=== PATIENT | female | born 1955 | race Caucasian/White ===

== ENCOUNTER 2016-09-15 12:32 | Observation (INO) ==
[2016-09-15 12:59] LABS: Basophils # 0.1 K/mcL (0.0-0.2); Basophils % 0.9 %; Eosinophils # 0.1 K/mcL (0.0-0.6); Eosinophils % 0.9 %; Hemoglobin 10.7 g/dL (11.5-15.4); Immature Granulocytes % 0.4 % (0-4); Lymphocytes # 1.4 K/mcL (0.6-4.6); Lymphocytes % 24.5 %; Mean Corpuscular HGB Conc 34.5 g/dL (31.6-35.5); Mean Corpuscular Hemoglobin 32.9 pg (28.0-33.3); Mean Corpuscular Volume 95.4 fL (83.0-100.0); Mean Platelet Volume 10.5 fL (9.4-12.4); Monocytes # 0.3 K/mcL (0.0-1.3); Monocytes % 5.4 %; Neutrophils # 3.8 K/mcL (1.6-8.9); Platelet Count 206 K/mcL (140-400); Red Blood Count 3.25 M/mcL (3.82-4.97); Red Cell Distribution Width 12.1 % (11.5-14.5); Segmented Neutrophils % 67.9 %
--- NOTE | 2016-09-15 13:02 | Emergency Department Note ---
Disposition Clinical Impression: RENE (acute kidney injury), Dehydration, UTI (urinary tract infection) Disposition: Admitted As Inpatient Condition: Good Abdominal Pain HPI - General Chief Complaint: ED Abdominal Pain Stated Complaint: Abd pain Time Seen by Provider: 09/15/16 12:34 Source: patient, EMS Nursing Notes Reviewed: Yes Vital Signs Reviewed: Yes - History of Present Illness Pain Scale: 10 - Related Data Home Medications Medication Instructions Recorded Confirmed Cholecalciferol (D-3) [Vitamin D] 5,000 unit PO DAILY 09/15/16 09/15/16 Ferrous Sulfate [Iron] 325 mg PO DAILY 09/15/16 09/15/16 Insulin Glargine,Hum.rec.anlog 10 unit SQ HS 09/15/16 09/15/16 [Lantus Solostar] Metoprolol XL (24 HR) Succ [Toprol 50 mg PO DAILY 09/15/16 09/15/16 XL] Sodium Bicarbonate 650 mg PO TID 09/15/16 09/15/16 Allergies Allergy/AdvReac Type Severity Reaction Status Date / Time No Known Allergies Allergy Verified 01/12/15 17:50 Abdominal Pain PMH - Past Medical History Medical history: Reports: CHF, COPD, CVA, diabetes, hyperlipidemia, hypertension , myocardial infarction Female Surgical History: Reports: cholecystectomy [employer] history: Reports: non-contributory Psychiatric history: Reports: no psych history - Social History Smoking status: Current every day smoker Alcohol use: Reports: none Drug use: Reports: none Physical Exam - General Limitations: no limitations General appearance: alert, in no apparent distress Course Vital Signs Temperature 97.7 F 09/15/16 12:34 Pulse Rate 68 09/15/16 12:34 Respiratory Rate 16 09/15/16 12:34 Blood Pressure 178/91 09/15/16 12:34 O2 Sat by Pulse Oximetry 100 09/15/16 12:34 Temperature 97.4 F L 09/15/16 15:51 Pulse Rate 64 09/15/16 15:51 Respiratory Rate 16 09/15/16 15:51 Blood Pressure 167/77 09/15/16 15:51 O2 Sat by Pulse Oximetry 98 09/15/16 15:51 Oxygen Delivery Oxygen Delivery Room Air Abdominal Pain - MDM Narrative Medical decision making narrative: I examined this patient and my medical decision-making was reviewed with the ACCOUNTS RECEIVABLE SPECIALIST/PA/Advanced Practice Nurse/Resident Physician. I agree with the documented findings, disposition and treatment plan as described except to the extent set forth below. Patient seen and evaluated by Dr. Kim and myself, I agree with his evaluation and management plan, I supervised the care of the patient throughout her stay. She presents with epigastric and right upper quadrant abdominal pain. She says she no longer has her gallbladder feels like goes into her back. No chest pain now but she said she did have a little pressure in her chest earlier. Nauseous but no vomiting no diarrhea no lower abdominal pain. Specifically to make her comfortable check an EKG lab work and reassess. She is in agreement with this plan. Chest X-Ray 09/15/16 12:38 IMPRESSION: No acute process. D/ / Moody Thomas MD / Moody Thomas MD Interpreting Provider: Moody Thomas MD 1400 hrs.: Patient's urinalysis is back shows large amount of white cells but no bacteria, also has elevation in creatinine from baseline of 2-1/2. This may be due to renal insufficiency answers no signs of bacteria this point. Waiting on CAT scan. Chest X-Ray 09/15/16 12:38 IMPRESSION: No acute process. D/ / Moody Thomas MD / Moody Thomas MD Interpreting Provider: Moody Thomas MD Abdomen/Pelvis CT 09/15/16 12:59 IMPRESSION: 1. No acute intra-abdominal or intrapelvic process. 2. Normal appendix. 3. No urinary stones or hydronephrosis. 4. Chronic right renal cortical scarring. 5. Patient status post cholecystectomy. D/ / Karthikeyan Mclain MD / Karthikeyan Mclain MD Interpreting Provider: Karthikeyan Mclain MD 1420 hrs.: Patient has elevation in her creatinine probably from dehydration. Her urinalysis looks like infection. CAT scan is negative. We will discuss with her regarding admission. She does see nephrology here Dr. Paz. - Lab Data Result diagrams: 09/15/16 12:46 09/15/16 12:46 Lab Results 09/15/16 09/15/16 09/15/16 Range/Units 12:46 12:46 12:46 WBC 5.6 (4.3-11.1) K/mcL RBC 3.25 L (3.82-4.97) M/mcL Hgb 10.7 L (11.5-15.4) g/dL Hct 31.0 L (35.3-44.9) % MCV 95.4 (83.0-100.0) fL MCH 32.9 (28.0-33.3) pg MCHC 34.5 (31.6-35.5) g/dL RDW 12.1 (11.5-14.5) % Plt Count 206 (140-400) K/mcL MPV 10.5 (9.4-12.4) fL Immature Gran % 0.4 (0-4) % Seg Neutrophils % 67.9 % Lymphocytes % 24.5 % Monocytes % 5.4 % Eosinophils % 0.9 % Basophils % 0.9 % Neutrophils # 3.8 (1.6-8.9) K/mcL Lymphocytes # 1.4 (0.6-4.6) K/mcL Monocytes # 0.3 (0.0-1.3) K/mcL Eosinophils # 0.1 (0.0-0.6) K/mcL Basophils # 0.1 (0.0-0.2) K/mcL Sodium 138 (136-145) mEq/L Potassium 4.0 (3.5-4.5) mEq/L Chloride 108 (98-109) mEq/L Carbon Dioxide 18 L (19-29) mEq/L BUN 32 H (7-20) mg/dL Creatinine 3.16 H (0.57-1.11) mg/dL Est GFR ( Amer) 18 L (> 60) Est GFR (Non-Af Amer) 15 L (> 60) BUN/Creatinine Ratio 10 (6-26) Glucose 314 H (70-99) mg/dL Calculated Osmolality 305 H (280-300) Calcium 9.0 (8.6-10.8) mg/dL Total Bilirubin 0.4 (0.2-1.2) mg/dL AST 11 (5-34) Units/L ALT 7 (0-55) Units/L Alkaline Phosphatase 207 H (38-126) Units/L Troponin I 0.01 (0-0.03) ng/mL Serum Total Protein 7.5 (6.0-8.3) g/dL Albumin 3.6 (3.5-5.0) g/dL Globulin 3.9 H (2.4-3.5) g/dL Albumin/Globulin Ratio 0.9 L (1.1-2.2) Lipase 36 (8-78) Units/L Urine Color (Yellow) Urine Clarity (Clear) Urine pH (5.0-8.0) pH Units Ur Specific [place] (1.010-1.025) Urine Protein (Neg-Trace) mg/dL Urine Glucose (UA) (Normal) mg/dL Urine Ketones (Negative) mg/dL Urine Blood (Negative) Urine Nitrite (Negative) Urine Bilirubin (Negative) Urine Urobilinogen (Normal) mg/dL Ur Leukocyte Esterase (Negative) Urine Microscopic RBC (0-3) per hpf Urine Microscopic WBC (0-3) per hpf Ur Squamous Epith Cells (None-Few) per lpf Urine Bacteria (None-Few) per hpf Hyaline Casts (None-Few) per lpf Ur Culture Indicated? (NO) 09/15/16 Range/Units 13:00 WBC (4.3-11.1) K/mcL RBC (3.82-4.97) M/mcL Hgb (11.5-15.4) g/dL Hct (35.3-44.9) % MCV (83.0-100.0) fL MCH (28.0-33.3) pg MCHC (31.6-35.5) g/dL RDW (11.5-14.5) % Plt Count (140-400) K/mcL MPV (9.4-12.4) fL Immature Gran % (0-4) % Seg Neutrophils % % Lymphocytes % % Monocytes % % Eosinophils % % Basophils % % Neutrophils # (1.6-8.9) K/mcL Lymphocytes # (0.6-4.6) K/mcL Monocytes # (0.0-1.3) K/mcL Eosinophils # (0.0-0.6) K/mcL Basophils # (0.0-0.2) K/mcL Sodium (136-145) mEq/L Potassium (3.5-4.5) mEq/L Chloride (98-109) mEq/L Carbon Dioxide (19-29) mEq/L BUN (7-20) mg/dL Creatinine (0.57-1.11) mg/dL Est GFR ( Amer) (> 60) Est GFR (Non-Af Amer) (> 60) BUN/Creatinine Ratio (6-26) Glucose (70-99) mg/dL Calculated Osmolality (280-300) Calcium (8.6-10.8) mg/dL Total Bilirubin (0.2-1.2) mg/dL AST (5-34) Units/L ALT (0-55) Units/L Alkaline Phosphatase (38-126) Units/L Troponin I (0-0.03) ng/mL Serum Total Protein (6.0-8.3) g/dL Albumin (3.5-5.0) g/dL Globulin (2.4-3.5) g/dL Albumin/Globulin Ratio (1.1-2.2) Lipase (8-78) Units/L Urine Color Yellow (Yellow) Urine Clarity Cloudy A (Clear) Urine pH 6.0 (5.0-8.0) pH Units Ur Specific [place] 1.015 (1.010-1.025) Urine Protein 30 H (Neg-Trace) mg/dL Urine Glucose (UA) >=1000 H (Normal) mg/dL Urine Ketones Negative (Negative) mg/dL Urine Blood Trace H (Negative) Urine Nitrite Positive A (Negative) Urine Bilirubin Negative (Negative) Urine Urobilinogen Normal (Normal) mg/dL Ur Leukocyte Esterase Large H (Negative) Urine Microscopic RBC 5-15 H (0-3) per hpf Urine Microscopic WBC 50-100 H (0-3) per hpf Ur Squamous Epith Cells Many H (None-Few) per lpf Urine Bacteria Many H (None-Few) per hpf Hyaline Casts None Seen (None-Few) per lpf Ur Culture Indicated? YES A (NO)
[2016-09-15 13:19] LABS: Albumin 3.6 g/dL (3.5-5.0); Albumin/Globulin Ratio 0.9 (1.1-2.2); Bilirubin,Total 0.4 mg/dL (0.2-1.2); Globulin 3.9 g/dL (2.4-3.5); Total Protein 7.5 g/dL (6.0-8.3)
[2016-09-15] MEDS ORDERED: *HR* FentaNYL (PF) 100 MCG/2 ML VIAL IVP ONE (13:22)
[2016-09-15 13:26] LABS: Bilirubin,Urine Negative (Negative); Blood,Urine Trace (Negative); Clarity,Urine Cloudy (Clear); Color,Urine Yellow (Yellow); Glucose,Urine (UA) >=1000 mg/dL (Normal); Ketones,Urine Negative (Negative); Leukocyte Esterase,Urine Large (Negative); Nitrite,Urine Positive (Negative); Protein,Urine 30 mg/dL (Neg-Trace); Specific Gravity,Urine 1.015 (1.010-1.025); Urobilinogen,Urine Normal (Normal)
[2016-09-15 13:30] LABS: Bacteria,Urine Many per hpf (None-Few); Hyaline Casts,Urine None Seen per lpf (None-Few); Squamous Epithelial Cell,Urine Many per lpf (None-Few); WBC,Urine 50-100 per hpf (0-3)
--- NOTE | 2016-09-15 13:30 | Emergency Department Note ---
Disposition Clinical Impression: RENE (acute kidney injury), Dehydration, UTI (urinary tract infection) Disposition: Admitted As Inpatient Condition: Good Referrals: NO,PCP [Non-Partnered Physician] - Forms: ED Satisfaction Letter, Work/School Release Time of Disposition: 14:49 Abdominal Pain HPI - General Chief Complaint: ED Abdominal Pain Stated Complaint: Abd pain Time Seen by Provider: 09/15/16 12:34 Source: patient, EMS Mode of arrival: ambulatory Limitations: no limitations Nursing Notes Reviewed: Yes Vital Signs Reviewed: Yes - History of Present Illness HPI Narrative: Patient presents to the ED with the chief complaint of acute onset abdominal pain. Patient states that about 2 hours ago or 2 hours prior to arrival. She was sitting and had onset of epigastric pain. States it feels sharp but also just feels a pain. It radiates up her right costal margin into her right flank. She states that her entire abdomen feels very distended. She has been nauseated. She has vomited a few times when she has tried to eat. To decreased appetite. Had a tactile fever but did not take anything for it. She has had no diarrhea or recent sick contacts. No foods out of the usual. States she has had her gallbladder out, but no other abdominal surgeries. No chest pain or shortness of breath. States she has not had a bowel movement today. Pain Scale: 10 - Related Data Allergies Allergy/AdvReac Type Severity Reaction Status Date / Time No Known Allergies Allergy Verified 01/12/15 17:50 All systems ED: reviewed and negative except as stated. Constitutional: Reports: fever (Subjective) Eyes: Denies: vision change ENT ED: Denies: congestion Cardiovascular: Denies: chest pain Respiratory: Denies: cough, dyspnea Gastrointestinal: Reports: abdominal pain, nausea, vomiting. Denies: diarrhea, constipation Genitourinary: Denies: dysuria Musculoskeletal: Reports: back pain. Denies: neck pain Integumentary: Denies: rash Neurological: Denies: headache Endocrine: Reports: fatigue Abdominal Pain PMH - Past Medical History Medical history: Reports: CHF, COPD, CVA, diabetes, hyperlipidemia, hypertension , myocardial infarction Female Surgical History: Reports: cholecystectomy [employer] history: Reports: non-contributory Psychiatric history: Reports: no psych history - Social History Smoking status: Current every day smoker Alcohol use: Reports: none Drug use: Reports: none Physical Exam - General Limitations: no limitations General appearance: alert, in no apparent distress - Head Head exam: atraumatic, normocephalic, normal inspection - Eye Eye exam: Present: normal appearance, PERRL, EOMI - Chest Chest inspection: Present: normal inspection, symmetric chest wall rise - Respiratory Respiratory exam: Present: normal lung sounds bilaterally - Cardiovascular Cardiovascular exam: Present: regular rate, normal rhythm, normal heart sounds - Abdominal Exam Abdominal exam: Present: soft, tenderness, distention, guarding (Diffuse voluntary guarding, worst in the right lower quadrant and left upper quadrant), hyperactive bowel sounds (Very hyperactive) Abdominal tenderness: Present: moderate - Extremities Exam Extremities exam: Present: normal inspection, full ROM. Absent: tenderness - Neurological Exam Neurological exam: Present: alert, oriented X3 - Psychiatric Psychiatric exam: Present: anxious - Skin Skin exam: Present: warm, dry, intact, normal color Course Course Narrative: 61 -year-old female presenting with a 3 hour history of abdominal pain. Patient is not in any distress but she looks pretty uncomfortable. Abdominal exams concerning. She could have a gastritis, but we will CT her abdomen, rule out appendicitis and diverticulitis. We will check labs and get her more comfortable. - Reevaluation(s) Reevaluation #1: Patient has a UTI. She also has acute on chronic renal insufficiency. We will admit her to the hospitalist service for rehydration and UTI treatment. Agreeable. Vital Signs Temperature 97.7 F 09/15/16 12:34 Pulse Rate 68 09/15/16 12:34 Respiratory Rate 16 09/15/16 12:34 Blood Pressure 178/91 09/15/16 12:34 O2 Sat by Pulse Oximetry 100 09/15/16 12:34 Temperature 97.7 F 09/15/16 12:34 Pulse Rate 65 09/15/16 13:30 Respiratory Rate 16 09/15/16 13:30 Blood Pressure 162/90 09/15/16 13:30 O2 Sat by Pulse Oximetry 100 09/15/16 13:30 Oxygen Delivery Oxygen Delivery Room Air Abdominal Pain - Medical Records Medical records reviewed: Yes I reviewed the patient's medical records. - Lab Data Lab results reviewed: Yes I reviewed the patient's lab results. Result diagrams: 09/15/16 12:46 09/15/16 12:46 Lab Results 09/15/16 09/15/16 09/15/16 Range/Units 12:46 12:46 12:46 WBC 5.6 (4.3-11.1) K/mcL RBC 3.25 L (3.82-4.97) M/mcL Hgb 10.7 L (11.5-15.4) g/dL Hct 31.0 L (35.3-44.9) % MCV 95.4 (83.0-100.0) fL MCH 32.9 (28.0-33.3) pg MCHC 34.5 (31.6-35.5) g/dL RDW 12.1 (11.5-14.5) % Plt Count 206 (140-400) K/mcL MPV 10.5 (9.4-12.4) fL Immature Gran % 0.4 (0-4) % Seg Neutrophils % 67.9 % Lymphocytes % 24.5 % Monocytes % 5.4 % Eosinophils % 0.9 % Basophils % 0.9 % Neutrophils # 3.8 (1.6-8.9) K/mcL Lymphocytes # 1.4 (0.6-4.6) K/mcL Monocytes # 0.3 (0.0-1.3) K/mcL Eosinophils # 0.1 (0.0-0.6) K/mcL Basophils # 0.1 (0.0-0.2) K/mcL Sodium 138 (136-145) mEq/L Potassium 4.0 (3.5-4.5) mEq/L Chloride 108 (98-109) mEq/L Carbon Dioxide 18 L (19-29) mEq/L BUN 32 H (7-20) mg/dL Creatinine 3.16 H (0.57-1.11) mg/dL Est GFR ( Amer) 18 L (> 60) Est GFR (Non-Af Amer) 15 L (> 60) BUN/Creatinine Ratio 10 (6-26) Glucose 314 H (70-99) mg/dL Calculated Osmolality 305 H (280-300) Calcium 9.0 (8.6-10.8) mg/dL Total Bilirubin 0.4 (0.2-1.2) mg/dL AST 11 (5-34) Units/L ALT 7 (0-55) Units/L Alkaline Phosphatase 207 H (38-126) Units/L Troponin I 0.01 (0-0.03) ng/mL Serum Total Protein 7.5 (6.0-8.3) g/dL Albumin 3.6 (3.5-5.0) g/dL Globulin 3.9 H (2.4-3.5) g/dL Albumin/Globulin Ratio 0.9 L (1.1-2.2) Lipase 36 (8-78) Units/L Urine Color (Yellow) Urine Clarity (Clear) Urine pH (5.0-8.0) pH Units Ur Specific [place] (1.010-1.025) Urine Protein (Neg-Trace) mg/dL Urine Glucose (UA) (Normal) mg/dL Urine Ketones (Negative) mg/dL Urine Blood (Negative) Urine Nitrite (Negative) Urine Bilirubin (Negative) Urine Urobilinogen (Normal) mg/dL Ur Leukocyte Esterase (Negative) Urine Microscopic RBC (0-3) per hpf Urine Microscopic WBC (0-3) per hpf Ur Squamous Epith Cells (None-Few) per lpf Urine Bacteria (None-Few) per hpf Hyaline Casts (None-Few) per lpf Ur Culture Indicated? (NO) 09/15/16 Range/Units 13:00 WBC (4.3-11.1) K/mcL RBC (3.82-4.97) M/mcL Hgb (11.5-15.4) g/dL Hct (35.3-44.9) % MCV (83.0-100.0) fL MCH (28.0-33.3) pg MCHC (31.6-35.5) g/dL RDW (11.5-14.5) % Plt Count (140-400) K/mcL MPV (9.4-12.4) fL Immature Gran % (0-4) % Seg Neutrophils % % Lymphocytes % % Monocytes % % Eosinophils % % Basophils % % Neutrophils # (1.6-8.9) K/mcL Lymphocytes # (0.6-4.6) K/mcL Monocytes # (0.0-1.3) K/mcL Eosinophils # (0.0-0.6) K/mcL Basophils # (0.0-0.2) K/mcL Sodium (136-145) mEq/L Potassium (3.5-4.5) mEq/L Chloride (98-109) mEq/L Carbon Dioxide (19-29) mEq/L BUN (7-20) mg/dL Creatinine (0.57-1.11) mg/dL Est GFR ( Amer) (> 60) Est GFR (Non-Af Amer) (> 60) BUN/Creatinine Ratio (6-26) Glucose (70-99) mg/dL Calculated Osmolality (280-300) Calcium (8.6-10.8) mg/dL Total Bilirubin (0.2-1.2) mg/dL AST (5-34) Units/L ALT (0-55) Units/L Alkaline Phosphatase (38-126) Units/L Troponin I (0-0.03) ng/mL Serum Total Protein (6.0-8.3) g/dL Albumin (3.5-5.0) g/dL Globulin (2.4-3.5) g/dL Albumin/Globulin Ratio (1.1-2.2) Lipase (8-78) Units/L Urine Color Yellow (Yellow) Urine Clarity Cloudy A (Clear) Urine pH 6.0 (5.0-8.0) pH Units Ur Specific [place] 1.015 (1.010-1.025) Urine Protein 30 H (Neg-Trace) mg/dL Urine Glucose (UA) >=1000 H (Normal) mg/dL Urine Ketones Negative (Negative) mg/dL Urine Blood Trace H (Negative) Urine Nitrite Positive A (Negative) Urine Bilirubin Negative (Negative) Urine Urobilinogen Normal (Normal) mg/dL Ur Leukocyte Esterase Large H (Negative) Urine Microscopic RBC 5-15 H (0-3) per hpf Urine Microscopic WBC 50-100 H (0-3) per hpf Ur Squamous Epith Cells Many H (None-Few) per lpf Urine Bacteria Many H (None-Few) per hpf Hyaline Casts None Seen (None-Few) per lpf Ur Culture Indicated? YES A (NO) - Radiology Data Radiology results reviewed: Yes I reviewed the patient's radiology results. - EKG Data EKG attestation: Yes I reviewed and interpreted this EKG. EKG results narrative: Sinus rhythm, rate 75, [place] interval 156, QRS 84, QTC 392, and normal axis, no ischemic changes. S.B.A.R. - S.B.A.R. Situation: Demographics, MOA Background: Presenting Complaint, Relevant PMH, Meds, & Allergies Assessment: Vital Signs, Course and respsone to treatment, Exam Concerns, Patient/Family Expectation, Pertinant Lab Results, Outstanding Labs Recommendation: Recommendation based on pending studies, treatments, or consults Wagner Report Given to: Dr. Cee for admission Wagner Repor Time: 14:48
[2016-09-15] MEDS ORDERED: 0.9 % Sodium Chloride 1,000 ML IVC ONE (14:20)
[2016-09-15] MEDS ORDERED: *HR* HYDROmorphone (PF) 1 MG/ML SYRINGE IVP ONE (14:51)
[2016-09-15] MEDS ORDERED: Naloxone 0.4 MG/ML INJ IVP PRN (15:12)
[2016-09-15] MEDS ORDERED: Acetaminophen 325 MG TABLET PO PRN (15:15)
--- NOTE | 2016-09-15 15:59 | Internal Med History&Physical ---
Date of Encounter: 09/15/16 Time of Encounter: 15:52 Assessment and Plan (1) Ksmef-wu-qlahbaf kidney injury Current visit: Yes Status: Acute 1 patient does have history of CK D stage IV patient appears to be dehydrated creatinine is 3.16 days lines around 2. We will monitor creatinine 2 we will give gentle IV fluids overnight 3 monitor intake and output 4 daily weights 5 avoid nephrotoxins 6 (2) UTI (urinary tract infection) Current visit: Yes Status: Acute 1 patient urinalysis positive with blood glucose esterase and nitrates. Patient has no leukocytosis no fever at this time symptoms of frequency and urgency. Urine cultures have been sent 2 we will continue with IV Rocephin 3 we will give gentle IV fluids Qualifiers: Urinary tract infection type: acute cystitis Hematuria presence: with hematuria Qualified Code(s): N30.01 - Acute cystitis with hematuria (3) Metabolic acidosis Current visit: Yes Status: Acute 1 bicarbonate is 18 this appears to be chronic related to patient's kidney disease aggravated by dehydration. We will continue with patient's oral bicarbonate 650 3 times a day 2 we will give gentle IV fluids 3 monitor lab work (4) HTN (hypertension) Current visit: Yes Status: Chronic 1. Patient's systolics around 160 on metoprolol will add Norvasc 5 mg goal is systolic less than 140 2 low sodium diet Qualifiers: Hypertension type: essential hypertension Qualified Code(s): I10 - Essential (primary) hypertension (5) Dehydration Current visit: Yes Status: Acute 1 gentle IV fluids 2 Zofran for nausea 3 encourage oral intake 4 monitor MERE 5 monitor chemistry (6) Diabetes mellitus Current visit: Yes Status: Acute 1 accu-Cheks before meals at bedtime with basal and sliding scale insulin 2 diabetic diet Qualifiers: Diabetes mellitus type: type 2 Diabetes mellitus complication status: with kidney complications Diabetes mellitus complication detail: with chronic kidney disease Diabetes mellitus retirement insulin use: with intermediate frame tender use Chronic kidney disease stage: stage 4 (severe) Qualified Code(s): E11.22 - Type 2 diabetes mellitus with diabetic chronic kidney disease; N18.4 - Chronic kidney disease, stage 4 (severe); Z79.4 - long term care administrator (current) use of insulin (7) DVT prophylaxis Current visit: Yes Status: Acute 1 heparin subcutaneous Internal Medicine - H&P: HPI Chief complaint: abd pain Admitted From: Emergency Dept Plans for Post Hospital Care: Home History of present illness: Ms. Gallegos is a 61 year old female past medical history of CHF COPD CVA diabetes hyperlipidemia hypertension and KS CK D stage 4. Screening the patient she began to experience sudden onset of sharp epigastric pain that radiated up her right costal margin into her right flank. There were no aggravating or relieving factors. She stated that her abdomen felt distended she has been nauseated and vomited 8 times she would try to eat. She had decreased appetite she denies any diarrhea or sick contacts hematemesis, hematochezia or melena. No chest pain or shortness of breath She admits to subjective fever she did have her gallbladder out no other abdominal surgeries. She presented to the ER with above complaints. According to ER workup lab work did reveal elevated creatinine at 3.16. Her baseline is around 2 no leukocytosis troponin was 0.01. Patient's bicarbonate is 18 which appears to be chronic. Urinalysis positive for blood large leukoesterase positive for nitrates. CT of abdomen was negative for any acute intra-abdominal or intrapelvic process chest x-ray with no acute process. Blood cultures were obtained patient was given IV fluids as well as Rocephin IV she has been admitted for further workup and evaluation. Presently the patient denies any nausea or abdominal pain. Abdomen is soft tender in right upper quadrant to right flank. Patient does admit to urinary frequency and urgency however denies any dysuria or hematuria Lung sounds are clear heart sounds are regular S1 and S2 with no clicks gallops rubs murmurs noted she is hemodynamically stable at this time I reviewed this case with Dr. Cee who agrees with plan. Past Med Surg Social Fam HX - Past Medical History Medical history: CHF, COPD, CVA, diabetes, hyperlipidemia, hypertension, myocardial infarction Psychiatric history: no psych history - Past Surgical History Surgical History: cholecystectomy, other - Social History Smoking Status: Current every day smoker Smokeless Tobacco Status: No Alcohol use: none Drug use: none - Family History Mother Living Status: Still Living Hx Family Cardiac Disorders: Yes (ypertension) Hx Family Neurologic Disorders: Yes (CVA) Father Living Status: Cause of : Diabetes Internal Medicine - H&P: Meds Cholecalciferol (D-3) [Vitamin D] 5,000 unit PO DAILY 09/15/16 [History] Ferrous Sulfate [Iron] 325 mg PO DAILY 09/15/16 [History] Insulin Glargine,Hum.rec.anlog [Lantus Solostar] 10 unit SQ HS 09/15/16 [History ] Metoprolol XL (24 HR) Succ [Toprol XL] 50 mg PO DAILY 09/15/16 [History] Sodium Bicarbonate 650 mg PO TID 09/15/16 [History] Allergies No Known Allergies Allergy (Verified 01/12/15 17:50) All Systems PM: A 10-system review of systems was performed and is negative for pertinent findings except as documented above in the HPI. - Constitutional Constitutional: anorexia, fever(s) - Cardiovascular Cardiovascular ROS IM: no chest pain, no diaphoresis, no dyspnea, no lightheadedness, no palpitations, no syncope - Respiratory Respiratory: no cough, no dyspnea, no wheezing, no excessive phlegm production - Gastrointestinal Gastrointestinal: abdominal pain, nausea, vomiting - Genitourinary Genitourinary: urinary frequency, urinary urgency - Musculoskeletal Musculoskeletal ROS IM: no numbness, no tingling - Integumentary Integumentary IM: no rash, no unusual bruising - Neurological Neurological ROS: no confusion, no convulsions, no focal weakness, no numbness, no tingling, no tremor(s) - Constitutional Vitals: Temp Pulse Resp BP Pulse Ox 97.7 F 70 16 168/85 100 09/15/16 12:34 09/15/16 15:09 09/15/16 15:17 09/15/16 15:17 09/15/16 15:09 General appearance: Present: A&O X 3, answers questions appropriately - Head Head exam: Present: atraumatic, normocephalic - Eye Eye exam: Present: PERRL, conjuntiva pink, sclera anicteric Pupils: Present: PERRL - Neck Neck exam general surgery: Present: supple, trachea midline. Absent: lymphadenopathy - Respiratory Respiratory exam: Present: CTAB. Absent: accessory muscle use, rales, rhonchi, wheezes - Cardiovascular Cardiovascular exam: Present: RRR, +S1, +S2. Absent: diastolic murmur, gallop, rubs, systolic murmur - GI/Abdominal GI/Abdominal exam: Present: normal bowel sounds, soft, no peritoneal signs. Absent: distended, tenderness - Extremities Exam Extremities exam: Present: warm, radial pulses palpable and symetrical. Absent : calf tenderness, cyanotic, pedal edema Additional comments: Left BKA with prosthetic limb - Neurological Exam Neurological exam: Present: CN II-XII intact, oriented X3, no focal deficits. Absent: pronater drift, facial droop, speech deficit - Skin Skin exam: Present: dry, intact Internal Med - H&P Results - Labs CBC & Chem 7: 09/15/16 12:46 09/15/16 12:46 - EKG Data EKG shows normal: sinus rhythm - EKG Data Prior EKG available for review: yes When compared to previous EKG: there is no significant change - Diagnostic Studies Chest x-ray Additional comments: Chest X-Ray 09/15/16 12:38 IMPRESSION: No acute process. D/ / Moody Thomas MD / Moody Thomas MD Interpreting Provider: Moody Thomas MD Abdomen/Pelvis CT 09/15/16 12:59 IMPRESSION: 1. No acute intra-abdominal or intrapelvic process. 2. Normal appendix. 3. No urinary stones or hydronephrosis. 4. Chronic right renal cortical scarring. 5. Patient is status post cholecystectomy. D/ / 09/15/2016 14:46:01 Karthikeyan Mclain MD / pebbles Interpreting Provider: Karthikeyan Mclain MD
[2016-09-15] MEDS: 0.9 % Sodium Chloride 1,000 ML IVC SCH ×2 (16:07→21:30)
[2016-09-15] MEDS ORDERED: *HR* Dextrose 50 % in Water (Syg) 50 ML SYRINGE IVP PRN (16:09)
[2016-09-15] MEDS ORDERED: D5% in Water 1,000 ML IVC PRN (16:09)
[2016-09-15] MEDS ORDERED: Dextrose Gel 15 GM PO PRN ×2 (16:09)
--- NOTE | 2016-09-15 16:28 | Event Note ---
Date of Encounter: 09/15/16 Time of Encounter: 16:27 Patient seen and examined with nurse practitioner. Urinary tract infection and acute kidney injury. Will give ceftriaxone and hydrate. Systolic hypertension will continue metoprolol and add Norvasc 5 mg daily. Check hemoglobin A-1 C. Suspect noncompliance
[2016-09-15] MEDS: Insulin LISPRO 300 UNITS/3 ML VIAL SQ SCH ×2 (17:01→20:19)
[2016-09-15] MEDS: *HR* HYDROcodone/Acet 5/325 mg TABLET PO PRN ×2 (17:01→21:03)
[2016-09-15] MEDS: amLODIPine 5 MG TABLET PO SCH (17:01)
[2016-09-15] MEDS: *HR* Heparin 5,000 UNIT/ML VIAL SQ SCH (18:04)
[2016-09-15] MEDS: *HR* Morphine 2 MG/ML SYRINGE IVP PRN ×2 (18:23→23:43)
[2016-09-15] MEDS ORDERED: Insulin DETEMIR 100 UNIT/ML X5UNITS SQ SCH (21:00)
[2016-09-16] MEDS: *HR* Morphine 2 MG/ML SYRINGE IVP PRN ×4 (04:32→19:35)
[2016-09-16] MEDS: *HR* Heparin 5,000 UNIT/ML VIAL SQ SCH ×2 (05:50→17:52)
[2016-09-16 06:08] LABS: Basophils % 0.7 %; Eosinophils # 0.1 K/mcL (0.0-0.6); Eosinophils % 1.8 %; Hematocrit 25.6 % (35.3-44.9); Immature Granulocytes % 0.2 % (0-4); Lymphocytes # 1.8 K/mcL (0.6-4.6); Lymphocytes % 38.6 %; Mean Corpuscular HGB Conc 33.6 g/dL (31.6-35.5); Mean Corpuscular Hemoglobin 32.3 pg (28.0-33.3); Mean Corpuscular Volume 96.2 fL (83.0-100.0); Mean Platelet Volume 10.3 fL (9.4-12.4); Monocytes # 0.4 K/mcL (0.0-1.3); Monocytes % 8.1 %; Neutrophils # 2.3 K/mcL (1.6-8.9); Platelet Count 167 K/mcL (140-400); Red Blood Count 2.66 M/mcL (3.82-4.97); Red Cell Distribution Width 12.2 % (11.5-14.5); Segmented Neutrophils % 50.6 %
[2016-09-16 06:14] LABS: Hemoglobin 8.6 g/dL (11.5-15.4)
[2016-09-16 06:21] LABS: Calcium 8.4 mg/dL (8.6-10.8); Potassium 3.7 mEq/L (3.5-4.5)
[2016-09-16] MEDS: Insulin LISPRO 300 UNITS/3 ML VIAL SQ SCH ×4 (08:53→21:39)
[2016-09-16] MEDS: amLODIPine 5 MG TABLET PO SCH (08:54)
[2016-09-16] MEDS: Metoprolol XL (24 HR) Succ 50 MG TAB.ER.24H PO SCH (08:54)
[2016-09-16] MEDS: 0.9 % Sodium Chloride 1,000 ML IVC SCH (09:17)
[2016-09-16] MEDS: *HR* HYDROcodone/Acet 5/325 mg TABLET PO PRN (10:09)
[2016-09-16] MEDS: Ondansetron 4 MG/2 ML VIAL IVP PRN (15:50)
--- NOTE | 2016-09-16 16:47 | Internal Med Progress Note ---
Date of Encounter: 09/16/16 Time of Encounter: 14:00 - Assessment and plan (1) UTI (urinary tract infection) Current Visit: Yes Status: Acute Assessment and plan: Preliminary culture consistent with gram-negative rods 2. Continue ceftriaxone. Sensitivities pending. Vital signs are stable, no signs of sepsis. Chest x-ray negative. Abdominal pelvic CT negative for acute processes. Patient's pain is currently controlled with pain medication. Last bowel movement yesterday. ITS Impressions Chest X-Ray 09/15/16 12:38 IMPRESSION: No acute process. D/ / Moody Thomas MD / Moody Thomas MD Interpreting Provider: Moody Thomas MD Abdomen/Pelvis CT 09/15/16 12:59 IMPRESSION: 1. No acute intra-abdominal or intrapelvic process. 2. Normal appendix. 3. No urinary stones or hydronephrosis. 4. Chronic bilateral renal cortical scarring. 5. Patient status post cholecystectomy. D/ / 09/15/2016 14:46:01 Karthikeyan Mclain MD / pebbles Interpreting Provider: Karthikeyan Mclain MD Qualifiers: Urinary tract infection type: acute cystitis Hematuria presence: with hematuria Qualified Code(s): N30.01 - Acute cystitis with hematuria (2) Dehydration Current Visit: Yes Status: Resolved (3) CKD (chronic kidney disease) stage 4, GFR 15-29 ml/min Current Visit: Yes Status: Chronic Assessment and plan: Mild acute kidney injury superimposed on chronic kidney disease upon presentation has resolved, she is currently trending with her baseline. (4) CVA, old, hemiparesis Current Visit: Yes Status: Chronic (5) HTN (hypertension) Current Visit: Yes Status: Chronic Assessment and plan: Hypertensive upon arrival. Metoprolol 50 mg daily was continued and amlodipine 5 mg was added to her regimen. Blood pressure better controlled today, we will continue to trend. Qualifiers: Hypertension type: essential hypertension Qualified Code(s): I10 - Essential (primary) hypertension (6) Metabolic acidosis Current Visit: Yes Status: Resolved (7) DVT prophylaxis Current Visit: Yes Status: Acute Assessment and plan: Subcutaneous heparin (8) Diabetes mellitus Current Visit: Yes Status: Chronic Assessment and plan: Appears relatively well controlled, no recent A1c, will check with a.m. labs. Continue sliding scale while admitted. 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 On examination, patient sitting upright in her bed conversing with family and watching television. Patient stating she is still having abdominal pain but states it is currently controlled with pain medication. She denies nausea and states that she is eating well. - Constitutional Vitals: Temp Pulse Resp BP Pulse Ox 98.0 F 56 16 147/73 98 09/16/16 15:08 09/16/16 15:08 09/16/16 15:08 09/16/16 15:08 09/16/16 15:08 General appearance: Present: A&O X 3, pleasant, no acute distress, answers questions appropriately - Head Head exam: Present: atraumatic, normocephalic - Eye Eye exam: Present: PERRL, conjuntiva pink, sclera anicteric Pupils: Present: PERRL - Neck Neck exam general surgery: Present: supple, trachea midline. Absent: lymphadenopathy - Respiratory Respiratory exam: Present: CTAB. Absent: accessory muscle use, rales, respiratory distress, rhonchi, wheezes - Cardiovascular Cardiovascular exam: Present: RRR, +S1, +S2. Absent: diastolic murmur, gallop, rubs, systolic murmur - GI/Abdominal GI/Abdominal exam: Present: normal bowel sounds, soft, tenderness, no peritoneal signs. Absent: distended - Extremities Exam Extremities exam: Present: warm, radial pulses palpable and symetrical. Absent : calf tenderness, cyanotic, pedal edema - Neurological Exam Neurological exam: Present: alert, CN II-XII intact, oriented X3, no focal deficits, strengths equal and symetr throughout. Absent: pronater drift, facial droop, speech deficit - Skin Skin exam: Present: dry, intact, pallor, warm Internal Medicine: Result - Labs CBC & Chem 7: 09/16/16 05:27 09/16/16 05:27 Labs: Short CBC 09/16/16 Range/Units 05:27 WBC 4.6 (4.3-11.1) K/mcL Hgb 8.6 L D (11.5-15.4) g/dL Hct 25.6 L (35.3-44.9) % Plt Count 167 (140-400) K/mcL Neutrophils # 2.3 (1.6-8.9) K/mcL BMP 09/16/16 05:27 Sodium 140 Potassium 3.7 Chloride 111 H Carbon Dioxide 20 BUN 29 H Creatinine 2.78 H Glucose 136 H Calcium 8.4 L Consult Discharge Plan - Plan Referrals: Tej Vega, OUTSIDE BARREL LATHE OPERATOR [Primary Care Provider] -
[2016-09-16] MEDS ORDERED: Insulin DETEMIR 100 UNIT/ML X5UNITS SQ SCH (21:00)
[2016-09-16] MEDS ORDERED: *HR* Promethazine 25 MG/ML VIAL IVP ONE (21:33)
[2016-09-17 04:57] LABS: Basophils % 0.7 %; Eosinophils # 0.1 K/mcL (0.0-0.6); Eosinophils % 1.1 %; Hematocrit 26.4 % (35.3-44.9); Hemoglobin 8.8 g/dL (11.5-15.4); Immature Granulocytes % 0.4 % (0-4); Lymphocytes % 44.9 %; Mean Corpuscular HGB Conc 33.3 g/dL (31.6-35.5); Mean Corpuscular Hemoglobin 32.4 pg (28.0-33.3); Mean Corpuscular Volume 97.1 fL (83.0-100.0); Mean Platelet Volume 10.6 fL (9.4-12.4); Monocytes # 0.4 K/mcL (0.0-1.3); Platelet Count 161 K/mcL (140-400); Red Blood Count 2.72 M/mcL (3.82-4.97); Red Cell Distribution Width 11.9 % (11.5-14.5); Segmented Neutrophils % 43.9 %
[2016-09-17 05:13] LABS: Calcium 8.4 mg/dL (8.6-10.8); Potassium 3.9 mEq/L (3.5-4.5)
[2016-09-17 05:17] LABS: Hemoglobin A1C 6.2 %
[2016-09-17] MEDS: *HR* Heparin 5,000 UNIT/ML VIAL SQ SCH (05:41)
[2016-09-17] MEDS: *HR* Morphine 2 MG/ML SYRINGE IVP PRN (06:45)
[2016-09-17] MEDS: amLODIPine 5 MG TABLET PO SCH (08:16)
[2016-09-17] MEDS: Metoprolol XL (24 HR) Succ 50 MG TAB.ER.24H PO SCH (08:16)
[2016-09-17] MEDS: Insulin LISPRO 300 UNITS/3 ML VIAL SQ SCH ×2 (08:17→12:18)
[2016-09-17] MEDS: Ondansetron 4 MG/2 ML VIAL IVP PRN (09:43)
[2016-09-17 10:58] VITALS: BP 127/71
--- NOTE | 2016-09-17 12:27 | Discharge Summary ---
Date of Encounter: 09/17/16 Time of Encounter: 09:30 - Discharge Diagnosis (1) UTI (urinary tract infection) Priority: Primary Status: Acute Comments: Urine culture consistent with 2 bacteria one of which has been identified as pansensitive Klebsiella pneumonia. Treated with ceftriaxone while admitted, no known drug allergies, will send home on Cipro. Qualifiers: Urinary tract infection type: acute cystitis Hematuria presence: with hematuria Qualified Code(s): N30.01 - Acute cystitis with hematuria (2) Klebsiella pneumoniae infection Priority: Primary Status: Acute (3) Dehydration Priority: Primary Status: Resolved (4) CKD (chronic kidney disease) stage 4, GFR 15-29 ml/min Priority: Secondary Status: Chronic Comments: Mild acute kidney injury superimposed on chronic kidney disease upon presentation has resolved, she is currently trending with her baseline. (5) CVA, old, hemiparesis Priority: Secondary Status: Chronic (6) HTN (hypertension) Priority: Secondary Status: Chronic Comments: Hypertensive upon arrival. Metoprolol 50 mg daily was continued and amlodipine 5 mg was added to her regimen. Blood pressure better controlled , follow-up outpatient and keep a daily blood pressure log Qualifiers: Hypertension type: essential hypertension Qualified Code(s): I10 - Essential (primary) hypertension (7) Metabolic acidosis Priority: Primary Status: Resolved (8) DVT prophylaxis Priority: Primary Status: Acute Comments: Subcutaneous heparin while admitted (9) Diabetes mellitus Priority: Secondary Status: Chronic Comments: Controlled at home with an A1c of 6.2%. Follow-up outpatient. Qualifiers: Diabetes mellitus type: type 2 Diabetes mellitus complication status: with kidney complications Diabetes mellitus complication detail: with chronic kidney disease Diabetes mellitus financial advisor trainee insulin use: with assisted use Chronic kidney disease stage: stage 4 (severe) Qualified Code(s): E11.22 - Type 2 diabetes mellitus with diabetic chronic kidney disease; N18.4 - Chronic kidney disease, stage 4 (severe); Z79.4 - correction (current) use of insulin - Discharge Medications Prescriptions: Amlodipine [Norvasc] 5 mg PO DAILY #30 tablet Ciprofloxacin HCl [Cipro] 250 mg PO BID #20 tab HYDROcodone/Acet 5/325 mg [[place] 5-325 mg] 1 tab PO Q6H PRN #15 tablet PRN Reason: Pain Ondansetron HCl 4 mg PO Q6H PRN #12 tablet PRN Reason: Nausea And Vomiting Home Medications: Cholecalciferol (D-3) [Vitamin D] 5,000 unit PO DAILY 09/15/16 [History] Ferrous Sulfate [Iron] 325 mg PO DAILY 09/15/16 [History] Insulin Glargine,Hum.rec.anlog [Lantus Solostar] 10 unit SQ HS 09/15/16 [History ] Metoprolol XL (24 HR) Succ [Toprol Xl] 50 mg PO DAILY 09/15/16 [History] Sodium Bicarbonate 650 mg PO TID 09/15/16 [History] Amlodipine [Norvasc] 5 mg PO DAILY #30 tablet 09/17/16 [Rx] Ciprofloxacin HCl [Cipro] 250 mg PO BID #20 tab 09/17/16 [Rx] HYDROcodone/Acet 5/325 mg [[place] 5-325 mg] 1 tab PO Q6H PRN #15 tablet 09/17/16 [Rx] Ondansetron HCl 4 mg PO Q6H PRN #12 tablet 09/17/16 [Rx] Allergies/Adverse Reactions: Allergies No Known Allergies Allergy (Verified 01/12/15 17:50) Date of admission: 09/15/16 14:58 Primary care physician: Tej Vega CNP Discharging clinician: Stephanie Barraza Anticipated date of discharge: 09/17/16 - Patient Status Disposition: Home, Self-Care Condition: Good Functional capacity at discharge: independent ambulation Overall status at discharge: patient is progressing back to baseline - Discharge Instructions Follow Up With: Tej Vega CNP [Primary Care Provider] - Additional Instructions: Follow-up with primary care provider within one to 2 weeks - Diet and Activity Activity: increase activity as tolerated Diet: diabetic diet, low fat, low cholesterol, low salt diet Hospital course: Ms. Gallegos is a 61 year old female with past medical history of CHF, COPD, CVA with resultant hemiparesis, left prosthetic leg, diabetes, hyperlipidemia, hypertension, chronic kidney disease stage IV, prior cholecystectomy. Patient presented to the emergency department chief complaint of sudden onset of sharp epigastric pain that radiated to her right flank. She denied aggravating or relieving factors. She stated that her abdomen also felt distended and she was nauseated and had vomited several times prior to arrival. She also endorses decreased appetite. She denied diarrhea or sick contacts. She denied any hematemesis, hematochezia, or melena. She denied chest pain or shortness of breath. She did endorse subjective fever. Workup in the emergency department notable for abnormal urinalysis consistent with urinary tract infection. Chest x-ray negative. Abdominal pelvic CT unremarkable for acute processes. Patient was admitted to the hospitalist service for further evaluation and management. Initially in her admission, patient had mild acute kidney injury superimposed on her chronic kidney disease stage IV that resolved with IV fluids. She was able tolerate a regular diet while admitted. Her LFTs were unremarkable. She was hypertensive on her regular home medication of metoprolol so amlodipine was added to her regimen and she became normotensive. Regarding her urinary tract infection, culture report consistent with 2 strains of bacteria with 1 organism identified as pansensitive Klebsiella pneumonia. Patient was appropriately treated with ceftriaxone while admitted. No known drug allergies. Creatinine clearance on day of discharge calculated at 31 and the patient was sent home on renally dosed ciprofloxacin. Of note, there is a second organism in this culture that has yet to be identified, I will call the patient at home if her antibiotic needs changed. She is aware that if she does not receive a phone call that she is to continue to take her ciprofloxacin as ordered. Her anemia also remained stable. She was discharged home in stable condition with close outpatient follow-up recommended. She was also instructed to continue seeing her boat dispatcher, she follows closely with Dr. Murray outpatient. ITS Impressions Chest X-Ray 09/15/16 12:38 IMPRESSION: No acute process. D/ / Moody Thomas MD / Moody Thomas MD Interpreting Provider: Moody Thomas MD Abdomen/Pelvis CT 09/15/16 12:59 IMPRESSION: 1. No acute intra-abdominal or intrapelvic process. 2. Normal appendix. 3. No urinary stones or hydronephrosis. 4. Chronic bilateral renal cortical scarring. 5. Patient status post cholecystectomy. D/ / 09/15/2016 14:46:01 Karthikeyan Mclain MD / pebbles Interpreting Provider: Karthikeyan Mclain MD - Time Spent with Patient Total time spent providing and/or coordinating discharge services: - Constitutional Vitals: Temp Pulse Resp BP Pulse Ox 97.9 F 62 16 127/71 96 09/17/16 10:57 09/17/16 10:57 09/17/16 10:57 09/17/16 10:57 09/17/16 10:57 General appearance: Present: A&O X 3, pleasant, no acute distress, answers questions appropriately - Head Head exam: Present: atraumatic, normocephalic - Eye Eye exam: Present: PERRL, conjuntiva pink, sclera anicteric Pupils: Present: PERRL - Neck Neck exam general surgery: Present: supple, trachea midline. Absent: lymphadenopathy - Respiratory Respiratory exam: Present: CTAB. Absent: accessory muscle use, rales, respiratory distress, rhonchi, wheezes - Cardiovascular Cardiovascular exam: Present: RRR, +S1, +S2. Absent: diastolic murmur, gallop, rubs, systolic murmur - GI/Abdominal GI/Abdominal exam: Present: normal bowel sounds, soft, no peritoneal signs. Absent: distended, tenderness - Extremities Exam Extremities exam: Present: warm, radial pulses palpable and symetrical. Absent : calf tenderness, cyanotic, pedal edema Additional comments: prosthetic left leg - Neurological Exam Neurological exam: Present: alert, CN II-XII intact, oriented X3, no focal deficits, facial droop (mild; chronic). Absent: pronater drift, speech deficit - Skin Skin exam: Present: dry, intact, pallor, warm
--- NOTE | 2016-09-18 06:07 | Electrocardiograph Report ---
[place] [facility] Test Date: 2016-09-15 Pat Name: Kimberly Gallegos Department: 105 Room: 3B47 Gender: F Waist Cutter: AKIRA : [id number] Requested By: Abad Newman Order Number: [id number] Reading MD: Rodney Thompson DO Measurements Intervals [place] Rate: 75 P: 40 AL: 156 QRS: 5 QRSD: 84 T: 63 QT: 363 QTc: 392 Interpretive Statements SINUS RHYTHM VOLTAGE CRITERIA FOR LVH [MEETS CRITERIA IN ONE OF: R(aVL), S(V1), R(V5), R(V5/V6) +S(V1)] Electronically Signed On 09-18-2016 6:05:42 EDT by Rodney Thompson DO
== END 2016-09-17 13:35 | disposition home or self-care (01) ==
LOC: 3BNU 12:32 → EMEROO 12:32 → 3BNU 15:46
PROVIDERS: ADMIT Nurse Practitioner Family; ATTEND Nurse Practitioner Family

== ENCOUNTER 2016-11-03 16:43 | Inpatient (IN) ==
[2016-11-03] MEDS ORDERED: 0.9 % Sodium Chloride 1,000 ML IVC ONE (21:02)
[2016-11-03] MEDS ORDERED: *HR* HYDROmorphone (PF) 1 MG/ML SYRINGE IVP ONE (21:13)
[2016-11-03] MEDS ORDERED: Ondansetron 4 MG/2 ML VIAL IVP ONE (21:13)
--- NOTE | 2016-11-03 21:38 | Emergency Department Note ---
Disposition Clinical Impression: Abdominal pain Qualifiers: Abdominal location: epigastric Qualified Code(s): R10.13 - Epigastric pain CKD (chronic kidney disease) Qualifiers: Chronic kidney disease stage: stage 4 (severe) Qualified Code(s): N18.4 - Chronic kidney disease, stage 4 (severe) Disposition: Admitted As Inpatient Condition: Good Time of Disposition: 22:32 Abdominal Pain HPI - General Chief Complaint: ED Abdominal Pain Stated Complaint: Kidney issue sent by DR Murray Time Seen by Provider: 11/03/16 20:53 Source: patient Mode of arrival: other (sent from doctors office) Limitations: no limitations Nursing Notes Reviewed: Yes Vital Signs Reviewed: Yes - History of Present Illness HPI Narrative: 61 year old female with PMHx of DM, hypercholesterolemia, HTN, depression, CHF, stroke, blood clots. Patient was sent today from web user experience strategist's office due to concerns for progressive decline in renal function (insetting o fheavy NSAID use ) and abdominal pain. There was concern for NSAID induced Peptic ulcer disease. Patient formerly had CKD stage 4, but she is nearing the point of needing dialysis at this time. Today, patient has CC of abdominal pain x6 weeks. SHe has not eaten in the past 4 days, and can intermittently keep down fluids. Patient is complaining of diffuse abdominal pain, 9/10. SHe describes the pain as stabbing. Pain is not relieved by anything. Laying down makes the pain worse, and pain does not radiate. Patient admits to nausea with about six episodes of vomiting today. SHe had about five episodes of diarrhea. She denies fever and chills. she denies chest pain, and admits to having shortness of breath. Pt Subjective Complaint: abdominal pain Onset (ago): month(s) Pain Scale: 10 - Related Data Home Medications Medication Instructions Recorded Confirmed Cholecalciferol (D-3) [Vitamin D] 5,000 unit PO DAILY 09/15/16 11/03/16 Ferrous Sulfate [Iron] 325 mg PO DAILY 09/15/16 11/03/16 Insulin Glargine,Hum.rec.anlog 10 unit SQ HS 09/15/16 11/03/16 [Lantus Solostar] Metoprolol XL (24 HR) Succ [Toprol 50 mg PO DAILY 09/15/16 11/03/16 Xl] Sodium Bicarbonate 650 mg PO TID 09/15/16 11/03/16 Previous Rx's Medication Instructions Recorded Ondansetron HCl 4 mg PO Q6H PRN #12 tablet 09/17/16 amLODIPine [Norvasc] 5 mg PO DAILY #30 tablet 09/17/16 HYDROcodone/Acet 5/325 mg [[place] 1 tab PO Q6H PRN #12 tab 09/26/16 5-325 mg] Hyoscyamine SL [Levsin SL] 0.125 mg SL TID 5 Days 10/16/16 Omeprazole [PriLOSEC] 40 mg PO DAILY #30 cap 10/26/16 Ondansetron ODT [Zofran ODT] 4 mg SL Q6HR PRN #14 tab.rapdis 10/26/16 Allergies Allergy/AdvReac Type Severity Reaction Status Date / Time No Known Allergies Allergy Verified 11/03/16 16:58 All systems ED: reviewed and negative except as stated. Abdominal Pain PMH - Past Medical History Medical history: Reports: CHF, COPD, CVA, diabetes, hyperlipidemia, hypertension , myocardial infarction, renal disease, other Female Surgical History: Reports: cholecystectomy, other STAFF NURSE ICU RESOURCE TEAM history: Reports: non-contributory Psychiatric history: Reports: depression - Social History Smoking status: Current every day smoker Alcohol use: Reports: none Drug use: Reports: none Physical Exam - General Limitations: no limitations General appearance: alert - Head Head exam: atraumatic - Eye Eye exam: Present: normal appearance - Neck Neck exam: Present: normal inspection, trachea midline - Chest Chest inspection: Present: normal inspection - Respiratory Respiratory exam: Present: normal lung sounds bilaterally - Cardiovascular Cardiovascular exam: Present: regular rate, normal rhythm, +S1, +S2. Absent: rubs, gallop - Abdominal Exam Abdominal exam: Present: soft, tenderness, other (severe epigastric tenderness to palpation, on left and right. no guarding noted. ) Course Vital Signs Temperature 98 F 11/03/16 16:58 Pulse Rate 87 11/03/16 16:58 Respiratory Rate 20 11/03/16 16:58 Blood Pressure 147/88 11/03/16 16:58 O2 Sat by Pulse Oximetry 100 11/03/16 16:58 Temperature 98 F 11/03/16 16:58 Pulse Rate 70 11/03/16 22:31 Respiratory Rate 18 11/03/16 22:46 Blood Pressure 163/82 11/03/16 22:46 O2 Sat by Pulse Oximetry 98 11/03/16 22:31 Oxygen Delivery Oxygen Delivery Room Air,Nasal Cannula Abdominal Pain - MDM Narrative Medical decision making narrative: CT abdomen/pelvis showed No evidence of appendicitis, some liquid stool in right colon without inflammation or obstruction. There is renal cortical scarring with asymmetric right renal atrophy, no evidence of obstructive uropathy. CBC showed Hg 10.8, which is about baseline for this patient. BMP showed elevated Cr from baseline, GFR 13. Amylase, lipase normal. There is concern for peptic ulcer disease, and patient will likely need GI consult, and possible dialysis as well. Spoke with admitting hospitalist Dr. Spencer, who has accepted this patient for admission. - Medical Records Medical records reviewed: Yes I reviewed the patient's medical records. - Lab Data Lab results reviewed: Yes I reviewed the patient's lab results. Result diagrams: 11/03/16 22:09 11/03/16 22:09 Lab Results 11/03/16 11/03/16 11/03/16 Range/Units 22:09 22:09 22:09 WBC 7.5 (4.3-11.1) K/mcL RBC 3.39 L (3.82-4.97) M/mcL Hgb 10.8 L (11.5-15.4) g/dL Hct 31.1 L (35.3-44.9) % MCV 91.7 (83.0-100.0) fL MCH 31.9 (28.0-33.3) pg MCHC 34.7 (31.6-35.5) g/dL RDW 13.2 (11.5-14.5) % Plt Count 228 (140-400) K/mcL MPV 9.4 (9.4-12.4) fL Immature Gran % 0.3 (0-4) % Seg Neutrophils % 62.5 % Lymphocytes % 28.7 % Monocytes % 6.5 % Eosinophils % 1.5 % Basophils % 0.5 % Neutrophils # 4.7 (1.6-8.9) K/mcL Lymphocytes # 2.2 (0.6-4.6) K/mcL Monocytes # 0.5 (0.0-1.3) K/mcL Eosinophils # 0.1 (0.0-0.6) K/mcL Basophils # 0.0 (0.0-0.2) K/mcL Sodium 133 L (136-145) mEq/L Potassium 4.0 (3.5-4.5) mEq/L Chloride 106 (98-109) mEq/L Carbon Dioxide 11 L (19-29) mEq/L BUN 43 H (7-20) mg/dL Creatinine 3.56 H (0.57-1.11) mg/dL Est GFR ( Amer) 16 L (> 60) Est GFR (Non-Af Amer) 13 L (> 60) BUN/Creatinine Ratio 12 (6-26) Glucose 98 (70-99) mg/dL Calculated Osmolality 287 (280-300) Calcium 9.1 (8.6-10.8) mg/dL Total Bilirubin 0.3 (0.2-1.2) mg/dL AST 9 (5-34) Units/L ALT < 6 (0-55) Units/L Alkaline Phosphatase 135 H (38-126) Units/L Troponin I 0.01 (0-0.03) ng/mL Serum Total Protein 6.8 (6.0-8.3) g/dL Albumin 3.1 L (3.5-5.0) g/dL Globulin 3.7 H (2.4-3.5) g/dL Albumin/Globulin Ratio 0.8 L (1.1-2.2) Amylase 45 (25-125) Units/L Lipase 16 (8-78) Units/L
[2016-11-03 22:16] LABS: Basophils % 0.5 %; Eosinophils # 0.1 K/mcL (0.0-0.6); Eosinophils % 1.5 %; Hematocrit 31.1 % (35.3-44.9); Hemoglobin 10.8 g/dL (11.5-15.4); Immature Granulocytes % 0.3 % (0-4); Lymphocytes # 2.2 K/mcL (0.6-4.6); Lymphocytes % 28.7 %; Mean Corpuscular HGB Conc 34.7 g/dL (31.6-35.5); Mean Corpuscular Hemoglobin 31.9 pg (28.0-33.3); Mean Corpuscular Volume 91.7 fL (83.0-100.0); Mean Platelet Volume 9.4 fL (9.4-12.4); Monocytes # 0.5 K/mcL (0.0-1.3); Monocytes % 6.5 %; Neutrophils # 4.7 K/mcL (1.6-8.9); Platelet Count 228 K/mcL (140-400); Red Blood Count 3.39 M/mcL (3.82-4.97); Red Cell Distribution Width 13.2 % (11.5-14.5); Segmented Neutrophils % 62.5 %
--- NOTE | 2016-11-03 22:23 | Emergency Department Note ---
START Narrative - START START: I examined this patient and my medical decision-making was reviewed with the DIRECTOR OF SPEECH PATHOLOGY/PA/Advanced Practice Nurse/Resident Physician. I agree with the documented findings, disposition and treatment plan as described except to the extent set forth below. I discussed the patient spoke with her and record patient is being admitted or dialysis. Was sent here by the outer diameter technician. The patient is bright and alert and in no distress. She does have a history of diabetes. Social history: Smoker [id number]
[2016-11-03 22:32] LABS: Alanine Aminotransferase < 6 Units/L (0-55); Albumin 3.1 g/dL (3.5-5.0); Albumin/Globulin Ratio 0.8 (1.1-2.2); Alkaline Phosphatase 135 Units/L (38-126); Amylase 45 Units/L (25-125); Aspartate Amino Transferase 9 Units/L (5-34); BUN/Creatinine Ratio 12 (6-26); Bilirubin,Total 0.3 mg/dL (0.2-1.2); Blood Urea Nitrogen 43 mg/dL (7-20); Calcium 9.1 mg/dL (8.6-10.8); Carbon Dioxide 11 mEq/L (19-29); Chloride 106 mEq/L (98-109); Globulin 3.7 g/dL (2.4-3.5); Glucose 98 mg/dL (70-99); Lipase 16 Units/L (8-78); Osmolality,Calculated 287 (280-300); Sodium 133 mEq/L (136-145); Total Protein 6.8 g/dL (6.0-8.3); eGFR For African Americans 16 (> 60); eGFR For Non-African Americans 13 (> 60)
[2016-11-03] MEDS ORDERED: Ondansetron 4 MG/2 ML VIAL IVP PRN (23:08)
[2016-11-03] MEDS ORDERED: Naloxone 0.4 MG/ML INJ IVP PRN (23:08)
[2016-11-03] MEDS ORDERED: SODIUM BICARBONATE 650 MG PO SCH (23:30)
[2016-11-03] MEDS ORDERED: 0.9 % Sodium Chloride 1,000 ML IVC SCH (23:30)
[2016-11-03] MEDS ORDERED: *HR* Dextrose 50 % in Water (Syg) 50 ML SYRINGE IVP PRN (23:43)
[2016-11-03] MEDS ORDERED: Dextrose Gel 15 GM PO PRN ×2 (23:43)
[2016-11-03] MEDS ORDERED: D5% in Water 1,000 ML IVC PRN (23:43)
--- NOTE | 2016-11-03 23:54 | Internal Med History&Physical ---
<Tomeka Mike M - Last Filed: 11/04/16 00:20> Date of Encounter: 11/04/16 Time of Encounter: 23:49 Assessment and Plan (1) Acute kidney injury superimposed on chronic kidney disease Current visit: Yes Status: Acute Patient with stage 4 CKD, presenting from Dr. Murray's office with worsening renal function, today's creatinine 3.56 up from previous of 2.78. Patient has been taking ibuprofen and naproxen every day for the last 6 weeks due to abdominal pain, likely contributing to her acute injury. Reviewed Dr. Murray' s outpatient note. Will increase her dose of sodium bicarb and give her fluids. Avoid NSAIDs and other nephrotoxins. 1L bolus given in ED. Continue with 0.9NS at 100mL/hr Renal diet. check chemistry daily. Consult to nephrology. (2) Metabolic acidosis Current visit: No Status: Resolved Bicarb of 11. Reviewed Dr. Murray's note and will increase Sodium bicarb dose from 650mg TID to 1300mg TID. Will also start sodium bicarb drip at 75mL/ hr for 8hours. Check chemistry daily. Consult to nephrology. (3) Abdominal pain Current visit: Yes Status: Acute Patient reports abdominal pain for last 6 weeks. Recently has had nausea, vomiting and diarrhea. Denies black or bloody stools, denies coffee ground or bloody emesis. She has taken naproxen and ibuprofen for her abdominal pain. Maybe viral enteritis. Protonix IVP zofran PRN Hold NSAIDs tylenol and norco PRN for abdominal pain. Qualifiers: Abdominal location: epigastric Qualified Code(s): R10.13 - Epigastric pain (4) HTN (hypertension) Current visit: No Status: Chronic Continue home doses of metoprolol. Qualifiers: Hypertension type: essential hypertension Qualified Code(s): I10 - Essential (primary) hypertension (5) Diabetes mellitus Current visit: Yes Status: Chronic Check Hgb A1c. Check blood sugars ACHS sliding scale correction dose ACHS hypoglycemic protocol. Qualifiers: Diabetes mellitus type: type 2 Diabetes mellitus complication status: with kidney complications Diabetes mellitus complication detail: with chronic kidney disease Diabetes mellitus jail insulin use: with jail use Chronic kidney disease stage: stage 4 (severe) Qualified Code(s): E11.22 - Type 2 diabetes mellitus with diabetic chronic kidney disease; N18.4 - Chronic kidney disease, stage 4 (severe); Z79.4 - prison (current) use of insulin (6) DVT prophylaxis Current visit: No Status: Acute Sequential compression devices. Given patient's abdominal pain and significant recent NSAID use, risk for GI bleed is high and will hold off on pharmacologic prophylaxis. Internal Medicine - H&P: HPI Chief complaint: abdominal pain Admitted From: Emergency Dept Plans for Post Hospital Care: Home History of present illness: Ms. Gallegos is a 61 year old female ith hypertension, hyperlipidemia, [place], type 2 diabetes, COPD, chronic kidney disease presents to the emergency department today after being sent over by her mine wirer Dr. Murray for worsening kidney function. Patient presented to his office today and complained of abdominal pain for which she has been taking ibuprofen and naproxen for 6 weeks. Patient was unaware that these would cause harm to her kidneys as well as cause GI irritation. Patient reports abdominal pain for the past 6 weeks, nausea, poor appetite, occasional diarrhea. She denies any black or bloody stools, coffee-ground or bloody emesis. She reports occasional lightheadedness. She reports shortness of breath she associates with her COPD. She denies any chest pain, palpitations, numbness or tingling, fevers, chills or sweats. Patient's creatinine was 3.56 up from previous of 2.78. Bicarbonate was also low at 11. Potassium was normal at 4.0. Hemoglobin was 10.8, stable from recent previous results. CT of the abdomen and pelvis showed no acute findings, no appendicitis, liquid stool in the colon with no acute inflammation. Chest x-ray showed no acute process. On exam, patient alert and oriented, in no acute distress. Heart had regular rate and rhythm. Lungs had scattered wheezes. Abdomen was soft with normal bowel sounds. She had tenderness in right upper and left upper quadrants. Left lower extremity prosthesis. Right lower extremity pulses intact. Past Med Surg Social Fam HX - Past Medical History Medical history: CHF, COPD, CVA, diabetes, hyperlipidemia, hypertension, myocardial infarction, renal disease, other Psychiatric history: depression - Past Surgical History Surgical History: cholecystectomy, other (LLE BKA) - Social History Smoking Status: Current every day smoker (40 pack year history) Packs per day: 1 Smokeless Tobacco Status: No Alcohol use: none Drug use: none - Family History Mother Living Status: Still Living Hx Family Cardiac Disorders: Yes (hypertension) Hx Family Neuromuscular Disorders: Yes (CVA) Hx Family Neurologic Disorders: Yes (CVA) Father Living Status: Age at : 58 Hx Family Endocrine Disorder: Yes (diabetes) Internal Medicine - H&P: Meds Cholecalciferol (D-3) [Vitamin D] 5,000 unit PO DAILY 09/15/16 [History] Ferrous Sulfate [Iron] 325 mg PO DAILY 09/15/16 [History] Insulin Glargine,Hum.rec.anlog [Lantus Solostar] 10 unit SQ HS 09/15/16 [History ] Metoprolol XL (24 HR) Succ [Toprol Xl] 50 mg PO DAILY 09/15/16 [History] Sodium Bicarbonate 650 mg PO TID 09/15/16 [History] Ondansetron HCl 4 mg PO Q6H PRN #12 tablet 09/17/16 [Rx] amLODIPine [Norvasc] 5 mg PO DAILY #30 tablet 09/17/16 [Rx] HYDROcodone/Acet 5/325 mg [[place] 5-325 mg] 1 tab PO Q6H PRN #12 tab 09/26/16 [Rx ] Hyoscyamine SL [Levsin SL] 0.125 mg SL TID 5 Days 10/16/16 [Rx] Omeprazole [PriLOSEC] 40 mg PO DAILY #30 cap 10/26/16 [Rx] Ondansetron ODT [Zofran ODT] 4 mg SL Q6HR PRN #14 tab.rapdis 10/26/16 [Rx] Allergies No Known Allergies Allergy (Verified 11/03/16 16:58) All Systems PM: A 10-system review of systems was performed and is negative for pertinent findings except as documented above in the HPI. - Constitutional Constitutional: no chills, no fever(s), no night sweats - EENT Eyes: no change in vision, no discharge, no pain, no photophobia Ears: no ear discharge, no ear pain, no tinnitus Nose, mouth and throat: no dysphagia, no nasal discharge, no neck pain, no sore throat - Cardiovascular Cardiovascular ROS IM: dyspnea, lightheadedness, no chest pain, no diaphoresis, no palpitations, no syncope - Respiratory Respiratory: dyspnea, dyspnea on exertion, no cough, no wheezing, no excessive phlegm production - Gastrointestinal Gastrointestinal: diarrhea, nausea, vomiting, no abdominal pain, no hematemesis , no hematochezia, no melena - Genitourinary Genitourinary: no change in urinary stream, no dysuria, no flank pain, no hematuria - Musculoskeletal Musculoskeletal ROS IM: no numbness, no tingling - Integumentary Integumentary IM: no rash, no unusual bruising - Neurological Neurological ROS: no confusion, no convulsions, no focal weakness, no numbness, no tingling, no tremor(s) - Hematologic/Lymphatic Hematologic/Lymphatic: no easy bruising - Constitutional Vitals: Temp Pulse Resp BP Pulse Ox 97.8 F 78 16 186/80 100 11/03/16 23:26 11/03/16 23:26 11/03/16 23:26 11/03/16 23:26 11/03/16 23:26 General appearance: Present: A&O X 3, pleasant, no acute distress - Head Head exam: Present: atraumatic, normocephalic - Eye Eye exam: Present: PERRL, conjuntiva pink, sclera anicteric Pupils: Present: PERRL - Neck Neck exam general surgery: Present: supple, trachea midline. Absent: lymphadenopathy - Respiratory Respiratory exam: Present: wheezes. Absent: accessory muscle use, rales, rhonchi - Cardiovascular Cardiovascular exam: Present: RRR, +S1, +S2. Absent: diastolic murmur, gallop, rubs, systolic murmur - GI/Abdominal GI/Abdominal exam: Present: normal bowel sounds, soft, tenderness, no peritoneal signs. Absent: distended - Extremities Exam Extremities exam: Present: warm, radial pulses palpable and symetrical. Absent : calf tenderness, cyanotic, pedal edema - Neurological Exam Neurological exam: Present: CN II-XII intact, oriented X3, no focal deficits. Absent: facial droop, speech deficit - Skin Skin exam: Present: dry, intact Internal Med - H&P Results - Labs CBC & Chem 7: 11/03/16 22:09 11/03/16 22:09 Labs: All Lab Results (24 Hours) 06/23/17 06/23/17 06/23/17 Range/Units 22:09 22:09 22:09 WBC 7.5 (4.3-11.1) K/mcL RBC 3.39 L (3.82-4.97) M/mcL Hgb 10.8 L (11.5-15.4) g/dL Hct 31.1 L (35.3-44.9) % MCV 91.7 (83.0-100.0) fL MCH 31.9 (28.0-33.3) pg MCHC 34.7 (31.6-35.5) g/dL RDW 13.2 (11.5-14.5) % Plt Count 228 (140-400) K/mcL MPV 9.4 (9.4-12.4) fL Immature Gran % 0.3 (0-4) % Seg Neutrophils % 62.5 % Lymphocytes % 28.7 % Monocytes % 6.5 % Eosinophils % 1.5 % Basophils % 0.5 % Neutrophils # 4.7 (1.6-8.9) K/mcL Lymphocytes # 2.2 (0.6-4.6) K/mcL Monocytes # 0.5 (0.0-1.3) K/mcL Eosinophils # 0.1 (0.0-0.6) K/mcL Basophils # 0.0 (0.0-0.2) K/mcL Sodium 133 L (136-145) mEq/L Potassium 4.0 (3.5-4.5) mEq/L Chloride 106 (98-109) mEq/L Carbon Dioxide 11 L (19-29) mEq/L BUN 43 H (7-20) mg/dL Creatinine 3.56 H (0.57-1.11) mg/dL Est GFR ( Amer) 16 L (> 60) Est GFR (Non-Af Amer) 13 L (> 60) BUN/Creatinine Ratio 12 (6-26) Glucose 98 (70-99) mg/dL Calculated Osmolality 287 (280-300) Calcium 9.1 (8.6-10.8) mg/dL Total Bilirubin 0.3 (0.2-1.2) mg/dL AST 9 (5-34) Units/L ALT < 6 (0-55) Units/L Alkaline Phosphatase 135 H (38-126) Units/L Troponin I 0.01 (0-0.03) ng/mL Serum Total Protein 6.8 (6.0-8.3) g/dL Albumin 3.1 L (3.5-5.0) g/dL Globulin 3.7 H (2.4-3.5) g/dL Albumin/Globulin Ratio 0.8 L (1.1-2.2) Amylase 45 (25-125) Units/L Lipase 16 (8-78) Units/L - Diagnostic Studies Chest x-ray Additional comments: Chest X-Ray 11/03/16 18:25 IMPRESSION: No acute process. D/ / Abdiaziz Blanchard MD / Abdiaziz Blanchard MD Interpreting Provider: Abdiaziz Blanchard MD CT scan - abdomen Additional comments: Abdomen/Pelvis CT 11/03/16 21:10 IMPRESSION: 1. No acute findings within the abdomen or pelvis. No evidence of appendicitis. Some liquid stool in the right colon without inflammation or obstruction. 2. Re-demonstration of renal cortical scarring with asymmetric right renal atrophy. No evidence of obstructive uropathy. D/ / 11/03/2016 22:02:09 Stephen Sagastume MD / pebbles Interpreting Provider: Stephen Sagastume MD <Nikolas Munguia - Last Filed: 11/04/16 00:40> Date of Encounter: 11/04/16 Internal Medicine - H&P: HPI History of present illness: Ms. Gallegos is a 61 year old female All Systems PM: A 10-system review of systems was performed and is negative for pertinent findings except as documented above in the HPI. - Constitutional Vitals: Temp Pulse Resp BP Pulse Ox 97.8 F 78 16 186/80 74 11/03/16 23:26 11/03/16 23:26 11/03/16 23:26 11/03/16 23:26 11/04/16 00:22 Internal Med - H&P Results - Labs CBC & Chem 7: 11/03/16 22:09 06/23/17 22:09 - Attending Attestation I examined this patient and my medical decision-making was reviewed with Ms. EchavarriaMike. I agree with the documented findings, disposition and treatment plan as described except to the extent set forth below. 61 yo CF with CKD-4 sent from mine wirer's office for RENE on CKD. Patient has abd. pain for 6 weeks for which she has been taking Advil and Motrin. The patient has also experienced diarrhea over the past 2 days and nausea and vomiting. She continues to report abdomen pain that is diffuse all over the abdomen without any radiation. Denies any fever or chills. On exam, patient is diffuse tenderness to palpation all over the abdomen without any rebound tenderness, guarding or rigidity. Bowel sounds present. Clear breath sounds bilaterally. Labs reviewed. CT scan of the abdomen does not reveal any acute abdomen at the except liquid stool. Assessment/plan: 1. Acute kidney injury and chronic kidney disease stage IV - likely due to a combination of dehydration from her recent diarrhea, nausea, vomiting and use of nonsteroidal anti-inflammatory drugs. Patient is making urine. Intravenous fluids. Renal consult. Monitor urine output and renal function. Avoid nephrotoxic medications and hypotension. Stop nonsteroidal anti-inflammatory drugs. Patient does not have any further diarrhea. Patient will be given bicarbonate drip for 8 hours. Morning labs will be reassessed and patient reevaluated regarding the need for intravenous bicarbonate versus normal saline. Will also follow up nephrology conditions. Patient admitted to inpatient status. High risk due to risk of renal dysfunction that can worsen which may require hemodialysis. Expected to be in the hospital for at least 2 midnights. Expected discharge disposition is to home. 2. Diabetes mellitus type 2, getter by chronic kidney disease stage IV-resume home medications. Sliding scale insulin. 3. History of remote [place] without any stents or bypass surgery-stable. 4. Hypertension-resume home medications. Hydralazine intravenous when necessary. 5. Abdominal pain-likely related to gastritis from nonsteroidal anti- inflammatory drug use. Hemoglobin and hematocrit stable. No history of melena or blood in the stools. Continue proton inhibitors. Add sucralfate by mouth. If the patient's abdominal pain does not improve, will likely require inpatient GI consult versus outpatient GI follow-up for possible endoscopy. CLAUDIA Dunaway
[2016-11-04] MEDS: *HR* Heparin 5,000 UNIT/ML VIAL SQ SCH ×3 (00:03→16:15)
[2016-11-04] MEDS: Pantoprazole 40 MG VIAL IVP SCH ×3 (00:03→20:13)
[2016-11-04] MEDS ORDERED: Sodium Bicarbonate 150 MEQ in D5% in Water 1,000 ML IVC SCH (00:15)
[2016-11-04 00:58] LABS: Hemoglobin A1C 5.5 %
[2016-11-04] MEDS: Insulin LISPRO 300 UNITS/3 ML VIAL SQ SCH ×5 (00:58→22:11)
[2016-11-04] MEDS: Sucralfate 1 GM TABLET PO SCH ×4 (01:15→16:15)
[2016-11-04] MEDS: *HR* HYDROcodone/Acet 5/325 mg TABLET PO PRN ×4 (01:15→20:14)
[2016-11-04 05:19] LABS: Basophils % 0.5 %; Eosinophils # 0.1 K/mcL (0.0-0.6); Eosinophils % 1.5 %; Hematocrit 26.5 % (35.3-44.9); Immature Granulocytes % 0.3 % (0-4); Lymphocytes # 2.2 K/mcL (0.6-4.6); Lymphocytes % 35.4 %; Mean Corpuscular HGB Conc 34.7 g/dL (31.6-35.5); Mean Corpuscular Hemoglobin 31.9 pg (28.0-33.3); Mean Platelet Volume 9.5 fL (9.4-12.4); Monocytes # 0.4 K/mcL (0.0-1.3); Monocytes % 6.9 %; Neutrophils # 3.4 K/mcL (1.6-8.9); Platelet Count 188 K/mcL (140-400); Red Blood Count 2.88 M/mcL (3.82-4.97); Red Cell Distribution Width 13.2 % (11.5-14.5); Segmented Neutrophils % 55.4 %
[2016-11-04 05:20] LABS: Hemoglobin 9.2 g/dL (11.5-15.4)
[2016-11-04 05:33] LABS: Albumin 2.6 g/dL (3.5-5.0); Albumin/Globulin Ratio 0.9 (1.1-2.2); Alkaline Phosphatase 113 Units/L (38-126); Aspartate Amino Transferase 7 Units/L (5-34); BUN/Creatinine Ratio 13 (6-26); Bilirubin,Total 0.3 mg/dL (0.2-1.2); Blood Urea Nitrogen 41 mg/dL (7-20); Calcium 8.2 mg/dL (8.6-10.8); Carbon Dioxide 15 mEq/L (19-29); Chloride 107 mEq/L (98-109); Glucose 101 mg/dL (70-99); Osmolality,Calculated 290 (280-300); Potassium 3.4 mEq/L (3.5-4.5); Sodium 135 mEq/L (136-145); Total Protein 5.6 g/dL (6.0-8.3); eGFR For African Americans 19 (> 60); eGFR For Non-African Americans 15 (> 60)
[2016-11-04 05:39] LABS: Alanine Aminotransferase < 6 Units/L (0-55)
[2016-11-04] MEDS: amLODIPine 5 MG TABLET PO SCH (08:43)
[2016-11-04] MEDS: Hyoscyamine SL 0.125 MG TAB.SUBL SL SCH ×3 (08:43→20:15)
[2016-11-04] MEDS: Metoprolol XL (24 HR) Succ 50 MG TAB.ER.24H PO SCH (08:43)
[2016-11-04] MEDS ORDERED: Cholecalciferol (D-3) 1,000 UNIT TABLET PO SCH (09:00)
[2016-11-04] MEDS ORDERED: amLODIPine 5 MG TABLET PO SCH (09:00)
--- NOTE | 2016-11-04 10:47 | Nephrology Consult Note ---
Date of Encounter: 11/04/16 Time of Encounter: 10:26 Assessment and Plan (1) Acute kidney injury superimposed on chronic kidney disease Current Visit: Yes Status: Acute Patient has acute kidney injury superimposed on stage IV chronic kidney disease that appears to be multifactorial. Etiology is a combination of NSAID use along with volume depletion from nausea vomiting. We will initiate acute kidney injury workup including renal ultrasound and urinalysis along with urine sodium. We will also check urine eosinophils. We will check a protein creatinine ratio. For management I recommend avoiding nephrotoxins including iodinated contrast dye and NSAIDs. I would allow permissive hypertension while she is recovering from acute kidney injury. I recommend intravenous hydration to assist in helping her recover from her kidney injury. Thank you for inviting me to just pain in the care of your patient. I will continue to follow her while she is in the hospital. (2) Hypokalemia Current Visit: Yes Status: Acute Replace potassium as needed. We will check magnesium level as well. (3) Hyponatremia Current Visit: Yes Status: Acute We will monitor. Should improve with infusion of saline and his sodium bicarbonate solution. Patient may also have excess ADH release of nausea and vomiting and this should improve with antiemetic therapy. (4) Anemia Current Visit: Yes Status: Acute Monitor hemoglobin we will check iron stores, vitamin B12, and folate. Qualifiers: Qualified Code(s): D64.9 - Anemia, unspecified (5) HTN (hypertension) Current Visit: No Status: Chronic We will allow some permissive hypertension to assist with return of renal function to baseline. Agree with the addition of amlodipine. Qualifiers: Hypertension type: essential hypertension Qualified Code(s): I10 - Essential (primary) hypertension (6) Abdominal pain Current Visit: Yes Status: Acute Etiology of the patient's abdominal pain is unclear. She is significantly tender with palpation but without rebound. We will check a lactate. Recommend GI consultation and possibly general surgery consultation. With this history of abdominal pain and nausea vomiting may want to consider a CT of the abdomen and pelvis with oral contrast to evaluate for obstruction. If IV contrast is felt to be clinically needed for full evaluation please pretreat the patient with sodium bicarbonate which are doing now as well as Mucomyst. Qualifiers: Abdominal location: epigastric Qualified Code(s): R10.13 - Epigastric pain History of Present Illness - Reason for Consult Consult date: 11/04/16 Acute Kidney Injury, Chronic Kidney Disease, metabolic acidosis - Chief Complaint RENE on CKD Abdominal pain - History of Present Illness Ms. Gallegos is a 61 yo woman with CKD who is followed by Dr. Murray at [facility]. She presented for the evaluation of abdominal pain and RENE on CKD after being treated with ibuprofen for 6 weeks for abdominal pain. Patient reports that approximate 6 weeks ago she began experiencing abdominal pain and soon after he went to the emergency department where she was instructed to take ibuprofen 800 mg 4 times a day as needed for abdominal pain. She reports she has been taking medication as prescribed/4 times a day for the past 5-6 weeks with gradual increase in her abdominal pain.er abdominal pain has been associated with a small amount of diarrhea and increasing nausea vomiting. She denies hematemesis or blood in her stool. She states her abdominal pain is above her umbilicus on both the right and left sides. She states it is worse when she lays down, and is not affected by eating or drinking. She also describes the pain as constant and sharp. She denies any changes in urination and she has no swelling. She also denies chest pain or shortness of breath. Past Med Surg Social Fam HX - Past Medical History Medical history: CHF, COPD, CVA, diabetes, hyperlipidemia, hypertension, myocardial infarction, renal disease, other Psychiatric history: depression - Past Surgical History Surgical History: cholecystectomy, other (LLE BKA) - Social History Smoking Status: Current every day smoker (40 pack year history) Packs per day: 1 Smokeless Tobacco Status: No Alcohol use: none Drug use: none - Family History Mother Living Status: Still Living Hx Family Cardiac Disorders: Yes (hypertension) Hx Family Neuromuscular Disorders: Yes (CVA) Hx Family Neurologic Disorders: Yes (CVA) Father Living Status: Age at : 58 Hx Family Endocrine Disorder: Yes (diabetes) Medications and Allergies Cholecalciferol (D-3) [Vitamin D] 5,000 unit PO DAILY 09/15/16 [History] Ferrous Sulfate [Iron] 325 mg PO DAILY 09/15/16 [History] Insulin Glargine,Hum.rec.anlog [Lantus Solostar] 10 unit SQ HS 09/15/16 [History ] Metoprolol XL (24 HR) Succ [Toprol Xl] 50 mg PO DAILY 09/15/16 [History] Sodium Bicarbonate 650 mg PO TID 09/15/16 [History] Ondansetron HCl 4 mg PO Q6H PRN #12 tablet 09/17/16 [Rx] amLODIPine [Norvasc] 5 mg PO DAILY #30 tablet 09/17/16 [Rx] HYDROcodone/Acet 5/325 mg [[place] 5-325 mg] 1 tab PO Q6H PRN #12 tab 09/26/16 [Rx ] Hyoscyamine SL [Levsin SL] 0.125 mg SL TID 5 Days 10/16/16 [Rx] Omeprazole [PriLOSEC] 40 mg PO DAILY #30 cap 10/26/16 [Rx] Ondansetron ODT [Zofran ODT] 4 mg SL Q6HR PRN #14 tab.rapdis 10/26/16 [Rx] Allergies No Known Allergies Allergy (Verified 11/03/16 16:58) Review of Systems All Systems: reviewed and no additional remarkable complaints except as stated ( As documented in the history of present illness.) Exam - Vital Signs Vital signs: Initial Vital Signs Temp Pulse Resp BP Pulse Ox 98 F 87 20 147/88 100 11/03/16 16:58 11/03/16 16:58 11/03/16 16:58 11/03/16 16:58 11/03/16 16:58 Vital Signs - Last 8 Hours Temp Pulse Resp BP Pulse Ox 11/04/16 07:49 98.4 F 76 16 150/75 99 11/04/16 06:14 98.7 F 62 163/77 Intake and Output 11/03/16 11/04/16 11/04/16 23:59 07:59 15:59 Output Total 300 / 300 Balance -300 / -300 Output: Urine 300 / 300 Other: Weight 67.2 kg Blood Glucose* 114 EENT: ATNC Neck: supple Cardiology: no edema, regular rate, regular rhythm Gastrointestinal: normoactive bowel sounds Additional Comments: Abdomen is soft nondistended with quiet bowel sounds. She has significant tenderness to palpation mostly in the epigastrium but also to both the right and left of the epigastrium. She does not have rebound tenderness. Integumentary: warm and dry Neurologic: alert and oriented x3 Musculoskeletal: no cyanosis Psychiatric: mood/affect appropriate Additional exam: left leg BKA with a prosthesisin place. Results - Lab Results 11/04/16 04:57 11/04/16 04:57 Most recent lab results Calcium 8.2 mg/dL (8.6-10.8) L 11/04/16 04:57 Consult Discharge Plan - Plan Referrals: Basil Stauffer DO [Primary Care Provider] -
[2016-11-04] MEDS: Acetaminophen 325 MG TABLET PO PRN (10:48)
--- NOTE | 2016-11-04 12:31 | Internal Med Progress Note ---
Date of Encounter: 11/04/16 Time of Encounter: 09:00 - Assessment and plan (1) Abdominal pain Current Visit: Yes Status: Acute Assessment and plan: Etiology is undetermined. Patient said the abdominal pain is constant for 6 weeks. Epigastric tenderness. - Liver function, amylase, lipase within normal limits - Abdominal CT unremarkable. - Needed to rule out peptic ulcer or even malignancy, GI consult. - Started the protonix IV twice a day and carafate po. - Pain management Qualifiers: Abdominal location: epigastric Qualified Code(s): R10.13 - Epigastric pain (2) HTN (hypertension) Current Visit: No Status: Chronic Assessment and plan: Continue home medications. Increase amlodipine from 5 mg to 10 mg daily because patient BP is high Qualifiers: Hypertension type: essential hypertension Qualified Code(s): I10 - Essential (primary) hypertension (3) Metabolic acidosis Current Visit: No Status: Resolved Assessment and plan: Nephrology consul on case. Continue bicarbonate drip and follow-up BMP (4) DVT prophylaxis Current Visit: No Status: Acute Assessment and plan: Heparin subcutaneously (5) Diabetes mellitus Current Visit: Yes Status: Chronic Assessment and plan: Cover patient with basal and sliding scale insulin. Qualifiers: Diabetes mellitus type: type 2 Diabetes mellitus complication status: with kidney complications Diabetes mellitus complication detail: with chronic kidney disease Diabetes mellitus fci insulin use: with fci use Chronic kidney disease stage: stage 4 (severe) Qualified Code(s): E11.22 - Type 2 diabetes mellitus with diabetic chronic kidney disease; N18.4 - Chronic kidney disease, stage 4 (severe); Z79.4 - terminal gauger (current) use of insulin (6) CKD (chronic kidney disease) stage 4, GFR 15-29 ml/min Current Visit: No Status: Chronic Assessment and plan: History of CKD (7) Acute kidney injury superimposed on chronic kidney disease Current Visit: Yes Status: Acute Assessment and plan: Patient take NSAID recently, she has a history of CKD, will hold NSAID, avoid nephrotoxic medications. Nephrology consul on case. Continue bicarbonate drip. (8) Hypokalemia Current Visit: Yes Status: Acute Assessment and plan: Potassium supplement - Time Spent With Patient 25 - 35 minutes - Subjective Interval history: Patient is a 61-year-old female admitted for abdominal pain and worsening renal function. Her past medical history is significant for hypertension, CAD, diabetes, COPD, CKD Patient was seen and examined. She still complains of abdominal pain, pain is on epigastric area, sharp, 8/10. Patient has a mild nausea but no vomiting. She can pass gas and occasionally has diarrhea. Vitals are stable. CT abdomen unremarkable. Nephrology consult appreciated. We will continue bicarbonate drip for acute on chronic renal failure and metabolic acidosis. Will add protonix IV twice a day for possible peptic ulcer disease. GI consult. - Constitutional Vitals: Temp Pulse Resp BP Pulse Ox 98.4 F 76 16 150/75 99 11/04/16 07:49 11/04/16 07:49 11/04/16 07:49 11/04/16 07:49 11/04/16 07:49 General appearance: Present: A&O X 3, pleasant, no acute distress - Head Head exam: Present: atraumatic, normocephalic - Eye Eye exam: Present: PERRL, conjuntiva pink, sclera anicteric Pupils: Present: PERRL - Neck Neck exam general surgery: Present: supple, trachea midline. Absent: lymphadenopathy - Respiratory Respiratory exam: Present: CTAB. Absent: accessory muscle use, rales, rhonchi, wheezes - Cardiovascular Cardiovascular exam: Present: RRR, +S1, +S2. Absent: diastolic murmur, gallop, rubs, systolic murmur - GI/Abdominal GI/Abdominal exam: Present: normal bowel sounds, soft, tenderness (Tenderness on epigastric area without rebound or guarding), no peritoneal signs. Absent: distended - Extremities Exam Extremities exam: Present: warm, radial pulses palpable and symetrical. Absent : calf tenderness, cyanotic, pedal edema - Neurological Exam Neurological exam: Present: CN II-XII intact, oriented X3, no focal deficits. Absent: pronater drift, facial droop, speech deficit - Skin Skin exam: Present: dry, intact Internal Medicine: Result - Labs CBC & Chem 7: 11/04/16 04:57 11/04/16 04:57 Labs: Short CBC 11/04/16 Range/Units 04:57 WBC 6.1 (4.3-11.1) K/mcL Hgb 9.2 L D (11.5-15.4) g/dL Hct 26.5 L (35.3-44.9) % Plt Count 188 (140-400) K/mcL Neutrophils # 3.4 (1.6-8.9) K/mcL BMP 11/04/16 04:57 Sodium 135 L Potassium 3.4 L Chloride 107 Carbon Dioxide 15 L BUN 41 H Creatinine 3.11 H Glucose 101 H Calcium 8.2 L Liver Function 11/04/16 Range/Units 04:57 Total Bilirubin 0.3 (0.2-1.2) mg/dL AST 7 (5-34) Units/L ALT < 6 (0-55) Units/L Alkaline Phosphatase 113 (38-126) Units/L Albumin 2.6 L (3.5-5.0) g/dL Consult Discharge Plan - Plan Referrals: Basil Stauffer DO [Primary Care Provider] -
[2016-11-05] MEDS: Sucralfate 1 GM TABLET PO SCH ×5 (00:22→20:53)
[2016-11-05] MEDS: *HR* Heparin 5,000 UNIT/ML VIAL SQ SCH ×4 (00:22→23:44)
[2016-11-05] MEDS: *HR* HYDROcodone/Acet 5/325 mg TABLET PO PRN ×4 (03:13→23:44)
[2016-11-05] MEDS: Sod Bicarb 150mEq/D5W 150 MEQ/1,000 ML IV.SOLN IVC SCH ×2 (05:25→20:55)
[2016-11-05 05:50] LABS: Basophils % 0.2 %; Eosinophils # 0.1 K/mcL (0.0-0.6); Eosinophils % 1.9 %; Hematocrit 22.4 % (35.3-44.9); Hemoglobin 7.7 g/dL (11.5-15.4); Immature Granulocytes % 0.2 % (0-4); Lymphocytes # 2.2 K/mcL (0.6-4.6); Lymphocytes % 52.2 %; Mean Corpuscular HGB Conc 34.4 g/dL (31.6-35.5); Mean Corpuscular Hemoglobin 31.7 pg (28.0-33.3); Mean Corpuscular Volume 92.2 fL (83.0-100.0); Mean Platelet Volume 10.8 fL (9.4-12.4); Monocytes # 0.3 K/mcL (0.0-1.3); Monocytes % 6.6 %; Neutrophils # 1.7 K/mcL (1.6-8.9); Platelet Count 106 K/mcL (140-400); Red Blood Count 2.43 M/mcL (3.82-4.97); Segmented Neutrophils % 38.9 %
[2016-11-05 06:05] LABS: Potassium 3.8 mEq/L (3.5-4.5)
[2016-11-05 06:10] LABS: Calcium 8.2 mg/dL (8.6-10.8); Magnesium 1.7 mg/dL (1.6-2.6)
[2016-11-05 06:39] LABS: Folate 1.4 ng/mL (7.0-31.4)
[2016-11-05] MEDS: Insulin LISPRO 300 UNITS/3 ML VIAL SQ SCH ×4 (08:32→21:01)
[2016-11-05] MEDS: Metoprolol XL (24 HR) Succ 50 MG TAB.ER.24H PO SCH (08:43)
[2016-11-05] MEDS: Folic Acid 1 MG TABLET PO SCH (08:44)
[2016-11-05] MEDS: Pantoprazole 40 MG VIAL IVP SCH ×2 (08:44→20:55)
[2016-11-05] MEDS: amLODIPine 5 MG TABLET PO SCH (08:44)
[2016-11-05] MEDS: Cyanocobalamin (B-12) 1,000 MCG TABLET PO SCH (08:44)
[2016-11-05] MEDS: Hyoscyamine SL 0.125 MG TAB.SUBL SL SCH ×3 (08:45→20:53)
[2016-11-05] MEDS: Acetaminophen 325 MG TABLET PO PRN ×2 (08:48→15:29)
--- NOTE | 2016-11-05 12:11 | Nephrology Progress Note ---
Date of Encounter: 11/05/16 Time of Encounter: 12:09 - Assessment and Plan (1) Acute kidney injury superimposed on chronic kidney disease Current Visit: Yes Status: Acute Renal function continues to improve. Maintain adequate hydration. Avoid nephrotoxic agents. Also titrate medications for renal function. (2) Hypokalemia Current Visit: Yes Status: Acute Replace potassium as needed. (3) Hyponatremia Current Visit: Yes Status: Acute Relatively stable. A symptomatically. We will monitor closely. (4) Anemia Current Visit: Yes Status: Acute Patient with a significant hemoglobin drop. She denies blood loss. Recommend monitoring hemoglobin to ensure she is not progressively losing blood. Transfuse as needed. Patient stores appear to represent iron overload. Her oral iron has been discontinued. Vitamin B12 folate are both low and supplements have been ordered. Qualifiers: Qualified Code(s): D64.9 - Anemia, unspecified (5) HTN (hypertension) Current Visit: No Status: Chronic Blood pressure controlled. Qualifiers: Hypertension type: essential hypertension Qualified Code(s): I10 - Essential (primary) hypertension (6) Abdominal pain Current Visit: Yes Status: Acute Per primary team. Agree with GI consult. If abdominal pain worsens or if hemoglobin continues to drop consider a general surgery consult. Also may need to consider a CT scan with oral contrast. If a CT scan with IV contrast needed please provide Mucomyst along with continuing IV hydration. She would be at risk of contrast induced nephropathy. Qualifiers: Qualified Code(s): R10.9 - Unspecified abdominal pain Subjective Principal diagnosis: RENE/CKD Interval history: Patient was seen and evaluated. She reports that her abdominal pain is the same it has not gotten worse nor has it gotten better. She denies blood in her stool. She denies hematemesis. Her review of systems otherwise is stable or negative. Objective - Vital Signs Vital signs: Vital Signs Temp Pulse Resp BP Pulse Ox 11/05/16 11:28 98.2 F 56 16 146/77 96 11/05/16 07:36 98.1 F 59 18 125/71 94 11/05/16 03:36 97.9 F 54 16 138/76 96 11/04/16 23:48 98.7 F 60 16 133/66 97 11/04/16 19:39 98.1 F 56 16 126/67 100 11/04/16 16:22 98.1 F 65 16 146/65 98 11/04/16 12:15 98 F 65 16 144/70 95 Intake and Output 11/04/16 11/05/16 11/05/16 23:59 07:59 15:59 Intake Total 700 / 700 600 / 600 Output Total 700 / 700 Balance 0 / 0 600 / 600 Intake: Oral 700 / 700 600 / 600 Output: Urine 700 / 700 Other: Meal water/pitcher refilled Breakfast Percent of Meal Consumed 100% Weight 67 kg Blood Glucose* 134 121 158 Patient Weight 11/05/16 23:59 Weight 67 kg - General Appearance General appearance: Present: well-developed, well-nourished EENT: Present: ATNC Neck: Present: supple Respiratory: Present: clear Cardiology: Present: no edema, regular rate, regular rhythm Gastrointestinal: Present: tenderness Integumentary: Present: warm and dry Neurologic: Present: alert and oriented x3 Musculoskeletal: Present: no cyanosis Psychiatric: Present: mood/affect appropriate - Lab 11/05/16 04:34 11/05/16 04:34 Most recent lab results Calcium 8.2 mg/dL (8.6-10.8) L 11/05/16 04:34 Magnesium 1.7 mg/dL (1.6-2.6) 11/05/16 04:34 Consult Discharge Plan - Plan Referrals: Basil Stauffer DO [Primary Care Provider] -
[2016-11-05 13:42] LABS: Bilirubin,Urine Negative (Negative); Blood,Urine Negative (Negative); Clarity,Urine Cloudy (Clear); Color,Urine Yellow (Yellow); Glucose,Urine (UA) Normal (Normal); Ketones,Urine Negative (Negative); Leukocyte Esterase,Urine Moderate (Negative); Nitrite,Urine Negative (Negative); Protein,Urine Negative (Neg-Trace); Specific Gravity,Urine 1.009 (1.010-1.025); Urobilinogen,Urine Normal (Normal)
[2016-11-05 13:45] LABS: Bacteria,Urine None Seen per hpf (None-Few); Hyaline Casts,Urine None Seen per lpf (None-Few); Squamous Epithelial Cell,Urine Many per lpf (None-Few)
[2016-11-05 14:08] LABS: Creatinine,Urine 33 mg/dL
[2016-11-05 14:09] LABS: Protein/Creatinine Ratio,Urine 0.24 mg/mg (0-0.20)
[2016-11-05 14:15] LABS: Sodium, Urine < 20.0 mEq/L
--- NOTE | 2016-11-05 15:39 | Internal Med Progress Note ---
Date of Encounter: 11/05/16 Time of Encounter: 10:00 - Assessment and plan (1) Abdominal pain Current Visit: Yes Status: Acute Assessment and plan: Etiology is undetermined. Patient said the abdominal pain is constant for 6 weeks. Epigastric tenderness. - Liver function, amylase, lipase within normal limits - Abdominal CT unremarkable. - Needed to rule out peptic ulcer or even malignancy, GI consult. - Started the protonix IV twice a day and carafate po. No effective - Pain management Qualifiers: Qualified Code(s): R10.9 - Unspecified abdominal pain (2) HTN (hypertension) Current Visit: No Status: Chronic Assessment and plan: Continue home medications. Increase amlodipine from 5 mg to 10 mg daily because patient BP is high Qualifiers: Hypertension type: essential hypertension Qualified Code(s): I10 - Essential (primary) hypertension (3) Metabolic acidosis Current Visit: No Status: Resolved Assessment and plan: Nephrology consul on case. Continue bicarbonate drip and follow-up BMP. Improved acidosis after treatment. (4) DVT prophylaxis Current Visit: No Status: Acute Assessment and plan: Heparin subcutaneously (5) Diabetes mellitus Current Visit: Yes Status: Chronic Assessment and plan: Cover patient with basal and sliding scale insulin. Qualifiers: Diabetes mellitus type: type 2 Diabetes mellitus complication status: with kidney complications Diabetes mellitus complication detail: with chronic kidney disease Diabetes mellitus retirement insulin use: with truck terminal manager use Chronic kidney disease stage: stage 4 (severe) Qualified Code(s): E11.22 - Type 2 diabetes mellitus with diabetic chronic kidney disease; N18.4 - Chronic kidney disease, stage 4 (severe); Z79.4 - truck terminal manager (current) use of insulin (6) CKD (chronic kidney disease) stage 4, GFR 15-29 ml/min Current Visit: No Status: Chronic Assessment and plan: History of CKD (7) Acute kidney injury superimposed on chronic kidney disease Current Visit: Yes Status: Acute Assessment and plan: Patient take NSAID recently, she has a history of CKD, will hold NSAID, avoid nephrotoxic medications. Nephrology consul on case. Continue bicarbonate drip. Renal function slightly improving upon treatment. (8) Hypokalemia Current Visit: Yes Status: Acute Assessment and plan: Potassium supplement. Improved. - Time Spent With Patient 25 - 35 minutes - Subjective Interval history: Patient is a 61-year-old female admitted for abdominal pain and worsening renal function. Her past medical history is significant for hypertension, CAD, diabetes, COPD, CKD Patient was seen and examined. She still complains of abdominal pain, not respond to IV PPI and carafate, pain is on epigastric area, sharp, 8/10. Patient has a mild nausea but no vomiting. Hgb get done, etiology is undetermined. Anemia workup shows Vit B12 and Folate deficiency. Will consult GI for further management, change to clear liquid diet in case needs scopes. - Constitutional Vitals: Temp Pulse Resp BP Pulse Ox 98.6 F 55 16 130/84 99 11/05/16 15:08 11/05/16 15:08 11/05/16 15:08 11/05/16 15:08 11/05/16 15:08 General appearance: Present: A&O X 3, pleasant, no acute distress - Head Head exam: Present: atraumatic, normocephalic - Eye Eye exam: Present: PERRL, conjuntiva pink, sclera anicteric Pupils: Present: PERRL - Neck Neck exam general surgery: Present: supple, trachea midline. Absent: lymphadenopathy - Respiratory Respiratory exam: Present: CTAB. Absent: accessory muscle use, rales, rhonchi, wheezes - Cardiovascular Cardiovascular exam: Present: RRR, +S1, +S2. Absent: diastolic murmur, gallop, rubs, systolic murmur - GI/Abdominal GI/Abdominal exam: Present: normal bowel sounds, soft, tenderness (Epigastric tenderness without guarding or rebound), no peritoneal signs. Absent: distended - Extremities Exam Extremities exam: Present: warm, radial pulses palpable and symetrical. Absent : calf tenderness, cyanotic, pedal edema - Neurological Exam Neurological exam: Present: CN II-XII intact, oriented X3, no focal deficits. Absent: pronater drift, facial droop, speech deficit - Skin Skin exam: Present: dry, intact Internal Medicine: Result - Labs CBC & Chem 7: 11/05/16 04:34 11/05/16 04:34 Labs: Short CBC 11/05/16 Range/Units 04:34 WBC 4.3 (4.3-11.1) K/mcL Hgb 7.7 L D (11.5-15.4) g/dL Hct 22.4 L (35.3-44.9) % Plt Count 106 L (140-400) K/mcL Neutrophils # 1.7 (1.6-8.9) K/mcL BMP 11/05/16 04:34 Sodium 133 L Potassium 3.8 Chloride 104 Carbon Dioxide 16 L BUN 41 H Creatinine 3.10 H Glucose 85 Calcium 8.2 L Urine 11/05/16 Range/Units 13:35 Urine Color Yellow (Yellow) Urine Clarity Cloudy A (Clear) Urine pH 6.0 (5.0-8.0) pH Units Ur Specific [place] 1.009 L (1.010-1.025) Urine Protein Negative (Neg-Trace) mg/dL Urine Glucose (UA) Normal (Normal) mg/dL - Impressions Impressions Retroperitoneum Ultrasound 11/04/16 10:30 IMPRESSION: 1. No evidence of hydronephrosis. D/ / Pietro Leija MD / Pietro Leija MD Interpreting Provider: Pietro Leija MD Consult Discharge Plan - Plan Referrals: Basil Stauffer DO [Primary Care Provider] -
[2016-11-05 18:26] LABS: Hematocrit 23.8 % (35.3-44.9); Hemoglobin 8.1 g/dL (11.5-15.4)
[2016-11-06 04:40] LABS: INR 1.1; Prothrombin Time 12.2 Seconds (9.4-12.1)
[2016-11-06 04:43] LABS: Basophils % 0.4 %; Eosinophils # 0.1 K/mcL (0.0-0.6); Hematocrit 24.1 % (35.3-44.9); Hemoglobin 8.6 g/dL (11.5-15.4); Immature Granulocytes % 0.4 % (0-4); Lymphocytes # 2.7 K/mcL (0.6-4.6); Lymphocytes % 53.8 %; Mean Corpuscular HGB Conc 35.7 g/dL (31.6-35.5); Mean Corpuscular Hemoglobin 32.5 pg (28.0-33.3); Mean Corpuscular Volume 90.9 fL (83.0-100.0); Mean Platelet Volume 9.8 fL (9.4-12.4); Monocytes # 0.4 K/mcL (0.0-1.3); Monocytes % 7.3 %; Neutrophils # 1.8 K/mcL (1.6-8.9); Platelet Count 192 K/mcL (140-400); Red Blood Count 2.65 M/mcL (3.82-4.97); Red Cell Distribution Width 12.8 % (11.5-14.5); Segmented Neutrophils % 36.1 %
[2016-11-06 04:46] LABS: Potassium 3.5 mEq/L (3.5-4.5)
[2016-11-06] MEDS: *HR* HYDROcodone/Acet 5/325 mg TABLET PO PRN ×3 (07:00→23:58)
[2016-11-06] MEDS: Insulin LISPRO 300 UNITS/3 ML VIAL SQ SCH ×4 (07:36→20:40)
[2016-11-06] MEDS: Pantoprazole 40 MG VIAL IVP SCH ×2 (07:39→20:33)
[2016-11-06] MEDS: *HR* Heparin 5,000 UNIT/ML VIAL SQ SCH ×3 (07:40→23:58)
[2016-11-06] MEDS: Cyanocobalamin (B-12) 1,000 MCG TABLET PO SCH (07:40)
[2016-11-06] MEDS: Hyoscyamine SL 0.125 MG TAB.SUBL SL SCH ×3 (07:40→20:34)
[2016-11-06] MEDS: amLODIPine 5 MG TABLET PO SCH (07:40)
[2016-11-06] MEDS: Folic Acid 1 MG TABLET PO SCH (07:40)
[2016-11-06] MEDS: Sucralfate 1 GM TABLET PO SCH ×4 (07:40→20:33)
[2016-11-06] MEDS: Metoprolol XL (24 HR) Succ 50 MG TAB.ER.24H PO SCH (07:40)
[2016-11-06] MEDS: Sodium Bicarbonate 150 MEQ in D5% in Water 1,000 ML IVC SCH (10:21)
[2016-11-06] MEDS ORDERED: Lidocaine -MPF 2% 5 ML VIAL INFILT ONE (10:24)
--- NOTE | 2016-11-06 10:31 | Nephrology Progress Note ---
Date of Encounter: 11/06/16 Time of Encounter: 10:29 - Assessment and Plan (1) Acute kidney injury superimposed on chronic kidney disease Current Visit: Yes Status: Acute Renal function continues to improve. Maintain adequate hydration. Avoid nephrotoxic agents. Also titrate medications for renal function. (2) Hypokalemia Current Visit: Yes Status: Acute Replace potassium as needed. (3) Hyponatremia Current Visit: Yes Status: Acute Relatively stable. A symptomatic. We will monitor closely. (4) Anemia Current Visit: Yes Status: Acute Patient with abdominal pain and complaining of blood in stool that was documented as blood tinged overnight. Recommend monitoring hemoglobin to ensure she is not progressively losing blood. Transfuse as needed. Patient stores appear to represent iron overload. Her oral iron has been discontinued. Vitamin B12 folate are both low and supplements have been ordered. (5) HTN (hypertension) Current Visit: No Status: Chronic Blood pressure controlled. Qualifiers: Hypertension type: essential hypertension Qualified Code(s): I10 - Essential (primary) hypertension (6) Abdominal pain Current Visit: Yes Status: Acute Per primary team. Agree with GI consult. If abdominal pain worsens or if hemoglobin continues to drop consider a general surgery consult. Also may need to consider a CT scan with oral contrast. If a CT scan with IV contrast needed please provide Mucomyst along with continuing IV hydration. She would be at risk of contrast induced nephropathy. Qualifiers: Qualified Code(s): R10.9 - Unspecified abdominal pain Subjective Principal diagnosis: RENE/CKD Interval history: Patient was seen and evaluated. She reports that her abdominal pain is the same it has not gotten worse nor has it gotten better. She reports that she had blood in her stool overnight She denies hematemesis. Her review of systems otherwise is stable or negative. Objective - Vital Signs Vital signs: Vital Signs Temp Pulse Resp BP Pulse Ox 11/06/16 06:57 97.5 F L 58 19 152/71 94 11/06/16 04:18 98.0 F 68 16 124/80 92 11/05/16 23:41 98.5 F 50 16 98/59 97 11/05/16 20:41 97.8 F 54 16 143/74 98 11/05/16 15:08 98.6 F 55 16 130/84 99 11/05/16 11:28 98.2 F 56 16 146/77 96 Intake and Output 11/05/16 11/06/16 11/06/16 23:59 07:59 15:59 Intake Total 1500 / 1500 Balance 1500 / 1500 Intake: IV Fluids 1000 / 1000 Sod Bicarb 150mEq/1000mL 1000 / 1000 D5W 150 meq In 1,000 ml @ 83.333 mls/hr IVC .Q12H JANELL Rx#:[id number] Oral 500 / 500 Other: Meal Dinner Percent of Meal Consumed 80% Stool Size Moderate Stool Consistency soft Stool Color Blood Tinged Weight 75.296 kg Blood Glucose* 141 133 - General Appearance General appearance: Present: well-developed, well-nourished EENT: Present: ATNC Neck: Present: supple Respiratory: Present: clear Cardiology: Present: no edema, regular rate, regular rhythm Integumentary: Present: warm and dry Neurologic: Present: alert and oriented x3 Musculoskeletal: Present: no cyanosis Psychiatric: Present: mood/affect appropriate - Lab 11/06/16 04:13 11/06/16 04:13 Most recent lab results Calcium 8.0 mg/dL (8.6-10.8) L 11/06/16 04:13 Magnesium 1.7 mg/dL (1.6-2.6) 11/05/16 04:34 Urine Creatinine 33 mg/dL 11/05/16 13:35 Urine Sodium < 20.0 mEq/L 11/05/16 13:35 Urine Total Protein 8 mg/dL (1-14) 11/05/16 13:35 Consult Discharge Plan - Plan Referrals: Basil Stauffer DO [Primary Care Provider] - (patient already have an appointment on the , to establish a pcp..)
--- NOTE | 2016-11-06 13:53 | Gastroenterology Consult Note ---
<Abdiaziz Hatch - Last Filed: 11/06/16 13:51> Date of Encounter: 11/06/16 Time of Encounter: 11:45 - Assessment and plan (1) Abdominal pain Current Visit: Yes Status: Acute Assessment and plan: Pt with abdominal pain for past 6 weeks, and she has been taking ibuprofen and naproxen for the pain. EGD today to r/o esophagitis, gastritis, duodenitis, PUD , MW tear, or AVM. Continue PPI. Qualifiers: Abdominal location: epigastric Qualified Code(s): R10.13 - Epigastric pain (2) Acute kidney injury superimposed on chronic kidney disease Current Visit: Yes Status: Acute Assessment and plan: Management per Nephrology. - Time Spent With Patient Total time spent is greater than 50% in coordination of care (as documented) at patient's floor/unit and/or counseling patient: GI History of Present Illness - Data of Consult Patient: new to practice Consult date: 11/06/16 Requesting Physician: Luis Foster MD - Consult Narrative Reason for consult: abdominal pain History of present illness: Ms. Gallegos is a 61 year old female with PMHx of CHF, COPD, CVA, DM, HLD, HTN , MO, CKD who was sent to the ED by her laminator with worsening kidney function. Pt complained of abdominal pain for the past 6 weeks, and states she had been taking ibuprofen and naproxen for the pain. This has been associated with nausea, decreased appetite, and occasional diarrhea. She denies fever, chills, chest pain, vomiting, hematemesis, melena, or hematochezia. CT A/P showed mild distention of right colon with liquid stool and mild colonic wall thickening in the rectum. LFTs, amylase, and lipase have been within normal limits. She has been started on Protonix IV BID and PO Carafate. Procedures: EGD 06/20/2002 Dr. Bashir: minimal nonspecific inflammation. NSAIDs: ibuprofen, naproxen Anticoagulation: None Past Med Surg Social Fam HX - Past Medical History Medical history: CHF, COPD, CVA, diabetes, hyperlipidemia, hypertension, myocardial infarction, renal disease, other Psychiatric history: depression - Past Surgical History Surgical History: cholecystectomy, other (LLE BKA) - Social History Smoking Status: Current every day smoker (40 pack year history) Packs per day: 1 Smokeless Tobacco Status: No Alcohol use: none Drug use: none - Family History Mother Living Status: Still Living Hx Family Cardiac Disorders: Yes (hypertension) Hx Family Neuromuscular Disorders: Yes (CVA) Hx Family Neurologic Disorders: Yes (CVA) Father Living Status: Age at : 58 Hx Family Endocrine Disorder: Yes (diabetes) - Gastrointestinal Gastrointestinal: Present: as per HPI - Constitutional Constitutional: as per HPI - EENT Eyes: as per HPI Ears: Present: as per HPI Nose, mouth and throat: Present: as per HPI - Cardiovascular Cardiovascular ROS: Present: as per HPI - Respiratory Respiratory IM: Present: as per HPI - Genitourinary Genitourinary: Absent: change in color, Urinary frequency - Neurological ROS Neurological GI: Present: as per HPI - Hematologic/Lymphatic Hematologic/Lymphatic pediatric: Present: as per HPI - Musculoskeletal Musculoskeletal ROS GI: Present: as per HPI - Integumentary Integumentary GI: Present: as per HPI - Psychiatric ROS Psychiatric GI: Present: as per HPI - Endocrine Endocrine IM: Present: as per HPI - Constitutional Vitals: Temp Pulse Resp BP Pulse Ox 97.7 F 51 17 145/74 96 11/06/16 10:40 11/06/16 10:40 11/06/16 10:40 11/06/16 10:40 11/06/16 10:40 General appearance: Present: cooperative, A&O X 3, no acute distress, answers questions appropriately - Head Head exam: Present: atraumatic, normocephalic - Eye Eye exam: Present: normal appearance, sclera anicteric - ENT ENT exam: Present: mucous membranes dry - Neck Neck exam general surgery: Present: normal inspection, trachea midline - Respiratory Respiratory exam: Present: CTAB - Cardiovascular Cardiovascular exam: Present: RRR, +S1, +S2 - GI/Abdominal GI/Abdominal exam: Present: soft, tenderness (epigastric), no peritoneal signs. Absent: distended, firm, guarding - Rectal Rectal exam: Present: deferred - Extremities Exam Extremities exam: Present: warm - Neurological Exam Neurological exam: Present: no focal deficits - Psychiatric Psychiatric exam: Present: normal affect, normal mood - Skin Skin exam: Present: dry, intact, normal color, warm Results - Labs CBC & Chem 7: 11/06/16 04:13 11/06/16 04:13 Labs: Last Result Calcium 8.0 mg/dL (8.6-10.8) L 11/06/16 04:13 Iron 117 mcg/dL (50-170) 11/05/16 04:34 % Saturation 74 % (15-50) H 11/05/16 04:34 Transferrin 113 mg/dL (180-382) L 11/05/16 04:34 Ferritin 501 ng/ml (5-204) H 11/05/16 04:34 Troponin I 0.01 ng/mL (0-0.03) 11/03/16 22:09 Vitamin B12 192 pg/mL (213-816) L 11/05/16 04:34 Folate 1.4 ng/mL (7.0-31.4) L 11/05/16 04:34 Entire Visit Hgb 8.6 g/dL (11.5-15.4) L 11/06/16 04:13 Hct 24.1 % (35.3-44.9) L 11/06/16 04:13 PT 12.2 Seconds (9.4-12.1) H 11/06/16 04:13 Ferritin 501 ng/ml (5-204) H 11/05/16 04:34 Total Bilirubin 0.3 mg/dL (0.2-1.2) 11/04/16 04:57 AST 7 Units/L (5-34) 11/04/16 04:57 ALT < 6 Units/L (0-55) 11/04/16 04:57 Amylase 45 Units/L (25-125) 11/03/16 22:09 Lipase 16 Units/L (8-78) 11/03/16 22:09 Folate 1.4 ng/mL (7.0-31.4) L 11/05/16 04:34 - ABG ABG results: PT/INR, D-dimer PT 12.2 Seconds (9.4-12.1) H 11/06/16 04:13 Consult Discharge Plan - Plan Referrals: Basil Stauffer DO [Primary Care Provider] - (patient already have an appointment on the , to establish a pcp..) <Gail Benedict - Last Filed: 11/06/16 16:53> Date of Encounter: 11/06/16 Time of Encounter: 14:00 - Time Spent With Patient Total time spent is greater than 50% in coordination of care (as documented) at patient's floor/unit and/or counseling patient: GI History of Present Illness - Data of Consult Requesting Physician: Luis Foster MD - Consult Narrative History of present illness: Ms. Gallegos is a 61 year old female - Constitutional Vitals: Temp Pulse Resp BP Pulse Ox 97.7 F 58 19 162/68 94 11/06/16 16:12 11/06/16 16:12 11/06/16 16:12 11/06/16 16:12 11/06/16 16:12 Results - Labs CBC & Chem 7: 11/06/16 04:13 11/06/16 04:13 Labs: Last Result Calcium 8.0 mg/dL (8.6-10.8) L 11/06/16 04:13 Iron 117 mcg/dL (50-170) 11/05/16 04:34 % Saturation 74 % (15-50) H 11/05/16 04:34 Transferrin 113 mg/dL (180-382) L 11/05/16 04:34 Ferritin 501 ng/ml (5-204) H 11/05/16 04:34 Troponin I 0.01 ng/mL (0-0.03) 11/03/16 22:09 Vitamin B12 192 pg/mL (213-816) L 11/05/16 04:34 Folate 1.4 ng/mL (7.0-31.4) L 11/05/16 04:34 Entire Visit Hgb 8.6 g/dL (11.5-15.4) L 11/06/16 04:13 Hct 24.1 % (35.3-44.9) L 11/06/16 04:13 PT 12.2 Seconds (9.4-12.1) H 11/06/16 04:13 Ferritin 501 ng/ml (5-204) H 11/05/16 04:34 Total Bilirubin 0.3 mg/dL (0.2-1.2) 11/04/16 04:57 AST 7 Units/L (5-34) 11/04/16 04:57 ALT < 6 Units/L (0-55) 11/04/16 04:57 Amylase 45 Units/L (25-125) 11/03/16 22:09 Lipase 16 Units/L (8-78) 11/03/16 22:09 Folate 1.4 ng/mL (7.0-31.4) L 11/05/16 04:34 - ABG ABG results: PT/INR, D-dimer PT 12.2 Seconds (9.4-12.1) H 11/06/16 04:13 - Attending Attestation I examined this patient and my medical decision-making was reviewed with the QUALITY COMPLIANCE MANAGER/PA/Advanced Practice Nurse/Resident Physician. I agree with the documented findings, disposition and treatment plan as described except to the extent set forth below.
--- NOTE | 2016-11-06 14:00 | Anesthesia Evaluation PreOp ---
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) Other Medical History: Renal (Acute and chronic kidney disease), Bleeding (GI bleed), Diabetes Type II (poorly controlled) Anesthesia History: No Prior Anesthetic Complications, Past Anesthesia ( cholecystectomy, LLE BKA, endoscopy) Alcohol Use: none Drug use: none Medications and Allergies Cholecalciferol (D-3) [Vitamin D] 5,000 unit PO DAILY 09/15/16 [History] Ferrous Sulfate [Iron] 325 mg PO DAILY 09/15/16 [History] Insulin Glargine,Hum.rec.anlog [Lantus Solostar] 10 unit SQ HS 09/15/16 [History ] Metoprolol XL (24 HR) Succ [Toprol Xl] 50 mg PO DAILY 09/15/16 [History] Sodium Bicarbonate 650 mg PO TID 09/15/16 [History] Ondansetron HCl 4 mg PO Q6H PRN #12 tablet 09/17/16 [Rx] amLODIPine [Norvasc] 5 mg PO DAILY #30 tablet 09/17/16 [Rx] HYDROcodone/Acet 5/325 mg [[place] 5-325 mg] 1 tab PO Q6H PRN #12 tab 09/26/16 [Rx ] Hyoscyamine SL [Levsin SL] 0.125 mg SL TID 5 Days 10/16/16 [Rx] Omeprazole [PriLOSEC] 40 mg PO DAILY #30 cap 10/26/16 [Rx] Ondansetron ODT [Zofran ODT] 4 mg SL Q6HR PRN #14 tab.rapdis 10/26/16 [Rx] Allergies No Known Allergies Allergy (Verified 11/03/16 16:58) - Meds/Allergy Pre-op Review Medications Reviewed: Yes Allergies Reviewed: Yes Beta Blockers on Current Med List: Yes If Beta Blockers taken, Date/Time (Last Dose taken): 11-06-16 metoprolol 7:40 Anesthesia Results - Labs 11/06/16 04:13 11/06/16 04:13 - Imaging EKG: report reviewed, image reviewed (SR, LVH) Additional studies: 11-04-16 TTE: LVEF 65% no sign valvular disease Anesthesia Exam Last Vital Signs Temp 97.7 F 11/06/16 13:51 Pulse 52 11/06/16 13:51 Resp 16 11/06/16 13:51 BP 166/77 11/06/16 13:51 Pulse Ox 96 11/06/16 13:51 Weight: 75 kg NPO (# of Hours): >> 8 hrs - HEENT Pupil (Motor): Pupils equal, EOMI Mallampati: III Teeth: Edentulous Oral Opening: Greater than 3 - 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
--- NOTE | 2016-11-06 16:27 | Internal Med Progress Note ---
Date of Encounter: 11/06/16 Time of Encounter: 09:00 - Assessment and plan (1) Abdominal pain Current Visit: Yes Status: Acute Assessment and plan: Etiology is undetermined. Patient said the abdominal pain is constant for 6 weeks. Epigastric tenderness. - Liver function, amylase, lipase within normal limits - Abdominal CT unremarkable. - GI consult appreciated, EGD done, peptic ulcer identified. - Cont protonix IV twice a day and carafate po. - Cont Pain management Qualifiers: Abdominal location: epigastric Qualified Code(s): R10.13 - Epigastric pain (2) HTN (hypertension) Current Visit: No Status: Chronic Assessment and plan: Continue home medications. Increase amlodipine from 5 mg to 10 mg daily because patient BP is high Qualifiers: Hypertension type: essential hypertension Qualified Code(s): I10 - Essential (primary) hypertension (3) Metabolic acidosis Current Visit: No Status: Resolved Assessment and plan: Nephrology consul on case. Continue bicarbonate drip and follow-up BMP. Improved acidosis after treatment. (4) DVT prophylaxis Current Visit: No Status: Acute Assessment and plan: Heparin subcutaneously (5) Diabetes mellitus Current Visit: Yes Status: Chronic Assessment and plan: Cover patient with basal and sliding scale insulin. 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 Nephrology consul on case. Continue bicarbonate drip. Renal function slightly improving upon treatment. (8) Hypokalemia Current Visit: Yes Status: Acute Assessment and plan: Potassium supplement. Improved. (9) Vitamin B 12 deficiency Current Visit: Yes Status: Acute Assessment and plan: Supplement started (10) Folic acid deficiency Current Visit: Yes Status: Acute Assessment and plan: Supplement started - Time Spent With Patient 25 - 35 minutes - Subjective Interval history: Patient is a 61-year-old female admitted for abdominal pain and worsening renal function. Her past medical history is significant for hypertension, CAD, diabetes, COPD, CKD Patient was seen and examined. She still complains of abdominal pain, not respond to IV PPI and carafate. Patient has a mild nausea but no vomiting. c/ o red blood seen in stool. Hgb get back to 8.6 without transfusion, consider possibly previously drop could be dilutional. Improved acidosis and renal function. GI consult appreciated, EGD done shows two peptic ulcer, biopsy taken. Cont PPI and carafate. - Constitutional Vitals: Temp Pulse Resp BP Pulse Ox 97.7 F 58 19 162/68 94 11/06/16 16:12 11/06/16 16:12 11/06/16 16:12 11/06/16 16:12 11/06/16 16:12 General appearance: Present: A&O X 3, pleasant, no acute distress - Head Head exam: Present: atraumatic, normocephalic - Eye Eye exam: Present: PERRL, conjuntiva pink, sclera anicteric Pupils: Present: PERRL - Neck Neck exam general surgery: Present: supple, trachea midline. Absent: lymphadenopathy - Respiratory Respiratory exam: Present: CTAB. Absent: accessory muscle use, rales, rhonchi, wheezes - Cardiovascular Cardiovascular exam: Present: RRR, +S1, +S2. Absent: diastolic murmur, gallop, rubs, systolic murmur - GI/Abdominal GI/Abdominal exam: Present: normal bowel sounds, soft, tenderness (Epigastric tenderness), no peritoneal signs. Absent: distended - Extremities Exam Extremities exam: Present: warm, radial pulses palpable and symetrical. Absent : calf tenderness, cyanotic, pedal edema - Neurological Exam Neurological exam: Present: CN II-XII intact, oriented X3, no focal deficits. Absent: pronater drift, facial droop, speech deficit - Skin Skin exam: Present: dry, intact Internal Medicine: Result - Labs CBC & Chem 7: 11/06/16 04:13 11/06/16 04:13 Labs: Short CBC 11/05/16 11/06/16 Range/Units 18:19 04:13 WBC 5.0 (4.3-11.1) K/mcL Hgb 8.1 L 8.6 L (11.5-15.4) g/dL Hct 23.8 L 24.1 L (35.3-44.9) % Plt Count 192 D (140-400) K/mcL Neutrophils # 1.8 (1.6-8.9) K/mcL BMP 11/06/16 04:13 Sodium 132 L Potassium 3.5 Chloride 95 L Carbon Dioxide 28 BUN 34 H Creatinine 2.31 H Glucose 110 H Calcium 8.0 L - ABG Interpretation ABG results: PT/INR, D-dimer PT 12.2 Seconds (9.4-12.1) H 11/06/16 04:13 Consult Discharge Plan - Plan Referrals: Basil Stauffer DO [Primary Care Provider] - (patient already have an appointment on the , to establish a pcp..)
[2016-11-06] MEDS: Acetaminophen 325 MG TABLET PO PRN (20:33)
[2016-11-07] MEDS: Sodium Bicarbonate 150 MEQ in D5% in Water 1,000 ML IVC SCH (02:56)
[2016-11-07] MEDS ORDERED: *HR* Morphine 2 MG/ML SYRINGE IVP ONE (03:01)
[2016-11-07 06:37] LABS: Basophils % 0.3 %; Hematocrit 23.3 % (35.3-44.9); Hemoglobin 8.2 g/dL (11.5-15.4); Immature Granulocytes % 0.3 % (0-4); Lymphocytes # 1.3 K/mcL (0.6-4.6); Mean Corpuscular HGB Conc 35.2 g/dL (31.6-35.5); Mean Platelet Volume 9.4 fL (9.4-12.4); Monocytes # 0.3 K/mcL (0.0-1.3); Monocytes % 8.9 %; Neutrophils # 1.5 K/mcL (1.6-8.9); Platelet Count 185 K/mcL (140-400); Red Blood Count 2.56 M/mcL (3.82-4.97); Red Cell Distribution Width 12.3 % (11.5-14.5); Segmented Neutrophils % 48.5 %
[2016-11-07 06:48] LABS: Calcium 7.9 mg/dL (8.6-10.8); Potassium 2.9 mEq/L (3.5-4.5)
[2016-11-07] MEDS: Folic Acid 1 MG TABLET PO SCH (08:08)
[2016-11-07] MEDS: Metoprolol XL (24 HR) Succ 50 MG TAB.ER.24H PO SCH (08:08)
[2016-11-07] MEDS: Cyanocobalamin (B-12) 1,000 MCG TABLET PO SCH (08:08)
[2016-11-07] MEDS: Hyoscyamine SL 0.125 MG TAB.SUBL SL SCH ×3 (08:08→20:27)
[2016-11-07] MEDS: amLODIPine 5 MG TABLET PO SCH (08:08)
[2016-11-07] MEDS: Sucralfate 1 GM TABLET PO SCH ×4 (08:08→20:27)
[2016-11-07] MEDS: *HR* Heparin 5,000 UNIT/ML VIAL SQ SCH ×2 (08:09→16:29)
[2016-11-07] MEDS: Insulin LISPRO 300 UNITS/3 ML VIAL SQ SCH ×4 (08:11→20:27)
[2016-11-07] MEDS: Pantoprazole 40 MG VIAL IVP SCH ×2 (08:12→20:27)
[2016-11-07] MEDS: *HR* HYDROcodone/Acet 5/325 mg TABLET PO PRN ×3 (10:16→22:55)
--- NOTE | 2016-11-07 10:22 | Nephrology Progress Note ---
Date of Encounter: 11/07/16 Time of Encounter: 10:17 - Assessment and Plan (1) Acute kidney injury superimposed on chronic kidney disease Current Visit: Yes Status: Acute Renal function continues to improve. Maintain adequate hydration. Avoid nephrotoxic agents. Also titrate medications for renal function. Patient follows with Dr. Murray in clinic. Will need to follow-up 4-6 weeks after discharge for hospital follow-up. BMP 1 week after discharge and 1 week prior to visit. (2) Hypokalemia Current Visit: Yes Status: Acute Replace potassium as needed. (3) Hyponatremia Current Visit: Yes Status: Acute Resolved. (4) Anemia Current Visit: Yes Status: Acute Transfuse as needed. Patient stores appear to represent iron overload. Her oral iron has been discontinued. Vitamin B12 folate are both low and supplements have been ordered. (5) HTN (hypertension) Current Visit: No Status: Chronic Blood pressure controlled. Qualifiers: Hypertension type: essential hypertension Qualified Code(s): I10 - Essential (primary) hypertension (6) Abdominal pain Current Visit: Yes Status: Acute Per primary team. GI evaluated. Upper endoscopy reveals peptic ulcer disease. Abdominal pain only minimally improved with carafate and intravenous PPI so far. If abdominal pain worsens or if hemoglobin continues to drop consider a general surgery consult or may need to consider a CT scan with oral contrast. If a CT scan with IV contrast needed please provide Mucomyst along with continuing IV hydration. She would be at risk of contrast induced nephropathy. Qualifiers: Abdominal location: epigastric Qualified Code(s): R10.13 - Epigastric pain Subjective Principal diagnosis: RENE/CKD Interval history: Patient was seen and evaluated. She reports that her abdominal pain is only slightly better. She is aware of the ulcers found on endoscopy. Her review of systems otherwise is stable or negative. Objective - Vital Signs Vital signs: Vital Signs Temp Pulse Resp BP Pulse Ox 11/07/16 07:40 99.7 F H 50 16 132/69 90 11/07/16 03:14 97.6 F 50 14 122/69 95 11/06/16 22:41 97.6 F 59 15 134/75 94 11/06/16 19:02 97.6 F 52 16 127/64 97 11/06/16 16:12 97.7 F 58 19 162/68 94 11/06/16 13:51 97.7 F 52 16 166/77 96 11/06/16 10:40 97.7 F 51 17 145/74 96 Intake and Output 11/06/16 11/07/16 11/07/16 23:59 07:59 15:59 Intake Total 1250 / 1250 1220 / 1220 Balance 1250 / 1250 1220 / 1220 Intake: IV Fluids 1150 / 1150 Sodium Bicarbonate 150 1150 / 1150 MEQ In Dextrose 5% 1,000 ML @ 83.333 mls/hr IVC . [id number] JANELL Rx#: [id number] Oral 100 / 100 1220 / 1220 Other: Meal Breakfast Percent of Meal Consumed 100% Weight 75.478 kg Blood Glucose* 208 177 Patient Weight 11/07/16 23:59 Weight 75.478 kg - General Appearance General appearance: Present: well-developed, well-nourished EENT: Present: ATNC Neck: Present: supple Additional Comments: respirations are unlabored. Cardiology: Present: regular rate Neurologic: Present: alert and oriented x3 Psychiatric: Present: mood/affect appropriate - Lab 11/07/16 06:28 11/07/16 06:28 Most recent lab results Calcium 7.9 mg/dL (8.6-10.8) L 11/07/16 06:28 Magnesium 1.7 mg/dL (1.6-2.6) 11/05/16 04:34 Urine Creatinine 33 mg/dL 11/05/16 13:35 Urine Sodium < 20.0 mEq/L 11/05/16 13:35 Urine Total Protein 8 mg/dL (1-14) 11/05/16 13:35 Consult Discharge Plan - Plan Referrals: Basil Stauffer DO [Primary Care Provider] - (patient already have an appointment on the , to establish a pcp..)
[2016-11-07] MEDS: Acetaminophen 325 MG TABLET PO PRN (14:13)
--- NOTE | 2016-11-07 15:17 | Internal Med Progress Note ---
Date of Encounter: 11/07/16 Time of Encounter: 09:00 - Assessment and plan (1) Abdominal pain Current Visit: Yes Status: Acute Assessment and plan: Etiology is undetermined. Patient said the abdominal pain is constant for 6 weeks. Epigastric tenderness. - Liver function, amylase, lipase within normal limits - Abdominal CT unremarkable. - GI consult appreciated, EGD done, peptic ulcer identified. - Cont protonix IV twice a day and carafate po. - Waiting for pathology result, need to rule out malignancy. If H. pylori positive, need to start treatment per protocol. - Cont Pain management Qualifiers: Abdominal location: epigastric Qualified Code(s): R10.13 - Epigastric pain (2) HTN (hypertension) Current Visit: No Status: Chronic Assessment and plan: Continue home medications. Increase amlodipine from 5 mg to 10 mg daily because patient BP is high Qualifiers: Hypertension type: essential hypertension Qualified Code(s): I10 - Essential (primary) hypertension (3) Metabolic acidosis Current Visit: No Status: Resolved Assessment and plan: Resolved after bicarbonate drip use. (4) DVT prophylaxis Current Visit: No Status: Acute Assessment and plan: Heparin subcutaneously (5) Diabetes mellitus Current Visit: Yes Status: Chronic Assessment and plan: Cover patient with basal and sliding scale insulin. 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 Nephrology consul on case. Renal function improving upon treatment. (8) Hypokalemia Current Visit: Yes Status: Acute Assessment and plan: Potassium supplement given. (9) Vitamin B 12 deficiency Current Visit: Yes Status: Acute Assessment and plan: Supplement started (10) Folic acid deficiency Current Visit: Yes Status: Acute Assessment and plan: Supplement started - Time Spent With Patient 25 - 35 minutes - Subjective Interval history: Patient is a 61-year-old female admitted for abdominal pain and worsening renal function. Her past medical history is significant for hypertension, CAD, diabetes, COPD, CKD Patient was seen and examined. She still complains of abdominal pain, not respond to IV PPI and carafate. Slight less but still need pain medication. Vitals stable, renal function has improved. Waiting for GI further recommendation regarding abd pain. - Constitutional Vitals: Temp Pulse Resp BP Pulse Ox 98.3 F 54 16 122/65 93 11/07/16 10:45 11/07/16 10:45 11/07/16 10:45 11/07/16 10:45 11/07/16 10:45 General appearance: Present: A&O X 3, pleasant, no acute distress, answers questions appropriately - Head Head exam: Present: atraumatic, normocephalic - Eye Eye exam: Present: PERRL, conjuntiva pink, sclera anicteric Pupils: Present: PERRL - Neck Neck exam general surgery: Present: supple, trachea midline. Absent: lymphadenopathy - Respiratory Respiratory exam: Present: CTAB. Absent: accessory muscle use, rales, rhonchi, wheezes - Cardiovascular Cardiovascular exam: Present: RRR, +S1, +S2. Absent: diastolic murmur, gallop, rubs, systolic murmur - GI/Abdominal GI/Abdominal exam: Present: normal bowel sounds, soft, tenderness (Epigastric area tenderness without rebound or guarding), no peritoneal signs. Absent: distended - Extremities Exam Extremities exam: Present: warm, radial pulses palpable and symetrical. Absent : calf tenderness, cyanotic, pedal edema - Neurological Exam Neurological exam: Present: CN II-XII intact, oriented X3, no focal deficits. Absent: pronater drift, facial droop, speech deficit - Skin Skin exam: Present: dry, intact Internal Medicine: Result - Labs CBC & Chem 7: 11/07/16 06:28 11/07/16 06:28 Labs: Short CBC 11/07/16 Range/Units 06:28 WBC 3.1 L (4.3-11.1) K/mcL Hgb 8.2 L (11.5-15.4) g/dL Hct 23.3 L (35.3-44.9) % Plt Count 185 (140-400) K/mcL Neutrophils # 1.5 L (1.6-8.9) K/mcL BMP 11/07/16 06:28 Sodium 138 Potassium 2.9 L Chloride 95 L Carbon Dioxide 35 H BUN 26 H Creatinine 1.85 H Glucose 142 H Calcium 7.9 L - ABG Interpretation ABG results: PT/INR, D-dimer PT 12.2 Seconds (9.4-12.1) H 11/06/16 04:13 Consult Discharge Plan - Plan Referrals: Basil Stauffer, [Primary Care Provider] - (patient already have an appointment on the , to establish a pcp..)
[2016-11-07 22:06] LABS: Magnesium 1.1 mg/dL (1.6-2.6)
[2016-11-08] MEDS: *HR* Heparin 5,000 UNIT/ML VIAL SQ SCH ×3 (05:00→16:24)
[2016-11-08] MEDS: *HR* HYDROcodone/Acet 5/325 mg TABLET PO PRN ×3 (05:39→20:02)
[2016-11-08 06:59] LABS: Basophils % 0.3 %; Hematocrit 23.7 % (35.3-44.9); Immature Granulocytes % 0.5 % (0-4); Lymphocytes # 1.7 K/mcL (0.6-4.6); Lymphocytes % 44.3 %; Mean Corpuscular HGB Conc 33.8 g/dL (31.6-35.5); Mean Corpuscular Hemoglobin 31.9 pg (28.0-33.3); Mean Corpuscular Volume 94.4 fL (83.0-100.0); Mean Platelet Volume 9.5 fL (9.4-12.4); Monocytes # 0.3 K/mcL (0.0-1.3); Monocytes % 7.8 %; Neutrophils # 1.8 K/mcL (1.6-8.9); Platelet Count 194 K/mcL (140-400); Red Blood Count 2.51 M/mcL (3.82-4.97); Red Cell Distribution Width 12.4 % (11.5-14.5); Segmented Neutrophils % 46.1 %
[2016-11-08] MEDS: Hyoscyamine SL 0.125 MG TAB.SUBL SL SCH ×3 (07:41→20:03)
[2016-11-08] MEDS: Cyanocobalamin (B-12) 1,000 MCG TABLET PO SCH (07:41)
[2016-11-08] MEDS: Folic Acid 1 MG TABLET PO SCH (07:41)
[2016-11-08] MEDS: Pantoprazole 40 MG VIAL IVP SCH ×2 (07:41→20:03)
[2016-11-08] MEDS: Sucralfate 1 GM TABLET PO SCH ×4 (07:41→22:20)
[2016-11-08] MEDS: Insulin LISPRO 300 UNITS/3 ML VIAL SQ SCH ×4 (07:46→22:20)
[2016-11-08] MEDS ORDERED: GI Cocktail 40 ML EACH PO PRN (09:43)
--- NOTE | 2016-11-08 11:11 | Nephrology Progress Note ---
Date of Encounter: 11/08/16 Time of Encounter: 11:09 - Assessment and Plan (1) Acute kidney injury superimposed on chronic kidney disease Current Visit: Yes Status: Acute Renal function continues to improve as of yesterday. No labs today.. Maintain adequate hydration. Avoid nephrotoxic agents. Also titrate medications for renal function. Patient follows with Dr. Murray in clinic. Will need to follow-up 4-6 weeks after discharge for hospital follow-up. BMP 1 week after discharge and 1 week prior to visit. (2) Hypokalemia Current Visit: Yes Status: Acute Replace potassium as needed. (3) Hyponatremia Current Visit: Yes Status: Acute Resolved. (4) Anemia Current Visit: Yes Status: Acute Transfuse as needed. Patient stores appear to represent iron overload. Her oral iron has been discontinued. Vitamin B12 folate are both low and supplements have been ordered. Qualifiers: (5) HTN (hypertension) Current Visit: No Status: Chronic Blood pressure controlled. Qualifiers: Hypertension type: essential hypertension Qualified Code(s): I10 - Essential (primary) hypertension (6) Abdominal pain Current Visit: Yes Status: Acute Per primary team. GI evaluated. Upper endoscopy reveals peptic ulcer disease. Abdominal pain only minimally improved with carafate and intravenous PPI so far. Can give a trial of GI cocktail. If no improvement reconsult GI. May need to obtain a CT with contrast to better evaluate. If abdominal pain worsens or if hemoglobin continues to drop consider a general surgery consult or may need to consider a CT scan with oral contrast. If a CT scan with IV contrast needed please provide Mucomyst along with continuing IV hydration. She would be at risk of contrast induced nephropathy. Qualifiers: Abdominal location: epigastric Qualified Code(s): R10.13 - Epigastric pain Subjective Principal diagnosis: RENE/CKD Interval history: Patient was seen and evaluated. She reports that her abdominal pain is not really better. It is constant and worse with eating. She is aware of the ulcers found on endoscopy. Her review of systems otherwise is stable or negative. Objective - Vital Signs Vital signs: Vital Signs Temp Pulse Resp BP Pulse Ox 11/08/16 10:51 97.8 F 53 16 144/68 100 11/08/16 07:22 97.5 F L 53 17 165/75 94 11/08/16 05:00 95 11/08/16 02:52 98.1 F 58 15 135/69 95 11/07/16 23:44 98.0 F 50 19 124/69 96 11/07/16 18:52 97.7 F 58 17 122/64 95 11/07/16 15:40 98.7 F 57 18 148/70 96 Intake and Output 11/07/16 11/08/16 11/08/16 23:59 07:59 15:59 Intake Total 240 / 240 100 / 100 420 / 420 Output Total 0 / 0 0 / 0 Balance 240 / 240 100 / 100 420 / 420 Intake: Oral 240 / 240 100 / 100 420 / 420 Output: Urine 0 / 0 0 / 0 Other: Meal Dinner Breakfast Percent of Meal Consumed 100% 100% # Voids 2 Weight 74.3 kg Blood Glucose* 160 159 Patient Weight 11/08/16 23:59 Weight 74.3 kg - General Appearance General appearance: Present: well-developed, well-nourished EENT: Present: ATNC Neck: Present: supple Respiratory: Present: clear Cardiology: Present: no edema, regular rate, regular rhythm Gastrointestinal: Present: tenderness (RUQ and LUQ with mild guarding and no rebound.) Integumentary: Present: warm and dry Neurologic: Present: alert and oriented x3 - Lab 11/08/16 06:26 11/07/16 06:28 Most recent lab results Calcium 7.9 mg/dL (8.6-10.8) L 11/07/16 06:28 Magnesium 1.1 mg/dL (1.6-2.6) L 11/07/16 06:28 Urine Creatinine 33 mg/dL 11/05/16 13:35 Urine Sodium < 20.0 mEq/L 11/05/16 13:35 Urine Total Protein 8 mg/dL (1-14) 11/05/16 13:35 Consult Discharge Plan - Plan Referrals: Basil Stauffer DO [Primary Care Provider] - (patient already have an appointment on the , to establish a pcp..)
[2016-11-08] MEDS: Metoprolol XL (24 HR) Succ 50 MG TAB.ER.24H PO SCH (14:12)
[2016-11-08] MEDS: amLODIPine 5 MG TABLET PO SCH (14:12)
--- NOTE | 2016-11-08 15:40 | Internal Med Progress Note ---
Date of Encounter: 11/08/16 Time of Encounter: 10:00 - Assessment and plan (1) Abdominal pain Current Visit: Yes Status: Acute Assessment and plan: Etiology is undetermined. Patient said the abdominal pain is constant for 6 weeks. Epigastric tenderness. - Liver function, amylase, lipase within normal limits - Abdominal CT unremarkable. - GI consult appreciated, EGD done, peptic ulcer identified. - Cont protonix IV twice a day and carafate po. Add GI cocktail. - Pathology result shows inflammation, negative H Pylori - Cont Pain management. Waiting for GI further recommendation. Qualifiers: Abdominal location: epigastric Qualified Code(s): R10.13 - Epigastric pain (2) HTN (hypertension) Current Visit: No Status: Chronic Assessment and plan: Continue home medications. Increase amlodipine from 5 mg to 10 mg daily because patient BP is high Qualifiers: Hypertension type: essential hypertension Qualified Code(s): I10 - Essential (primary) hypertension (3) Metabolic acidosis Current Visit: No Status: Resolved Assessment and plan: Resolved after bicarbonate drip use. (4) DVT prophylaxis Current Visit: No Status: Acute Assessment and plan: Heparin subcutaneously (5) Diabetes mellitus Current Visit: Yes Status: Chronic Assessment and plan: Cover patient with basal and sliding scale insulin. 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 Nephrology consul on case. Renal function improving upon treatment. (8) Hypokalemia Current Visit: Yes Status: Acute Assessment and plan: Potassium supplement given. (9) Vitamin B 12 deficiency Current Visit: Yes Status: Acute Assessment and plan: Supplement started (10) Folic acid deficiency Current Visit: Yes Status: Acute Assessment and plan: Supplement started - Subjective Interval history: Patient is a 61-year-old female admitted for abdominal pain and worsening renal function. Her past medical history is significant for hypertension, CAD, diabetes, COPD, CKD Patient was seen and examined. She still complains of abdominal pain, not respond to IV PPI and carafate. GI cock tail added, but still cannot control the pain. Pain is slight less but still need pain medication. Vitals stable, renal function has improved. I text GI consult DR Benedict today and Dr Benedict said he will reevaluate pt's abd pain and blood in stool later today, waiting for GI further input. Pt's pathology shows inflammation and H pylori negative. - Constitutional Vitals: Temp Pulse Resp BP Pulse Ox 97.8 F 53 16 144/68 100 11/08/16 10:51 11/08/16 10:51 11/08/16 10:51 11/08/16 10:51 11/08/16 10:51 General appearance: Present: A&O X 3, pleasant, no acute distress, answers questions appropriately - Head Head exam: Present: atraumatic, normocephalic - Eye Eye exam: Present: PERRL, conjuntiva pink, sclera anicteric Pupils: Present: PERRL - Neck Neck exam general surgery: Present: supple, trachea midline. Absent: lymphadenopathy - Respiratory Respiratory exam: Present: CTAB. Absent: accessory muscle use, rales, rhonchi, wheezes - Cardiovascular Cardiovascular exam: Present: RRR, +S1, +S2. Absent: diastolic murmur, gallop, rubs, systolic murmur - GI/Abdominal GI/Abdominal exam: Present: normal bowel sounds, soft, tenderness (Epigastric area tenderness), no peritoneal signs. Absent: distended - Extremities Exam Extremities exam: Present: warm, radial pulses palpable and symetrical. Absent : calf tenderness, cyanotic, pedal edema - Neurological Exam Neurological exam: Present: CN II-XII intact, oriented X3, no focal deficits. Absent: pronater drift, facial droop, speech deficit - Skin Skin exam: Present: dry, intact Internal Medicine: Result - Labs CBC & Chem 7: 11/08/16 06:26 11/07/16 06:28 Labs: Short CBC 11/08/16 Range/Units 06:26 WBC 3.8 L (4.3-11.1) K/mcL Hgb 8.0 L (11.5-15.4) g/dL Hct 23.7 L (35.3-44.9) % Plt Count 194 (140-400) K/mcL Neutrophils # 1.8 (1.6-8.9) K/mcL - ABG Interpretation ABG results: PT/INR, D-dimer PT 12.2 Seconds (9.4-12.1) H 11/06/16 04:13 Consult Discharge Plan - Plan Referrals: Basil Stauffer, [Primary Care Provider] - (patient already have an appointment on the , to establish a pcp..)
[2016-11-08] MEDS: *HR* OxyCODONE/APAP 5/325 TABLET PO PRN ×2 (15:55→22:20)
[2016-11-08] MEDS ORDERED: Magnesium Sulfate 2 GM in D5% in Water 100 ML IVPB ONE (16:13)
[2016-11-08 16:35] LABS: Basophils % 0.3 %; Eosinophils # 0.1 K/mcL (0.0-0.6); Eosinophils % 1.3 %; Hematocrit 23.4 % (35.3-44.9); Hemoglobin 7.8 g/dL (11.5-15.4); Lymphocytes # 1.2 K/mcL (0.6-4.6); Lymphocytes % 30.2 %; Mean Corpuscular HGB Conc 33.3 g/dL (31.6-35.5); Mean Corpuscular Hemoglobin 31.7 pg (28.0-33.3); Mean Corpuscular Volume 95.1 fL (83.0-100.0); Mean Platelet Volume 9.6 fL (9.4-12.4); Monocytes # 0.3 K/mcL (0.0-1.3); Monocytes % 8.1 %; Neutrophils # 2.4 K/mcL (1.6-8.9); Platelet Count 206 K/mcL (140-400); Red Blood Count 2.46 M/mcL (3.82-4.97); Red Cell Distribution Width 12.3 % (11.5-14.5); Segmented Neutrophils % 59.1 %
--- NOTE | 2016-11-08 18:12 | Event Note ---
Date of Encounter: 11/08/16 Time of Encounter: 18:00 D/W Dr. Benedict this afternoon, Dr. Benedict said pt's big ulcer can explain the epigastric pain, no further test needed, the ulcer cannot heal in a short period , need certain time of treatment, pt can be discharge home with pain medication , PPI, and carafate and f/u with GI as outpatient. Dr Benedict plan to repeat EGD after about two months to check the healing of ulcer, at that time he may also do colonoscopy as well. Will check pt's lab in AM, if unremarkable, will consider discharge home and follow GI recommendation.
[2016-11-09] MEDS: Acetaminophen 325 MG TABLET PO PRN (00:16)
[2016-11-09] MEDS: *HR* Heparin 5,000 UNIT/ML VIAL SQ SCH ×2 (00:16→07:54)
[2016-11-09] MEDS: *HR* HYDROcodone/Acet 5/325 mg TABLET PO PRN (05:43)
[2016-11-09 06:08] LABS: Basophils % 0.3 %; Eosinophils # 0.1 K/mcL (0.0-0.6); Eosinophils % 1.3 %; Hematocrit 22.8 % (35.3-44.9); Hemoglobin 7.6 g/dL (11.5-15.4); Immature Granulocytes % 0.8 % (0-4); Lymphocytes # 1.7 K/mcL (0.6-4.6); Lymphocytes % 46.2 %; Mean Corpuscular HGB Conc 33.3 g/dL (31.6-35.5); Mean Corpuscular Hemoglobin 31.9 pg (28.0-33.3); Mean Corpuscular Volume 95.8 fL (83.0-100.0); Mean Platelet Volume 9.5 fL (9.4-12.4); Monocytes # 0.3 K/mcL (0.0-1.3); Monocytes % 8.3 %; Neutrophils # 1.6 K/mcL (1.6-8.9); Platelet Count 179 K/mcL (140-400); Red Blood Count 2.38 M/mcL (3.82-4.97); Red Cell Distribution Width 12.6 % (11.5-14.5); Segmented Neutrophils % 43.1 %
[2016-11-09 06:18] LABS: Calcium 8.1 mg/dL (8.6-10.8); Magnesium 1.6 mg/dL (1.6-2.6); Potassium 3.7 mEq/L (3.5-4.5)
[2016-11-09] MEDS: Hyoscyamine SL 0.125 MG TAB.SUBL SL SCH (07:52)
[2016-11-09] MEDS: *HR* OxyCODONE/APAP 5/325 TABLET PO PRN (07:53)
[2016-11-09] MEDS: Cyanocobalamin (B-12) 1,000 MCG TABLET PO SCH (07:53)
[2016-11-09] MEDS: amLODIPine 5 MG TABLET PO SCH (07:53)
[2016-11-09] MEDS: Sucralfate 1 GM TABLET PO SCH ×2 (07:54→11:33)
[2016-11-09] MEDS: Metoprolol XL (24 HR) Succ 50 MG TAB.ER.24H PO SCH (07:54)
[2016-11-09] MEDS: Folic Acid 1 MG TABLET PO SCH (07:54)
[2016-11-09] MEDS: Pantoprazole 40 MG VIAL IVP SCH (07:56)
[2016-11-09] MEDS: Insulin LISPRO 300 UNITS/3 ML VIAL SQ SCH ×2 (07:56→11:32)
[2016-11-09] MEDS ORDERED: *HR* OxyCODONE/APAP 5/325 TABLET PO PRN (09:27)
[2016-11-09] MEDS ORDERED: *HR* HYDROcodone/Acet 5/325 mg TABLET PO PRN (09:27)
--- NOTE | 2016-11-09 10:15 | Nephrology Progress Note ---
Date of Encounter: 11/09/16 Time of Encounter: 12:23 - Assessment and Plan (1) Acute kidney injury superimposed on chronic kidney disease Current Visit: Yes Status: Acute Renal function at baseline. Maintain adequate hydration. Avoid nephrotoxic agents. Also titrate medications for renal function. Patient follows with Dr. Murray in clinic. Will need to follow-up 4-6 weeks after discharge for hospital follow-up. BMP 1 week after discharge and 1 week prior to visit. (2) Hypokalemia Current Visit: Yes Status: Acute Replace potassium as needed. (3) Hyponatremia Current Visit: Yes Status: Acute Resolved. (4) Anemia Current Visit: Yes Status: Acute Hemoglobin on slow downward trend. No active bleeding identified. Transfuse as needed. Patient stores appear to represent iron overload. Her oral iron has been discontinued. Vitamin B12 folate are both low and supplements have been ordered. Will start aranesp. Recommend checking hemoglobin next week if she is discharged. Qualifiers: Qualified Code(s): D64.9 - Anemia, unspecified (5) HTN (hypertension) Current Visit: No Status: Chronic Blood pressure controlled. Qualifiers: Hypertension type: essential hypertension Qualified Code(s): I10 - Essential (primary) hypertension (6) Abdominal pain Current Visit: Yes Status: Acute Per primary team. GI evaluated. Upper endoscopy reveals peptic ulcer disease. Abdominal pain only minimally improved with carafate and intravenous PPI so far. . Qualifiers: Abdominal location: epigastric Qualified Code(s): R10.13 - Epigastric pain Subjective Principal diagnosis: RENE/CKD Interval history: Patient was seen and evaluated. She reports that her abdominal pain is not really better. It is constant and worse with eating. She is aware of the ulcers found on endoscopy. Her review of systems otherwise is stable or negative. Objective - Vital Signs Vital signs: Vital Signs Temp Pulse Resp BP Pulse Ox 11/09/16 07:38 98.3 F 61 16 178/94 97 11/09/16 03:35 97.5 F L 52 15 163/76 98 11/08/16 23:01 98.1 F 55 17 133/73 96 11/08/16 18:50 97.9 F 63 15 137/88 98 11/08/16 15:42 97.5 F L 63 16 184/81 96 11/08/16 10:51 97.8 F 53 16 144/68 100 Intake and Output 11/08/16 11/09/16 11/09/16 23:59 07:59 15:59 Intake Total 270 / 270 480 / 480 Output Total 0 / 0 Balance 270 / 270 0 / 0 480 / 480 Intake: Oral 270 / 270 480 / 480 Output: Urine 0 / 0 Other: Meal Dinner Breakfast Percent of Meal Consumed 100% 50% Weight 74.5 kg Blood Glucose* 202 158 Patient Weight 11/09/16 23:59 Weight 74.5 kg - General Appearance General appearance: Present: well-developed, well-nourished EENT: Present: ATNC Neck: Present: supple Additional Comments: Her respirations are not labored Cardiology: Present: regular rate Neurologic: Present: alert and oriented x3 Psychiatric: Present: mood/affect appropriate - Lab 11/09/16 05:58 11/09/16 05:58 Most recent lab results Calcium 8.1 mg/dL (8.6-10.8) L 11/09/16 05:58 Magnesium 1.6 mg/dL (1.6-2.6) 11/09/16 05:58 Urine Creatinine 33 mg/dL 11/05/16 13:35 Urine Sodium < 20.0 mEq/L 11/05/16 13:35 Urine Total Protein 8 mg/dL (1-14) 11/05/16 13:35 Consult Discharge Plan - Plan Referrals: Basil Stauffer DO [Primary Care Provider] - (patient already have an appointment on the , to establish a pcp..)
[2016-11-09 11:23] VITALS: BP 160/78
--- NOTE | 2016-11-09 12:00 | Electrocardiograph Report ---
[place] [id number] Test Date: 2016-11-08 Pat Name: Kimberly Gallegos Department: 112 Room: 2A14 Gender: F [employer] Job Titles: TO : 1955 Requested By: Luis Foster Order Number: [id number] Reading MD: Anish Servin MD Measurements Intervals [place] Rate: 60 P: 43 MS: 157 QRS: 5 QRSD: 86 T: 49 QT: 388 QTc: 389 Interpretive Statements SINUS RHYTHM Electronically Signed On 11-09-2016 11:59:23 EDT by Anish Servin MD
--- NOTE | 2016-11-09 13:54 | Discharge Summary ---
Date of Encounter: 11/09/16 Time of Encounter: 13:00 - Discharge Diagnosis (1) Gastric ulcer, acute Priority: Primary Status: Acute Qualifiers: Gastric ulcer complication status: with hemorrhage Qualified Code(s): K25.0 - Acute gastric ulcer with hemorrhage (2) Gastric ulcer due to nonsteroidal anti-inflammatory drug (NSAID) Priority: Secondary Status: Acute Qualifiers: Encounter type: subsequent encounter Injury intent: accidental or unintentional Qualified Code(s): T39.391D - Poisoning by other nonsteroidal anti-inflammatory drugs [NSAID], accidental (unintentional), subsequent encounter; K25.9 - Gastric ulcer, unspecified as acute or chronic, without hemorrhage or perforation (3) Abdominal pain Priority: Primary Status: Acute Qualifiers: Abdominal location: epigastric Qualified Code(s): R10.13 - Epigastric pain (4) Folic acid deficiency Priority: Secondary Status: Acute (5) Anemia Priority: Secondary Status: Acute Qualifiers: Anemia type: due to chronic kidney disease Chronic kidney disease stage: stage 4 (severe) Qualified Code(s): N18.4 - Chronic kidney disease, stage 4 ( severe); D63.1 - Anemia in chronic kidney disease (6) HTN (hypertension) Priority: Secondary Status: Chronic Qualifiers: Hypertension type: essential hypertension Qualified Code(s): I10 - Essential (primary) hypertension (7) Diabetes mellitus Priority: Secondary Status: Chronic Qualifiers: Diabetes mellitus type: type 2 Diabetes mellitus complication status: with kidney complications Diabetes mellitus complication detail: with chronic kidney disease Diabetes mellitus fpc insulin use: with fpc use Chronic kidney disease stage: stage 4 (severe) Qualified Code(s): E11.22 - Type 2 diabetes mellitus with diabetic chronic kidney disease; N18.4 - Chronic kidney disease, stage 4 (severe); Z79.4 - residential (current) use of insulin (8) Metabolic acidosis Priority: Secondary Status: Resolved (9) Hypokalemia Priority: Secondary Status: Resolved (10) Hyponatremia Priority: Secondary Status: Resolved (11) Vitamin B 12 deficiency Priority: Secondary Status: Chronic Comments: Replaced - Discharge Medications Prescriptions: OxyCODONE/APAP 5/325 [Percocet 5/325 MG] 1 each PO Q6HR PRN #30 tablet PRN Reason: Severe Pain (7-10) Cyanocobalamin (B-12) [Vitamin B12] 1,000 mcg PO DAILY #30 tablet Folic Acid 1 mg PO DAILY #30 tablet Omeprazole [PriLOSEC] 40 mg PO BIDAC #60 capsule. Sucralfate [Carafate] 1 gm PO QIDAC #120 tablet Home Medications: Cholecalciferol (D-3) [Vitamin D] 5,000 unit PO DAILY 09/15/16 [History] Insulin Glargine,Hum.rec.anlog [Lantus Solostar] 10 unit SQ HS 09/15/16 [History ] Metoprolol XL (24 HR) Succ [Toprol Xl] 50 mg PO DAILY 09/15/16 [History] Sodium Bicarbonate 650 mg PO TID 09/15/16 [History] Ondansetron HCl 4 mg PO Q6H PRN #12 tablet 09/17/16 [Rx] amLODIPine [Norvasc] 5 mg PO DAILY #30 tablet 09/17/16 [Rx] Hyoscyamine SL [Levsin Sl] 0.125 mg SL TID 5 Days 10/16/16 [Rx] Ondansetron ODT [Zofran ODT] 4 mg SL Q6HR PRN #14 tab.rapdis 10/26/16 [Rx] Cyanocobalamin (B-12) [Vitamin B12] 1,000 mcg PO DAILY #30 tablet 11/09/16 [Rx] Folic Acid 1 mg PO DAILY #30 tablet 11/09/16 [Rx] Omeprazole [PriLOSEC] 40 mg PO BIDAC #60 capsule. 11/09/16 [Rx] OxyCODONE/APAP 5/325 [Percocet 5/325 MG] 1 each PO Q6HR PRN #30 tablet 11/09/16 [Rx] Sucralfate [Carafate] 1 gm PO QIDAC #120 tablet 11/09/16 [Rx] Allergies/Adverse Reactions: Allergies No Known Allergies Allergy (Verified 11/03/16 16:58) Procedures/tests Complete & Pending: Procedures Performed prior 72 hours Category Date Time Status EKG [ECG 12 lead ECG] [ECG] Routine Y 11/08/16 15:52 Completed Date of admission: 11/03/16 23:08 Primary care physician: Basil Stauffer DO Consults: 11/04/16 12:13 Consult to Gastroenterology [CONS] Routine Consulting Provider: Gastroenterology Jenn Reason for Consult: Abd pain Call Completed: No Discharging clinician: King Westbrook Anticipated date of discharge: 11/09/16 - Patient Status Disposition: Home, Self-Care Condition: Fair Functional capacity at discharge: independent ambulation Overall status at discharge: patient is progressing back to baseline - Discharge Instructions Instructions: Sucralfate (By mouth), Oxycodone/Acetaminophen (By mouth), Omeprazole (By mouth), Cyanocobalamin (Vitamin B-12) (Injection), Folic Acid ( By mouth) Follow Up With: Basil Stauffer DO [Primary Care Provider] - 11/29/16 9:00 am (patient already have an appointment on the , to establish a pcp..) Panda Murray DO [Partnered Physician] - 12/08/16 4:00 pm Additional Instructions: Diet as tolerated. Labs to be rechecked in one week. - Diet and Activity Activity: resume usual activities as tolerated Diet: advance to your usual diet Hospital course: Ms. Gallegos is a 61 year old female with hx of DM and CKD presented to ED with complaints of persistent abdominal pain. She was evaluated in Dr. Murray 's office and found to have RENE in addition to her CKD. She had been taking a significant amount of NSAIDS for her abdominal pain. She was subsequently admitted for further evaluation and treatment. Ms. Gallegos was admitted to [facility]. She was was started on IV fluids and PO bicarb was increased for her worsening acidosis. She also had brief time with IV bicarb as well. She continued to have abdominal pain and was evaluated by GI service. She underwent EGD which showed 2 gastric ulcers with no active bleeding. She was continued on PPI at increased dose and Carafate was added. Overall her renal function stabilized and IV bicarbonate was stopped. She was continued on PO supplement and Norvasc was adjusted for her BP. Blood sugars were monitored and meds adjusted as well. She continued to have significant abdominal pain and required multiple doses of pain meds. She was reassured that pain is expected with size of ulcers. Pathology was negative for H pylori. On 11/09 she was able to tolerate a diet. She was afebrile with stable vitals. At that time she was felt ready for discharge home on PO meds. - Time Spent with Patient Total time spent providing and/or coordinating discharge services: 41min - Constitutional Vitals: Temp Pulse Resp BP Pulse Ox 98.0 F 52 16 160/78 99 11/09/16 11:18 11/09/16 11:18 11/09/16 11:18 11/09/16 11:18 11/09/16 11:18 General appearance: Present: A&O X 3, pleasant, answers questions appropriately - Head Head exam: Present: normocephalic - Eye Eye exam: Present: EOMI, conjuntiva pink - ENT ENT exam: Present: mucous membranes dry - Respiratory Respiratory exam: Present: CTAB. Absent: rhonchi, wheezes - Cardiovascular Cardiovascular exam: Present: RRR. Absent: tachycardia - GI/Abdominal GI/Abdominal exam: Present: soft, tenderness. Absent: mass Additional comments: Persistent discomfort in epigastric area without peritoneal signs. - Extremities Exam Extremities exam: Present: warm. Absent: tenderness - Neurological Exam Neurological exam: Present: alert, oriented X3 - Psychiatric Psychiatric exam: Present: normal affect, normal mood - Skin Skin exam: Present: dry, warm. Absent: rash
== END 2016-11-09 14:58 | disposition home or self-care (01) | DRG 682 ==
LOC: EMEROO 16:43 → 2ANU 16:43 → SUATTDRO 23:08 → 2ANU 23:13
PROVIDERS: ADMIT Internal Medicine Sleep Medicine; ATTEND Internal Medicine
PROC: ENDOEBX (2016-11-06 13:00)

== ENCOUNTER 2016-11-18 10:56 | Inpatient (IN) ==
--- NOTE | 2016-11-18 11:34 | Emergency Department Note ---
Disposition Clinical Impression: Acute kidney injury, Chest pain, rule out acute myocardial infarction Abdominal pain Qualifiers: Abdominal location: left upper quadrant Qualified Code(s): R10.12 - Left upper quadrant pain Disposition: Admitted As Inpatient Condition: Good Chest Pain HPI - General Chief Complaint: ED Chest Pain Stated Complaint: chest pain Time Seen by Provider: 11/18/16 11:01 Source: patient, EMS Mode of arrival: EMS Limitations: no limitations Vital Signs Reviewed: Yes Nursing Notes Reviewed: Yes - History of Present Illness HPI Narrative: 61-year-old female presents with concerns of epigastric left upper quadrant abdominal pain and left lower chest pain. Patient states her pain started this morning however she was diagnosed with colitis within the past 3 days. She states she has been taking Cipro and Flagyl faithfully at home however she has not had any improvement of her symptoms. Patient reports she has had intermittent diarrhea and possible melena at home. Patient denies fever, chills , palpitations. She reports associated shortness of breath, nausea and vomiting which is associated with her pain. Severity scale (1-10): 6 - Related Data Home Medications Medication Instructions Recorded Confirmed Insulin Glargine,Hum.rec.anlog 10 unit SQ HS 09/15/16 11/18/16 [Lantus Solostar] Previous Rx's Medication Instructions Recorded amLODIPine [Norvasc] 5 mg PO DAILY #30 tablet 09/17/16 Cyanocobalamin (B-12) [Vitamin B12] 1,000 mcg PO DAILY #30 tablet 11/09/16 Folic Acid 1 mg PO DAILY #30 tablet 11/09/16 Omeprazole [PriLOSEC] 40 mg PO BIDAC #60 capsule. 11/09/16 Sucralfate [Carafate] 1 gm PO QIDAC #120 tablet 11/09/16 Ciprofloxacin HCl [Cipro] 500 mg PO BID #20 tablet 11/15/16 metroNIDAZOLE [Flagyl] 500 mg PO TID #30 tablet 11/15/16 Allergies Allergy/AdvReac Type Severity Reaction Status Date / Time No Known Allergies Allergy Verified 11/11/16 13:55 All systems ED: reviewed and negative except as stated. Constitutional: Denies: fever, chills, weakness Cardiovascular: Reports: chest pain. Denies: palpitations, dyspnea on exertion Respiratory: Denies: cough, dyspnea, wheezes Gastrointestinal: Reports: abdominal pain, nausea, vomiting, diarrhea Genitourinary: Denies: urgency, dysuria Musculoskeletal: Denies: back pain, neck pain Integumentary: Denies: rash Chest Pain PMH - Past Medical History Medical history: Reports: CHF, COPD, CVA, diabetes, hyperlipidemia, hypertension , myocardial infarction, renal disease, other Surgical history: Reports: cholecystectomy, other (LLE BKA) Psychiatric history: Reports: depression REGISTRATION REPRESENTATIVE history: Reports: non-contributory - Social History Smoking Status: Current every day smoker Alcohol use: Reports: none Drug use: Reports: none Physical Exam General: Alert and in no acute distress Skin: Warm, dry, intact Head: Normocephalic and atraumatic Neck: Supple, trachea midline and no tenderness Cardiovascular: RRR, no murmur, normal perfusion Respiratory: CTAB, no wheezing, cough, or respiratory distress Musculoskeletal: Normal strength, no tenderness, swelling or deformity GI: Soft, diffuse abdominal tenderness, mainly located in the epigastrium and left upper quadrant. Neuro: A&O to person, place, time and situation. No focal deficits noted on exam Psychiatric: cooperative and appropriate mood and affect. - General Limitations: no limitations General appearance: alert Course Vital Signs Temperature 98 F 11/18/16 10:57 Pulse Rate 74 11/18/16 10:57 Respiratory Rate 18 11/18/16 10:57 Blood Pressure 176/99 11/18/16 10:57 O2 Sat by Pulse Oximetry 98 11/18/16 10:57 Temperature 97.7 F 11/18/16 20:30 Pulse Rate 65 11/18/16 20:30 Respiratory Rate 15 11/18/16 20:30 Blood Pressure 147/76 11/18/16 20:30 O2 Sat by Pulse Oximetry 100 11/18/16 20:30 Oxygen Delivery Oxygen Delivery Room Air Chest Pain - MDM Narrative Medical decision making narrative: Patient has continued pain despite treatment with Cipro and Flagyl as an outpatient. She will be treated with IV antibiotics and trying to the hospital for possible failure of outpatient antibiotics. Patient also complained of chest pain and needs to be observed for this as well. On laboratory testing she does have acute kidney injury which will need to be observed and likely improve with fluids. - Medical Records Medical records reviewed: Yes I reviewed the patient's medical records. - Lab Data Lab results reviewed: Yes I reviewed the patient's lab results. Result diagrams: 11/18/16 12:35 11/18/16 12:35 Lab Results 11/18/16 11/18/16 11/18/16 Range/Units 12:35 12:35 12:35 WBC 4.6 (4.3-11.1) K/mcL RBC 2.94 L (3.82-4.97) M/mcL Hgb 9.4 L D (11.5-15.4) g/dL Hct 28.4 L (35.3-44.9) % MCV 96.6 (83.0-100.0) fL MCH 32.0 (28.0-33.3) pg MCHC 33.1 (31.6-35.5) g/dL RDW 13.7 (11.5-14.5) % Plt Count 269 (140-400) K/mcL MPV 9.8 (9.4-12.4) fL Immature Gran % 0.2 (0-4) % Seg Neutrophils % 58.2 % Lymphocytes % 33.7 % Monocytes % 5.9 % Eosinophils % 1.3 % Basophils % 0.7 % Neutrophils # 2.7 (1.6-8.9) K/mcL Lymphocytes # 1.5 (0.6-4.6) K/mcL Monocytes # 0.3 (0.0-1.3) K/mcL Eosinophils # 0.1 (0.0-0.6) K/mcL Basophils # 0.0 (0.0-0.2) K/mcL PT 13.2 H (9.4-12.1) Seconds INR 1.2 APTT 32.8 (26.0-36.0) Seconds Sodium 141 (136-145) mEq/L Potassium 3.4 L (3.5-4.5) mEq/L Chloride 110 H (98-109) mEq/L Carbon Dioxide 20 (19-29) mEq/L BUN 15 (7-20) mg/dL Creatinine 2.30 H (0.57-1.11) mg/dL Est GFR ( Amer) 26 L (> 60) Est GFR (Non-Af Amer) 22 L (> 60) BUN/Creatinine Ratio 7 (6-26) Glucose 141 H (70-99) mg/dL Calculated Osmolality 295 (280-300) Calcium 8.6 (8.6-10.8) mg/dL Troponin I (0-0.03) ng/mL 11/18/16 Range/Units 12:35 WBC (4.3-11.1) K/mcL RBC (3.82-4.97) M/mcL Hgb (11.5-15.4) g/dL Hct (35.3-44.9) % MCV (83.0-100.0) fL MCH (28.0-33.3) pg MCHC (31.6-35.5) g/dL RDW (11.5-14.5) % Plt Count (140-400) K/mcL MPV (9.4-12.4) fL Immature Gran % (0-4) % Seg Neutrophils % % Lymphocytes % % Monocytes % % Eosinophils % % Basophils % % Neutrophils # (1.6-8.9) K/mcL Lymphocytes # (0.6-4.6) K/mcL Monocytes # (0.0-1.3) K/mcL Eosinophils # (0.0-0.6) K/mcL Basophils # (0.0-0.2) K/mcL PT (9.4-12.1) Seconds INR APTT (26.0-36.0) Seconds Sodium (136-145) mEq/L Potassium (3.5-4.5) mEq/L Chloride (98-109) mEq/L Carbon Dioxide (19-29) mEq/L BUN (7-20) mg/dL Creatinine (0.57-1.11) mg/dL Est GFR ( Amer) (> 60) Est GFR (Non-Af Amer) (> 60) BUN/Creatinine Ratio (6-26) Glucose (70-99) mg/dL Calculated Osmolality (280-300) Calcium (8.6-10.8) mg/dL Troponin I 0.00 (0-0.03) ng/mL - Radiology Data Radiology results reviewed: Yes I reviewed the patient's radiology results. - EKG Data EKG attestation: Yes I reviewed and interpreted this EKG. EKG results narrative: ECG - interpreted by ED physician. Rate 74, normal sinus rhythm, no STEMI, AK, QT intervals, and QRS within normal limits Heart Score - Score History: Moderately Suspicious EKG: Normal Age: 45-65 Risk Factors: Equal/Greater than 3 risk factor or history of atherosclerotic disease Troponin: Less than normal limit HEART Score Total: 4
[2016-11-18] MEDS ORDERED: Ondansetron 4 MG/2 ML VIAL IVP ONE (12:20)
[2016-11-18] MEDS ORDERED: *HR* Morphine 2 MG/ML SYRINGE IVP ONE ×2 (12:20→13:46)
[2016-11-18 12:49] LABS: Basophils % 0.7 %; Eosinophils # 0.1 K/mcL (0.0-0.6); Eosinophils % 1.3 %; Hematocrit 28.4 % (35.3-44.9); Immature Granulocytes % 0.2 % (0-4); Lymphocytes # 1.5 K/mcL (0.6-4.6); Lymphocytes % 33.7 %; Mean Corpuscular HGB Conc 33.1 g/dL (31.6-35.5); Mean Corpuscular Volume 96.6 fL (83.0-100.0); Mean Platelet Volume 9.8 fL (9.4-12.4); Monocytes # 0.3 K/mcL (0.0-1.3); Monocytes % 5.9 %; Neutrophils # 2.7 K/mcL (1.6-8.9); Platelet Count 269 K/mcL (140-400); Red Blood Count 2.94 M/mcL (3.82-4.97); Red Cell Distribution Width 13.7 % (11.5-14.5); Segmented Neutrophils % 58.2 %
[2016-11-18 12:53] LABS: Hemoglobin 9.4 g/dL (11.5-15.4)
[2016-11-18 12:54] LABS: INR 1.2; Prothrombin Time 13.2 Seconds (9.4-12.1)
[2016-11-18 13:02] LABS: Potassium 3.4 mEq/L (3.5-4.5)
[2016-11-18 13:03] LABS: Calcium 8.6 mg/dL (8.6-10.8)
[2016-11-18 13:05] LABS: Activated Partial Thrombo Time 32.8 Seconds (26.0-36.0)
[2016-11-18] MEDS ORDERED: MetroNIDAZOLE 500 MG/100 ML 500 MG/100 ML BAG IVPB ONE (13:41)
[2016-11-18] MEDS ORDERED: Acetaminophen 325 MG TABLET PO PRN (14:27)
[2016-11-18] MEDS ORDERED: Naloxone 0.4 MG/ML INJ IVP PRN (14:27)
--- NOTE | 2016-11-18 14:50 | Internal Med History&Physical ---
<Rodney Marquez - Last Filed: 11/18/16 15:43> Date of Encounter: 11/18/16 Time of Encounter: 14:00 Assessment and Plan (1) Chest pain Current visit: Yes Status: Acute Patient presents with chief complaint acute chest pain which began this morning and she describes as a burning sensation in her left chest that does not radiate to neck or arms or back. Patient's EKG dated today shows sinus rhythm with voltage criteria for LVH and possible septal myocardial infarction ( probably old). Patient has history of MA 125 years ago and CVA 220 years ago. Patient's last echocardiogram was 2 weeks ago during hospital admission which was unremarkable and showed LVEF of 60%. Patient was placed on continuous cardiac telemetry with aspirin therapy, trending troponins 2, and supplemental oxygen with SPO2 monitoring. We will continue patient's medications for HLD and HTN. Qualifiers: Chest pain type: other chest pain Qualified Code(s): R07.89 - Other chest pain; R07.8 - Other chest pain (2) SOB (shortness of breath) Current visit: Yes Status: Acute Patient presents with mild and acute shortness of breath related to current abdominal pain and chest pain. Patient denies use of home O2 but states she currently smokes 1 PPD. Supplemental O2 with titration if SpO2 <92% and continuous SpO2 monitoring ordered. DuoNebs Q4 ordered. Monitor patient and vital signs. (3) Nausea & vomiting Current visit: Yes Status: Acute Patient reports acute nausea and vomiting for the past several days. Patient reports vomiting 3-4 times daily and states emesis is yellow bilious. Patient to be placed nothing by mouth. IV Zofran ordered when necessary. IV Protonix ordered 40 mg daily. Will advance diet as tolerated. Electrolyte protocol ordered. Qualifiers: Vomiting type: cyclical vomiting Vomiting Intractability: non-intractable Qualified Code(s): G43.A0 - Cyclical vomiting, not intractable (4) Abdominal pain Current visit: Yes Status: Acute Patient presents with acute abdominal pain of LUQ related to diagnosis of colitis. Abdominal CT without contrast ordered. CT impressions show mild circumferential urinary bladder wall thickening as can be seen with cystitis. Recommend correlation with urinalysis abd status post cholecystectomy. Stair- step pain medication ordered PRN. Will continue to monitor patient's pain. U/A with reflex and culture ordered based on CT results. Qualifiers: Abdominal location: left upper quadrant Qualified Code(s): R10.12 - Left upper quadrant pain (5) Colitis Current visit: Yes Status: Acute Patient presents with acute colitis which she states has not resolved since her diagnosis. Patient was discharged on oral Flagyl and ciprofloxacin which she states she is compliant in taking. Patient to receive IV ciprofloxacin every 12 and IV Flagyl to 6. Monitor I&O. Monitor patient for signs of bloody stool related to colitis. Patient was placed nothing by mouth with advancing diet as tolerated. Follow-up labs ordered. (6) Weakness Current visit: Yes Status: Acute Patient presents with complaint of acute weakness related to current abdominal pain, shortness of breath, and chest pain. Patient to be placed as falls precautions/up with assist/bedrest with bedside commode with assist only due to generalized weakness complaint. (7) CKD (chronic kidney disease) stage 4, GFR 15-29 ml/min Current visit: Yes Status: Chronic Patient presents with history of chronic kidney disease stage IV. Patient's current GFR on admission is 22. Will use IV fluids judiciously, monitor I&O, and daily weight. (8) Diabetes mellitus Current visit: Yes Status: Chronic Patient presents with chronic diabetes. Will continue patient's 10 units of Levemir and order low-dose insulin correction sliding scale and hypoglycemia protocol. Blood glucose monitoring before meals at bedtime. Qualifiers: Diabetes mellitus type: type 2 Diabetes mellitus complication status: with kidney complications Diabetes mellitus complication detail: with chronic kidney disease Diabetes mellitus director council on aging insulin use: with intermediate use Chronic kidney disease stage: stage 4 (severe) Qualified Code(s): E11.22 - Type 2 diabetes mellitus with diabetic chronic kidney disease; N18.4 - Chronic kidney disease, stage 4 (severe); Z79.4 - director sales and marketing (current) use of insulin (9) HTN (hypertension) Current visit: Yes Status: Chronic Patient presents with history of chronic hypertension. We will continue patient 's Norvasc and monitor patient and vital signs. Qualifiers: Hypertension type: essential hypertension Qualified Code(s): I10 - Essential (primary) hypertension (10) Anemia Current visit: No Status: Acute Patient presents with chronic anemia. Patient's current Hgb is 9.4, up from 7.8 on 11/15 and up from 8.7 on 11/11. Recurrent HCT is 28.4, up from 24 on 11/15 and up from 25.8 on 11/11. Continue patient's by mouth folate and B12 therapy. Follow-up H/H ordered to monitor patient. Qualifiers: Anemia type: due to chronic kidney disease Chronic kidney disease stage: stage 4 (severe) Qualified Code(s): N18.4 - Chronic kidney disease, stage 4 ( severe); D63.1 - Anemia in chronic kidney disease (11) DVT prophylaxis Current visit: Yes Status: Acute Patient placed on DVT prophylaxis due to admission protocol and current bed rest status. Heparin 5000 units SQ every 12 ordered. Internal Medicine - H&P: HPI Chief complaint: Chest pain Admitted From: Emergency Dept Plans for Post Hospital Care: Home History of present illness: Ms. Gallegos is a 61 year old female who presents from the ED with chief complaint of left-sided chest pain that presents as a burning sensation without radiation to her neck, arms, or back. She states that it began this morning without activity. She also reports that she has been vomiting 3-4x daily and the emesis is yellow and bilious. She also experiences SOB with the symptoms. She reports that she is still having left upper quadrant abdominal pain that is constant and is not resolving since her diagnosis of colitis two weeks ago and being placed on antibiotics. She states that she is compliant in taking her antibiotics. Mrs. Gallegos reports that during her last admission she experienced bright red blood in her stool while in the hospital. She states GI determined she had ulcers. She also states that her last colonoscopy was greater than 5 years ago. She denies fever, chills, heart palpitations, recent illness, or generalized weakness. She does report some dizziness due to shortness of breath. Patient has a medical history that includes CHF, COPD, CVA 220 years ago, diabetes, hyperlipidemia, hypertension, myocardial infarction 125 years ago with no stents, and renal disease. Mrs. Gallegos is a moderate risk for continued infection based on unresolved symptoms will be placed as inpatient status with orders for IV ciprofloxacin and IV Flagyl. Patient will also have EKG and continuous cardiac telemetry, trended troponins x2, and will be placed as falls precautions/up with assist/bed rest with bedside commode with assist only due to dizziness and pain. Due to patient's previous stroke and reported occasional difficulty in swallowing, a dysphagia screen is ordered with swallow evaluation. Patient to have her home medications continued with low-dose correction insulin sliding scale ordered and blood glucose monitoring ACHS. O2 and SpO2 monitoring ordered due to SOB. DuoNebs Q4 ordered as well. Patient's last echocardiogram was two weeks ago and was unremarkable with LVEF of 60%. Patient to be NPO and monitored closely. Time spent with patient 40 minutes. Past Med Surg Social Fam HX - Past Medical History Source: patient Medical history: CHF, COPD, CVA (x2 20 years ago), diabetes, hyperlipidemia, hypertension, myocardial infarction (x1 25 years ago), renal disease, other Psychiatric history: depression - Past Surgical History Surgical History: cholecystectomy, other (LLE BKA) - Social History Smoking Status: Current every day smoker Packs per day: 1 PPD Smokeless Tobacco Status: No Alcohol use: none Drug use: none Current living situation: Home Activity Level: Independent ambulation Recent Out of Country Travel Within the Last 8 Weeks: No Exposure or Possible Exposure to Illness During Travel: No - Family History Mother Race: Family Member Ethnicity: Non- Living Status: Still Living Hx Family Cardiac Disorders: Yes (HTN, HLD, Strokes) Hx Family Neuromuscular Disorders: Yes (CVA) Hx Family Neurologic Disorders: Yes (CVA) Father Race: Family Member Ethnicity: Non- Living Status: Age at : 58 Cause of : Complications of DM Hx Family Cardiac Disorders: Yes (HTN, HLD) Hx Family Endocrine Disorder: Yes (DM) Brother Race: Family Member Ethnicity: Non- Living Status: Age at : 58 Cause of : MA Hx Family Cardiac Disorders: Yes (MA, HD) Sister Race: Family Member Ethnicity: Non- Living Status: Age at : 62 Cause of : Complications of DM Hx Family Endocrine Disorder: Yes (DM) Internal Medicine - H&P: Meds Insulin Glargine,Hum.rec.anlog [Lantus Solostar] 10 unit SQ HS 09/15/16 [History ] amLODIPine [Norvasc] 5 mg PO DAILY #30 tablet 09/17/16 [Rx] Cyanocobalamin (B-12) [Vitamin B12] 1,000 mcg PO DAILY #30 tablet 11/09/16 [Rx] Folic Acid 1 mg PO DAILY #30 tablet 11/09/16 [Rx] Omeprazole [PriLOSEC] 40 mg PO BIDAC #60 capsule. 11/09/16 [Rx] Sucralfate [Carafate] 1 gm PO QIDAC #120 tablet 11/09/16 [Rx] Ciprofloxacin HCl [Cipro] 500 mg PO BID #20 tablet 11/15/16 [Rx] metroNIDAZOLE [Flagyl] 500 mg PO TID #30 tablet 11/15/16 [Rx] Allergies No Known Allergies Allergy (Verified 11/11/16 13:55) All Systems PM: A 10-system review of systems was performed and is negative for pertinent findings except as documented above in the HPI. - Constitutional Constitutional: as per HPI, anorexia (Last 3-4 days due to N/V), no chills, no fever(s), no night sweats - EENT Eyes: no change in vision, no discharge, no pain, no photophobia Ears: no ear discharge, no ear pain, no tinnitus Nose, mouth and throat: no dysphagia, no nasal discharge, no neck pain, no sore throat - Breasts Breasts: as per HPI - Cardiovascular Cardiovascular ROS IM: as per HPI, chest pain, dyspnea, no diaphoresis, no lightheadedness, no palpitations, no syncope - Respiratory Respiratory: as per HPI, dyspnea, no cough, no wheezing, no excessive phlegm production - Gastrointestinal Gastrointestinal: as per HPI, abdominal pain (LUQ), dysphagia (Due to previous stroke), heartburn, nausea, vomiting - Genitourinary Genitourinary: no change in urinary stream, no dysuria, no flank pain, no hematuria Menstruation: as per HPI - Musculoskeletal Musculoskeletal ROS IM: no numbness, no tingling - Integumentary Integumentary IM: no rash, no unusual bruising - Neurological Neurological ROS: as per HPI, abnormal hearing (Lost part of her hearing with stroke 20 years ago), no confusion, no convulsions, no focal weakness, no numbness, no tingling, no tremor(s) - Psychiatric Psychiatric: as per HPI - Endocrine Endocrine IM: as per HPI - Hematologic/Lymphatic Hematologic/Lymphatic: no easy bruising - Allergic/Immunologic Allergic/Immunologic: as per HPI - Constitutional Vitals: Temp Pulse Resp BP Pulse Ox 98 F 77 18 140/93 99 11/18/16 10:57 11/18/16 11:27 11/18/16 11:27 11/18/16 11:27 11/18/16 11:27 General appearance: Present: cooperative, mild distress, A&O X 3, pleasant, answers questions appropriately - Head Head exam: Present: atraumatic, normocephalic - Eye Eye exam: Present: PERRL, conjuntiva pink, sclera anicteric Pupils: Present: PERRL - ENT ENT exam: Present: normal exam, normal external ear exam - Neck Neck exam general surgery: Present: normal inspection, supple, trachea midline. Absent: lymphadenopathy - Respiratory Respiratory exam: Present: CTAB. Absent: accessory muscle use, rales, rhonchi, wheezes - Cardiovascular Cardiovascular exam: Present: RRR, +S1, +S2. Absent: diastolic murmur, gallop, rubs, systolic murmur - GI/Abdominal GI/Abdominal exam: Present: guarding, soft, tenderness - Rectal Rectal exam: Present: deferred - Additional comments: exam deferred. - Extremities Exam Extremities exam: Present: normal inspection, pedal edema (1+ pitting edema right LE. 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 Absent: calf tenderness, cyanotic - Back Exam Back exam: Present: normal inspection - Neurological Exam Neurological exam: Present: CN II-XII intact, oriented X3, no focal deficits, strengths equal and symetr throughout. Absent: pronater drift, facial droop, speech deficit - Psychiatric Psychiatric exam: Present: normal affect, normal mood - Skin Skin exam: Present: dry, intact Internal Med - H&P Results - Labs CBC & Chem 7: 11/18/16 12:35 11/18/16 12:35 Labs: Short CBC 11/18/16 Range/Units 12:35 WBC 4.6 (4.3-11.1) K/mcL Hgb 9.4 L D (11.5-15.4) g/dL Hct 28.4 L (35.3-44.9) % Plt Count 269 (140-400) K/mcL Neutrophils # 2.7 (1.6-8.9) K/mcL BMP 11/18/16 12:35 Sodium 141 Potassium 3.4 L Chloride 110 H Carbon Dioxide 20 BUN 15 Creatinine 2.30 H Glucose 141 H Calcium 8.6 Cardiac Enzymes 11/18/16 Range/Units 12:35 Troponin I 0.00 (0-0.03) ng/mL - EKG Data EKG shows normal: sinus rhythm - EKG Data Prior EKG available for review: yes When compared to previous EKG: there is no significant change EKG comments: 11/18/16 15:14 EKG dated 11/08/16 shows sinus rhythm. EKG dated 11/18/16 shows sinus rhythm with voltage criteria for LVH, possible septal myocardial infarction (probably old). - Impressions ITS Impressions Chest X-Ray 11/18/16 11:17 IMPRESSION: Stable exam without evidence for acute cardiopulmonary process. D/ / 11/18/2016 11:34:14 Ameya Gaitan MD / finesse Interpreting Provider: Ameya Gaitan MD Abdomen/Pelvis CT 11/18/16 13:41 IMPRESSION: 1. Question mild circumferential urinary bladder wall thickening as can be seen with cystitis. Recommend correlation with urinalysis. 2. Status post cholecystectomy. D/ / Robin Ortiz MD / Robin Ortiz MD Interpreting Provider: Robin Ortiz MD - Diagnostic Studies Chest x-ray Additional comments: Impressions Chest X-Ray 11/18/16 11:17 IMPRESSION: Stable exam without evidence for acute cardiopulmonary process. D/ / 11/18/2016 11:34:14 Ameya Gaitan MD / finesse Interpreting Provider: Ameya Gaitan MD CT scan - abdomen Additional comments: Impressions Abdomen/Pelvis CT 11/18/16 13:41 IMPRESSION: 1. Question mild circumferential urinary bladder wall thickening as can be seen with cystitis. Recommend correlation with urinalysis. 2. Status post cholecystectomy. D/ / Robin Ortiz MD / Robin Ortiz MD Interpreting Provider: Robin Oritz MD <Leoncio Arroyo - Last Filed: 11/18/16 16:19> Date of Encounter: 11/18/16 Internal Medicine - H&P: HPI History of present illness: Ms. Gallegos is a 61 year old female All Systems PM: A 10-system review of systems was performed and is negative for pertinent findings except as documented above in the HPI. - Constitutional Vitals: Temp Pulse Resp BP Pulse Ox 98 F 77 18 154/81 99 11/18/16 10:57 11/18/16 11:27 11/18/16 14:50 11/18/16 14:50 11/18/16 11:27 Internal Med - H&P Results - Labs CBC & Chem 7: 11/18/16 12:35 11/18/16 12:35 - Attending Attestation I have seen and examined the patient at around 16:00. I have discussed about the Rodney Marquez SENIOR TAX SPECIALIST. I have reviewed the orders and the note. Patient is a 61-year-old female with a past history of CHF, COPD, CVA, diabetes , hyperlipidemia, hypertension, chronic kidney disease and history of MA. She presents to the ED today with complaints of chest pain. Patient states symptoms started this morning. It was a burning sensation radiating to her neck and arms and back. Patient states she has had a few episodes of vomiting. She also had mild shortness of breath along with chest pain. She still continues to have left upper quadrant abdominal pain which has not resolved since previous admission. She was admitted about one to 2 weeks ago with a diagnosis of colitis. She was discharged on PO antibiotics. Patient states her chest pain is now improved. Rates the pain about 2 out of 10. She does complain of ongoing left upper quadrant abdominal pain which she rates about 6 out of 10. No diarrhea, no headache or dizziness or cough or fever. On examination patient is awake and alert. Not in any distress. Able to answer all questions appropriately. No family members at bedside. Patient is being admitted for chest pain, to trend enzymes and repeat EKG. We will continue all home medications. We will also continue aspirin and statin. Patient will be initially kept nothing by mouth and will continue on IV Cipro and IV Flagyl. Patient has been explained about her condition and plan of care. Understood and agreed. No unanswered questions. CODE STATUS DO NOT INTUBATE status only. Heart rate 77, blood pressure 154/81, O2 sat 99% on room air, heart S1-S2 positive no murmurs or rubs, lungs bilateral good air entry no wheeze or crackles, abdomen soft mild left upper quadrant and umbilical and epigastric tenderness. No masses or guarding, extremities all pulses strong and regular no edema.
[2016-11-18] MEDS ORDERED: Ipratropium/Albuterol Neb 3 ML IH PRN (15:40)
[2016-11-18] MEDS: *HR* Morphine 2 MG/ML SYRINGE IVP PRN ×2 (15:56→20:13)
[2016-11-18] MEDS: Sucralfate 1 GM TABLET PO SCH ×2 (15:56→21:57)
[2016-11-18] MEDS: Pantoprazole 40 MG VIAL IVP SCH (15:56)
[2016-11-18] MEDS: *HR* Heparin 5,000 UNIT/ML VIAL SQ SCH (17:58)
[2016-11-18] MEDS: Aspirin 81 MG TAB.CHEW PO SCH (17:58)
[2016-11-18] MEDS: *HR* HYDROcodone/Acet 5/325 mg TABLET PO PRN (18:02)
[2016-11-18] MEDS ORDERED: Insulin DETEMIR 100 UNIT/ML X5UNITS SQ SCH (21:00)
[2016-11-18] MEDS: MetroNIDAZOLE 500 MG/100 ML 500 MG/100 ML BAG IVPB SCH (21:57)
[2016-11-19 00:31] LABS: Basophils % 0.7 %; Eosinophils # 0.1 K/mcL (0.0-0.6); Eosinophils % 2.2 %; Hematocrit 24.8 % (35.3-44.9); Hemoglobin 8.1 g/dL (11.5-15.4); Immature Granulocytes % 0.2 % (0-4); Lymphocytes # 2.2 K/mcL (0.6-4.6); Lymphocytes % 47.6 %; Mean Corpuscular HGB Conc 32.7 g/dL (31.6-35.5); Mean Corpuscular Hemoglobin 31.8 pg (28.0-33.3); Mean Corpuscular Volume 97.3 fL (83.0-100.0); Mean Platelet Volume 10.4 fL (9.4-12.4); Monocytes # 0.4 K/mcL (0.0-1.3); Monocytes % 7.6 %; Neutrophils # 1.9 K/mcL (1.6-8.9); Platelet Count 182 K/mcL (140-400); Red Blood Count 2.55 M/mcL (3.82-4.97); Red Cell Distribution Width 13.8 % (11.5-14.5); Segmented Neutrophils % 41.7 %
[2016-11-19 00:42] LABS: INR 1.2; Prothrombin Time 12.7 Seconds (9.4-12.1)
[2016-11-19 00:45] LABS: Calcium 8.3 mg/dL (8.6-10.8); Chol/HDL Ratio 3.7 (0-4.9); Magnesium 1.3 mg/dL (1.6-2.6); Potassium 3.2 mEq/L (3.5-4.5)
[2016-11-19 01:14] LABS: Hemoglobin A1C 5.4 %
[2016-11-19] MEDS: MetroNIDAZOLE 500 MG/100 ML 500 MG/100 ML BAG IVPB SCH ×4 (03:59→23:53)
[2016-11-19] MEDS: *HR* HYDROcodone/Acet 5/325 mg TABLET PO PRN ×2 (05:02→17:10)
[2016-11-19] MEDS: *HR* Heparin 5,000 UNIT/ML VIAL SQ SCH (05:04)
[2016-11-19] MEDS: Sucralfate 1 GM TABLET PO SCH ×4 (08:58→21:17)
[2016-11-19] MEDS: Cyanocobalamin (B-12) 1,000 MCG TABLET PO SCH (08:58)
[2016-11-19] MEDS: Folic Acid 1 MG TABLET PO SCH (08:58)
[2016-11-19] MEDS: Pantoprazole 40 MG VIAL IVP SCH ×2 (08:58→21:18)
[2016-11-19] MEDS: Aspirin 81 MG TAB.CHEW PO SCH (08:58)
[2016-11-19] MEDS: *HR* Morphine 2 MG/ML SYRINGE IVP PRN ×6 (08:58→23:52)
[2016-11-19] MEDS: amLODIPine 5 MG TABLET PO SCH (08:58)
[2016-11-19 12:03] LABS: Bilirubin,Urine Small (Negative); Blood,Urine Negative (Negative); Clarity,Urine Clear (Clear); Color,Urine Yellow (Yellow); Glucose,Urine (UA) 250 mg/dL (Normal); Ketones,Urine Trace mg/dL (Negative); Leukocyte Esterase,Urine Negative (Negative); Nitrite,Urine Negative (Negative); PH,Urine 5.5 pH Units (5.0-8.0); Protein,Urine 100 mg/dL (Neg-Trace); Specific Gravity,Urine 1.024 (1.010-1.025); Urobilinogen,Urine Normal (Normal)
[2016-11-19 12:06] LABS: Bacteria,Urine None Seen per hpf (None-Few); Hyaline Casts,Urine None Seen per lpf (None-Few); Squamous Epithelial Cell,Urine Many per lpf (None-Few); WBC,Urine 0-3 per hpf (0-3)
[2016-11-19] MEDS ORDERED: Dextrose Gel 15 GM PO PRN ×2 (12:50)
[2016-11-19] MEDS ORDERED: *HR* Dextrose 50 % in Water (Syg) 50 ML SYRINGE IVP PRN (12:50)
[2016-11-19] MEDS ORDERED: D5% in Water 1,000 ML IVC PRN (12:50)
--- NOTE | 2016-11-19 12:55 | Internal Med Progress Note ---
Date of Encounter: 11/19/16 Time of Encounter: 12:53 - Assessment and plan (1) Colitis Current Visit: Yes Status: Acute Assessment and plan: Diagnosed with possible rectosigmoid colitis on November 15 at the emergency room, was discharged on ciprofloxacin and Flagyl with no improvement. The next CAT scan did not show colitis. Still not improving on ciprofloxacin and Flagyl Order a CT scan with oral contrast Stop ciprofloxacin and start Rocephin, decrease the dose of Flagyl IV Start clear liquids Morphine as needed (2) Gastric ulcer due to nonsteroidal anti-inflammatory drug (NSAID) Current Visit: No Status: Acute Assessment and plan: Was diagnosed with 2 nonbleeding gastric ulcers during her last admission Consider gastric ulcers as a source of possible pain Continue Protonix IV twice a day, sucralfate The gastric biopsy did not show H. pylori infection (3) Dehydration Current Visit: No Status: Resolved Assessment and plan: Start IV fluids (4) [id number] kidney injury Current Visit: No Status: Acute Assessment and plan: Likely exacerbated by dehydration Qualifiers: Chronic kidney disease stage: stage 4 (severe) Qualified Code(s): N17.9 - Acute kidney failure, unspecified; N18.4 - Chronic kidney disease, stage 4 ( severe) (5) HTN (hypertension) Current Visit: Yes Status: Chronic Assessment and plan: Continue amlodipine Add hydralazine IV as needed Qualifiers: Hypertension type: essential hypertension Qualified Code(s): I10 - Essential (primary) hypertension (6) CKD (chronic kidney disease) stage 4, GFR 15-29 ml/min Current Visit: Yes Status: Chronic (7) Hypokalemia Current Visit: No Status: Resolved Assessment and plan: Replete as needed (8) Anemia Current Visit: No Status: Acute Assessment and plan: Chronic anemia possibly blood loss from prior gastric ulcers, not actively bleeding, likely related also to iron deficiency anemia and chronic kidney disease Qualifiers: Anemia type: due to chronic kidney disease Chronic kidney disease stage: stage 4 (severe) Qualified Code(s): N18.4 - Chronic kidney disease, stage 4 ( severe); D63.1 - Anemia in chronic kidney disease (9) Abdominal pain Current Visit: Yes Status: Acute Qualifiers: Abdominal location: epigastric Qualified Code(s): R10.13 - Epigastric pain (10) Cystitis Current Visit: Yes Status: Acute Assessment and plan: Start Rocephin We will need to follow as an outpatient with urology - Subjective Interval history: Complains of severe abdominal pain mainly in the upper quadrants and epigastric area, tender to touch, denies any chest pain, no shortness of breath, no dysuria , feels nauseous, no headaches - Constitutional Vitals: Temp Pulse Resp BP Pulse Ox 97.6 F 67 16 171/73 99 11/19/16 10:12 11/19/16 10:12 11/19/16 10:12 11/19/16 10:12 11/19/16 10:12 General appearance: Present: cooperative, mild distress, A&O X 3, pleasant, answers questions appropriately - Head Head exam: Present: atraumatic, normocephalic - Eye Eye exam: Present: PERRL, conjuntiva pink, sclera anicteric Pupils: Present: PERRL - Neck Neck exam general surgery: Present: supple, trachea midline. Absent: lymphadenopathy - Respiratory Respiratory exam: Present: CTAB. Absent: accessory muscle use, rales, rhonchi, wheezes - Cardiovascular Cardiovascular exam: Present: RRR, +S1, +S2. Absent: diastolic murmur, gallop, rubs, systolic murmur - GI/Abdominal GI/Abdominal exam: Present: normal bowel sounds, soft, tenderness (Diffuse abdominal tenderness mainly in the epigastric area), no peritoneal signs. Absent: distended - Extremities Exam Extremities exam: Present: warm, radial pulses palpable and symetrical. Absent : calf tenderness, cyanotic, pedal edema - Neurological Exam Neurological exam: Present: CN II-XII intact, oriented X3, no focal deficits. Absent: pronater drift, facial droop, speech deficit - Skin Skin exam: Present: dry, intact Internal Medicine: Result - Labs CBC & Chem 7: 11/19/16 00:23 11/19/16 00:23 Labs: Short CBC 11/19/16 Range/Units 00:23 WBC 4.6 (4.3-11.1) K/mcL Hgb 8.1 L (11.5-15.4) g/dL Hct 24.8 L (35.3-44.9) % Plt Count 182 (140-400) K/mcL Neutrophils # 1.9 (1.6-8.9) K/mcL BMP 11/19/16 00:23 Sodium 142 Potassium 3.2 L Chloride 113 H Carbon Dioxide 20 BUN 16 Creatinine 2.24 H Glucose 89 Calcium 8.3 L Cardiac Enzymes 11/18/16 11/19/16 Range/Units 18:19 00:23 Troponin I 0.01 0.01 (0-0.03) ng/mL Urine 11/19/16 Range/Units 11:26 Urine Color Yellow (Yellow) Urine Clarity Clear (Clear) Urine pH 5.5 (5.0-8.0) pH Units Ur Specific Shubert 1.024 (1.010-1.025) Urine Protein 100 H (Neg-Trace) mg/dL Urine Glucose (UA) 250 H (Normal) mg/dL - ABG Interpretation ABG results: PT/INR, D-dimer PT 12.7 Seconds (9.4-12.1) H 11/19/16 00:23 Consult Discharge Plan - Plan Referrals: NO,PCP [Primary Care Provider] -
[2016-11-19] MEDS ORDERED: 0.9 % Sodium Chloride 1,000 ML IVC SCH (13:00)
[2016-11-19 13:29] LABS: Amylase 160 Units/L (25-125); Lipase 97 Units/L (8-78)
[2016-11-19] MEDS: Insulin LISPRO 300 UNITS/3 ML VIAL SQ SCH ×2 (17:57→23:57)
[2016-11-19] MEDS: Ondansetron 4 MG/2 ML VIAL IVP PRN (23:48)
[2016-11-20 04:30] LABS: Hematocrit 23.4 % (35.3-44.9); Mean Corpuscular HGB Conc 34.2 g/dL (31.6-35.5); Mean Corpuscular Hemoglobin 32.9 pg (28.0-33.3); Mean Corpuscular Volume 96.3 fL (83.0-100.0); Platelet Count 183 K/mcL (140-400); Red Blood Count 2.43 M/mcL (3.82-4.97); Red Cell Distribution Width 13.8 % (11.5-14.5)
[2016-11-20 04:46] LABS: Calcium 7.7 mg/dL (8.6-10.8); Potassium 3.3 mEq/L (3.5-4.5)
[2016-11-20] MEDS: Insulin LISPRO 300 UNITS/3 ML VIAL SQ SCH ×4 (05:35→20:46)
[2016-11-20] MEDS: *HR* Morphine 2 MG/ML SYRINGE IVP PRN ×2 (05:35→08:15)
[2016-11-20] MEDS: Sucralfate 1 GM TABLET PO SCH ×4 (08:10→20:47)
[2016-11-20] MEDS: Folic Acid 1 MG TABLET PO SCH (08:12)
[2016-11-20] MEDS: Aspirin 81 MG TAB.CHEW PO SCH (08:12)
[2016-11-20] MEDS: MetroNIDAZOLE 500 MG/100 ML 500 MG/100 ML BAG IVPB SCH ×3 (08:12→23:51)
[2016-11-20] MEDS: amLODIPine 5 MG TABLET PO SCH (08:13)
[2016-11-20] MEDS: Nicotine 21 MG PATCH.TD24 TD SCH (08:13)
[2016-11-20] MEDS: Pantoprazole 40 MG VIAL IVP SCH ×2 (08:13→20:47)
[2016-11-20] MEDS: Cyanocobalamin (B-12) 1,000 MCG TABLET PO SCH (08:14)
--- NOTE | 2016-11-20 09:47 | Internal Med Progress Note ---
Date of Encounter: 11/20/16 Time of Encounter: 09:45 - Assessment and plan (1) Gastric ulcer due to nonsteroidal anti-inflammatory drug (NSAID) Current Visit: No Status: Acute Assessment and plan: Was diagnosed with 2 nonbleeding gastric ulcers during her last admission, no evidence of acute bleeding, no bowel movements. Hemoglobin is at her baseline from last discharge. Upon admission hemoglobin was above 9 the patient was dehydrated and this was likely due to hemoconcentration. Consider gastric ulcers as a source of possible pain Continue Protonix IV twice a day, sucralfate, add famotidine IV twice a day The gastric biopsy did not show H. pylori infection Monitor CBC There is no GI services available at the moment, the patient prefers to stay here the moment not to be transferred Consider surgery consult if needed Dilaudid IV as needed (2) Colitis Current Visit: Yes Status: Acute Assessment and plan: Diagnosed with possible rectosigmoid colitis on November 15 at the emergency room, was discharged on ciprofloxacin and Flagyl with no improvement. The next CAT scan did not show colitis. Still not improving on ciprofloxacin and Flagyl CT scan with oral contrast did not show any acute abnormalities Stopped ciprofloxacin Continue Rocephin day 2, and Flagyl IV day 3 Start full liquids Morphine as needed (3) Dehydration Current Visit: No Status: Resolved Assessment and plan: Continue IV fluids (4) Ignte-dd-ecseezk kidney injury Current Visit: No Status: Acute Assessment and plan: Likely exacerbated by dehydration Qualifiers: Chronic kidney disease stage: stage 4 (severe) Qualified Code(s): N17.9 - Acute kidney failure, unspecified; N18.4 - Chronic kidney disease, stage 4 ( severe) (5) HTN (hypertension) Current Visit: Yes Status: Chronic Assessment and plan: Continue amlodipine Add hydralazine IV as needed Qualifiers: Hypertension type: essential hypertension Qualified Code(s): I10 - Essential (primary) hypertension (6) CKD (chronic kidney disease) stage 4, GFR 15-29 ml/min Current Visit: Yes Status: Chronic (7) Hypokalemia Current Visit: No Status: Resolved Assessment and plan: Replete as needed (8) Anemia Current Visit: No Status: Acute Assessment and plan: Chronic anemia possibly blood loss from prior gastric ulcers, not actively bleeding, likely related also to iron deficiency anemia and chronic kidney disease Qualifiers: Anemia type: due to chronic kidney disease Chronic kidney disease stage: stage 4 (severe) Qualified Code(s): N18.4 - Chronic kidney disease, stage 4 ( severe); D63.1 - Anemia in chronic kidney disease (9) Abdominal pain Current Visit: Yes Status: Acute Qualifiers: Abdominal location: epigastric Qualified Code(s): R10.13 - Epigastric pain (10) Cystitis Current Visit: Yes Status: Acute Assessment and plan: Continue Rocephin We will need to follow as an outpatient with urology - Subjective Interval history: Continues to complain of severe abdominal pain mainly in the upper quadrants and epigastric area 10 out of 10, tender to touch, denies any chest pain, no shortness of breath, no dysuria, feels nauseous, no headaches - Constitutional Vitals: Temp Pulse Resp BP Pulse Ox 97.7 F 69 16 139/66 99 11/20/16 07:39 11/20/16 07:39 11/20/16 07:39 11/20/16 07:39 11/20/16 07:39 General appearance: Present: cooperative, mild distress, A&O X 3, pleasant, answers questions appropriately - Head Head exam: Present: atraumatic, normocephalic - Eye Eye exam: Present: PERRL, conjuntiva pink, sclera anicteric Pupils: Present: PERRL - Neck Neck exam general surgery: Present: supple, trachea midline. Absent: lymphadenopathy - Respiratory Respiratory exam: Present: CTAB. Absent: accessory muscle use, rales, rhonchi, wheezes - Cardiovascular Cardiovascular exam: Present: RRR, +S1, +S2. Absent: diastolic murmur, gallop, rubs, systolic murmur - GI/Abdominal GI/Abdominal exam: Present: distended, normal bowel sounds, soft, tenderness ( Epigastric tenderness), no peritoneal signs - Extremities Exam Extremities exam: Present: warm, radial pulses palpable and symetrical. Absent : calf tenderness, cyanotic, pedal edema - Neurological Exam Neurological exam: Present: CN II-XII intact, oriented X3, no focal deficits. Absent: pronater drift, facial droop, speech deficit - Skin Skin exam: Present: dry, intact Internal Medicine: Result - Labs CBC & Chem 7: 11/20/16 04:07 11/20/16 04:07 Labs: Short CBC 11/20/16 Range/Units 04:07 WBC 4.3 (4.3-11.1) K/mcL Hgb 8.0 L (11.5-15.4) g/dL Hct 23.4 L (35.3-44.9) % Plt Count 183 (140-400) K/mcL BMP 11/20/16 04:07 Sodium 138 Potassium 3.3 L Chloride 115 H Carbon Dioxide 16 L BUN 17 Creatinine 1.85 H Glucose 108 H Calcium 7.7 L Urine 11/19/16 Range/Units 11:26 Urine Color Yellow (Yellow) Urine Clarity Clear (Clear) Urine pH 5.5 (5.0-8.0) pH Units Ur Specific [place] 1.024 (1.010-1.025) Urine Protein 100 H (Neg-Trace) mg/dL Urine Glucose (UA) 250 H (Normal) mg/dL - ABG Interpretation ABG results: PT/INR, D-dimer PT 12.7 Seconds (9.4-12.1) H 11/19/16 00:23 - Impressions Impressions Abdomen/Pelvis CT 11/19/16 15:30 IMPRESSION: No evidence of acute intra-abdominal inflammatory process or fluid collection. D/ / Caitie Myrick Cha, MD / Caitie Myrick Cha, MD Interpreting Provider: Caitie Myrick Cha, MD Consult Discharge Plan - Plan Referrals: NO,PCP [Primary Care Provider] -
[2016-11-20] MEDS: *HR* HYDROmorphone (PF) 1 MG/ML SYRINGE IVP PRN ×7 (10:09→23:52)
[2016-11-20] MEDS: Famotidine 20 MG/2 ML VIAL IVP SCH ×2 (10:09→17:10)
--- NOTE | 2016-11-20 10:44 | Electrocardiograph Report ---
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
--- NOTE | 2016-11-20 12:12 | Electrocardiograph Report ---
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
[2016-11-20] MEDS: Ondansetron 4 MG/2 ML VIAL IVP PRN (14:49)
[2016-11-21] MEDS: Ondansetron 4 MG/2 ML VIAL IVP PRN ×2 (03:21→12:36)
[2016-11-21] MEDS: *HR* HYDROmorphone (PF) 1 MG/ML SYRINGE IVP PRN ×6 (03:22→23:15)
[2016-11-21] MEDS: Famotidine 20 MG/2 ML VIAL IVP SCH ×2 (05:26→17:01)
[2016-11-21 07:43] LABS: Hematocrit 24.5 % (35.3-44.9); Mean Corpuscular HGB Conc 32.7 g/dL (31.6-35.5); Mean Platelet Volume 10.2 fL (9.4-12.4); Platelet Count 187 K/mcL (140-400); Red Cell Distribution Width 14.1 % (11.5-14.5)
[2016-11-21 08:04] LABS: Calcium 7.8 mg/dL (8.6-10.8); Potassium 3.8 mEq/L (3.5-4.5)
[2016-11-21] MEDS: Pantoprazole 40 MG VIAL IVP SCH ×2 (09:14→20:11)
[2016-11-21] MEDS: Cyanocobalamin (B-12) 1,000 MCG TABLET PO SCH (09:15)
[2016-11-21] MEDS: Sucralfate 1 GM TABLET PO SCH ×4 (09:15→20:11)
[2016-11-21] MEDS: Aspirin 81 MG TAB.CHEW PO SCH (09:15)
[2016-11-21] MEDS: Folic Acid 1 MG TABLET PO SCH (09:15)
[2016-11-21] MEDS: Insulin LISPRO 300 UNITS/3 ML VIAL SQ SCH ×4 (09:16→21:38)
[2016-11-21] MEDS: Nicotine 21 MG PATCH.TD24 TD SCH (09:16)
[2016-11-21] MEDS: MetroNIDAZOLE 500 MG/100 ML 500 MG/100 ML BAG IVPB SCH ×3 (09:16→23:17)
[2016-11-21] MEDS: amLODIPine 5 MG TABLET PO SCH (09:17)
--- NOTE | 2016-11-21 10:16 | Internal Med Progress Note ---
Date of Encounter: 11/21/16 Time of Encounter: 10:14 - Assessment and plan (1) Gastric ulcer due to nonsteroidal anti-inflammatory drug (NSAID) Current Visit: No Status: Acute Assessment and plan: Was diagnosed with 2 nonbleeding gastric ulcers during her last admission, no evidence of acute bleeding, no bowel movements. Hemoglobin is at her baseline from last discharge. Upon admission hemoglobin was above 9 the patient was dehydrated and this was likely due to hemoconcentration. Consider gastric ulcers as a source of possible pain Continue Protonix IV twice a day, sucralfate, added famotidine IV twice a day The gastric biopsy did not show H. pylori infection Monitor CBC There is no GI services available at the moment, the patient prefers to stay here the moment not to be transferred Consider surgical consult if not improving Dilaudid IV as needed (2) Colitis Current Visit: Yes Status: Acute Assessment and plan: Diagnosed with possible rectosigmoid colitis on November 15 at the emergency room, was discharged on ciprofloxacin and Flagyl with no improvement. The next CAT scan did not show colitis. Still not improving on ciprofloxacin and Flagyl CT scan with oral contrast did not show any acute abnormalities Stopped ciprofloxacin Continue Rocephin day 3, and Flagyl IV day 4 Continue full liquids, may advance diet if pain improves Morphine as needed (3) Dehydration Current Visit: No Status: Resolved Assessment and plan: Continue IV fluids (4) Gtuwb-lb-xpwghdg kidney injury Current Visit: No Status: Acute Assessment and plan: Likely exacerbated by dehydration Qualifiers: Chronic kidney disease stage: stage 4 (severe) Qualified Code(s): N17.9 - Acute kidney failure, unspecified; N18.4 - Chronic kidney disease, stage 4 ( severe) (5) HTN (hypertension) Current Visit: Yes Status: Chronic Assessment and plan: Continue amlodipine Add hydralazine IV as needed Qualifiers: Hypertension type: essential hypertension Qualified Code(s): I10 - Essential (primary) hypertension (6) CKD (chronic kidney disease) stage 4, GFR 15-29 ml/min Current Visit: Yes Status: Chronic (7) Hypokalemia Current Visit: No Status: Resolved Assessment and plan: Replete as needed (8) Anemia Current Visit: No Status: Acute Assessment and plan: Chronic anemia possibly blood loss from prior gastric ulcers, not actively bleeding, likely related also to iron deficiency anemia and chronic kidney disease Qualifiers: Anemia type: due to chronic kidney disease Chronic kidney disease stage: stage 4 (severe) Qualified Code(s): N18.4 - Chronic kidney disease, stage 4 ( severe); D63.1 - Anemia in chronic kidney disease (9) Abdominal pain Current Visit: Yes Status: Acute Qualifiers: Abdominal location: epigastric Qualified Code(s): R10.13 - Epigastric pain (10) Cystitis Current Visit: Yes Status: Acute Assessment and plan: Continue Rocephin We will need to follow as an outpatient with urology - Subjective Interval history: Still complaining of severe abdominal pain mainly in the upper quadrants and epigastric area 7 out of 10 after receiving pain medications, tender to touch, denies any chest pain, no shortness of breath, no dysuria, feels nauseous, no headaches - Constitutional Vitals: Temp Pulse Resp BP Pulse Ox 97.9 F 67 18 196/82 92 11/21/16 07:17 11/21/16 07:17 11/21/16 07:17 11/21/16 07:17 11/21/16 07:17 General appearance: Present: cooperative, mild distress, A&O X 3, pleasant, answers questions appropriately - Head Head exam: Present: atraumatic, normocephalic - Eye Eye exam: Present: PERRL, conjuntiva pink, sclera anicteric Pupils: Present: PERRL - Neck Neck exam general surgery: Present: supple, trachea midline. Absent: lymphadenopathy - Respiratory Respiratory exam: Present: CTAB. Absent: accessory muscle use, rales, rhonchi, wheezes - Cardiovascular Cardiovascular exam: Present: RRR, +S1, +S2. Absent: diastolic murmur, gallop, rubs, systolic murmur - GI/Abdominal GI/Abdominal exam: Present: normal bowel sounds, soft, tenderness (Diffuse abdominal tenderness), no peritoneal signs. Absent: distended - Extremities Exam Extremities exam: Present: warm, radial pulses palpable and symetrical. Absent : calf tenderness, cyanotic, pedal edema Additional comments: Left below the knee amputation - Neurological Exam Neurological exam: Present: CN II-XII intact, oriented X3, no focal deficits. Absent: pronater drift, facial droop, speech deficit - Skin Skin exam: Present: dry, intact Internal Medicine: Result - Labs CBC & Chem 7: 11/21/16 06:53 11/21/16 06:53 Labs: Short CBC 11/21/16 Range/Units 06:53 WBC 3.4 L (4.3-11.1) K/mcL Hgb 8.0 L (11.5-15.4) g/dL Hct 24.5 L (35.3-44.9) % Plt Count 187 (140-400) K/mcL BMP 11/21/16 06:53 Sodium 140 Potassium 3.8 Chloride 118 H Carbon Dioxide 15 L BUN 11 Creatinine 1.76 H Glucose 112 H Calcium 7.8 L - ABG Interpretation ABG results: PT/INR, D-dimer PT 12.7 Seconds (9.4-12.1) H 11/19/16 00:23 Consult Discharge Plan - Plan Referrals: Basil Stauffer DO [Resident] - 11/29/16 9:00 am Panda Murray DO [Partnered Physician] - 12/08/16 3:55 pm
[2016-11-21] MEDS: *HR* HYDROcodone/Acet 5/325 mg TABLET PO PRN ×3 (12:35→21:35)
[2016-11-22] MEDS: *HR* HYDROcodone/Acet 5/325 mg TABLET PO PRN ×4 (02:54→22:44)
[2016-11-22 04:51] LABS: Hematocrit 24.6 % (35.3-44.9); Hemoglobin 7.9 g/dL (11.5-15.4); Mean Corpuscular HGB Conc 32.1 g/dL (31.6-35.5); Mean Corpuscular Hemoglobin 31.7 pg (28.0-33.3); Mean Corpuscular Volume 98.8 fL (83.0-100.0); Mean Platelet Volume 10.6 fL (9.4-12.4); Platelet Count 190 K/mcL (140-400); Red Blood Count 2.49 M/mcL (3.82-4.97); Red Cell Distribution Width 14.4 % (11.5-14.5)
[2016-11-22] MEDS: Famotidine 20 MG/2 ML VIAL IVP SCH ×2 (05:06→18:24)
[2016-11-22] MEDS: *HR* HYDROmorphone (PF) 1 MG/ML SYRINGE IVP PRN ×4 (05:07→20:07)
[2016-11-22 05:09] LABS: Calcium 7.9 mg/dL (8.6-10.8)
[2016-11-22 05:15] LABS: Potassium 3.7 mEq/L (3.5-4.5)
[2016-11-22] MEDS: amLODIPine 5 MG TABLET PO SCH (08:13)
[2016-11-22] MEDS: Folic Acid 1 MG TABLET PO SCH (08:13)
[2016-11-22] MEDS: Pantoprazole 40 MG VIAL IVP SCH ×2 (08:13→20:06)
[2016-11-22] MEDS: MetroNIDAZOLE 500 MG/100 ML 500 MG/100 ML BAG IVPB SCH ×2 (08:14→18:24)
[2016-11-22] MEDS: Aspirin 81 MG TAB.CHEW PO SCH (08:14)
[2016-11-22] MEDS: Sucralfate 1 GM TABLET PO SCH ×4 (08:14→20:06)
[2016-11-22] MEDS: Cyanocobalamin (B-12) 1,000 MCG TABLET PO SCH (08:14)
[2016-11-22] MEDS: Nicotine 21 MG PATCH.TD24 TD SCH (08:16)
--- NOTE | 2016-11-22 08:55 | Internal Med Progress Note ---
Date of Encounter: 11/22/16 Time of Encounter: 08:53 - Assessment and plan (1) Gastric ulcer due to nonsteroidal anti-inflammatory drug (NSAID) Current Visit: No Status: Acute Assessment and plan: Was diagnosed with 2 nonbleeding gastric ulcers during her last admission, no evidence of acute bleeding, no bowel movements. Hemoglobin is at her baseline from last discharge. Upon admission hemoglobin was above 9 the patient was dehydrated and this was likely due to hemoconcentration. Consider gastric ulcers as a source of possible pain Continue Protonix IV twice a day, sucralfate, added famotidine IV twice a day The gastric biopsy did not show H. pylori infection Monitor CBC There is no GI services available at the moment, the patient prefers to stay here the moment not to be transferred Consider surgical consult if not improving Dilaudid IV as needed (2) Colitis Current Visit: Yes Status: Acute Assessment and plan: Diagnosed with possible rectosigmoid colitis on November 15 at the emergency room, was discharged on ciprofloxacin and Flagyl with no improvement. The next CAT scan did not show colitis. Still not improving on ciprofloxacin and Flagyl CT scan with oral contrast did not show any acute abnormalities Stopped ciprofloxacin Continue Rocephin day 4, and Flagyl IV day 5 Continue full liquids, may advance diet if pain improves Order GI panel, test for cryptosporidium Morphine as needed (3) Dehydration Current Visit: No Status: Resolved Assessment and plan: Continue IV fluids (4) Lqftg-ph-dzckyub kidney injury Current Visit: No Status: Acute Assessment and plan: Likely exacerbated by dehydration Qualifiers: Chronic kidney disease stage: stage 4 (severe) Qualified Code(s): N17.9 - Acute kidney failure, unspecified; N18.4 - Chronic kidney disease, stage 4 ( severe) (5) HTN (hypertension) Current Visit: Yes Status: Chronic Assessment and plan: Continue amlodipine Add hydralazine IV as needed Qualifiers: Hypertension type: essential hypertension Qualified Code(s): I10 - Essential (primary) hypertension (6) CKD (chronic kidney disease) stage 4, GFR 15-29 ml/min Current Visit: Yes Status: Chronic (7) Hypokalemia Current Visit: No Status: Resolved Assessment and plan: Replete as needed (8) Anemia Current Visit: No Status: Acute Assessment and plan: Chronic anemia possibly blood loss from prior gastric ulcers, not actively bleeding, likely related also to iron deficiency anemia and chronic kidney disease Qualifiers: Anemia type: due to chronic kidney disease Chronic kidney disease stage: stage 4 (severe) Qualified Code(s): N18.4 - Chronic kidney disease, stage 4 ( severe); D63.1 - Anemia in chronic kidney disease (9) Abdominal pain Current Visit: Yes Status: Acute Qualifiers: Abdominal location: epigastric Qualified Code(s): R10.13 - Epigastric pain (10) Cystitis Current Visit: Yes Status: Acute Assessment and plan: Continue Rocephin We will need to follow as an outpatient with urology - Subjective Interval history: The patient is not complaining of diarrhea, very watery. Still complaining of severe abdominal pain mainly in the upper quadrants and epigastric area 9 out of 10 after receiving pain medications, tender to touch, denies any chest pain, no shortness of breath, no dysuria, feels nauseous, no headaches - Constitutional Vitals: Temp Pulse Resp BP Pulse Ox 97.9 F 95 16 168/71 99 11/22/16 07:38 11/22/16 07:38 11/22/16 07:38 11/22/16 07:38 11/22/16 07:38 General appearance: Present: cooperative, mild distress, A&O X 3, pleasant, answers questions appropriately Exam: Head Head exam: Present: atraumatic, normocephalic - Eye Eye exam: Present: PERRL, conjuntiva pink, sclera anicteric Pupils: Present: PERRL - Neck Neck exam general surgery: Present: supple, trachea midline. Absent: lymphadenopathy - Respiratory Respiratory exam: Present: CTAB. Absent: accessory muscle use, rales, rhonchi, wheezes - Cardiovascular Cardiovascular exam: Present: RRR, +S1, +S2. Absent: diastolic murmur, gallop, rubs, systolic murmur - GI/Abdominal GI/Abdominal exam: Present: normal bowel sounds, soft, tenderness (Diffuse abdominal tenderness), no peritoneal signs. Absent: distended - Extremities Exam Extremities exam: Present: warm, radial pulses palpable and symetrical. Absent : calf tenderness, cyanotic, pedal edema Additional comments: Left below the knee amputation - Neurological Exam Neurological exam: Present: CN II-XII intact, oriented X3, no focal deficits. Absent: pronater drift, facial droop, speech deficit - Skin Skin exam: Present: dry, intact Internal Medicine: Result - Labs CBC & Chem 7: 11/22/16 03:51 11/22/16 03:51 Labs: Short CBC 11/22/16 Range/Units 03:51 WBC 3.6 L (4.3-11.1) K/mcL Hgb 7.9 L (11.5-15.4) g/dL Hct 24.6 L (35.3-44.9) % Plt Count 190 (140-400) K/mcL BMP 11/22/16 03:51 Sodium 141 Potassium 3.7 Chloride 118 H Carbon Dioxide 16 L BUN 8 Creatinine 1.78 H Glucose 102 H Calcium 7.9 L - ABG Interpretation ABG results: PT/INR, D-dimer PT 12.7 Seconds (9.4-12.1) H 11/19/16 00:23 Consult Discharge Plan - Plan Referrals: Basil Stauffer DO [Resident] - 11/29/16 9:00 am Panda Murray DO [Partnered Physician] - 12/08/16 3:55 pm
[2016-11-22] MEDS: Ondansetron 4 MG/2 ML VIAL IVP PRN (18:24)
[2016-11-22] MEDS: Insulin LISPRO 300 UNITS/3 ML VIAL SQ SCH ×4 (18:36→22:39)
[2016-11-23] MEDS: MetroNIDAZOLE 500 MG/100 ML 500 MG/100 ML BAG IVPB SCH ×3 (00:38→14:56)
[2016-11-23] MEDS: *HR* HYDROmorphone (PF) 1 MG/ML SYRINGE IVP PRN ×6 (00:41→21:00)
[2016-11-23] MEDS: *HR* HYDROcodone/Acet 5/325 mg TABLET PO PRN ×3 (02:45→19:13)
[2016-11-23] MEDS: Famotidine 20 MG/2 ML VIAL IVP SCH ×2 (06:31→17:04)
[2016-11-23 07:02] LABS: Hematocrit 25.5 % (35.3-44.9); Hemoglobin 8.3 g/dL (11.5-15.4); Mean Corpuscular HGB Conc 32.5 g/dL (31.6-35.5); Mean Corpuscular Volume 98.5 fL (83.0-100.0); Mean Platelet Volume 10.2 fL (9.4-12.4); Platelet Count 209 K/mcL (140-400); Red Blood Count 2.59 M/mcL (3.82-4.97); Red Cell Distribution Width 14.6 % (11.5-14.5)
[2016-11-23 07:11] LABS: Calcium 7.9 mg/dL (8.6-10.8); Potassium 3.9 mEq/L (3.5-4.5)
[2016-11-23] MEDS: Sucralfate 1 GM TABLET PO SCH (07:36)
[2016-11-23] MEDS: Nicotine 21 MG PATCH.TD24 TD SCH (07:36)
[2016-11-23] MEDS: Pantoprazole 40 MG VIAL IVP SCH ×2 (07:36→20:59)
[2016-11-23] MEDS: Folic Acid 1 MG TABLET PO SCH (07:37)
[2016-11-23] MEDS: Cyanocobalamin (B-12) 1,000 MCG TABLET PO SCH (07:37)
[2016-11-23] MEDS: Aspirin 81 MG TAB.CHEW PO SCH (07:37)
[2016-11-23] MEDS: amLODIPine 5 MG TABLET PO SCH (07:37)
[2016-11-23] MEDS: Ondansetron 4 MG/2 ML VIAL IVP PRN (07:48)
[2016-11-23] MEDS: Insulin LISPRO 300 UNITS/3 ML VIAL SQ SCH ×4 (08:42→21:02)
[2016-11-23] MEDS: hydrALAZINE 25 MG TABLET PO SCH ×3 (08:54→17:04)
--- NOTE | 2016-11-23 09:11 | Internal Med Progress Note ---
Date of Encounter: 11/23/16 Time of Encounter: 09:09 - Assessment and plan (1) Gastric ulcer due to nonsteroidal anti-inflammatory drug (NSAID) Current Visit: No Status: Acute Assessment and plan: Was diagnosed with 2 nonbleeding gastric ulcers during her last admission, no evidence of acute bleeding, no bowel movements. Hemoglobin is at her baseline from last discharge. Upon admission hemoglobin was above 9 the patient was dehydrated and this was likely due to hemoconcentration. Consider gastric ulcers as a source of possible pain Send stool sample to test for GI panel and cryptosporidium Continue Protonix IV twice a day, sucralfate, added famotidine IV twice a day The gastric biopsy did not show H. pylori infection Monitor CBC There is no GI services available at the moment, the patient prefers to stay here the moment not to be transferred Consider surgical consult if not improving Dilaudid IV as needed (2) Colitis Current Visit: Yes Status: Inactive Assessment and plan: Diagnosed with possible rectosigmoid colitis on November 15 at the emergency room, was discharged on ciprofloxacin and Flagyl with no improvement. The next CAT scan did not show colitis. Still not improving on ciprofloxacin and Flagyl CT scan with oral contrast did not show any acute abnormalities Stopped ciprofloxacin Continue Rocephin day 5, and Flagyl IV day 6 Continue full liquids, may advance diet if pain improves Ordered GI panel, test for cryptosporidium, sample needs to be collected Morphine as needed (3) Dehydration Current Visit: No Status: Resolved Assessment and plan: Continue IV fluids (4) Ongqr-gi-qjkgagw kidney injury Current Visit: No Status: Acute Assessment and plan: Improving Likely exacerbated by dehydration Qualifiers: Chronic kidney disease stage: stage 4 (severe) Qualified Code(s): N17.9 - Acute kidney failure, unspecified; N18.4 - Chronic kidney disease, stage 4 ( severe) (5) HTN (hypertension) Current Visit: Yes Status: Chronic Assessment and plan: Continue amlodipine Add hydralazine IV as needed Qualifiers: Hypertension type: essential hypertension Qualified Code(s): I10 - Essential (primary) hypertension (6) CKD (chronic kidney disease) stage 4, GFR 15-29 ml/min Current Visit: Yes Status: Chronic (7) Hypokalemia Current Visit: No Status: Resolved Assessment and plan: Replete as needed (8) Anemia Current Visit: No Status: Acute Assessment and plan: Chronic anemia possibly blood loss from prior gastric ulcers, not actively bleeding, likely related also to iron deficiency anemia and chronic kidney disease Qualifiers: Anemia type: due to chronic kidney disease Chronic kidney disease stage: stage 4 (severe) Qualified Code(s): N18.4 - Chronic kidney disease, stage 4 ( severe); D63.1 - Anemia in chronic kidney disease (9) Abdominal pain Current Visit: Yes Status: Acute Qualifiers: Abdominal location: epigastric Qualified Code(s): R10.13 - Epigastric pain (10) Cystitis Current Visit: Yes Status: Acute Assessment and plan: Continue Rocephin We will need to follow as an outpatient with urology - Subjective Interval history: Complaining of diarrhea that started yesterday, very watery. Still complaining of severe abdominal pain mainly in the upper quadrants and epigastric area 8 out of 10 after receiving pain medications, tender to touch, denies any chest pain, no shortness of breath, no dysuria, feels nauseous, no headaches - Constitutional Vitals: Temp Pulse Resp BP Pulse Ox 97.6 F 85 18 161/74 97 11/23/16 07:16 11/23/16 07:16 11/23/16 07:16 11/23/16 07:16 11/23/16 07:16 General appearance: Present: cooperative, mild distress, A&O X 3, pleasant, answers questions appropriately Exam: Head Head exam: Present: atraumatic, normocephalic - Eye Eye exam: Present: PERRL, conjuntiva pink, sclera anicteric Pupils: Present: PERRL - Neck Neck exam general surgery: Present: supple, trachea midline. Absent: lymphadenopathy - Respiratory Respiratory exam: Present: CTAB. Absent: accessory muscle use, rales, rhonchi, wheezes - Cardiovascular Cardiovascular exam: Present: RRR, +S1, +S2. Absent: diastolic murmur, gallop, rubs, systolic murmur - GI/Abdominal GI/Abdominal exam: Present: normal bowel sounds, soft, tenderness (Diffuse abdominal tenderness), no peritoneal signs. Absent: distended - Extremities Exam Extremities exam: Present: warm, radial pulses palpable and symetrical. Absent : calf tenderness, cyanotic, pedal edema Additional comments: Left below the knee amputation - Neurological Exam Neurological exam: Present: CN II-XII intact, oriented X3, no focal deficits. Absent: pronater drift, facial droop, speech deficit - Skin Skin exam: Present: dry, intact Internal Medicine: Result - Labs CBC & Chem 7: 11/23/16 06:15 11/23/16 06:15 Labs: Short CBC 11/23/16 Range/Units 06:15 WBC 3.6 L (4.3-11.1) K/mcL Hgb 8.3 L (11.5-15.4) g/dL Hct 25.5 L (35.3-44.9) % Plt Count 209 (140-400) K/mcL BMP 11/23/16 06:15 Sodium 139 Potassium 3.9 Chloride 119 H Carbon Dioxide 14 L BUN 6 L Creatinine 1.69 H Glucose 110 H Calcium 7.9 L - ABG Interpretation ABG results: PT/INR, D-dimer PT 12.7 Seconds (9.4-12.1) H 11/19/16 00:23 - Impressions Impressions Abdomen MRI 11/22/16 08:52 IMPRESSION: 1. Trace amount of ascites. 2. Trace bilateral pleural effusions. D/ / Pietro Leija MD / Pietro Leija MD Interpreting Provider: Pietro Leija MD Consult Discharge Plan - Plan Referrals: Basil Stauffer DO [Resident] - 11/29/16 9:00 am Panda Murray DO [Partnered Physician] - 12/08/16 3:55 pm
[2016-11-24] MEDS: *HR* HYDROmorphone (PF) 1 MG/ML SYRINGE IVP PRN ×3 (00:17→22:45)
[2016-11-24] MEDS: hydrALAZINE 25 MG TABLET PO SCH ×5 (00:17→23:49)
[2016-11-24] MEDS: MetroNIDAZOLE 500 MG/100 ML 500 MG/100 ML BAG IVPB SCH ×4 (00:19→23:49)
[2016-11-24] MEDS: Ondansetron 4 MG/2 ML VIAL IVP PRN (02:30)
[2016-11-24] MEDS: *HR* HYDROcodone/Acet 5/325 mg TABLET PO PRN ×4 (02:32→21:33)
[2016-11-24] MEDS: Famotidine 20 MG/2 ML VIAL IVP SCH ×2 (05:08→17:00)
[2016-11-24 05:26] LABS: Albumin 2.6 g/dL (3.5-5.0); Alkaline Phosphatase 114 Units/L (38-126); Aspartate Amino Transferase 11 Units/L (5-34); BUN/Creatinine Ratio 3 (6-26); Bilirubin,Total 0.4 mg/dL (0.2-1.2); Carbon Dioxide 15 mEq/L (19-29); Chloride 116 mEq/L (98-109); Globulin 2.7 g/dL (2.4-3.5); Glucose 137 mg/dL (70-99); Osmolality,Calculated 283 (280-300); Potassium 3.7 mEq/L (3.5-4.5); Sodium 137 mEq/L (136-145); Total Protein 5.3 g/dL (6.0-8.3); eGFR For African Americans 35 (> 60); eGFR For Non-African Americans 29 (> 60)
[2016-11-24 05:28] LABS: Alanine Aminotransferase < 6 Units/L (0-55); Blood Urea Nitrogen 5 mg/dL (7-20)
[2016-11-24] MEDS: Insulin LISPRO 300 UNITS/3 ML VIAL SQ SCH ×4 (07:53→21:33)
[2016-11-24 08:23] LABS: Hematocrit 27.1 % (35.3-44.9); Hemoglobin 8.7 g/dL (11.5-15.4); Mean Corpuscular HGB Conc 32.1 g/dL (31.6-35.5); Mean Corpuscular Hemoglobin 31.6 pg (28.0-33.3); Mean Corpuscular Volume 98.5 fL (83.0-100.0); Mean Platelet Volume 10.4 fL (9.4-12.4); Platelet Count 228 K/mcL (140-400); Red Blood Count 2.75 M/mcL (3.82-4.97); Red Cell Distribution Width 14.6 % (11.5-14.5)
--- NOTE | 2016-11-24 08:58 | Internal Med Progress Note ---
<Stephen Maier - Last Filed: 11/24/16 13:50> Date of Encounter: 11/24/16 Time of Encounter: 08:58 - Assessment and plan (1) Colitis Current Visit: Yes Status: Acute Assessment and plan: Stool sample / GI panel positive for enteropathogenic Escherichia coli. Continue Flagyl (day 5) and start Cipro (day 1), discontinue Rocephin.. (2) Gastric ulcer due to nonsteroidal anti-inflammatory drug (NSAID) Current Visit: No Status: Acute Assessment and plan: Was diagnosed with 2 nonbleeding gastric ulcers during her last admission, no evidence of acute bleeding, no bowel movements. Hemoglobin is at her baseline from last discharge. Upon admission hemoglobin was above 9 the patient was dehydrated and this was likely due to hemoconcentration. Consider gastric ulcers as a source of possible pain Stool sample / GI panel positive for enteropathogenic Escherichia coli, discontinue Rocephin. Continue Flagyl (day 5) and start Cipro (day 1). Continue Protonix IV twice a day, sucralfate, famotidine IV twice a day, added Bentyl The gastric biopsy did not show H. pylori infection Monitor CBC There is no GI services available at the moment, the patient prefers to stay here the moment not to be transferred Consider surgical consult if not improving Dilaudid IV as needed (3) Abdominal pain Current Visit: Yes Status: Acute Assessment and plan: See above Qualifiers: Abdominal location: epigastric Qualified Code(s): R10.13 - Epigastric pain (4) Anemia in chronic kidney disease (CKD) Current Visit: Yes Status: Acute Assessment and plan: Stable. Chronic anemia possibly blood loss from prior gastric ulcers, not actively bleeding, likely related also to iron deficiency anemia and chronic kidney disease Qualifiers: Chronic kidney disease stage: stage 4 (severe) Qualified Code(s): N18.4 - Chronic kidney disease, stage 4 (severe); D63.1 - Anemia in chronic kidney disease (5) Acute kidney injury superimposed on chronic kidney disease Current Visit: No Status: Acute Assessment and plan: Continue IV fluids and monitor (6) CKD (chronic kidney disease) stage 4, GFR 15-29 ml/min Current Visit: Yes Status: Chronic Assessment and plan: Stable. Continue IV fluids (7) Cystitis Current Visit: Yes Status: Acute Assessment and plan: Completed 5 days of Rocephin. We will need to follow as an outpatient with urology (8) HTN (hypertension) Current Visit: Yes Status: Chronic Assessment and plan: Continue amlodipine hydralazine IV as needed Qualifiers: Hypertension type: essential hypertension Qualified Code(s): I10 - Essential (primary) hypertension (9) DVT prophylaxis Current Visit: Yes Status: Acute Assessment and plan: SCDs. Encouraged ambulation. Patient seen and examined, plan discussed with and agreed upon with Dr. Westbrook. - Subjective Interval history: Patient resting comfortably in bed, patient reports continued 7 out of 10 in severity abdominal pain in epigastric region. Patient reports nausea and vomiting. Last bowel movement was early this a.m. Stool studies sent to lab for GI panel. - Constitutional Vitals: Temp Pulse Resp BP Pulse Ox 98.1 F 94 15 161/98 98 11/24/16 07:34 11/24/16 07:34 11/24/16 07:34 11/24/16 07:34 11/24/16 07:34 General appearance: Present: cooperative, mild distress, A&O X 3, pleasant, answers questions appropriately - Head Head exam: Present: atraumatic, normocephalic - Eye Eye exam: Present: PERRL, conjuntiva pink, sclera anicteric Pupils: Present: PERRL - ENT ENT exam: Present: mucous membranes moist, normal oropharynx - Neck Neck exam general surgery: Present: supple, trachea midline. Absent: lymphadenopathy - Respiratory Respiratory exam: Present: CTAB. Absent: accessory muscle use, rales, rhonchi, wheezes - Cardiovascular Cardiovascular exam: Present: RRR, +S1, +S2. Absent: diastolic murmur, gallop, rubs, systolic murmur - GI/Abdominal GI/Abdominal exam: Present: normal bowel sounds, soft, tenderness (Epigastric), no peritoneal signs. Absent: distended, guarding - Extremities Exam Extremities exam: Present: warm, radial pulses palpable and symetrical. Absent : calf tenderness, cyanotic, pedal edema Additional comments: Left lower extremity prosthesis in place - Neurological Exam Neurological exam: Present: CN II-XII intact, oriented X3, no focal deficits. Absent: pronater drift, facial droop, speech deficit - Psychiatric Psychiatric exam: Present: anxious, flat affect - Skin Skin exam: Present: dry, intact Internal Medicine: Result - Labs CBC & Chem 7: 11/24/16 04:31 11/24/16 04:31 Labs: Short CBC 11/24/16 Range/Units 04:31 WBC 4.9 (4.3-11.1) K/mcL Hgb 8.7 L (11.5-15.4) g/dL Hct 27.1 L (35.3-44.9) % Plt Count 228 (140-400) K/mcL BMP 11/24/16 04:31 Sodium 137 Potassium 3.7 Chloride 116 H Carbon Dioxide 15 L BUN 5 L Creatinine 1.78 H Glucose 137 H Calcium 8.0 L Liver Function 11/24/16 Range/Units 04:31 Total Bilirubin 0.4 (0.2-1.2) mg/dL AST 11 (5-34) Units/L ALT < 6 (0-55) Units/L Alkaline Phosphatase 114 (38-126) Units/L Albumin 2.6 L (3.5-5.0) g/dL Last Result Calcium 8.0 mg/dL (8.6-10.8) L 11/24/16 04:31 Troponin I 0.01 ng/mL (0-0.03) 11/19/16 00:23 Triglycerides 210 mg/dL (< 150) H 11/19/16 00:23 Entire Visit Hgb 8.7 g/dL (11.5-15.4) L 11/24/16 04:31 Hct 27.1 % (35.3-44.9) L 11/24/16 04:31 PT 12.7 Seconds (9.4-12.1) H 11/19/16 00:23 Total Bilirubin 0.4 mg/dL (0.2-1.2) 11/24/16 04:31 AST 11 Units/L (5-34) 11/24/16 04:31 ALT < 6 Units/L (0-55) 11/24/16 04:31 Amylase 160 Units/L (25-125) H 11/19/16 13:04 Lipase 97 Units/L (8-78) H 11/19/16 13:04 Serology 11/24/16 11/19/16 Range/Units 09:53 11:26 Urine Color Yellow (Yellow) Urine Clarity Clear (Clear) Urine pH 5.5 (5.0-8.0) pH Units Ur Specific [place] 1.024 (1.010-1.025) Urine Protein 100 H (Neg-Trace) mg/dL Urine Glucose (UA) 250 H (Normal) mg/dL Urine Ketones Trace H (Negative) mg/dL Urine Blood Negative (Negative) Urine Nitrite Negative (Negative) Urine Bilirubin Small H (Negative) Urine Urobilinogen Normal (Normal) mg/dL Ur Leukocyte Esterase Negative (Negative) Urine Microscopic RBC 3-5 H (0-3) per hpf Urine Microscopic WBC 0-3 (0-3) per hpf Ur Squamous Epith Cells Many H (None-Few) per lpf Urine Bacteria None Seen (None-Few) per hpf Hyaline Casts None Seen (None-Few) per lpf Ur Culture Indicated? NO (NO) Stl C. cayetanensis PCR Not detected (Not detect) Stool Rotavirus A PCR Not detected (Not detect) Stl Adenov F 40/41 PCR Not detected (Not detect) Stool Astrovirus (PCR) Not detected (Not detect) Stool Campylobacter PCR Not detected (Not detect) Stl C. diff Tox A/B PCR Not detected (Not detect) Stool Cryptosporidium PCR Not detected (Not detect) Stl Sh Tox Pr E STEC PCR Not detected (Not detect) Stool E coli O157 PCR Not detected (Not detect) Stl Enterotoxigenic E PCR Not detected (Not detect) Stool EPEC (PCR) DETECTED A (Not detect) Stool EAEC (PCR) Not detected (Not detect) Stl E. histolytica PCR Not detected (Not detect) Stool Giardia Lamblia PCR Not detected (Not detect) Stool Salmonella PCR Not detected (Not detect) Stool Sapovirus (PCR) Not detected (Not detect) Stl P. shigelloides PCR Not detected (Not detect) Stl Shigella/EIEC PCR Not detected (Not detect) St Y.enterocolitica PCR Not detected (Not detect) Stool Vibrio (PCR) Not detected (Not detect) Stl Vibrio cholerae PCR Not detected (Not detect) Stl Norovirus GI/GII PCR Not detected (Not detect) Stl GI Panel (PCR) Com See below - ABG Interpretation ABG results: PT/INR, D-dimer PT 12.7 Seconds (9.4-12.1) H 11/19/16 00:23 Consult Discharge Plan - Plan Referrals: Basil Stauffer DO [Resident] - 11/29/16 9:00 am Panda Murray DO [Partnered Physician] - 12/08/16 3:55 pm <King Westbrook - Last Filed: 11/24/16 19:20> Date of Encounter: 11/24/16 - Assessment and plan (1) Enteritis, enteropathogenic E. coli Current Visit: Yes Status: Acute Assessment and plan: Change to Cipro/Flagyl (2) Abdominal pain Current Visit: Yes Status: Acute Qualifiers: Abdominal location: epigastric Qualified Code(s): R10.13 - Epigastric pain (3) CKD (chronic kidney disease) stage 4, GFR 15-29 ml/min Current Visit: Yes Status: Chronic (4) HTN (hypertension) Current Visit: Yes Status: Chronic Qualifiers: Hypertension type: essential hypertension Qualified Code(s): I10 - Essential (primary) hypertension (5) Diabetes mellitus Current Visit: Yes Status: Chronic Qualifiers: Diabetes mellitus type: type 2 Diabetes mellitus complication status: with kidney complications Diabetes mellitus complication detail: with chronic kidney disease 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 Chronic kidney disease stage: stage 4 (severe) Qualified Code(s): E11.22 - Type 2 diabetes mellitus with diabetic chronic kidney disease; N18.4 - Chronic kidney disease, stage 4 (severe); 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 (6) Gastric ulcer due to nonsteroidal anti-inflammatory drug (NSAID) Current Visit: No Status: Acute - Constitutional Vitals: Temp Pulse Resp BP Pulse Ox 98.7 F 93 16 169/79 98 11/24/16 14:00 11/24/16 14:00 11/24/16 14:00 11/24/16 12:00 11/24/16 14:00 Internal Medicine: Result - Labs CBC & Chem 7: 11/24/16 04:31 11/24/16 04:31 Labs: Short CBC 11/24/16 Range/Units 04:31 WBC 4.9 (4.3-11.1) K/mcL Hgb 8.7 L (11.5-15.4) g/dL Hct 27.1 L (35.3-44.9) % Plt Count 228 (140-400) K/mcL BMP 11/24/16 04:31 Sodium 137 Potassium 3.7 Chloride 116 H Carbon Dioxide 15 L BUN 5 L Creatinine 1.78 H Glucose 137 H Calcium 8.0 L Liver Function 11/24/16 Range/Units 04:31 Total Bilirubin 0.4 (0.2-1.2) mg/dL AST 11 (5-34) Units/L ALT < 6 (0-55) Units/L Alkaline Phosphatase 114 (38-126) Units/L Albumin 2.6 L (3.5-5.0) g/dL - ABG Interpretation ABG results: PT/INR, D-dimer PT 12.7 Seconds (9.4-12.1) H 11/19/16 00:23 - Attending Attestation I examined this patient and my medical decision-making was reviewed with the Resident Physician on 11/24/16. I agree with the documented findings, disposition and treatment plan as described except to the extent set forth below. Ms. Gallegos is currently admitted for persistent abdominal pain and diarrhea. She remains moderate to high risk due to potential for worsening GI issues. Ms. Gallegos continues to have mid abdominal pain. No fever or chills. Stool is positive of EPEC. No bleeding noted. Hungry. Bentyl seems to have helped some this afternoon. Exam Alert. Comfortable Mucus membranes dry Heart reg Lungs clear Abd with mid abd discomfort but no peritoneal signs No edema I/P 1. Abd pain 2. EPEC - switch to Cipro/Flagyl. May need azithromycin if no improvement. 3. Gastric ulcer - continue PPI/Carafate Further diagnoses and plan as above.
[2016-11-24] MEDS: amLODIPine 5 MG TABLET PO SCH (11:21)
[2016-11-24] MEDS: Cyanocobalamin (B-12) 1,000 MCG TABLET PO SCH (11:21)
[2016-11-24] MEDS: Aspirin 81 MG TAB.CHEW PO SCH (11:21)
[2016-11-24] MEDS: Folic Acid 1 MG TABLET PO SCH (11:21)
[2016-11-24] MEDS: Nicotine 21 MG PATCH.TD24 TD SCH (11:22)
[2016-11-24] MEDS: Pantoprazole 40 MG VIAL IVP SCH ×2 (12:04→20:33)
[2016-11-24 12:05] LABS: C.difficile Toxin A/B by PCR Not detected (Not detect); Campylobacter by PCR Not detected (Not detect); Cryptosporidium by PCR Not detected (Not detect); Cyclospora cayetanensis PCR Not detected (Not detect); E. coli O157 by PCR Not detected (Not detect); Entamoeba histolytica PCR Not detected (Not detect); Enteroaggregative E.coli(EAEC) Not detected (Not detect); Enteropathogenic E.coli(EPEC) ***DETECTED*** (Not detect); Enterotoxigenic E.coli (ETEC) Not detected (Not detect); Plesiomonas shigelloides PCR Not detected (Not detect); Salmonella PCR Not detected (Not detect); Shig/EnteroinvasiveE coli EIEC Not detected (Not detect); Shigalike tox-prod E coli STEC Not detected (Not detect); Vibrio PCR Not detected (Not detect); Vibrio cholerae PCR Not detected (Not detect); Yersinia enterocolitica PCR Not detected (Not detect)
[2016-11-24 12:06] LABS: Adenovirus F 40/41 PCR Not detected (Not detect); Astrovirus PCR Not detected (Not detect); Giardia lamblia PCR Not detected (Not detect); Norovirus GI/GII PCR Not detected (Not detect); Rotavirus A PCR Not detected (Not detect); Sapovirus PCR Not detected (Not detect)
[2016-11-25] MEDS: *HR* HYDROcodone/Acet 5/325 mg TABLET PO PRN ×5 (02:16→20:33)
[2016-11-25 04:23] LABS: Calcium 7.6 mg/dL (8.6-10.8); Magnesium 0.8 mg/dL (1.6-2.6); Potassium 3.5 mEq/L (3.5-4.5)
[2016-11-25 04:30] LABS: Hematocrit 23.1 % (35.3-44.9); Hemoglobin 7.6 g/dL (11.5-15.4); Mean Corpuscular HGB Conc 32.9 g/dL (31.6-35.5); Mean Corpuscular Hemoglobin 32.1 pg (28.0-33.3); Mean Corpuscular Volume 97.5 fL (83.0-100.0); Mean Platelet Volume 9.9 fL (9.4-12.4); Platelet Count 187 K/mcL (140-400); Red Blood Count 2.37 M/mcL (3.82-4.97); Red Cell Distribution Width 14.3 % (11.5-14.5)
[2016-11-25] MEDS: Famotidine 20 MG/2 ML VIAL IVP SCH ×2 (05:28→17:05)
[2016-11-25] MEDS: hydrALAZINE 25 MG TABLET PO SCH ×4 (05:28→23:00)
[2016-11-25] MEDS: Ondansetron 4 MG/2 ML VIAL IVP PRN (06:47)
--- NOTE | 2016-11-25 07:50 | Internal Med Progress Note ---
<Stephen Maier - Last Filed: 11/25/16 14:59> Date of Encounter: 11/25/16 Time of Encounter: 07:48 - Assessment and plan (1) Colitis Current Visit: Yes Status: Acute Assessment and plan: Stool sample / GI panel positive for enteropathogenic Escherichia coli. Continue Flagyl (day 6) and Cipro (day 2), discontinued Rocephin. Patient tolerating full liquid diet, will advanced to renal diet. (2) Gastric ulcer due to nonsteroidal anti-inflammatory drug (NSAID) Current Visit: No Status: Acute Assessment and plan: Was diagnosed with 2 nonbleeding gastric ulcers during her last admission, no evidence of acute bleeding, no bowel movements. Hemoglobin is at her baseline from last discharge. Upon admission hemoglobin was above 9 the patient was dehydrated and this was likely due to hemoconcentration. Consider gastric ulcers as a source of possible pain Stool sample / GI panel positive for enteropathogenic Escherichia coli, discontinue Rocephin. Continue Flagyl (day 6) and Cipro (day 2). Continue Protonix IV twice a day, sucralfate, famotidine IV twice a day, Bentyl The gastric biopsy did not show H. pylori infection Monitor CBC There is no GI services available at the moment, the patient prefers to stay here the moment not to be transferred Consider surgical consult if not improving Dilaudid IV as needed (3) Abdominal pain Current Visit: Yes Status: Acute Assessment and plan: See above Qualifiers: Abdominal location: epigastric Qualified Code(s): R10.13 - Epigastric pain (4) Anemia in chronic kidney disease (CKD) Current Visit: Yes Status: Acute Assessment and plan: HGB dropped to 7.6 today. Fecal occult blood pending. Chronic anemia possibly blood loss from prior gastric ulcers, not active rectal bleeding, likely related also to iron deficiency anemia and chronic kidney disease Qualifiers: Chronic kidney disease stage: stage 4 (severe) Qualified Code(s): N18.4 - Chronic kidney disease, stage 4 (severe); D63.1 - Anemia in chronic kidney disease (5) Acute kidney injury superimposed on chronic kidney disease Current Visit: No Status: Acute Assessment and plan: Continue IV fluids and monitor (6) CKD (chronic kidney disease) stage 4, GFR 15-29 ml/min Current Visit: Yes Status: Chronic Assessment and plan: Continue IV fluids (7) Cystitis Current Visit: Yes Status: Acute Assessment and plan: Completed 5 days of Rocephin. We will need to follow as an outpatient with urology (8) HTN (hypertension) Current Visit: Yes Status: Chronic Assessment and plan: Continue amlodipine hydralazine IV as needed Qualifiers: Hypertension type: essential hypertension Qualified Code(s): I10 - Essential (primary) hypertension (9) Major depression Current Visit: Yes Status: Chronic Assessment and plan: Resume home Seroquel and Lexapro. Recommend outpatient follow up. Qualifiers: Major depression recurrence: recurrent Active/Remission status: currently active Psychotic features: without psychotic features Qualified Code(s): F33.2 - Major depressive disorder, recurrent severe without psychotic features (10) DVT prophylaxis Current Visit: Yes Status: Acute Assessment and plan: SCDs. Encouraged ambulation. Patient seen and examined, plan discussed with and agreed upon with Dr. Westbrook. - Subjective Interval history: Patient resting comfortably in bed, patient reports decreased abdominal pain after starting Bentyl. Patient reports nausea and vomiting has resolved and is tolerating full liquid diet. Last bowel movement was yesterday. Pt denies blood in stool and stool studies will be to lab for occult blood. She reports feeling depressed and not sleeping at night. She would like to resume her home antidepressants at this time. - Constitutional Vitals: Temp Pulse Resp BP Pulse Ox 98.1 F 79 16 153/79 98 11/25/16 07:03 11/25/16 07:03 11/25/16 07:03 11/25/16 07:03 11/25/16 07:03 General appearance: Present: cooperative, mild distress, A&O X 3, pleasant, answers questions appropriately - Head Head exam: Present: atraumatic, normocephalic - Eye Eye exam: Present: PERRL, conjuntiva pink, sclera anicteric Pupils: Present: PERRL - Neck Neck exam general surgery: Present: supple, trachea midline. Absent: lymphadenopathy - Respiratory Respiratory exam: Present: CTAB. Absent: accessory muscle use, rales, rhonchi, wheezes - Cardiovascular Cardiovascular exam: Present: RRR, +S1, +S2. Absent: diastolic murmur, gallop, rubs, systolic murmur - GI/Abdominal GI/Abdominal exam: Present: normal bowel sounds, soft, tenderness, no peritoneal signs. Absent: distended, guarding, rigid - Extremities Exam Extremities exam: Present: warm, radial pulses palpable and symetrical. Absent : calf tenderness, cyanotic, pedal edema - Neurological Exam Neurological exam: Present: CN II-XII intact, oriented X3, no focal deficits. Absent: pronater drift, facial droop, speech deficit - Psychiatric Psychiatric exam: Present: normal affect, normal mood - Skin Skin exam: Present: dry, intact, warm Internal Medicine: Result - Labs CBC & Chem 7: 11/25/16 04:06 11/25/16 04:06 Labs: Short CBC 11/24/16 11/25/16 Range/Units 04:31 04:06 WBC 4.9 3.9 L (4.3-11.1) K/mcL Hgb 8.7 L 7.6 L (11.5-15.4) g/dL Hct 27.1 L 23.1 L (35.3-44.9) % Plt Count 228 187 (140-400) K/mcL BMP 11/25/16 04:06 Sodium 137 Potassium 3.5 Chloride 116 H Carbon Dioxide 17 L BUN 5 L Creatinine 1.74 H Glucose 105 H Calcium 7.6 L - ABG Interpretation ABG results: PT/INR, D-dimer PT 12.7 Seconds (9.4-12.1) H 11/19/16 00:23 Consult Discharge Plan - Plan Referrals: Basil Stauffer DO [Resident] - 11/29/16 9:00 am Panda Murray DO [Partnered Physician] - 12/08/16 3:55 pm <King Westbrook - Last Filed: 11/25/16 17:16> Date of Encounter: 11/25/16 - Assessment and plan (1) Enteritis, enteropathogenic E. coli Current Visit: Yes Status: Acute Assessment and plan: On IV Cipro and Flagyl. (2) Abdominal pain Current Visit: Yes Status: Acute Qualifiers: Abdominal location: epigastric Qualified Code(s): R10.13 - Epigastric pain (3) CKD (chronic kidney disease) stage 4, GFR 15-29 ml/min Current Visit: Yes Status: Chronic (4) HTN (hypertension) Current Visit: Yes Status: Chronic Qualifiers: Hypertension type: essential hypertension Qualified Code(s): I10 - Essential (primary) hypertension (5) Diabetes mellitus Current Visit: Yes Status: Chronic Qualifiers: Diabetes mellitus type: type 2 Diabetes mellitus complication status: with kidney complications Diabetes mellitus complication detail: with chronic kidney disease Diabetes mellitus [facility] insulin use: with [facility] use Chronic kidney disease stage: stage 4 (severe) Qualified Code(s): E11.22 - Type 2 diabetes mellitus with diabetic chronic kidney disease; N18.4 - Chronic kidney disease, stage 4 (severe); Z79.4 - half-way (current) use of insulin (6) Gastric ulcer due to nonsteroidal anti-inflammatory drug (NSAID) Current Visit: No Status: Acute - Constitutional Vitals: Temp Pulse Resp BP Pulse Ox 98.1 F 81 17 155/77 97 11/25/16 15:16 11/25/16 15:16 11/25/16 15:16 11/25/16 15:16 11/25/16 15:16 Internal Medicine: Result - Labs CBC & Chem 7: 11/25/16 04:06 11/25/16 04:06 Labs: Short CBC 11/25/16 Range/Units 04:06 WBC 3.9 L (4.3-11.1) K/mcL Hgb 7.6 L (11.5-15.4) g/dL Hct 23.1 L (35.3-44.9) % Plt Count 187 (140-400) K/mcL BMP 11/25/16 04:06 Sodium 137 Potassium 3.5 Chloride 116 H Carbon Dioxide 17 L BUN 5 L Creatinine 1.74 H Glucose 105 H Calcium 7.6 L - ABG Interpretation ABG results: PT/INR, D-dimer PT 12.7 Seconds (9.4-12.1) H 11/19/16 00:23 - Attending Attestation I examined this patient and my medical decision-making was reviewed with the Resident Physician on 11/25/16. I agree with the documented findings, disposition and treatment plan as described except to the extent set forth below. Ms Gallegos is currently admitted for abdominal pain and anemia. She is positive for EPEC. She remains moderate to high risk due to potential for worsening GI issues and need for IV pain meds. Ms. Gallegos continues to have pain. Bentyl helped some. Tolerating current diet. Abx changed yesterday and feels she will have less diarrhea. Hemoglobin lower today as well. No fever. No dizziness. Exam Alert. Comfortable in chair. Mucus membranes moist. Heart reg No wheeze Some epigastric discomfort No edema I/P 1. Abd pain - PO pain meds. Advance diet today. 2. EPEC - on IV abx 3. Anemia due to chronic blood loss and renal disease Further diagnoses and plan as above. Probable d/c tomorrow.
[2016-11-25] MEDS: Folic Acid 1 MG TABLET PO SCH (08:35)
[2016-11-25] MEDS: amLODIPine 5 MG TABLET PO SCH (08:35)
[2016-11-25] MEDS: Cyanocobalamin (B-12) 1,000 MCG TABLET PO SCH (08:35)
[2016-11-25] MEDS: Nicotine 21 MG PATCH.TD24 TD SCH (08:35)
[2016-11-25] MEDS: Aspirin 81 MG TAB.CHEW PO SCH (08:35)
[2016-11-25] MEDS: Pantoprazole 40 MG VIAL IVP SCH ×2 (08:35→20:33)
[2016-11-25] MEDS: MetroNIDAZOLE 500 MG/100 ML 500 MG/100 ML BAG IVPB SCH ×3 (08:35→23:00)
[2016-11-25] MEDS: Insulin LISPRO 300 UNITS/3 ML VIAL SQ SCH ×4 (08:36→20:24)
[2016-11-25] MEDS ORDERED: Magnesium Sulfate 2 GM in D5% in Water 100 ML IVPB ONE (13:59)
[2016-11-26] MEDS: *HR* HYDROcodone/Acet 5/325 mg TABLET PO PRN ×3 (00:12→14:02)
[2016-11-26 04:13] LABS: Hematocrit 22.2 % (35.3-44.9); Hemoglobin 7.3 g/dL (11.5-15.4); Mean Corpuscular HGB Conc 32.9 g/dL (31.6-35.5); Mean Corpuscular Volume 97.4 fL (83.0-100.0); Mean Platelet Volume 9.9 fL (9.4-12.4); Platelet Count 170 K/mcL (140-400); Red Blood Count 2.28 M/mcL (3.82-4.97); Red Cell Distribution Width 14.3 % (11.5-14.5)
[2016-11-26 04:26] LABS: Calcium 7.9 mg/dL (8.6-10.8); Magnesium 1.3 mg/dL (1.6-2.6); Potassium 3.4 mEq/L (3.5-4.5)
[2016-11-26] MEDS: hydrALAZINE 25 MG TABLET PO SCH ×3 (05:34→16:04)
[2016-11-26] MEDS: Famotidine 20 MG/2 ML VIAL IVP SCH ×2 (05:34→16:17)
[2016-11-26] MEDS ORDERED: Magnesium Sulfate 2 GM in D5% in Water 100 ML IVPB ONE (07:16)
[2016-11-26] MEDS: Insulin LISPRO 300 UNITS/3 ML VIAL SQ SCH ×3 (08:39→17:14)
[2016-11-26] MEDS: Cyanocobalamin (B-12) 1,000 MCG TABLET PO SCH (08:40)
[2016-11-26] MEDS: Aspirin 81 MG TAB.CHEW PO SCH (08:40)
[2016-11-26] MEDS: amLODIPine 5 MG TABLET PO SCH (08:40)
[2016-11-26] MEDS: Pantoprazole 40 MG VIAL IVP SCH (08:41)
[2016-11-26] MEDS: MetroNIDAZOLE 500 MG/100 ML 500 MG/100 ML BAG IVPB SCH ×2 (08:41→16:17)
[2016-11-26] MEDS: Nicotine 21 MG PATCH.TD24 TD SCH (08:41)
[2016-11-26] MEDS: Folic Acid 1 MG TABLET PO SCH (08:41)
--- NOTE | 2016-11-26 09:45 | Discharge Summary ---
<Stephen Maier - Last Filed: 11/26/16 16:30> Date of Encounter: 11/26/16 Time of Encounter: 09:43 - Discharge Diagnosis (1) Colitis Priority: Primary Status: Acute Comments: Stool sample / GI panel positive for enteropathogenic Escherichia coli. Completed 7 days Flagyl and 3 days Cipro, and 5 days of Rocephin. Patient tolerating renal diet. She remains moderate to high risk due to potential for worsening GI issues and need for pain meds. (2) Gastric ulcer due to nonsteroidal anti-inflammatory drug (NSAID) Priority: Secondary Status: Acute Comments: Was diagnosed with 2 nonbleeding gastric ulcers during her last admission, no evidence of acute bleeding, no bowel movements. Hemoglobin is at her baseline from last discharge. Upon admission hemoglobin was above 9 the patient was dehydrated and this was likely due to hemoconcentration. Consider gastric ulcers as a source of possible pain Stool sample / GI panel positive for enteropathogenic Escherichia coli, discontinue Rocephin. completed 7 days of Flagyl and 3 days of Cipro Continue Protonix IV twice a day, sucralfate, famotidine IV twice a day, Bentyl The gastric biopsy did not show H. pylori infection Monitor CBC Consider surgical consult if not improving D/c Dilaudid IV. will prescribed [place] [address] as n (3) Abdominal pain Priority: Primary Status: Acute Comments: See above Qualifiers: Abdominal location: epigastric Qualified Code(s): R10.13 - Epigastric pain (4) Anemia in chronic kidney disease (CKD) Priority: Secondary Status: Acute Comments: Chronic anemia possibly blood loss from prior gastric ulcers, not active rectal bleeding, likely related also to iron deficiency anemia and chronic kidney disease Fecal occult blood test negative. hemoglobin decreased 7.3 today, no active bleeding. Patient reports feeling short of breath and dizzy last night. will transfuse 1 unit of PRBCs. Patient reports last colonoscopy greater than 15 years ago. Follow-up outpatient colonoscopy recommended. Qualifiers: Chronic kidney disease stage: stage 4 (severe) Qualified Code(s): N18.4 - Chronic kidney disease, stage 4 (severe); D63.1 - Anemia in chronic kidney disease (5) Acute kidney injury superimposed on chronic kidney disease Priority: Secondary Status: Acute Comments: IV fluids and monitor outpatient (6) CKD (chronic kidney disease) stage 4, GFR 15-29 ml/min Priority: Secondary Status: Chronic Comments: IV fluids and monitor outpatient (7) Cystitis Priority: Secondary Status: Acute Comments: completed 5 days of Rocephin (8) HTN (hypertension) Priority: Secondary Status: Chronic Comments: continue amlodipine Qualifiers: Hypertension type: essential hypertension Qualified Code(s): I10 - Essential (primary) hypertension (9) Major depression Priority: Primary Status: Chronic Comments: Resume home Seroquel and Lexapro. Recommend outpatient follow-up Qualifiers: Major depression recurrence: recurrent Active/Remission status: currently active Qualified Code(s): F33.0 - Major depressive disorder, recurrent, mild (10) Tobacco dependence Priority: Secondary Status: Acute Comments: tobacco cessation discussed. (11) DVT prophylaxis Priority: Primary Status: Acute Comments: SCDs. Encouraged ambulation. Patient seen and examined, plan discussed with and agreed upon with Dr. Westbrook. - Discharge Medications Prescriptions: HYDROcodone/Acet 5/325 mg [[place] 5-325 mg] 1 tab PO Q4HR PRN #15 tab PRN Reason: Moderate Pain (4-6) Escitalopram [Lexapro] 20 mg PO DAILY #30 tab Quetiapine Fumarate [Seroquel] 300 mg PO HS #30 tab Home Medications: Insulin Glargine,Hum.rec.anlog [Lantus Solostar] 10 unit SQ HS 09/15/16 [History ] Cyanocobalamin (B-12) [Vitamin B12] 1,000 mcg PO DAILY #30 tablet 11/09/16 [Rx] Folic Acid 1 mg PO DAILY #30 tablet 11/09/16 [Rx] Omeprazole [PriLOSEC] 40 mg PO BIDAC #60 capsule. 11/09/16 [Rx] Sucralfate [Carafate] 1 gm PO QIDAC #120 tablet 11/09/16 [Rx] Ciprofloxacin HCl [Cipro] 500 mg PO BID #20 tablet 11/15/16 [Rx] Acetaminophen [Tylenol] 650 mg PO Q6HR PRN tab 11/26/16 [Rx] Aspirin 81 mg PO DAILY 11/26/16 [Rx] Atorvastatin [Lipitor] 40 mg PO HS tab 11/26/16 [Rx] Escitalopram [Lexapro] 20 mg PO DAILY #30 tab 11/26/16 [Rx] HYDROcodone/Acet 5/325 mg [[place] 5-325 mg] 1 tab PO Q4HR PRN #15 tab 11/26/16 [ Rx] Insulin LISPRO [HumaLOG] 0 units SQ HS vial 11/26/16 [Rx] Insulin LISPRO [HumaLOG] 0 units SQ TIDAC vial 11/26/16 [Rx] Quetiapine Fumarate [Seroquel] 300 mg PO HS #30 tab 11/26/16 [Rx] amLODIPine [Norvasc] 10 mg PO DAILY tab 11/26/16 [Rx] Allergies/Adverse Reactions: Allergies No Known Allergies Allergy (Verified 11/11/16 13:55) Procedures/tests Complete & Pending: Procedures Performed prior 72 hours Category Date Time Status CT head/brain wo con [CT] Stat Cat Scan 11/26/16 00:08 Completed Date of admission: 11/18/16 14:42 Primary care physician: PCP NO Consults: 11/21/16 09:50 Consult to Physical Therapy [CONS] Routine Comment: Evaluate, develop and implement POC Reason for Consult: discharge planning OT [Consult to Occupational Therapy] [CONS] Routine Comment: Evaluate, develop and implement POC Reason for Consult: discharge planning 11/24/16 10:54 Consult to Invasive Line Access Team [CONS] Routine Reason for Consult: poor IV access Line Type: EPIV Discharging clinician: King Westbrook Anticipated date of discharge: 11/26/16 - Patient Status Disposition: Home, Self-Care Condition: Good Overall status at discharge: patient is back to baseline - Discharge Instructions Follow Up With: Basil Stauffer DO [Resident] - 11/29/16 9:00 am Panda Murray DO [Partnered Physician] - 12/08/16 3:55 pm Additional Instructions: Schedule outpatient colonoscopy. Follow up with PCP within 1 week regarding anemia, depression, and gastroenteritis - Diet and Activity Activity: increase activity as tolerated Diet: diabetic diet Hospital course: Ms. Gallegos is a 61 year old female with a PMH of CHF, COPD, CVA, diabetes, hyperlipidemia, hypertension, myocardial infarction with no stents, left leg amputation, and renal disease presented from home with chief complaint of left- sided chest pain and left upper quadrant pain described as a burning sensation without radiation to her neck, arms, or back. She states that it began at rest. She also reported vomiting yellow and bilious emesis 3-4x daily, diarrhea, dizziness, and SOB. She reported constant left upper quadrant abdominal pain that is not resolving since her diagnosis of colitis two weeks ago and being placed on antibiotics. She reported bright red blood in her stool while in the hospital during her last admission. She states GI diagnosed her with 2 nonbleeding gastric ulcers during her last admission and gastric biopsy did not show H. pylori infection. Stool sample / GI panel on this admission was positive for enteropathogenic Escherichia coli, and she completed 7 days of Flagyl, 5 days of Rocephin, and 3 days of Cipro. She was given Protonix IV twice a day, sucralfate, famotidine IV twice a day, and Bentyl. Her hemoglobin decreased from 9 to 7.3 during the hospital course with no evidence of acute bleeding, Fecal occult blood test was negative. She received 1 unit of PRBCs. Her last colonoscopy was greater than 15 years ago. She had an episode of feeling weak / dizzy during ambulation and was found by nursing staff sitting on the floor. CT brain was negative. Of note , she has CKD stage IV and renal function remained stable during admission. Patient continued to improve during the hospital course and tolerated a renal diet prior to discharge. Patient instructed to follow with PCP in 1 week Time spent discussing smoking cessation with patient: more than 10 minutes - Time Spent with Patient Total time spent providing and/or coordinating discharge services: - Constitutional Vitals: Temp Pulse Resp BP Pulse Ox 98.0 F 87 16 150/67 100 11/26/16 08:54 11/26/16 08:54 11/26/16 08:54 11/26/16 08:54 11/26/16 07:56 General appearance: Present: cooperative, mild distress, A&O X 3, pleasant, answers questions appropriately - Head Head exam: Present: atraumatic, normocephalic - Eye Eye exam: Present: PERRL, conjuntiva pink, sclera anicteric Pupils: Present: PERRL - ENT ENT exam: Present: mucous membranes moist, normal oropharynx - Neck Neck exam general surgery: Present: supple, trachea midline. Absent: lymphadenopathy - Respiratory Respiratory exam: Present: CTAB. Absent: accessory muscle use, rales, rhonchi, wheezes - Cardiovascular Cardiovascular exam: Present: RRR, +S1, +S2. Absent: diastolic murmur, gallop, rubs, systolic murmur - GI/Abdominal GI/Abdominal exam: Present: normal bowel sounds, soft, tenderness (Mild epigastric tenderness), no peritoneal signs. Absent: distended - Extremities Exam Extremities exam: Present: warm, radial pulses palpable and symetrical. Absent : calf tenderness, cyanotic, pedal edema Additional comments: Left leg prosthesis in place - Neurological Exam Neurological exam: Present: CN II-XII intact, oriented X3, no focal deficits. Absent: pronater drift, facial droop, speech deficit - Psychiatric Psychiatric exam: Present: anxious, flat affect - Skin Skin exam: Present: dry, intact <King Westbrook - Last Filed: 11/26/16 16:47> Date of Encounter: 11/26/16 - Discharge Diagnosis (1) Enteritis, enteropathogenic E. coli Priority: Primary Status: Acute (2) Abdominal pain Status: Acute Qualifiers: Abdominal location: epigastric Qualified Code(s): R10.13 - Epigastric pain (3) CKD (chronic kidney disease) stage 4, GFR 15-29 ml/min Status: Chronic (4) HTN (hypertension) Status: Chronic Qualifiers: Hypertension type: essential hypertension Qualified Code(s): I10 - Essential (primary) hypertension (5) Diabetes mellitus Priority: Secondary Status: Chronic Qualifiers: Diabetes mellitus type: type 2 Diabetes mellitus complication status: with kidney complications Diabetes mellitus complication detail: with chronic kidney disease Diabetes mellitus halfway insulin use: with halfway use Chronic kidney disease stage: stage 4 (severe) Qualified Code(s): E11.22 - Type 2 diabetes mellitus with diabetic chronic kidney disease; N18.4 - Chronic kidney disease, stage 4 (severe); Z79.4 - [facility] (current) use of insulin (6) Gastric ulcer due to nonsteroidal anti-inflammatory drug (NSAID) Status: Acute (7) Hypokalemia Priority: Secondary Status: Acute (8) Hypomagnesemia Status: Acute Procedures/tests Complete & Pending: Procedures Performed prior 72 hours Category Date Time Status CT head/brain wo con [CT] Stat Cat Scan 11/26/16 00:08 Completed Date of admission: 11/18/16 14:42 Primary care physician: PCP NO Consults: 11/21/16 09:50 Consult to Physical Therapy [CONS] Routine Comment: Evaluate, develop and implement POC Reason for Consult: discharge planning OT [Consult to Occupational Therapy] [CONS] Routine Comment: Evaluate, develop and implement POC Reason for Consult: discharge planning 11/24/16 10:54 Consult to Invasive Line Access Team [CONS] Routine Reason for Consult: poor IV access Line Type: [facility] course: Ms. Gallegos is a 61 year old female - Time Spent with Patient Total time spent providing and/or coordinating discharge services: 38min - Constitutional Vitals: Temp Pulse Resp BP Pulse Ox 98.2 F 84 16 166/83 98 11/26/16 16:07 11/26/16 16:07 11/26/16 16:07 11/26/16 16:07 11/26/16 16:07 - Attending Attestation I examined this patient and my medical decision-making was reviewed with the Resident Physician on 11/26/16. I agree with the documented findings, disposition and treatment plan as described except to the extent set forth below. Ms Gallegos was somewhat dizzy last night. Says still has abdominal pain but seems improved. Hemoglobin lower today and received a unit of blood. No fever or chills. Vitals stable. Exam Alert. Comfortable Mucus membranes moist Heart reg Lungs clear Abd soft- nontender to deep palpation. No mass felt No peritoneal signs. Plan D/C today after transfusion. Follow up with PCP and GI
[2016-11-26] MEDS ORDERED: 0.9 % Sodium Chloride 250 ML ONE (13:25)
[2016-11-26 16:08] VITALS: BP 166/83
== END 2016-11-26 18:59 | disposition home or self-care (01) | DRG 372 ==
LOC: 3ANU 10:56 → EMEROO 10:56 → SUATTDRO 14:42 → 3ANU 14:50
PROVIDERS: ADMIT Family Medicine; ATTEND Internal Medicine

== ENCOUNTER 2016-12-06 19:22 | Inpatient (IN) ==
[2016-12-06] MEDS ORDERED: 0.9 % Sodium Chloride 1,000 ML IVC ONE (19:31)
[2016-12-06] MEDS ORDERED: Propofol 500 MG/50 ML INFUS..BTL ONE (19:41)
[2016-12-06] MEDS: 0.9 % Sodium Chloride 1,000 ML IVC SCH ×3 (19:41→21:59)
[2016-12-06] MEDS: Propofol 500 MG/50 ML INFUS..BTL IVC SCH (19:52)
[2016-12-06] MEDS ORDERED: *HR* Propofol 500 MG/50 ML BOTTLE IVP ONE (19:53)
[2016-12-06] MEDS ORDERED: *HR* FentaNYL (PF) 100 MCG/2 ML VIAL IVP ONE (19:56)
[2016-12-06 19:57] LABS: INR 1.2; Prothrombin Time 13.5 Seconds (9.4-12.1)
[2016-12-06 20:00] LABS: Activated Partial Thrombo Time 50.7 Seconds (26.0-36.0)
[2016-12-06] MEDS ORDERED: *HR* Succinylcholine 200 MG/10 ML VIAL IVP ONE (20:51)
[2016-12-06] MEDS ORDERED: *HR* Etomidate 20 MG/10 ML AMPUL IVP ONE (20:52)
[2016-12-06 21:03] LABS: Hematocrit 32.4 % (35.3-44.9); Hemoglobin 9.6 g/dL (11.5-15.4); Immature Granulocytes % 1.1 % (0-4); Lymphocytes # 0.3 K/mcL (0.6-4.6); Lymphocytes % 6.7 %; Mean Corpuscular HGB Conc 29.6 g/dL (31.6-35.5); Mean Corpuscular Hemoglobin 31.1 pg (28.0-33.3); Mean Platelet Volume 12.4 fL (9.4-12.4); Monocytes # 0.1 K/mcL (0.0-1.3); Monocytes % 2.9 %; Neutrophils # 3.4 K/mcL (1.6-8.9); Red Blood Count 3.09 M/mcL (3.82-4.97); Red Cell Distribution Width 15.5 % (11.5-14.5); Segmented Neutrophils % 89.3 %
[2016-12-06 21:05] LABS: Mean Corpuscular Volume 104.9 fL (83.0-100.0); Platelet Count 72 K/mcL (140-400)
[2016-12-06 21:13] LABS: Alanine Aminotransferase 46 Units/L (0-55); Albumin 2.6 g/dL (3.5-5.0); Albumin/Globulin Ratio 0.8 (1.1-2.2); Alkaline Phosphatase 125 Units/L (38-126); Aspartate Amino Transferase 99 Units/L (5-34); BUN/Creatinine Ratio 10 (6-26); Bilirubin,Direct 0.2 mg/dL (0.0-0.5); Bilirubin,Indirect 0.1 mg/dL (0.0-1.2); Blood Urea Nitrogen 46 mg/dL (7-20); Calcium 7.1 mg/dL (8.6-10.8); Chloride 113 mEq/L (98-109); Creatine Kinase 2016 Units/L (29-168); Globulin 3.4 g/dL (2.4-3.5); Glucose 214 mg/dL (70-99); Osmolality,Calculated 322 (280-300); Potassium 4.7 mEq/L (3.5-4.5); Sodium 147 mEq/L (136-145); eGFR For African Americans 11 (> 60); eGFR For Non-African Americans 9 (> 60)
[2016-12-06 21:15] LABS: VBG HCO3 < 3.0 mEq/L (21-27); VBG PCO2 15 mmHg (41-51); VBG PO2 231 mmHg (25-40)
[2016-12-06 21:17] LABS: VBG PH 6.86 pH Units (7.32-7.42)
[2016-12-06 21:18] LABS: Bilirubin,Total < 0.3 mg/dL (0.2-1.2); Carbon Dioxide 6 mEq/L (19-29); Carboxyhemoglobin 2.6 % (0-5); Ethanol < 10 mg/dL (0-10)
[2016-12-06 21:26] LABS: Bilirubin,Urine Negative (Negative); Blood,Urine Trace (Negative); Clarity,Urine Clear (Clear); Color,Urine Dark Yellow (Yellow); Glucose,Urine (UA) 100 mg/dL (Normal); Ketones,Urine Negative (Negative); Leukocyte Esterase,Urine Negative (Negative); Nitrite,Urine Negative (Negative); PH,Urine 5.5 pH Units (5.0-8.0); Protein,Urine 100 mg/dL (Neg-Trace); Specific Gravity,Urine 1.019 (1.010-1.025); Urobilinogen,Urine Normal (Normal)
[2016-12-06 21:28] LABS: Bacteria,Urine None Seen per hpf (None-Few); Hyaline Casts,Urine None Seen per lpf (None-Few); Squamous Epithelial Cell,Urine Many per lpf (None-Few); WBC,Urine 0-3 per hpf (0-3)
[2016-12-06 21:32] LABS: Amphetamine Screen,Urine Negative ng/mL (Cutoff=1000); Barbiturate Screen,Urine Negative ng/mL (Cutoff=200); Benzodiazepines Screen,Urine Negative ng/mL (Cutoff=200); Cannabinoid Screen,Urine Negative ng/mL (Cutoff = 50); Cocaine Screen,Urine Negative ng/mL (Cutoff= 300); Opiate Screen,Urine Positive ng/mL (Cutoff=300); Phencyclidine Screen,Urine Negative ng/mL (Cutoff=25)
[2016-12-06 21:34] LABS: Thyroid Stimulating Hormone 2.058 mcIU/mL (0.350-4.840)
[2016-12-06] MEDS: Norepinephrine 4 MG in D5% in Water 250 ML IVC SCH (21:43)
[2016-12-06] MEDS ORDERED: Vancomycin 1,000 MG in D5% in Water 250 ML IVPB ONE (21:57)
[2016-12-06] MEDS ORDERED: Piperacillin/Tazobactam 3.375 GM in D5% in Water (Mini-Bag+) 100 ML IVPB ONE (21:57)
[2016-12-06 22:42] LABS: Acetaminophen < 1.0 mcg/mL (10-30); Salicylate < 5.0 mg/dL (15-30)
--- NOTE | 2016-12-06 23:16 | Emergency Department Note ---
Disposition Clinical Impression: Respiratory distress, Unresponsive, Acute renal failure, Sacral decubitus ulcer , Acidosis Disposition: Admitted As Inpatient Condition: Critical Altered Mental Status HPI - General Chief Complaint: ED Altered Mental Status Stated Complaint: AMS Time Seen by Provider: 12/06/16 19:31 Source: EMS Mode of arrival: EMS Limitations: altered mental status Nursing Notes Reviewed: Yes Vital Signs Reviewed: Yes - History of Present Illness HPI Narrative: 61-year-old female brought in by EMS for altered mental status. Neighbors called EMS due to smell of feces. EMS found patient unresponsive on the ground. Upon arrival to the emergency department the patient had decorticate posturing, was unable to answer questions or follow commands. Eyes were open. Patient was intubated to protect her airway. Patient received a small amount of propofol for sedation however she became hypotensive. This was stopped and she was given fentanyl. No family are present to be able to give a history regarding the patient's symptoms however the patient was seen within the past [address] which did not show acute abnormality. Chest x-ray did not show acute infiltrate. Laboratory evaluation revealed a significant acidosis. And acute renal failure. As well as multiple other electrolyte abnormalities. - Related Data Home Medications Medication Instructions Recorded Confirmed Insulin Glargine,Hum.rec.anlog 10 unit SQ HS 09/15/16 11/18/16 [Lantus Solostar] Previous Rx's Medication Instructions Recorded Cyanocobalamin (B-12) [Vitamin B12] 1,000 mcg PO DAILY #30 tablet 11/09/16 Folic Acid 1 mg PO DAILY #30 tablet 11/09/16 Omeprazole [PriLOSEC] 40 mg PO BIDAC #60 capsule. 11/09/16 Sucralfate [Carafate] 1 gm PO QIDAC #120 tablet 11/09/16 Ciprofloxacin HCl [Cipro] 500 mg PO BID #20 tablet 11/15/16 Acetaminophen [Tylenol] 650 mg PO Q6HR PRN tab 11/26/16 Aspirin 81 mg PO DAILY 11/26/16 Atorvastatin [Lipitor] 40 mg PO HS tab 11/26/16 Escitalopram [Lexapro] 20 mg PO DAILY #30 tab 11/26/16 HYDROcodone/Acet 5/325 mg [[place] 1 tab PO Q4HR PRN #15 tab 11/26/16 5-325 mg] Insulin LISPRO [HumaLOG] 0 units SQ HS vial 11/26/16 Insulin LISPRO [HumaLOG] 0 units SQ TIDAC vial 11/26/16 Quetiapine Fumarate [Seroquel] 300 mg PO HS #30 tab 11/26/16 amLODIPine [Norvasc] 10 mg PO DAILY tab 11/26/16 Allergies Allergy/AdvReac Type Severity Reaction Status Date / Time No Known Allergies Allergy Verified 11/11/16 13:55 Limitations: ROS unobtainable due to patients medical condition Past Medical History - Past Medical History Attestation: Yes The following information was validated with the patient. 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 Patient in respiratory distress prior to intubation Musculoskeletal: No obvious deformity other than left lower extremity amputation. Large Sacral decubitus ulcer present during exam GI: Soft, nondistended. Neuro: Decorticated posturing, does not localize to pain. Eyes open without provocation. Nonverbal - General Limitations: altered mental status General appearance: in distress Course Vital Signs Temperature 82.6 F L 12/06/16 19:42 Pulse Rate 112 12/06/16 19:42 Respiratory Rate 20 12/06/16 19:42 Blood Pressure 138/128 12/06/16 19:42 O2 Sat by Pulse Oximetry 78 12/06/16 19:42 Temperature 97.6 F 12/07/16 07:17 Pulse Rate 96 12/07/16 06:00 Respiratory Rate 29 12/07/16 07:40 Blood Pressure 91/63 12/07/16 07:40 O2 Sat by Pulse Oximetry 100 12/07/16 07:40 Oxygen Delivery Oxygen Delivery Ventilator Altered Mental Status - MDM Narrative Medical decision making narrative: I discussed the case with the medical apparatus model maker who evaluated the patient in the emergency department. Possibility patient's symptoms may be secondary to Seroquel overdose with prolonged QTC. Patient also may have an anoxic brain injury as she was satting 80% on room air upon EMS arrival. - Medical Records Medical records reviewed: Yes I reviewed the patient's medical records. - Lab Data Lab results reviewed: Yes I reviewed the patient's lab results. Result diagrams: 12/07/16 08:20 12/07/16 08:20 Lab Results 12/06/16 12/06/16 12/06/16 Range/Units 19:26 19:39 19:39 WBC 3.8 L (4.3-11.1) K/mcL RBC 3.09 L (3.82-4.97) M/mcL Hgb 9.6 L (11.5-15.4) g/dL Hct 32.4 L (35.3-44.9) % MCV 104.9 H D (83.0-100.0) fL MCH 31.1 (28.0-33.3) pg MCHC 29.6 L (31.6-35.5) g/dL RDW 15.5 H (11.5-14.5) % Plt Count 72 L D (140-400) K/mcL MPV 12.4 (9.4-12.4) fL Immature Gran % 1.1 (0-4) % Seg Neutrophils % 89.3 % Lymphocytes % 6.7 % Monocytes % 2.9 % Eosinophils % 0.0 % Basophils % 0.0 % Neutrophils # 3.4 (1.6-8.9) K/mcL Lymphocytes # 0.3 L (0.6-4.6) K/mcL Monocytes # 0.1 (0.0-1.3) K/mcL Eosinophils # 0.0 (0.0-0.6) K/mcL Basophils # 0.0 (0.0-0.2) K/mcL PT 13.5 H (9.4-12.1) Seconds INR 1.2 APTT 50.7 H (26.0-36.0) Seconds VBG pH (7.32-7.42) pH Units VBG pCO2 (41-51) mmHg VBG pO2 (25-40) mmHg VBG HCO3 (21-27) mEq/L Carboxyhemoglobin (0-5) % Sodium (136-145) mEq/L Potassium (3.5-4.5) mEq/L Chloride (98-109) mEq/L Carbon Dioxide (19-29) mEq/L BUN (7-20) mg/dL Creatinine (0.57-1.11) mg/dL Est GFR ( Amer) (> 60) Est GFR (Non-Af Amer) (> 60) BUN/Creatinine Ratio (6-26) Glucose (70-99) mg/dL POC Glucose 214 H (58-89) Serum Osmolality (280-300) mOsm/kg Calculated Osmolality (280-300) Lactic Acid (0.5-2.2) mmol/L Calcium (8.6-10.8) mg/dL Total Bilirubin (0.2-1.2) mg/dL Direct Bilirubin (0.0-0.5) mg/dL Indirect Bilirubin (0.0-1.2) mg/dL AST (5-34) Units/L ALT (0-55) Units/L Alkaline Phosphatase (38-126) Units/L Ammonia (18-72) mcmol/L Creatine Kinase (29-168) Units/L Troponin I (0-0.03) ng/mL Serum Total Protein (6.0-8.3) g/dL Albumin (3.5-5.0) g/dL Globulin (2.4-3.5) g/dL Albumin/Globulin Ratio (1.1-2.2) TSH (0.350-4.840) mcIU/mL Urine Color (Yellow) Urine Clarity (Clear) Urine pH (5.0-8.0) pH Units Ur Specific [place] (1.010-1.025) Urine Protein (Neg-Trace) mg/dL Urine Glucose (UA) (Normal) mg/dL Urine Ketones (Negative) mg/dL Urine Blood (Negative) Urine Nitrite (Negative) Urine Bilirubin (Negative) Urine Urobilinogen (Normal) mg/dL Ur Leukocyte Esterase (Negative) Urine Microscopic RBC (0-3) per hpf Urine Microscopic WBC (0-3) per hpf Ur Squamous Epith Cells (None-Few) per lpf Urine Bacteria (None-Few) per hpf Hyaline Casts (None-Few) per lpf Ur Culture Indicated? (NO) Salicylates (15-30) mg/dL Urine Opiates Screen (Rpgemz=828) ng/mL Acetaminophen (10-30) mcg/mL Ur Barbiturates Screen (Rmekqm=899) ng/mL Ur Phencyclidine Scrn (Cutoff=25) ng/mL Ur Amphetamines Screen (Snwlss=8467) ng/mL U Benzodiazepines Scrn (Jzukdu=663) ng/mL Urine Cocaine Screen (Cutoff= 300) ng/mL U Marijuana (THC) Screen (Cutoff = 50) ng/mL Ethyl Alcohol (0-10) mg/dL 12/06/16 12/06/16 12/06/16 Range/Units 19:39 19:39 19:39 WBC (4.3-11.1) K/mcL RBC (3.82-4.97) M/mcL Hgb (11.5-15.4) g/dL Hct (35.3-44.9) % MCV (83.0-100.0) fL MCH (28.0-33.3) pg MCHC (31.6-35.5) g/dL RDW (11.5-14.5) % Plt Count (140-400) K/mcL MPV (9.4-12.4) fL Immature Gran % (0-4) % Seg Neutrophils % % Lymphocytes % % Monocytes % % Eosinophils % % Basophils % % Neutrophils # (1.6-8.9) K/mcL Lymphocytes # (0.6-4.6) K/mcL Monocytes # (0.0-1.3) K/mcL Eosinophils # (0.0-0.6) K/mcL Basophils # (0.0-0.2) K/mcL PT (9.4-12.1) Seconds INR APTT (26.0-36.0) Seconds VBG pH (7.32-7.42) pH Units VBG pCO2 (41-51) mmHg VBG pO2 (25-40) mmHg VBG HCO3 (21-27) mEq/L Carboxyhemoglobin (0-5) % Sodium 147 H (136-145) mEq/L Potassium 4.7 H (3.5-4.5) mEq/L Chloride 113 H (98-109) mEq/L Carbon Dioxide 6 L* (19-29) mEq/L BUN 46 H (7-20) mg/dL Creatinine 4.80 H (0.57-1.11) mg/dL Est GFR ( Amer) 11 L (> 60) Est GFR (Non-Af Amer) 9 L (> 60) BUN/Creatinine Ratio 10 (6-26) Glucose 214 H (70-99) mg/dL POC Glucose (58-89) Serum Osmolality (280-300) mOsm/kg Calculated Osmolality 322 H (280-300) Lactic Acid (0.5-2.2) mmol/L Calcium 7.1 L (8.6-10.8) mg/dL Total Bilirubin < 0.3 (0.2-1.2) mg/dL Direct Bilirubin 0.2 (0.0-0.5) mg/dL Indirect Bilirubin 0.1 (0.0-1.2) mg/dL AST 99 H (5-34) Units/L ALT 46 (0-55) Units/L Alkaline Phosphatase 125 (38-126) Units/L Ammonia 50 (18-72) mcmol/L Creatine Kinase 2016 H (29-168) Units/L Troponin I 0.00 (0-0.03) ng/mL Serum Total Protein 6.0 (6.0-8.3) g/dL Albumin 2.6 L (3.5-5.0) g/dL Globulin 3.4 (2.4-3.5) g/dL Albumin/Globulin Ratio 0.8 L (1.1-2.2) TSH 2.058 (0.350-4.840) mcIU/mL Urine Color (Yellow) Urine Clarity (Clear) Urine pH (5.0-8.0) pH Units Ur Specific [place] (1.010-1.025) Urine Protein (Neg-Trace) mg/dL Urine Glucose (UA) (Normal) mg/dL Urine Ketones (Negative) mg/dL Urine Blood (Negative) Urine Nitrite (Negative) Urine Bilirubin (Negative) Urine Urobilinogen (Normal) mg/dL Ur Leukocyte Esterase (Negative) Urine Microscopic RBC (0-3) per hpf Urine Microscopic WBC (0-3) per hpf Ur Squamous Epith Cells (None-Few) per lpf Urine Bacteria (None-Few) per hpf Hyaline Casts (None-Few) per lpf Ur Culture Indicated? (NO) Salicylates (15-30) mg/dL Urine Opiates Screen (Msrznt=342) ng/mL Acetaminophen (10-30) mcg/mL Ur Barbiturates Screen (Iqffht=594) ng/mL Ur Phencyclidine Scrn (Cutoff=25) ng/mL Ur Amphetamines Screen (Hhajpg=7540) ng/mL U Benzodiazepines Scrn (Gpztlh=187) ng/mL Urine Cocaine Screen (Cutoff= 300) ng/mL U Marijuana (THC) Screen (Cutoff = 50) ng/mL Ethyl Alcohol < 10 (0-10) mg/dL 12/06/16 12/06/16 12/06/16 Range/Units 19:39 19:39 19:49 WBC (4.3-11.1) K/mcL RBC (3.82-4.97) M/mcL Hgb (11.5-15.4) g/dL Hct (35.3-44.9) % MCV (83.0-100.0) fL MCH (28.0-33.3) pg MCHC (31.6-35.5) g/dL RDW (11.5-14.5) % Plt Count (140-400) K/mcL MPV (9.4-12.4) fL Immature Gran % (0-4) % Seg Neutrophils % % Lymphocytes % % Monocytes % % Eosinophils % % Basophils % % Neutrophils # (1.6-8.9) K/mcL Lymphocytes # (0.6-4.6) K/mcL Monocytes # (0.0-1.3) K/mcL Eosinophils # (0.0-0.6) K/mcL Basophils # (0.0-0.2) K/mcL PT (9.4-12.1) Seconds INR APTT (26.0-36.0) Seconds VBG pH 6.86 L* (7.32-7.42) pH Units VBG pCO2 15 L (41-51) mmHg VBG pO2 231 H (25-40) mmHg VBG HCO3 < 3.0 L (21-27) mEq/L Carboxyhemoglobin 2.6 (0-5) % Sodium (136-145) mEq/L Potassium (3.5-4.5) mEq/L Chloride (98-109) mEq/L Carbon Dioxide (19-29) mEq/L BUN (7-20) mg/dL Creatinine (0.57-1.11) mg/dL Est GFR ( Amer) (> 60) Est GFR (Non-Af Amer) (> 60) BUN/Creatinine Ratio (6-26) Glucose (70-99) mg/dL POC Glucose (58-89) Serum Osmolality 349 H (280-300) mOsm/kg Calculated Osmolality (280-300) Lactic Acid (0.5-2.2) mmol/L Calcium (8.6-10.8) mg/dL Total Bilirubin (0.2-1.2) mg/dL Direct Bilirubin (0.0-0.5) mg/dL Indirect Bilirubin (0.0-1.2) mg/dL AST (5-34) Units/L ALT (0-55) Units/L Alkaline Phosphatase (38-126) Units/L Ammonia (18-72) mcmol/L Creatine Kinase (29-168) Units/L Troponin I (0-0.03) ng/mL Serum Total Protein (6.0-8.3) g/dL Albumin (3.5-5.0) g/dL Globulin (2.4-3.5) g/dL Albumin/Globulin Ratio (1.1-2.2) TSH (0.350-4.840) mcIU/mL Urine Color (Yellow) Urine Clarity (Clear) Urine pH (5.0-8.0) pH Units Ur Specific [place] (1.010-1.025) Urine Protein (Neg-Trace) mg/dL Urine Glucose (UA) (Normal) mg/dL Urine Ketones (Negative) mg/dL Urine Blood (Negative) Urine Nitrite (Negative) Urine Bilirubin (Negative) Urine Urobilinogen (Normal) mg/dL Ur Leukocyte Esterase (Negative) Urine Microscopic RBC (0-3) per hpf Urine Microscopic WBC (0-3) per hpf Ur Squamous Epith Cells (None-Few) per lpf Urine Bacteria (None-Few) per hpf Hyaline Casts (None-Few) per lpf Ur Culture Indicated? (NO) Salicylates < 5.0 L (15-30) mg/dL Urine Opiates Screen (Tskwtx=222) ng/mL Acetaminophen < 1.0 L (10-30) mcg/mL Ur Barbiturates Screen (Wnpsav=024) ng/mL Ur Phencyclidine Scrn (Cutoff=25) ng/mL Ur Amphetamines Screen (Mamfgq=9232) ng/mL U Benzodiazepines Scrn (Kvshzk=369) ng/mL Urine Cocaine Screen (Cutoff= 300) ng/mL U Marijuana (THC) Screen (Cutoff = 50) ng/mL Ethyl Alcohol (0-10) mg/dL 12/06/16 12/06/16 12/06/16 Range/Units 21:10 21:10 22:29 WBC (4.3-11.1) K/mcL RBC (3.82-4.97) M/mcL Hgb (11.5-15.4) g/dL Hct (35.3-44.9) % MCV (83.0-100.0) fL MCH (28.0-33.3) pg MCHC (31.6-35.5) g/dL RDW (11.5-14.5) % Plt Count (140-400) K/mcL MPV (9.4-12.4) fL Immature Gran % (0-4) % Seg Neutrophils % % Lymphocytes % % Monocytes % % Eosinophils % % Basophils % % Neutrophils # (1.6-8.9) K/mcL Lymphocytes # (0.6-4.6) K/mcL Monocytes # (0.0-1.3) K/mcL Eosinophils # (0.0-0.6) K/mcL Basophils # (0.0-0.2) K/mcL PT (9.4-12.1) Seconds INR APTT (26.0-36.0) Seconds VBG pH (7.32-7.42) pH Units VBG pCO2 (41-51) mmHg VBG pO2 (25-40) mmHg VBG HCO3 (21-27) mEq/L Carboxyhemoglobin (0-5) % Sodium (136-145) mEq/L Potassium (3.5-4.5) mEq/L Chloride (98-109) mEq/L Carbon Dioxide (19-29) mEq/L BUN (7-20) mg/dL Creatinine (0.57-1.11) mg/dL Est GFR ( Amer) (> 60) Est GFR (Non-Af Amer) (> 60) BUN/Creatinine Ratio (6-26) Glucose (70-99) mg/dL POC Glucose (58-89) Serum Osmolality (280-300) mOsm/kg Calculated Osmolality (280-300) Lactic Acid 0.9 (0.5-2.2) mmol/L Calcium (8.6-10.8) mg/dL Total Bilirubin (0.2-1.2) mg/dL Direct Bilirubin (0.0-0.5) mg/dL Indirect Bilirubin (0.0-1.2) mg/dL AST (5-34) Units/L ALT (0-55) Units/L Alkaline Phosphatase (38-126) Units/L Ammonia (18-72) mcmol/L Creatine Kinase (29-168) Units/L Troponin I (0-0.03) ng/mL Serum Total Protein (6.0-8.3) g/dL Albumin (3.5-5.0) g/dL Globulin (2.4-3.5) g/dL Albumin/Globulin Ratio (1.1-2.2) TSH (0.350-4.840) mcIU/mL Urine Color Dark Yellow (Yellow) Urine Clarity Clear (Clear) Urine pH 5.5 (5.0-8.0) pH Units Ur Specific [place] 1.019 (1.010-1.025) Urine Protein 100 H (Neg-Trace) mg/dL Urine Glucose (UA) 100 H (Normal) mg/dL Urine Ketones Negative (Negative) mg/dL Urine Blood Trace H (Negative) Urine Nitrite Negative (Negative) Urine Bilirubin Negative (Negative) Urine Urobilinogen Normal (Normal) mg/dL Ur Leukocyte Esterase Negative (Negative) Urine Microscopic RBC 3-5 H (0-3) per hpf Urine Microscopic WBC 0-3 (0-3) per hpf Ur Squamous Epith Cells Many H (None-Few) per lpf Urine Bacteria None Seen (None-Few) per hpf Hyaline Casts None Seen (None-Few) per lpf Ur Culture Indicated? NO (NO) Salicylates (15-30) mg/dL Urine Opiates Screen Positive H (Qbchsd=438) ng/mL Acetaminophen (10-30) mcg/mL Ur Barbiturates Screen Negative (Hwnmnn=111) ng/mL Ur Phencyclidine Scrn Negative (Cutoff=25) ng/mL Ur Amphetamines Screen Negative (Gqrazz=0333) ng/mL U Benzodiazepines Scrn Negative (Qyshcm=433) ng/mL Urine Cocaine Screen Negative (Cutoff= 300) ng/mL U Marijuana (THC) Screen Negative (Cutoff = 50) ng/mL Ethyl Alcohol (0-10) mg/dL - Radiology Data Radiology results reviewed: Yes I reviewed the patient's radiology results. - EKG Data EKG attestation: Yes I reviewed and interpreted this EKG. EKG results narrative: EKG showed sinus bradycardia with a rate of [address] elevation. ECG was elevated at 585. TPA Checklist - LKW: 3-4.5 hrs Add. Warnings/Precautions Patient/family understanding: The patient/family members have been counseled and understood the risk, benefit , and alternatives of treatment. Critical Care Time Critical Care Time: Yes Total Critical Care Time: 120 Attestation: The high probability of a clinically significant, sudden or life threatening deterioration of the cardiovascular and respiratory system(s) required my full and direct attention, intervention and personal management. The aggregate critical care time was 120 minutes. This time is in addition to time spent performing reported procedures but includes the following: x Data Review and interpretation x Patient assessment and monitoring of vital signs x Documentation x Medication orders and management Date of procedure: 12/07/16 Procedure: Procedure: Endotracheal intubation Indications: Respiratory distress Consent: Consent was implied due to the emergent nature of the procedure Procedure summary: Patient was premedicated with 20 mg etomidate for sedation. 100 mg succinylcholine was given as a paralytic after the patient was ventilated successfully. A Mac 3 blade was inserted into the oropharynx at which time the vocal cords were visualized. A 7.5-[place] endotracheal tube was inserted and the visualized going through the vocal cords. Stylette was removed. Colorimetric change was visualized on the CO2 meter, breath sounds were heard in both lung hill equally. The endotracheal tube was placed at 23 cm measured at the teeth. Complications: None Estimated blood loss: None 16-[place] orogastric tube was inserted after the endotracheal intubation by myself without complication. Placement confirmed by a portable chest x-ray. Procedure: Internal jugular central venous catheter, US guided Indication: Hypotension Consent: Procedure emergent due to hypotension Procedure summary: Hands washed prior to procedure. Time out was performed. The patient's right neck was prepped and draped in sterile fashion using chlorhexidine scrub. Anesthesia was achieved with 1% lidocaine. The right internal jugular vein was accessed under ultrasound guidance using a finder needle and sheath. Venous blood was withdrawn and the sheath was advanced into the vein and the needle was withdrawn. A guidewire was advanced through the sheath. A small incision was made with a 10 blade scalpel and the sheath was exchanged for a dilator over the guidewire until appropriate dilation was obtained. the dilator was removed and an 8.5-[place] central venous catheter quad lumen was advanced over the guidewire and secured into place with 2 sutures. At time of procedure completion, all ports aspirated and flushed properly. Full sterile gowning and draping used during procedure. Postprocedure x-ray shows the tip of the catheter within the superior vena cava. Complications: None Estimated blood loss: 5 mL
[2016-12-06] MEDS: Dexmedetomidine HCl 400 MCG/100 ML MLS IVC SCH (23:29)
[2016-12-06] MEDS ORDERED: Sodium Bicarbonate 50 MEQ/50 ML VIAL IVP ONE (23:42)
[2016-12-06] MEDS ORDERED: *HR* LORazepam 2 MG/ML VIAL IVP PRN (23:58)
[2016-12-06] MEDS ORDERED: Naloxone 0.4 MG/ML INJ IVP PRN (23:58)
[2016-12-07] MEDS ORDERED: Acetaminophen 650 MG RECTAL SUPP RC PRN (00:09)
[2016-12-07] MEDS ORDERED: 0.9 % Sodium Chloride 1,000 ML IVC SCH (00:15)
[2016-12-07 00:17] LABS: VBG PCO2 20 mmHg (41-51); VBG PO2 243 mmHg (25-40)
[2016-12-07 00:19] LABS: VBG PH < 6.80 pH Units (7.32-7.42)
--- NOTE | 2016-12-07 00:21 | Internal Med History&Physical ---
<Rodney Fong - Last Filed: 12/07/16 01:25> Date of Encounter: 12/07/16 Time of Encounter: 00:19 Assessment and Plan (1) Altered mental status Current visit: Yes Status: Acute Patient has altered mental status from unknown cause, who was found unresponsive in the setting of septic shock, hypothermia and hypotension. He altered mental status might be secondary to infection as the patient does have severe decubitus ulcer. The Decubitus ulcer may have come from being immobile for an unknown period of time. There is also the possibility of Seroquel toxicity in the setting of acute on chronic kidney disease. Imaging studies: Chest x-ray did not demonstrate any cardiopulmonary disease Cervical CT did not demonstrate any acute fracture CT of the brain did not demonstrate any acute intracranial abnormalities, there was bilateral mastoid effusions that were new compared to previous exam. Pelvis x-ray had no evidence of fracture or dislocation - The patient started to respond after warming, large volume resuscitation and intubation. - Initially she did not respond to any verbal commands. After interventions she follows verbal commands. At this time it is unknown if there is any neurologic damage secondary to her condition but she is demonstrating improvement. - If she does not demonstrate continued improvements she may require brain MRI to look for acute ischemia. Qualifiers: Altered mental status type: unspecified Qualified Code(s): R41.82 - Altered mental status, unspecified (2) Rhabdomyolysis Current visit: Yes Status: Acute Patient found down in her apartment for an unknown length of time, last seen 3 days prior. Creatinine kinase 2016, potassium 4.7, calcium 7.1, creatinine 4.80 and GFR 9. - Patient is very dark urine despite adequate output after rehydration. - Suspect rhabdomyolysis secondary to immobility Plan: - Patient has received 4 L normal saline IV - Continue IV fluids - Recheck CK in 6 hours Qualifiers: Qualified Code(s): T79.6XXA - Traumatic ischemia of muscle, initial encounter (3) Septic shock Current visit: Yes Status: Acute Patient meets septic shock with large decubitus ulcer, recent treatment and discharge with colitis, altered mental status, hypotension, bradycardia, thrombocytopenia, severe metabolic acidosis, acute on chronic kidney disease demonstrating end-organ damage. - Specific cause is unknown at this time there is concern for potential Seroquel overdose as the patient has bradycardia and a QTC greater than 530 this may been a potentiating cause but other infectious source are possibility. - Original lactic acid 0.9 after 4 L normal saline rehydration. Plan: - Broad-spectrum antibiotics of vancomycin and Zosyn - Repeat lactic acid - Blood cultures 2 - Stat CBC, CMP, hepatic panel, ABG, magnesium, troponin - Maintenance fluids at 125 mL's per hour. - ICU care - Discontinue any potential injury medications. - Wean FiO2 to maintain obtain oxygen saturations greater than 92%. (4) Metabolic acidosis Current visit: Yes Status: Acute Patient admitted with altered mental status found to have initial VBG with a pH of 6.86, PCO2 15, PO2 231, bicarbonate less than 3.0, carboxyhemoglobin 2.6. - Sodium 147, chloride 113, bicarbonate 6. Anion gap of 28. Patient has a BUN of 46 with a baseline of 4-5. - Patient demonstrates severe metabolic acidosis in the setting of chronic kidney disease, rhabdomyolysis. Glucose was 214 and urine was about ketones. - TSH 2.058, urine salicylate less than 5.0, acetaminophen less than 1.0, urine opiate screen positive, ethanol less than 10 - Patient was also treated recently for colitis in the inpatient setting and discharged a few days prior. - After 2 units bicarbonate patient's ABG demonstrates a pH of 6.96, PCO2 of 20 , PO2 of 466, bicarbonate of 4.5 Suspect uremia in the setting of acute on chronic renal failure. Patient also was started on Seroquel recently and this may be a concerning factor. Plan: - 2 more amps bicarbonate - Increased respiratory rate on mechanical ventilation - Continue fluid rehydration - Ammonia level - If patient does not continue to improve she may need dialysis for acidosis. (5) Bradycardia Current visit: Yes Status: Acute EKG demonstrated Bradycardia in the setting of hypothermia, septic shock. There was concern for a prolonged QTC as the EKG demonstrates a QTC of roughly 530. This is probable as the patient was on Levaquin and Seroquel. -There was improvement in pulse rate after intervention. Plan: - Hold Seroquel and any QT prolonging medications - Repeat EKG - Stat magnesium level (6) Dehydration Current visit: Yes Status: Resolved Patient clinical presentation presents very dry, patient was hypotensive requiring large volume resuscitation. Serum osmolality 349, calculated osmolality 322, patient had baseline stage III chronic kidney disease and now has a creatinine of 4.80 with a baseline of 1.7 and a GFR of 9 with a baseline of 32 Plan: - Continue volume resuscitation - Monitor renal output with indwelling catheter - Avoid nephrotoxic medications and renally dose antibiotics (7) [id number] kidney injury Current visit: Yes Status: Acute Patient demonstrates acute on chronic renal failure as described above. Suspect secondary to dehydration, rhabdomyolysis and hypotension with poor perfusion. Likely prerenal. There is a possibility that the patient recurrence of colitis resulting in hypovolemia and acute kidney injury as a preceding factor. Plan - Continue volume resuscitation - Recheck kidney function with a.m. labs. - Patient may require dialysis if uremic and acidosis does not improve. - May require nephrology consultation if patient does not improve. Side note: Patient was scheduled to see Dr. Murray this week Qualifiers: Chronic kidney disease stage: stage 3 (moderate) Qualified Code(s): N17.0 - Acute kidney failure with tubular necrosis; N18.3 - Chronic kidney disease, stage 3 (moderate) (8) Diabetes mellitus Current visit: Yes Status: Chronic Patient is an insulin-dependent diabetic,glucose hyperglycemic at the time of admission in the setting of acute illness. - Metabolic ACIDOSIS does not appear to be from DKA Plan: - Every 6 hours glucose checks - Low-dose sliding scale insulin Qualifiers: Diabetes mellitus type: type 2 Diabetes mellitus complication status: with kidney complications Diabetes mellitus complication detail: with chronic kidney disease Diabetes mellitus vermin exterminator insulin use: with penitentiary use Chronic kidney disease stage: stage 4 (severe) Qualified Code(s): E11.22 - Type 2 diabetes mellitus with diabetic chronic kidney disease; N18.4 - Chronic kidney disease, stage 4 (severe); Z79.4 - custodial (current) use of insulin (9) Thrombocytopenia Current visit: Yes Status: Acute Platelet count 57 in the setting of septic shock. Patient's platelet count was 179 on 11/30/2016. Drop is likely secondary to patient's current condition. Plan: - Hold anticoagulation as patient has increased bleeding risk - Monitor with a.m. labs and replace if below 10,000 or patient has symptomatic. (10) Coronary artery disease Current visit: Yes Status: Acute Stable. Initial troponin 0.00 Plan: - Hold statin in the setting of septic shock. Qualifiers: Coronary Disease-Associated Artery/Lesion type: [place] artery Qualified Code(s): I25.10 - Atherosclerotic heart disease of [place] coronary artery without angina pectoris (11) Diastolic heart failure Current visit: Yes Status: Acute Patient is a history of diastolic heart failure with last echocardiogram performed 11/04/2016 demonstrated normal LVEF of 65%, normal left ventricle size and systolic function. Evidence of mild diastolic dysfunction left ventricle. Normal right ventricular size and function. No significant valvular dysfunction. No pulmonary hypertension. - Monitor volume status with large volume resuscitation. Plan - Continue to optimize cardiac medications when patient is stable. - Daily weights, strict intake and output monitoring - Patient is currently nothing by mouth. Qualifiers: Qualified Code(s): I50.30 - Unspecified diastolic (congestive) heart failure Internal Medicine - H&P: HPI Chief complaint: AMS Admitted From: Emergency Dept Plans for Post Hospital Care: Home History of present illness: Ms. Gallegos is a 61 year old female with a PMH of Diastolic HF, COPD, CVA, diabetes, hyperlipidemia, hypertension, myocardial infarction with no stents, left leg amputation, and Stage III CKD was found down at home. EMS was called by the patient's neighbors who stated they smelled feces coming from the patient 's apartment. EMS arrived and entered the apartment finding the patient unresponsive laying on the ground covered in feces. The last time she had been seen was 3 days prior. There was no family present to provide any recent history. Upon evaluation by EMS she was found to be hypoxic and nonresponsive requiring an oxygen mask and transferred to the emergency department. Upon arrival to the emergency department she was found to be contracted in bilateral upper extremities nonresponsive and it was concern about her protecting her airway and she was intubated. Initially her blood pressure was severely hypertensive but it was suspected secondary to her contractions. After intubation and sedation her blood pressure systolically was in the 60s and she required 4 L normal saline rehydration. After rehydration she continued to have hypotension and a central line was placed and she was started on IV pressors. She was found to be hypothermic and retested with multiple different thermometers all demonstrating her temperature to be around 83-84 Fahrenheit. A bear hugger was placed on the patient due to her hypothermia. Past Med Surg Social Fam HX - Past Medical History Medical history: CHF, COPD, CVA, diabetes, hyperlipidemia, hypertension, myocardial infarction, renal disease, other Psychiatric history: depression - Past Surgical History Surgical History: cholecystectomy, other (LLE BKA) - Social History Smoking Status: Current every day smoker Smokeless Tobacco Status: No Alcohol use: none Drug use: none - Family History Mother Family Member Ethnicity: Non- Living Status: Still Living Hx Family Cardiac Disorders: Yes (HTN, HLD, Strokes) Hx Family Neuromuscular Disorders: Yes (CVA) Hx Family Neurologic Disorders: Yes (CVA) Father Family Member Ethnicity: Non- Living Status: Hx Family Cardiac Disorders: Yes (HTN, HLD) Hx Family Endocrine Disorder: Yes (DM) Brother Family Member Ethnicity: Non- Living Status: Hx Family Cardiac Disorders: Yes (MT, HD) Sister Family Member Ethnicity: Non- Living Status: Hx Family Endocrine Disorder: Yes (DM) Internal Medicine - H&P: Meds Insulin Glargine,Hum.rec.anlog [Lantus Solostar] 10 unit SQ HS 09/15/16 [History ] Cyanocobalamin (B-12) [Vitamin B12] 1,000 mcg PO DAILY #30 tablet 11/09/16 [Rx] Folic Acid 1 mg PO DAILY #30 tablet 11/09/16 [Rx] Omeprazole [PriLOSEC] 40 mg PO BIDAC #60 capsule. 11/09/16 [Rx] Sucralfate [Carafate] 1 gm PO QIDAC #120 tablet 11/09/16 [Rx] Ciprofloxacin HCl [Cipro] 500 mg PO BID #20 tablet 11/15/16 [Rx] Acetaminophen [Tylenol] 650 mg PO Q6HR PRN tab 11/26/16 [Rx] Aspirin 81 mg PO DAILY 11/26/16 [Rx] Atorvastatin [Lipitor] 40 mg PO HS tab 11/26/16 [Rx] Escitalopram [Lexapro] 20 mg PO DAILY #30 tab 11/26/16 [Rx] HYDROcodone/Acet 5/325 mg [Sun 5-325 mg] 1 tab PO Q4HR PRN #15 tab 11/26/16 [ Rx] Insulin LISPRO [HumaLOG] 0 units SQ HS vial 11/26/16 [Rx] Insulin LISPRO [HumaLOG] 0 units SQ TIDAC vial 11/26/16 [Rx] Quetiapine Fumarate [Seroquel] 300 mg PO HS #30 tab 11/26/16 [Rx] amLODIPine [Norvasc] 10 mg PO DAILY tab 11/26/16 [Rx] Allergies No Known Allergies Allergy (Verified 11/11/16 13:55) ROS unobtainable: due to endotracheal tube, due to mental status All Systems PM: A 10-system review of systems was performed and is negative for pertinent findings except as documented above in the HPI. - Constitutional Vitals: Temp Pulse Resp BP Pulse Ox 89.0 F L 72 14 94/71 96 12/07/16 00:17 12/06/16 23:22 12/07/16 00:17 12/07/16 00:17 12/06/16 23:51 Exam: General: Patient poorly responsive, intubated and sedated. HEENT: Normocephalic, atraumatic, pupils poorly responsive to light. nasal cavity patent and open septum median position, oral mucosa moist, neck supple trachea midline no palpable lymphadenopathy, no thyromegaly. Chest: Symmetric bilateral correlating with mechanical ventilation. effort nonlabored. Cardiac: Bradycardia, positive S1 and S2. no bruits appreciated bilateral carotids, Radial pulses 2+ bilateral, posterior tibial and dorsal pedal pulses 2 + bilateral. Respiratory: Symmetric bilateral correlating with ventilator effort. No rhonchi or wheezing appreciated. Abdomen: Soft, nontender, positive bowel sounds, no palpable masses appreciated on examination Extremities: Patient has multiple abrasions and erythema on the dorsal right upper extremity, left upper extremity without significant findings, patient has symmetric upper extremity tremor. Left lower extremity demonstrates amputation below the knee, small stage I ulcer likely secondary to prosthesis. Right lower extremity without any significant findings. Patient has a large decubitus ulcer with a black eschar and surrounding erythema. She also has ecchymosis to the left shoulder likely from a fall. Neurologic: Patient does follow some verbal commands as she closes her eyes and opens them on command, wiggles her fingers and toes. Internal Med - H&P Results - Labs CBC & Chem 7: 12/06/16 19:39 12/06/16 19:39 - ABG Interpretation ABG results: 12/07/16 00:04 VBG pH < 6.80 L* VBG pCO2 20 L VBG pO2 243 H <Kaleb Obando - Last Filed: 12/07/16 06:02> Date of Encounter: 12/07/16 Internal Medicine - H&P: HPI History of present illness: Ms. Gallegos is a 61 year old female All Systems PM: A 10-system review of systems was performed and is negative for pertinent findings except as documented above in the HPI. - Constitutional Vitals: Temp Pulse Resp BP Pulse Ox 92.8 F L 94 24 101/53 100 12/07/16 04:25 12/07/16 05:00 12/07/16 05:00 12/07/16 05:00 12/07/16 05:00 Internal Med - H&P Results - Labs CBC & Chem 7: 12/07/16 01:20 12/07/16 01:20 Labs: Short CBC 12/07/16 Range/Units 01:20 WBC 4.1 L (4.3-11.1) K/mcL Hgb 8.4 L (11.5-15.4) g/dL Hct 28.4 L (35.3-44.9) % Plt Count 57 L (140-400) K/mcL Neutrophils # 3.7 (1.6-8.9) K/mcL BMP 12/07/16 01:20 Sodium 147 H Potassium 4.4 Chloride 115 H Carbon Dioxide < 5 L* BUN 42 H Creatinine 4.58 H Glucose 277 H Calcium 5.9 L* D Cardiac Enzymes 12/07/16 Range/Units 01:20 Troponin I 0.01 (0-0.03) ng/mL Liver Function 12/07/16 Range/Units 01:20 Total Bilirubin 0.4 (0.2-1.2) mg/dL AST 106 H (5-34) Units/L ALT 43 (0-55) Units/L Alkaline Phosphatase 116 (38-126) Units/L Albumin 2.2 L (3.5-5.0) g/dL - ABG Interpretation ABG results: 12/07/16 12/07/16 12/07/16 00:04 00:16 03:04 ABG pH 6.96 L* 6.99 L* ABG pCO2 20 L* 17 L* ABG pO2 466 H 181 H ABG HCO3 4.5 L 4.1 L ABG Total CO2 5.1 L 4.6 L ABG O2 Saturation 100 H 99 H ABG Base Excess -25.7 L -25.4 L VBG pH < 6.80 L* VBG pCO2 20 L VBG pO2 243 H VBG HCO3 4.2 L - Impressions ITS Impressions Chest X-Ray 12/07/16 06:00 IMPRESSION: Clear lungs. D/ / Cristian West MD / Cristian West MD Interpreting Provider: Cristian West MD - Attending Attestation I examined this patient and my medical decision-making was reviewed with the Resident Physician, Dr. Rodney Fong. I agree with the documented findings, disposition and treatment plan as described except to the extent set forth below. Please see the event note for the same date of service for further details.
[2016-12-07 00:23] LABS: ABG Base Excess -25.7 mEq/L (-2.0 to 3.0); ABG HCO3 4.5 mEQ/L (21-27); ABG Oxygen Saturation 100 % (95-98); ABG PO2 466 mmHg (85-104); ABG TCO2 5.1 mEq/L (20-26)
[2016-12-07 00:24] LABS: Blood Gas FiO2 80 %
[2016-12-07 00:26] LABS: ABG PCO2 20 mmHg (35-45); ABG PH 6.96 pH Units (7.32-7.45)
[2016-12-07] MEDS: Propofol 500 MG/50 ML INFUS..BTL IVC SCH ×2 (01:21→01:22)
[2016-12-07 01:35] LABS: Hematocrit 28.4 % (35.3-44.9); Hemoglobin 8.4 g/dL (11.5-15.4); Lymphocytes # 0.3 K/mcL (0.6-4.6); Lymphocytes % 6.1 %; Mean Corpuscular HGB Conc 29.6 g/dL (31.6-35.5); Mean Corpuscular Hemoglobin 30.8 pg (28.0-33.3); Mean Platelet Volume 12.9 fL (9.4-12.4); Monocytes # 0.1 K/mcL (0.0-1.3); Monocytes % 3.4 %; Neutrophils # 3.7 K/mcL (1.6-8.9); Red Blood Count 2.73 M/mcL (3.82-4.97); Red Cell Distribution Width 15.5 % (11.5-14.5); Segmented Neutrophils % 89.5 %
[2016-12-07 01:36] LABS: VBG HCO3 4.2 mEq/L (21-27)
[2016-12-07 01:36] LABS: Platelet Count 57 K/mcL (140-400)
[2016-12-07 01:50] LABS: Alanine Aminotransferase 43 Units/L (0-55); Albumin 2.2 g/dL (3.5-5.0); Albumin/Globulin Ratio 0.8 (1.1-2.2); Alkaline Phosphatase 116 Units/L (38-126); Aspartate Amino Transferase 106 Units/L (5-34); BUN/Creatinine Ratio 9 (6-26); Bilirubin,Total 0.4 mg/dL (0.2-1.2); Blood Urea Nitrogen 42 mg/dL (7-20); Chloride 115 mEq/L (98-109); Globulin 2.6 g/dL (2.4-3.5); Glucose 277 mg/dL (70-99); Magnesium 1.7 mg/dL (1.6-2.6); Osmolality,Calculated 324 (280-300); Potassium 4.4 mEq/L (3.5-4.5); Sodium 147 mEq/L (136-145); Total Protein 4.8 g/dL (6.0-8.3); eGFR For African Americans 12 (> 60); eGFR For Non-African Americans 10 (> 60)
[2016-12-07 01:54] LABS: Protein/Creatinine Ratio,Urine 0.64 mg/mg (0-0.20)
[2016-12-07 01:55] LABS: Platelet Estimate Decreased (Normal)
[2016-12-07 01:56] LABS: Carbon Dioxide < 5 mEq/L (19-29)
[2016-12-07 01:57] LABS: Calcium 5.9 mg/dL (8.6-10.8)
[2016-12-07] MEDS ORDERED: Vancomycin 1,000 MG in D5% in Water 250 ML IVPB SCH (02:00)
[2016-12-07] MEDS ORDERED: Calcium Gluconate 2,000 MG in D5% in Water 100 ML IVPB ONE ×2 (02:00→14:30)
[2016-12-07] MEDS ORDERED: *HR* Dextrose 50 % in Water (Syg) 50 ML SYRINGE IVP PRN ×2 (02:21→11:01)
[2016-12-07] MEDS ORDERED: D5% in Water 1,000 ML IVC PRN ×2 (02:21→11:01)
[2016-12-07] MEDS ORDERED: Dextrose Gel 15 GM PO PRN ×4 (02:21→11:01)
[2016-12-07] MEDS ORDERED: Lacri-Lube 3.5 GM TUBE BOTH EYES PRN (02:25)
--- NOTE | 2016-12-07 02:32 | Event Note ---
Date of Encounter: 12/07/16 Time of Encounter: 02:19 Ms Gallegos was brought to the hospital by EMS after being found unresponsive lying on the floor in her apartment. She was hypoxic. She was intubated in the emergency department for airway protection. On exam she is intubated and sedated but follows simple commands. Pupils are equal round reactive to light. Oral mucosa is dry. ET tube and orogastric tube are present. Neck is supple with no JVD heart is bradycardic and regular. Lungs are clear bilaterally. Abdomen is soft and nontender. Extremities with left BKA. Skin with left knee unstageable decubitus ulcer and large 7 cm in the largest diameter unstageable ulcer in the sacral area with a sizable amount of eschar present. Laboratory data were reviewed. Of note VBG revealed a pH of 6.89. Repeat VBG showed a pH of less than 6.8. chest x-ray shows no evidence of pneum Assessment and plan: Altered mental status with metabolic encephalopathy secondary to severe sepsis also possible medication toxicity secondary to intentional versus accidental Seroquel overdose in the context of acute and chronic renal insufficiency and uremia. Respiratory: Continue mechanical ventilation with assist control, tidal volume 450 respiratory rate of 14. We will titrate FiO2 to maintain saturation above 92%. Repeat ABG in 2 hours. I personally obtain an ABG since the respiratory therapist was unable. This shows profound metabolic acidosis. I have ordered and administered 100 mEq of sodium bicarbonate and repeat ABG shows slight improvement in pH. FEN: IV fluids with normal saline. We will start IV bicarbonate drip. Replete calcium . Check and replete magnesium level. We will administer an additional 100 mEq of sodium bicarbonate and repeat ABG. Cardiovascular: Patient was hypotensive after intubation and was started on norepinephrine. We will continue with this. Prolonged QTc possibly relating to neurotropic medication overdose. We will repeat EKG. Cardiac monitoring. Trend troponin. Renal: Avoid nephrotoxins. Continue with IV fluids. Nephrology consult. Electrolyte repletion and correction of metabolic abnormalities. Nervous system: Sedation with fentanyl and Versed. Sedation break in the morning. ID: Severe sepsis with skin sores versus aspiration pneumonia. Continue treatment with IV fluids, broad-spectrum IV antibiotics including vancomycin and Zosyn. Follow-up blood cultures. Wound care consult. The patient is highly unstable and there is high probability of emergent and significant clinical decompensation with potential impairment of organ function including cardiovascular system. I spent 40 minutes of critical care time which involved decision making of high complexity to assess, manipulate, and support vital organ system, in order to prevent further life threatening deterioration of the patient's condition. The critical care time was spent in the patient's room and involved obtaining updated history and examining the patient, reviewing EKGs, imaging studies and laboratory data, ordering medications and laboratory studies, and reevaluating for clinical response. The time spent performing any procedures and teaching was not included in critical care time it was billed separately.
[2016-12-07] MEDS ORDERED: *HR* FentaNYL (PF) 100 MCG/2 ML VIAL IVP PRN (02:36)
[2016-12-07 03:13] LABS: ABG Base Excess -25.4 mEq/L (-2.0 to 3.0); ABG HCO3 4.1 mEQ/L (21-27); ABG Oxygen Saturation 99 % (95-98); ABG PO2 181 mmHg (85-104); ABG TCO2 4.6 mEq/L (20-26); Blood Gas FiO2 40 %
[2016-12-07 03:15] LABS: ABG PCO2 17 mmHg (35-45); ABG PH 6.99 pH Units (7.32-7.45)
[2016-12-07] MEDS: Sodium Bicarbonate 150 MEQ in D5% in Water 1,000 ML IVC SCH ×2 (04:17→18:27)
[2016-12-07] MEDS: *HR* Midazolam HCl 2 MG/2 ML VIAL IVP PRN ×2 (04:17→06:12)
[2016-12-07] MEDS: Lacri-Lube 3.5 GM TUBE BOTH EYES SCH ×5 (04:30→23:58)
[2016-12-07] MEDS: 0.9 % Sodium Chloride 1,000 ML IVC SCH ×3 (04:32→18:27)
[2016-12-07] MEDS ORDERED: Insulin LISPRO 300 UNITS/3 ML VIAL SQ SCH ×3 (06:00→21:00)
[2016-12-07] MEDS: Pantoprazole 40 MG VIAL IVPB SCH (06:04)
[2016-12-07] MEDS: *HR* Heparin 5,000 UNIT/ML VIAL SQ SCH ×2 (06:04→17:24)
[2016-12-07] MEDS ORDERED: *HR* Etomidate 20 MG/10 ML AMPUL IVP ONE (06:58)
[2016-12-07] MEDS ORDERED: *HR* Succinylcholine 200 MG/10 ML VIAL IVP ONE (06:58)
[2016-12-07] MEDS ORDERED: Magnesium Sulfate 2 GM in D5% in Water 100 ML IVPB ONE (07:25)
[2016-12-07 07:31] LABS: ABG Base Excess -23.3 mEq/L (-2.0 to 3.0); ABG HCO3 5.3 mEQ/L (21-27); ABG Oxygen Saturation 95 % (95-98); ABG PO2 110 mmHg (85-104); ABG TCO2 5.9 mEq/L (20-26)
[2016-12-07 07:35] LABS: ABG PCO2 19 mmHg (35-45); ABG PH 7.05 pH Units (7.32-7.45); Blood Gas FiO2 40 %
[2016-12-07] MEDS: FentaNYL (PF) 1,000 MCG in 0.9 % Sodium Chloride 80 ML IVC SCH ×2 (08:06→15:00)
[2016-12-07] MEDS: Dexmedetomidine HCl 400 MCG/100 ML MLS IVC SCH ×2 (08:07→20:46)
[2016-12-07 08:38] LABS: Red Cell Distribution Width 15.7 % (11.5-14.5)
[2016-12-07 08:39] LABS: Albumin 2.2 g/dL (3.5-5.0); Albumin/Globulin Ratio 0.8 (1.1-2.2); Bilirubin,Total 0.3 mg/dL (0.2-1.2); Calcium 6.2 mg/dL (8.6-10.8); Globulin 2.9 g/dL (2.4-3.5); Potassium 3.4 mEq/L (3.5-4.5); Total Protein 5.1 g/dL (6.0-8.3)
[2016-12-07 08:40] LABS: Basophils % 0.1 %; Hematocrit 27.1 % (35.3-44.9); Hemoglobin 8.4 g/dL (11.5-15.4); Immature Granulocytes % 0.5 % (0-4); Immature Platelets 8.9 % (1.1-6.1); Lymphocytes # 0.4 K/mcL (0.6-4.6); Lymphocytes % 3.8 %; Mean Corpuscular Hemoglobin 30.9 pg (28.0-33.3); Mean Corpuscular Volume 99.6 fL (83.0-100.0); Mean Platelet Volume 12.3 fL (9.4-12.4); Monocytes # 0.4 K/mcL (0.0-1.3); Monocytes % 4.3 %; Red Blood Count 2.72 M/mcL (3.82-4.97); Segmented Neutrophils % 91.3 %
[2016-12-07 08:47] LABS: Neutrophils # 8.5 K/mcL (1.6-8.9); Platelet Count 79 K/mcL (140-400)
[2016-12-07 08:48] LABS: Platelet Estimate Decreased (Normal)
[2016-12-07] MEDS ORDERED: WATER IVC ONE ×3 (08:56→14:00)
[2016-12-07] MEDS ORDERED: D5 IVC ONE ×3 (08:56→14:00)
[2016-12-07] MEDS ORDERED: ACETYLCYSTEINE IVC ONE ×3 (08:56→14:00)
[2016-12-07] MEDS: Docusate Oral Soln 100 MG/10 ML UDC GTUBE SCH ×3 (09:00→20:46)
[2016-12-07] MEDS: Norepinephrine 4 MG in D5% in Water 250 ML IVC SCH ×3 (09:00→22:59)
--- NOTE | 2016-12-07 09:02 | Pulmonology Progress Note ---
Date of Encounter: 12/07/16 Time of Encounter: 09:01 Objective PUL Vital signs: Last Vital Signs Temp 97.6 F 12/07/16 07:17 Pulse 96 12/07/16 06:00 Resp 29 12/07/16 07:40 BP 91/63 12/07/16 07:40 Pulse Ox 100 12/07/16 07:40 Ventilator Settings Ventilator Settings: Ventilator Settings, Last 8 Hours Ventilator Mode A/C Ventilator Mode A/C Ventilator Mode A/C Ventilator Mode A/C Ventilator Mode A/C Ventilator Mode A/C Ventilator Mode A/C Ventilator Mode A/C Ventilator Mode A/C Ventilator Mode A/C Ventilator Mode A/C Ventilator Tidal Volume 450 Setting Ventilator Tidal Volume 450 Setting Ventilator Tidal Volume 450 Setting Ventilator Tidal Volume 450 Setting Ventilator Tidal Volume 450 Setting Ventilator Tidal Volume 450 Setting Ventilator Tidal Volume 450 Setting Ventilator Tidal Volume 450 Setting Ventilator Tidal Volume 450 Setting Ventilator Tidal Volume 450 Setting Ventilator Tidal Volume 450 Setting Ventilator Respiratory Rate 14 Setting Ventilator Respiratory Rate 14 Setting Ventilator Respiratory Rate 12 Setting Ventilator Respiratory Rate 12 Setting Ventilator Respiratory Rate 14 Setting Ventilator Respiratory Rate 12 Setting Ventilator Respiratory Rate 14 Setting Ventilator Respiratory Rate 12 Setting Ventilator Respiratory Rate 14 Setting Ventilator Respiratory Rate 12 Setting Ventilator Respiratory Rate 12 Setting Actual Respiratory Rate 29 Actual Respiratory Rate 26 Actual Respiratory Rate 24 Actual Respiratory Rate 28 Actual Respiratory Rate 22 Actual Respiratory Rate 18 Actual Respiratory Rate 19 Actual Respiratory Rate 22 Actual Respiratory Rate 14 Positive End Expiratory 5 Pressure Positive End Expiratory 5 Pressure Positive End Expiratory 5 Pressure Positive End Expiratory 5 Pressure Positive End Expiratory 5 Pressure Positive End Expiratory 5 Pressure Positive End Expiratory 5 Pressure Positive End Expiratory 5 Pressure Positive End Expiratory 5 Pressure Positive End Expiratory 5 Pressure Positive End Expiratory 5 Pressure Peak Inspiratory Airway 15 Pressure Peak Inspiratory Airway 17 Pressure Peak Inspiratory Airway 13 Pressure Peak Inspiratory Airway 23 Pressure Peak Inspiratory Airway 13 Pressure Peak Inspiratory Airway 15 Pressure Peak Inspiratory Airway 24 Pressure Peak Inspiratory Airway 26 Pressure Peak Inspiratory Airway 25 Pressure Results - Laboratory Findings CBC and BMP: 12/07/16 08:20 12/07/16 08:20 ABG ABG pH 7.05 pH Units (7.32-7.45) L* 12/07/16 07:07 ABG pCO2 19 mmHg (35-45) L* 12/07/16 07:07 ABG pO2 110 mmHg (85-104) H 12/07/16 07:07 ABG O2 Saturation 95 % (95-98) 12/07/16 07:07 PT/INR, D-dimer PT 13.5 Seconds (9.4-12.1) H 12/06/16 19:39 Abnormal lab findings: Abnormal lab results RBC 2.72 M/mcL (3.82-4.97) L 12/07/16 08:20 Hgb 8.4 g/dL (11.5-15.4) L 12/07/16 08:20 Hct 27.1 % (35.3-44.9) L 12/07/16 08:20 MCHC 31.0 g/dL (31.6-35.5) L 12/07/16 08:20 RDW 15.7 % (11.5-14.5) H 12/07/16 08:20 Plt Count 79 K/mcL (140-400) L 12/07/16 08:20 Lymphocytes # 0.4 K/mcL (0.6-4.6) L 12/07/16 08:20 Platelet Estimate Decreased (Normal) L 12/07/16 08:20 Immature Plt Fraction 8.9 % (1.1-6.1) H 12/07/16 08:20 PT 13.5 Seconds (9.4-12.1) H 12/06/16 19:39 APTT 50.7 Seconds (26.0-36.0) H 12/06/16 19:39 ABG pH 7.05 pH Units (7.32-7.45) L* 12/07/16 07:07 ABG pCO2 19 mmHg (35-45) L* 12/07/16 07:07 ABG pO2 110 mmHg (85-104) H 12/07/16 07:07 ABG HCO3 5.3 mEQ/L (21-27) L 12/07/16 07:07 ABG Total CO2 5.9 mEq/L (20-26) L 12/07/16 07:07 ABG Base Excess -23.3 mEq/L (-2.0 to 3.0) L 12/07/16 07:07 VBG pH < 6.80 pH Units (7.32-7.42) L* 12/07/16 00:04 VBG pCO2 20 mmHg (41-51) L 12/07/16 00:04 VBG pO2 243 mmHg (25-40) H 12/07/16 00:04 VBG HCO3 4.2 mEq/L (21-27) L 12/07/16 00:04 Sodium 151 mEq/L (136-145) H 12/07/16 08:20 Potassium 3.4 mEq/L (3.5-4.5) L D 12/07/16 08:20 Chloride 115 mEq/L (98-109) H 12/07/16 08:20 Carbon Dioxide 8 mEq/L (19-29) L* 12/07/16 08:20 BUN 46 mg/dL (7-20) H 12/07/16 08:20 Creatinine 4.77 mg/dL (0.57-1.11) H 12/07/16 08:20 Est GFR ( Amer) 11 (> 60) L 12/07/16 08:20 Est GFR (Non-Af Amer) 9 (> 60) L 12/07/16 08:20 Glucose 262 mg/dL (70-99) H 12/07/16 08:20 POC Glucose 257 (58-89) H 12/07/16 01:04 Serum Osmolality 349 mOsm/kg (280-300) H 12/06/16 19:39 Calculated Osmolality 333 (280-300) H 12/07/16 08:20 Calcium 6.2 mg/dL (8.6-10.8) L 12/07/16 08:20 AST 90 Units/L (5-34) H 12/07/16 08:20 Alkaline Phosphatase 128 Units/L (38-126) H 12/07/16 08:20 Creatine Kinase 2016 Units/L (29-168) H 12/06/16 19:39 Serum Total Protein 5.1 g/dL (6.0-8.3) L 12/07/16 08:20 Albumin 2.2 g/dL (3.5-5.0) L 12/07/16 08:20 Albumin/Globulin Ratio 0.8 (1.1-2.2) L 12/07/16 08:20 Free T4 0.42 ng/dl (0.70-1.48) L 12/07/16 01:20 Thyroxine (T4) 1.99 mcg/dL (4.87-11.72) L 12/07/16 01:20 Urine Protein 100 mg/dL (Neg-Trace) H 12/06/16 21:10 Urine Glucose (UA) 100 mg/dL (Normal) H 12/06/16 21:10 Urine Blood Trace (Negative) H 12/06/16 21:10 Urine Microscopic RBC 3-5 per hpf (0-3) H 12/06/16 21:10 Ur Squamous Epith Cells Many per lpf (None-Few) H 12/06/16 21:10 Protein/Creatinin Ratio 0.64 mg/mg (0-0.20) H 12/07/16 01:15 Urine Total Protein 47 mg/dL (1-14) H 12/07/16 01:15 Salicylates < 5.0 mg/dL (15-30) L 12/06/16 19:49 Urine Opiates Screen Positive ng/mL (Plyqah=488) H 12/06/16 21:10 Acetaminophen < 1.0 mcg/mL (10-30) L 12/06/16 19:49 - Clinical Findings Intake & Output: Intake & Output 12/06/16 12/07/16 12/07/16 23:59 07:59 15:59 Intake Total 100 / 4100.2 120 / 120 100 / 100 Output Total 400 / 400 Balance 100 / 4100.2 -280 / -280 100 / 100 Weight 75 kg Consult Discharge Plan - Plan Referrals: NO,PCP [Primary Care Provider] -
[2016-12-07] MEDS ORDERED: Potassium Chloride 40 MEQ/200 ML BAG IVPB ONE (09:13)
--- NOTE | 2016-12-07 09:16 | Nephrology Consult Note ---
<Ar Chaudhry - Last Filed: 12/07/16 13:52> Date of Encounter: 12/07/16 Time of Encounter: 09:15 Assessment and Plan (1) Jehcp-[id number] kidney injury Current Visit: Yes Status: Acute 61F hx of HTN, CKD IV, DM, ME presented unresponsive metabolic acidosis with compensation: pH 6.86>6.80>7.05: on bicarb drip 3amp RENE: egfr 9 UOP 400 since arrival thereafter no urine made lactic acid 0.9 CK 2015 urine sodium 73 serum osm 239 osm gap 27 anion gap 28 ekg: BP 114/57 on levophed hgb stable at 9.8 low t4, free t4 2nd to septic shock, rabhdomyolysis, hypovolemia 2nd dehydration (has hx of recurrent diarrhea) Plan: Patient has made 400cc urine since being admitted however thereafter there has been minimal urine production. IR consulted to place temp hd catheter and patient will be started on ARLETTE due to unstable hemodynamics continue IVF: has recieved 4L on admission continue bicarb drip: replacing K+ Qualifiers: Acute renal failure type: unspecified Chronic kidney disease stage: stage 3 (moderate) Qualified Code(s): N17.9 - Acute kidney failure, unspecified; N18.3 - Chronic kidney disease, stage 3 (moderate) (2) Septic shock Current Visit: Yes Status: Acute unclear etiology: decubitus ucler cxr shows clear lungs on levophed blood cultures sent on [facility] awaiting blood cultures. (3) Altered mental status Current Visit: Yes Status: Acute found unresponsive by EMS last known normal was 3 days unclear initial etiology Patient was started on seroquel and presented with QTC of 530 and bradycardic dehydration: was dry on presentation sepsis: decubitus ulcer on back unlcear if present before or knew after being on ground but may have other infectious etiology. uremia: BUN 47, hypocalcemia CT head and neck WNL Qualifiers: Altered mental status type: unspecified Qualified Code(s): R41.82 - Altered mental status, unspecified (4) Rhabdomyolysis Current Visit: Yes Status: Acute 2nd to being unresponsive on ground for a period of time continue IVF Qualifiers: Rhabdomyolysis type: traumatic Encounter type: initial encounter Qualified Code(s): T79.6XXA - Traumatic ischemia of muscle, initial encounter (5) Unresponsive Current Visit: Yes Status: Acute (6) Metabolic acidosis Current Visit: Yes Status: Resolved Metabolic acidosis with respiratory compensation etiology multifactorial: uremia ? -patient take bicarb outpatient for NAGMA -lactic acid acetaminophin level WNL salicylates WNL ethanol level WNL B-hydroxybuteric acid pending. methanol and ethylene glycol levels ordered patient is started on NAC as per senior qualitative researcher Plan continue bicarb pH has improved to 7.05 bicarb improved to 8 will also undergo ARLETTE History of Present Illness - Reason for Consult Acute Kidney Injury, Chronic Kidney Disease, metabolic acidosis - Chief Complaint unresponsive - History of Present Illness 61-year-old female history of diastolic CHF, COPD, diabetes, hypertension, myocardial infarction, left leg amputation and stage IVkidney was found unresponsive at home. History is mainly obtained from EMR. EMS was notified by the patient's neighbor have a fecal order coming from patient's house. Patient was found unresponsive by EMS covered in feces. Last known normal was 3 days prior. Upon arrival to the patient was altered/confused and was intubated due to inability to protect airway. She was found to be hypotensive, hypothermic. Hypotension refractory to fluids and started on pressors. Nephrology was consulted due to acute kidney injury. Patient is followed by [facility]. Baseline renal function has CKG stage IV 2nd to DM, NSIAD use. Currently EGFR is 9. Patient is in metabolic acidosis with a bicarbonate of 8. Past Med Surg Social Fam HX - Past Medical History Medical history: CHF, COPD, CVA, diabetes, hyperlipidemia, hypertension, myocardial infarction, renal disease, other Psychiatric history: depression - Past Surgical History Surgical History: cholecystectomy, other (LLE BKA) - Social History Smoking Status: Current every day smoker Smokeless Tobacco Status: No Alcohol use: none Drug use: none - Family History Mother History Unknown: Yes Family Member Ethnicity: Non- Living Status: Still Living Hx Family Cardiac Disorders: Yes (HTN, HLD, Strokes) Hx Family Neuromuscular Disorders: Yes (CVA) Hx Family Neurologic Disorders: Yes (CVA) Father History Unknown: Yes Family Member Ethnicity: Non- Living Status: Hx Family Cardiac Disorders: Yes (HTN, HLD) Hx Family Endocrine Disorder: Yes (DM) Brother History Unknown: Yes Family Member Ethnicity: Non- Living Status: Hx Family Cardiac Disorders: Yes (ME, HD) Sister History Unknown: Yes Family Member Ethnicity: Non- Living Status: Hx Family Endocrine Disorder: Yes (DM) Medications and Allergies Insulin Glargine,Hum.rec.anlog [Lantus Solostar] 10 unit SQ HS 09/15/16 [History ] Cyanocobalamin (B-12) [Vitamin B12] 1,000 mcg PO DAILY #30 tablet 11/09/16 [Rx] Folic Acid 1 mg PO DAILY #30 tablet 11/09/16 [Rx] Omeprazole [PriLOSEC] 40 mg PO BIDAC #60 capsule.dr 11/09/16 [Rx] Sucralfate [Carafate] 1 gm PO QIDAC #120 tablet 11/09/16 [Rx] Acetaminophen [Tylenol] 650 mg PO Q6HR PRN tab 11/26/16 [Rx] Aspirin 81 mg PO DAILY 11/26/16 [Rx] Atorvastatin [Lipitor] 40 mg PO HS tab 11/26/16 [Rx] Escitalopram [Lexapro] 20 mg PO DAILY #30 tab 11/26/16 [Rx] HYDROcodone/Acet 5/325 mg [Keystone 5-325 mg] 1 tab PO Q4HR PRN #15 tab 11/26/16 [ Rx] Insulin LISPRO [HumaLOG] 0 units SQ HS vial 11/26/16 [Rx] Insulin LISPRO [HumaLOG] 0 units SQ TIDAC vial 11/26/16 [Rx] Quetiapine Fumarate [Seroquel] 300 mg PO HS #30 tab 11/26/16 [Rx] amLODIPine [Norvasc] 10 mg PO DAILY tab 11/26/16 [Rx] Allergies No Known Allergies Allergy (Verified 11/11/16 13:55) Review of Systems ROS unobtainable: due to endotracheal tube, due to mental status Exam - Vital Signs Vital signs: Initial Vital Signs Temp Pulse Resp BP Pulse Ox 82.6 F L 112 20 138/128 78 12/06/16 19:42 12/06/16 19:42 12/06/16 19:42 12/06/16 19:42 12/06/16 19:42 Vital Signs - Last 8 Hours Temp Pulse Resp BP Pulse Ox 12/07/16 07:40 29 91/63 100 12/07/16 07:17 97.6 F 12/07/16 07:00 96 31 99/53 100 12/07/16 06:00 96 26 99/51 100 12/07/16 05:00 94 24 101/53 100 12/07/16 04:55 28 101/57 100 12/07/16 04:25 92.8 F L 12/07/16 04:00 94 22 76/61 100 12/07/16 03:00 80 18 87/49 100 12/07/16 02:53 19 88/48 100 12/07/16 02:00 78 22 82/47 100 Intake and Output 12/06/16 12/07/16 12/07/16 23:59 07:59 15:59 Intake Total 100 / 4100.2 120 / 120 100 / 100 Output Total 400 / 400 Balance 100 / 4100.2 -280 / -280 100 / 100 Intake: IV Fluids 100 / 100 120 / 120 100 / 100 PRECEDEX 400 mcg In 100 0 / 0 100 / 100 ml @ 0.2 MCG/KG/HR 3.402 mls/hr IVC .Q24H [facility] Rx#: [id number] Levophed 4 MG In Dextrose 120 / 120 5% 250 ML @ 4 MCG/MIN 15 mls/hr IVC CONT [facility] Rx#: [id number] Zosyn 3.375 GM In 100 / 100 Dextrose 5% (Minibag+) 100 ML 100 ML @ 25 mls/hr IVPB ONCE ONE Rx#: [id number] Output: Catheter 400 / 400 Other: Weight 75 kg Blood Glucose* 289 Patient Weight 12/07/16 23:59 Weight 75 kg - General Appearance General appearance: obese, sedated on ventilator Additional Comments: Intubated Neck: no thyromegaly, supple Additional Comments: Right central venous access. Respiratory: clear Cardiology: no edema, regular rate, regular rhythm, normal S1, normal S2 Gastrointestinal: normoactive bowel sounds Additional Comments: Left [id number] amputation. Stage I decubitus ulcer left leg at stump, with drainage serosanguinous. Abrasions bilateral upper extremities. decubitus ulcer with black eschar on back. Additional Comments: Intubated and sedated Musculoskeletal: no clubbing Additional Comments: Left below-knee amputation Results - Lab Results 12/07/16 08:20 12/07/16 08:20 Most recent lab results ABG pH 7.05 pH Units (7.32-7.45) L* 12/07/16 07:07 ABG pCO2 19 mmHg (35-45) L* 12/07/16 07:07 ABG pO2 110 mmHg (85-104) H 12/07/16 07:07 ABG HCO3 5.3 mEQ/L (21-27) L 12/07/16 07:07 ABG O2 Saturation 95 % (95-98) 12/07/16 07:07 Calcium 6.2 mg/dL (8.6-10.8) L 12/07/16 08:20 Magnesium 1.7 mg/dL (1.6-2.6) 12/07/16 01:20 Urine Creatinine 73 mg/dL 12/07/16 01:15 Urine Sodium 93.0 mEq/L 12/07/16 01:15 Urine Total Protein 47 mg/dL (1-14) H 12/07/16 01:15 Consult Discharge Plan - Plan Referrals: NO,PCP [Primary Care Provider] - <Ayla Butler - Last Filed: 12/08/16 07:24> Date of Encounter: 12/07/16 Exam - Vital Signs Vital signs: Initial Vital Signs Temp Pulse Resp BP Pulse Ox 82.6 F L 112 20 138/128 78 12/06/16 19:42 12/06/16 19:42 12/06/16 19:42 12/06/16 19:42 12/06/16 19:42 Vital Signs - Last 8 Hours Temp Pulse Resp BP Pulse Ox 12/08/16 07:00 94 27 114/73 96 12/08/16 06:00 93 26 135/89 100 12/08/16 05:20 26 82/51 48 12/08/16 05:00 90 22 91/54 76 12/08/16 04:04 22 92/56 81 12/08/16 04:00 96.8 F L 88 22 92/56 84 12/08/16 03:00 91 22 64/48 74 12/08/16 02:12 22 60/44 94 12/08/16 02:00 89 22 60/44 97 12/08/16 01:00 99 22 89/55 95 12/08/16 00:11 22 79/59 90 12/08/16 00:00 96.1 F L 92 22 79/50 87 Intake and Output 12/07/16 12/07/16 12/08/16 15:59 23:59 07:59 Intake Total 1520 / 1520 1561.75 / 1561.75 Output Total 1129 / 1129 274 / 274 Balance 391 / 391 1287.75 / 1287.75 Intake: IV Fluids 1520 / 1520 1561.75 / 1561.75 Calcium Chloride 4,000 MG 400 / 400 In 0.9 % Sodium Chloride 1,000 ML @ 40 mls/hr CRRT CONT [facility] Rx#: [id number] PrismaSATE BGK 4/2.5 5, 0 / 0 0 / 0 000 ML @ 1500 mls/hr CRRT [facility] Rx#:[id number] 0.9 % Sodium Chloride 1, 500 / 500 000 ML @ 125 mls/hr IVC . Q8H [facility] Rx#:[id number] Acetadote 11,300 MG In 306.5 / 306.5 Dextrose 5% 250 ML @ 306. 5 mls/hr IVC ONCE ONE Rx# :[id number] PRECEDEX 400 mcg In 100 180 / 180 ml @ 0.2 MCG/KG/HR 3.402 mls/hr IVC .Q24H [facility] Rx#: [id number] FentaNYL (PF) 1,000 MCG 100 / 100 In 0.9 % Sodium Chloride 80 ML @ 50 MCG/HR 5 mls/ hr IVC CONT [facility] Rx#: [id number] Versed 50 MG In 0.9 % 100 / 100 Sodium Chloride 90 ML @ 2 MG/HR 4 mls/hr IVC [facility] Rx#:[id number] Levophed 4 MG In Dextrose 10 / 10 500 / 500 250 / 250 5% 250 ML @ 4 MCG/MIN 15 mls/hr IVC [facility] Rx#: [id number] Levophed 8 MG In Dextrose 508 / 508 5% 500 ML @ 4 MCG/MIN 15 .24 mls/hr IVC [facility] Rx#:[id number] Sodium Bicarbonate 150 700 / 700 450 / 450 MEQ In Dextrose 5% 1,000 ML @ 100 mls/hr IVC . [id number] [facility] Rx#: [id number] Zovirax 375 MG In 250 / 250 Dextrose 5% 250 ML @ 250 mls/hr IVPB Q12H [facility] Rx#: [id number] Flexbumin 25 gm In 100 ml 100 / 100 @ 60 mls/hr IVPB ONCE ONE Rx#:[id number] Calcium Gluconate 2,000 120 / 120 120 / 120 MG In Dextrose 5% 100 ML @ 220 mls/hr IVPB ONCE PRN Rx#:[id number] Magnesium Sulfate 2 GM In 104 / 104 Dextrose 5% 100 ML @ 100 mls/hr IVPB ONCE ONE Rx# :[id number] Zosyn 3.375 GM In 100 / 100 Dextrose 5% (Minibag+) 100 ML 100 ML @ 25 mls/hr IVPB Q8H [facility] Rx#: [id number] Tobramycin Sulf 150 MG In 103.75 / 103.75 Dextrose 5% 100 ML @ 103 .75 mls/hr IVPB ONCE ONE Rx#:[id number] Rocephin 2,000 MG In 100 / 100 100 / 100 Dextrose 5% (Minibag+) 100 ML 100 ML @ 200 mls/ hr IVPB Q12H [facility] Rx#: [id number] Output: Arlette 1125 / 1125 234 / 234 Total Dialysis Output 38 / 38 Catheter 4 / 4 2 / 2 Other: Weight 75 kg 76.4 kg Blood Glucose* 301 283 Patient Weight 12/08/16 23:59 Weight 76.4 kg Results - Lab Results 12/08/16 04:08 12/08/16 04:08 Most recent lab results ABG pH 7.23 pH Units (7.32-7.45) L 12/08/16 00:19 ABG pCO2 51 mmHg (35-45) H 12/08/16 00:19 ABG pO2 41 mmHg (85-104) L* 12/08/16 00:19 ABG HCO3 21.4 mEQ/L (21-27) 12/08/16 00:19 ABG O2 Saturation 65 % (95-98) L 12/08/16 00:19 Calcium 7.6 mg/dL (8.6-10.8) L 12/08/16 04:08 Phosphorus 3.7 mg/dL (2.3-4.7) 12/08/16 04:08 Magnesium 1.4 mg/dL (1.6-2.6) L 12/08/16 04:08 Urine Creatinine 73 mg/dL 12/07/16 01:15 Urine Sodium 93.0 mEq/L 12/07/16 01:15 Urine Total Protein 47 mg/dL (1-14) H 12/07/16 01:15 - Attending Attestation I examined this patient and my medical decision-making was reviewed with the Resident Physician. I agree with the documented findings, disposition and treatment plan as described except to the extent set forth below. Pt seen and examined admitted after being found down to unknown duration of time intubated and on pressors developing RENE on her baseline CKD along with severe metabolic acidosis and mild rhabdo. Renal consulted for possible CRRT. Attempts to contact family unsucessful this am, will proceed with2 physician consent for CLINICAL ORTHOPTIST. On exam: intubated sedated, lungs with coarse BS and Ext with L BKA. Plan is to continue bicarb gtt for now and place femoral line for CVVHDF
--- NOTE | 2016-12-07 09:16 | Pulmonology Consult Note ---
<Enrique Strong W - Last Filed: 12/07/16 12:12> Date of Encounter: 12/07/16 Time of Encounter: 12:12 Medications and Allergies Insulin Glargine,Hum.rec.anlog [Lantus Solostar] 10 unit SQ HS 09/15/16 [History ] Cyanocobalamin (B-12) [Vitamin B12] 1,000 mcg PO DAILY #30 tablet 11/09/16 [Rx] Folic Acid 1 mg PO DAILY #30 tablet 11/09/16 [Rx] Omeprazole [PriLOSEC] 40 mg PO BIDAC #60 capsule. 11/09/16 [Rx] Sucralfate [Carafate] 1 gm PO QIDAC #120 tablet 11/09/16 [Rx] Acetaminophen [Tylenol] 650 mg PO Q6HR PRN tab 11/26/16 [Rx] Aspirin 81 mg PO DAILY 11/26/16 [Rx] Atorvastatin [Lipitor] 40 mg PO HS tab 11/26/16 [Rx] Escitalopram [Lexapro] 20 mg PO DAILY #30 tab 11/26/16 [Rx] HYDROcodone/Acet 5/325 mg [[place] 5-325 mg] 1 tab PO Q4HR PRN #15 tab 11/26/16 [ Rx] Insulin LISPRO [HumaLOG] 0 units SQ HS vial 11/26/16 [Rx] Insulin LISPRO [HumaLOG] 0 units SQ TIDAC vial 11/26/16 [Rx] Quetiapine Fumarate [Seroquel] 300 mg PO HS #30 tab 11/26/16 [Rx] amLODIPine [Norvasc] 10 mg PO DAILY tab 11/26/16 [Rx] Allergies No Known Allergies Allergy (Verified 11/11/16 13:55) All Systems: A 10-system review of systems was performed and is negative for pertinent findings except as documented above in the HPI. Physical Examination Vital Signs: Vital Signs, Last 4 Hours Resp BP Pulse Ox 12/07/16 11:05 15 109/53 100 12/07/16 09:00 29 105/54 100 Ventilator Settings Ventilator Settings: Ventilator Settings, Last 8 Hours Ventilator Mode A/C Ventilator Mode A/C Ventilator Mode A/C Ventilator Mode A/C Ventilator Mode A/C Ventilator Mode A/C Ventilator Mode A/C Ventilator Mode A/C Ventilator Tidal Volume 450 Setting Ventilator Tidal Volume 450 Setting Ventilator Tidal Volume 450 Setting Ventilator Tidal Volume 450 Setting Ventilator Tidal Volume 450 Setting Ventilator Tidal Volume 450 Setting Ventilator Tidal Volume 450 Setting Ventilator Tidal Volume 450 Setting Ventilator Respiratory Rate 14 Setting Ventilator Respiratory Rate 14 Setting Ventilator Respiratory Rate 14 Setting Ventilator Respiratory Rate 14 Setting Ventilator Respiratory Rate 14 Setting Ventilator Respiratory Rate 12 Setting Ventilator Respiratory Rate 12 Setting Ventilator Respiratory Rate 14 Setting Actual Respiratory Rate 15 Actual Respiratory Rate 29 Actual Respiratory Rate 29 Actual Respiratory Rate 31 Actual Respiratory Rate 26 Actual Respiratory Rate 24 Actual Respiratory Rate 28 Positive End Expiratory 5 Pressure Positive End Expiratory 5 Pressure Positive End Expiratory 5 Pressure Positive End Expiratory 5 Pressure Positive End Expiratory 5 Pressure Positive End Expiratory 5 Pressure Positive End Expiratory 5 Pressure Positive End Expiratory 5 Pressure Peak Inspiratory Airway 27 Pressure Peak Inspiratory Airway 21 Pressure Peak Inspiratory Airway 15 Pressure Peak Inspiratory Airway 17 Pressure Peak Inspiratory Airway 17 Pressure Peak Inspiratory Airway 13 Pressure Peak Inspiratory Airway 23 Pressure Results - Laboratory Findings CBC and BMP: 12/07/16 08:20 12/07/16 08:20 ABG ABG pH 7.05 pH Units (7.32-7.45) L* 12/07/16 07:07 ABG pCO2 19 mmHg (35-45) L* 12/07/16 07:07 ABG pO2 110 mmHg (85-104) H 12/07/16 07:07 ABG O2 Saturation 95 % (95-98) 12/07/16 07:07 PT/INR, D-dimer PT 13.5 Seconds (9.4-12.1) H 12/06/16 19:39 Abnormal lab findings: Abnormal lab results RBC 2.72 M/mcL (3.82-4.97) L 12/07/16 08:20 Hgb 8.4 g/dL (11.5-15.4) L 12/07/16 08:20 Hct 27.1 % (35.3-44.9) L 12/07/16 08:20 MCHC 31.0 g/dL (31.6-35.5) L 12/07/16 08:20 RDW 15.7 % (11.5-14.5) H 12/07/16 08:20 Plt Count 79 K/mcL (140-400) L 12/07/16 08:20 Lymphocytes # 0.4 K/mcL (0.6-4.6) L 12/07/16 08:20 Platelet Estimate Decreased (Normal) L 12/07/16 08:20 Immature Plt Fraction 8.9 % (1.1-6.1) H 12/07/16 08:20 PT 13.5 Seconds (9.4-12.1) H 12/06/16 19:39 APTT 50.7 Seconds (26.0-36.0) H 12/06/16 19:39 ABG pH 7.05 pH Units (7.32-7.45) L* 12/07/16 07:07 ABG pCO2 19 mmHg (35-45) L* 12/07/16 07:07 ABG pO2 110 mmHg (85-104) H 12/07/16 07:07 ABG HCO3 5.3 mEQ/L (21-27) L 12/07/16 07:07 ABG Total CO2 5.9 mEq/L (20-26) L 12/07/16 07:07 ABG Base Excess -23.3 mEq/L (-2.0 to 3.0) L 12/07/16 07:07 VBG pH < 6.80 pH Units (7.32-7.42) L* 12/07/16 00:04 VBG pCO2 20 mmHg (41-51) L 12/07/16 00:04 VBG pO2 243 mmHg (25-40) H 12/07/16 00:04 VBG HCO3 4.2 mEq/L (21-27) L 12/07/16 00:04 Sodium 151 mEq/L (136-145) H 12/07/16 08:20 Potassium 3.4 mEq/L (3.5-4.5) L D 12/07/16 08:20 Chloride 115 mEq/L (98-109) H 12/07/16 08:20 Carbon Dioxide 8 mEq/L (19-29) L* 12/07/16 08:20 BUN 46 mg/dL (7-20) H 12/07/16 08:20 Creatinine 4.77 mg/dL (0.57-1.11) H 12/07/16 08:20 Est GFR ( Amer) 11 (> 60) L 12/07/16 08:20 Est GFR (Non-Af Amer) 9 (> 60) L 12/07/16 08:20 Glucose 262 mg/dL (70-99) H 12/07/16 08:20 POC Glucose 257 (58-89) H 12/07/16 01:04 Serum Osmolality 349 mOsm/kg (280-300) H 12/06/16 19:39 Calculated Osmolality 333 (280-300) H 12/07/16 08:20 Calcium 6.2 mg/dL (8.6-10.8) L 12/07/16 08:20 AST 90 Units/L (5-34) H 12/07/16 08:20 Alkaline Phosphatase 128 Units/L (38-126) H 12/07/16 08:20 Creatine Kinase 2016 Units/L (29-168) H 12/06/16 19:39 Serum Total Protein 5.1 g/dL (6.0-8.3) L 12/07/16 08:20 Albumin 2.2 g/dL (3.5-5.0) L 12/07/16 08:20 Albumin/Globulin Ratio 0.8 (1.1-2.2) L 12/07/16 08:20 Free T4 0.42 ng/dl (0.70-1.48) L 12/07/16 01:20 Thyroxine (T4) 1.99 mcg/dL (4.87-11.72) L 12/07/16 01:20 Urine Protein 100 mg/dL (Neg-Trace) H 12/06/16 21:10 Urine Glucose (UA) 100 mg/dL (Normal) H 12/06/16 21:10 Urine Blood Trace (Negative) H 12/06/16 21:10 Urine Microscopic RBC 3-5 per hpf (0-3) H 12/06/16 21:10 Ur Squamous Epith Cells Many per lpf (None-Few) H 12/06/16 21:10 Protein/Creatinin Ratio 0.64 mg/mg (0-0.20) H 12/07/16 01:15 Urine Total Protein 47 mg/dL (1-14) H 12/07/16 01:15 Salicylates < 5.0 mg/dL (15-30) L 12/06/16 19:49 Urine Opiates Screen Positive ng/mL ([id number]) H 12/06/16 21:10 Acetaminophen < 1.0 mcg/mL (10-30) L 12/06/16 19:49 - Clinical Findings Intake & Output: Intake & Output 12/06/16 12/07/16 12/07/16 23:59 07:59 15:59 Intake Total 100 / 4100.2 240 / 240 1840.5 / 1840.5 Output Total 400 / 400 Balance 100 / 4100.2 -160 / -160 1840.5 / 1840.5 Weight 75 kg Consult Discharge Plan - Plan Referrals: NO,PCP [Primary Care Provider] - - Attending Attestation I examined this patient and my medical decision-making was reviewed with the Resident Physician. I agree with the documented findings, disposition and treatment plan as described except to the extent set forth below. I spent 35min of Critical Care time with this patient. It involved decision making of high complexity to assess, manipulate, and support vital organ system failure and/or to prevent further life threatening deterioration of the patient' s condition. The time involved in the performance of separately reportable procedures was not counted toward critical care time. Patient seen and examined at bedside Labs, radiology, chart personally reviewed. All lines examined without evidence of infection. Management was reviewed during multidisciplinary critical care rounds. Neuropsych: Obtunded she does have response to painful stimuli this is likely secondary to metabolic derangements did have a witnessed seizure today in the ICU which is also likely due to electrolyte derangements although infection is not excluded plan to attempt lumbar puncture at bed and we will cover for possibility of meningitis although this is lower on differential. CT head without acute process. Pulm: Intubated for airway management with profound metabolic derangements excellent oxygenation on minimal FiO2 we have increased her respiratory rate to help compensate for metabolic acidosis Cards: Distributive shock secondary to acidosis and possibly sepsis wean vasopressor to goal MAP.60. Lactate is normal presently ECG without evidence of STEMI and troponin is normal she did have a widened QTC which possibly is secondary to Seroquel ingestion which is improved with bicarbonate infusion we will avoid all QT prolonging medications FEN-GI: GI prophylaxis given nothing by mouth for now; N-acetylcysteine per 24 hour protocol has been started for possibility of acetaminophen toxicity although on tox panel this was normal Renal: Profound anion gap and non-gap metabolic acidosis which is of unclear etiology she also has an osmolar gap which could be consistent with toxic ingestion as we try to discern the etiology of this outside of acute on chronic oliguric kidney failure nephrology has been consulted and continuous renal replacement will be instituted. We will replace electrolytes per protocol. Per concern of toxic ingestion possibly Seroquel the Poison Control Center has been notified and are following with us closel; she also has evidence of mild rhabdomyolysis which is contributing to this pattern ID: Concern for acute infectious process possibly infected sacral decubitus ulcer less likely meningitis versus intra-abdominal process she is being covered broadly with antimicrobials including meningitis coverage Heme/Onc: DVT prophylaxis given chronic anemia baseline thrombocytopenia which is likely multifactorial including infection shock and critical illness we have a peripheral smear pending Endo: Glucose monitored TSH is normal although T3-T4 modestly decreased do not believe this pattern is consistent with myxedema coma continue to monitor Integ/MSK: No obvious signs of head or cervical trauma she does have a left shoulder bruising which we will evaluate further with CT scan head CT CT of the neck and chest x-ray along with pelvic x-ray not suggestive of acute fracture; she has a chronic sacral decubitus ulcer which has been dressed per protocol CODE: Full code; we are attempting to locate family or healthcare proxies at this time <Poornima Sofia-My - Last Filed: 12/07/16 16:47> Date of Encounter: 12/07/16 Time of Encounter: 14:52 Assessment and Plan (1) Septic shock Current Visit: Yes Status: Acute Septic shock possibly secondary to sacral decubitus ulcer or aspiration pneumonia or less likely meningitis. Patient presented to the ICU bradycardiac , hypotensive, and hypothermia. Patient refractory to fluid resuscitation and was placed on pressor. Patient is being covered broadly with antibiotics, including meningitis coverage. Lactate is normal. Continue to monitor the patient closely. (2) Altered mental status Current Visit: Yes Status: Acute Patient has altered mental status most likely secondary to metabolic acidosis with unclear etiology or secondary to infection. She is intubated for airway management. Ventilation settings are set to help compensate for metabolic acidosis. Continue to monitor the patient closely. Qualifiers: Altered mental status type: unspecified Qualified Code(s): R41.82 - Altered mental status, unspecified (3) Metabolic acidosis Current Visit: Yes Status: Acute Patient has anion gap metabolic acidosis with superimposed non-anion gap acidosis with unknown etiology. Patient has osmolar gap which could indicate toxic ingestion. She had a witnessed seizure today which may be secondary to metabolic derangement or meningitis, which is less likely. IR was consulted and they performed lumbar puncture. CT of head without acute process. EEG was ordered. Repeat ABG. Continue patient on ventilatory support. She was given fluids. She was also started on bicarbonate infusion. However, once continuous renal replacement is started, discontinued the bicarbonate infusion. Continue to monitor the patient closely. (4) Oxbos-mk-hzurokc kidney injury Current Visit: Yes Status: Acute Patient has a acute on chronic oliguric kidney failure possibly secondary to anion gap metabolic acidosis. She has no urine output currently. The patient creatinine was 4.7 today. Electrolytes are replaced per protocol. Nephrology has been consulted and continuous renal replacement will be started. Due to concern for toxic ingestion of possibly Seroquel, the poison control center has been contacted. They recommended N-acetylcysteine per 24 hour protocol for possible acetaminophen toxicity even with normal level on tox panel. Patient also has evidence of rhabdomyolysis with a CPK level of 2016. Patient is given fluids. Continue to monitor the patient closely. Qualifiers: Acute renal failure type: unspecified Chronic kidney disease stage: stage 3 (moderate) Qualified Code(s): N17.9 - Acute kidney failure, unspecified; N18.3 - Chronic kidney disease, stage 3 (moderate) (5) Seizure Current Visit: Yes Status: Acute Patient had a witness seizure today was likely secondary to metabolic derangements or meningitis, which is less likely. IR was consulted and they performed a lumbar puncture. CSF results are pending. Continue to monitor the patient closely. (6) Sacral decubitus ulcer Current Visit: Yes Status: Acute Secret decubitus ulcer is present without signs of an action or any drainage. Continue to monitor the patient closely. Qualifiers: Pressure ulcer stage: unstageable Qualified Code(s): L89.150 - Pressure ulcer of sacral region, unstageable History of Present Illness Consult date: 12/06/16 Reason for consult: other (Altered mental status) Chief complaint: Altered mental status History of present illness: is a 61-year-old female with the past medical history of COPD, hypertension, chronic kidney disease, and diabetes. Patient arrived to the ICU intubated. Therefore, history was unable to be obtained from the patient. Per documentation, patient was found unresponsive at her home covered in feces. It is unknown how long she has been unresponsive. Patient arrived to the ICU hypotensive, hypothermic, and altered mental status. Patient was also bradycardiac. Patient was not responsive to fluid resuscitation and therefore patient was started on pressors. Past Med Surg Social Fam HX - Past Medical History Medical history: CHF, COPD, CVA, diabetes, hyperlipidemia, hypertension, myocardial infarction, renal disease, other Psychiatric history: depression - Past Surgical History Surgical History: cholecystectomy, other (LLE BKA) - Social History Smoking Status: Current every day smoker Smokeless Tobacco Status: No Alcohol use: none Drug use: none - Family History Mother History Unknown: Yes Family Member Ethnicity: Non- Living Status: Still Living Hx Family Cardiac Disorders: Yes (HTN, HLD, Strokes) Hx Family Neuromuscular Disorders: Yes (CVA) Hx Family Neurologic Disorders: Yes (CVA) Father History Unknown: Yes Family Member Ethnicity: Non- Living Status: Hx Family Cardiac Disorders: Yes (HTN, HLD) Hx Family Endocrine Disorder: Yes (DM) Brother History Unknown: Yes Family Member Ethnicity: Non- Living Status: Hx Family Cardiac Disorders: Yes (MD, HD) Sister History Unknown: Yes Family Member Ethnicity: Non- Living Status: Hx Family Endocrine Disorder: Yes (DM) ROS unobtainable: due to endotracheal tube, due to mental status (Vicki has altered mental status and is unresponsive) All Systems: A 10-system review of systems was performed and is negative for pertinent findings except as documented above in the HPI. Physical Examination Vital Signs: Vital Signs, Last 4 Hours Temp Pulse Resp BP Pulse Ox 12/07/16 07:40 29 91/63 100 12/07/16 07:17 97.6 F 12/07/16 07:00 96 31 99/53 100 12/07/16 06:00 96 26 99/51 100 General appearance: other (Patient is intubated and sedated. Patient is not alert. Right IJ catheter is present. Right femoral hemodialysis catheter is present.) Eyes: nonicteric, other (Bilateral pupils minimally reactive to light) ENT: other (Patient has intubated) Neck: supple, no lymphadenopathy, no JVD, other (Right IJ catheter is present) Effort: mildly labored Auscultation: left: wheezes, bilateral: diminished breath sounds Cardiovascular: regular rate and rhythm (Patient is tachycardic at 107 bpm) Gastrointestinal: non-tender, non-distended Integumentary: rash (Rashes present on entire right forearm), decubitus ulcer ( Decubitus ulcer present on the lower back.) Extremities: no cyanosis, no edema, other (Bilateral radial pulses +2/4. Bilateral distal pulses are weak at +1/4. Capillary refill is <2seconds) Musculoskeletal: other (Patient has left below knee amputation with a healing wound right below the knee. No purulent discharge from the wound on the left knee.) unable to assess due to mental status (Patient is intubated and sedated.) Ventilator Settings Ventilator Settings: Ventilator Settings, Last 8 Hours Ventilator Mode A/C Ventilator Mode A/C Ventilator Mode A/C Ventilator Mode A/C Ventilator Mode A/C Ventilator Mode A/C Ventilator Mode A/C Ventilator Mode A/C Ventilator Mode A/C Ventilator Mode A/C Ventilator Mode A/C Ventilator Tidal Volume 450 Setting Ventilator Tidal Volume 450 Setting Ventilator Tidal Volume 450 Setting Ventilator Tidal Volume 450 Setting Ventilator Tidal Volume 450 Setting Ventilator Tidal Volume 450 Setting Ventilator Tidal Volume 450 Setting Ventilator Tidal Volume 450 Setting Ventilator Tidal Volume 450 Setting Ventilator Tidal Volume 450 Setting Ventilator Tidal Volume 450 Setting Ventilator Respiratory Rate 14 Setting Ventilator Respiratory Rate 14 Setting Ventilator Respiratory Rate 14 Setting Ventilator Respiratory Rate 12 Setting Ventilator Respiratory Rate 12 Setting Ventilator Respiratory Rate 14 Setting Ventilator Respiratory Rate 12 Setting Ventilator Respiratory Rate 14 Setting Ventilator Respiratory Rate 12 Setting Ventilator Respiratory Rate 14 Setting Ventilator Respiratory Rate 12 Setting Actual Respiratory Rate 29 Actual Respiratory Rate 31 Actual Respiratory Rate 26 Actual Respiratory Rate 24 Actual Respiratory Rate 28 Actual Respiratory Rate 22 Actual Respiratory Rate 18 Actual Respiratory Rate 19 Actual Respiratory Rate 22 Positive End Expiratory 5 Pressure Positive End Expiratory 5 Pressure Positive End Expiratory 5 Pressure Positive End Expiratory 5 Pressure Positive End Expiratory 5 Pressure Positive End Expiratory 5 Pressure Positive End Expiratory 5 Pressure Positive End Expiratory 5 Pressure Positive End Expiratory 5 Pressure Positive End Expiratory 5 Pressure Positive End Expiratory 5 Pressure Peak Inspiratory Airway 15 Pressure Peak Inspiratory Airway 17 Pressure Peak Inspiratory Airway 17 Pressure Peak Inspiratory Airway 13 Pressure Peak Inspiratory Airway 23 Pressure Peak Inspiratory Airway 13 Pressure Peak Inspiratory Airway 15 Pressure Peak Inspiratory Airway 24 Pressure Peak Inspiratory Airway 26 Pressure Results - Laboratory Findings CBC and BMP: 12/07/16 08:20 12/07/16 08:20 ABG ABG pH 7.05 pH Units (7.32-7.45) L* 12/07/16 07:07 ABG pCO2 19 mmHg (35-45) L* 12/07/16 07:07 ABG pO2 110 mmHg (85-104) H 12/07/16 07:07 ABG O2 Saturation 95 % (95-98) 12/07/16 07:07 PT/INR, D-dimer PT 13.5 Seconds (9.4-12.1) H 12/06/16 19:39 Abnormal lab findings: Abnormal lab results RBC 2.72 M/mcL (3.82-4.97) L 12/07/16 08:20 Hgb 8.4 g/dL (11.5-15.4) L 12/07/16 08:20 Hct 27.1 % (35.3-44.9) L 12/07/16 08:20 MCHC 31.0 g/dL (31.6-35.5) L 12/07/16 08:20 RDW 15.7 % (11.5-14.5) H 12/07/16 08:20 Plt Count 79 K/mcL (140-400) L 12/07/16 08:20 Lymphocytes # 0.4 K/mcL (0.6-4.6) L 12/07/16 08:20 Platelet Estimate Decreased (Normal) L 12/07/16 08:20 Immature Plt Fraction 8.9 % (1.1-6.1) H 12/07/16 08:20 PT 13.5 Seconds (9.4-12.1) H 12/06/16 19:39 APTT 50.7 Seconds (26.0-36.0) H 12/06/16 19:39 ABG pH 7.05 pH Units (7.32-7.45) L* 12/07/16 07:07 ABG pCO2 19 mmHg (35-45) L* 12/07/16 07:07 ABG pO2 110 mmHg (85-104) H 12/07/16 07:07 ABG HCO3 5.3 mEQ/L (21-27) L 12/07/16 07:07 ABG Total CO2 5.9 mEq/L (20-26) L 12/07/16 07:07 ABG Base Excess -23.3 mEq/L (-2.0 to 3.0) L 12/07/16 07:07 VBG pH < 6.80 pH Units (7.32-7.42) L* 12/07/16 00:04 VBG pCO2 20 mmHg (41-51) L 12/07/16 00:04 VBG pO2 243 mmHg (25-40) H 12/07/16 00:04 VBG HCO3 4.2 mEq/L (21-27) L 12/07/16 00:04 Sodium 151 mEq/L (136-145) H 12/07/16 08:20 Potassium 3.4 mEq/L (3.5-4.5) L D 12/07/16 08:20 Chloride 115 mEq/L (98-109) H 12/07/16 08:20 Carbon Dioxide 8 mEq/L (19-29) L* 12/07/16 08:20 BUN 46 mg/dL (7-20) H 12/07/16 08:20 Creatinine 4.77 mg/dL (0.57-1.11) H 12/07/16 08:20 Est GFR ( Amer) 11 (> 60) L 12/07/16 08:20 Est GFR (Non-Af Amer) 9 (> 60) L 12/07/16 08:20 Glucose 262 mg/dL (70-99) H 12/07/16 08:20 POC Glucose 257 (58-89) H 12/07/16 01:04 Serum Osmolality 349 mOsm/kg (280-300) H 12/06/16 19:39 Calculated Osmolality 333 (280-300) H 12/07/16 08:20 Calcium 6.2 mg/dL (8.6-10.8) L 12/07/16 08:20 AST 90 Units/L (5-34) H 12/07/16 08:20 Alkaline Phosphatase 128 Units/L (38-126) H 12/07/16 08:20 Creatine Kinase 2016 Units/L (29-168) H 12/06/16 19:39 Serum Total Protein 5.1 g/dL (6.0-8.3) L 12/07/16 08:20 Albumin 2.2 g/dL (3.5-5.0) L 12/07/16 08:20 Albumin/Globulin Ratio 0.8 (1.1-2.2) L 12/07/16 08:20 Free T4 0.42 ng/dl (0.70-1.48) L 12/07/16 01:20 Thyroxine (T4) 1.99 mcg/dL (4.87-11.72) L 12/07/16 01:20 Urine Protein 100 mg/dL (Neg-Trace) H 12/06/16 21:10 Urine Glucose (UA) 100 mg/dL (Normal) H 12/06/16 21:10 Urine Blood Trace (Negative) H 12/06/16 21:10 Urine Microscopic RBC 3-5 per hpf (0-3) H 12/06/16 21:10 Ur Squamous Epith Cells Many per lpf (None-Few) H 12/06/16 21:10 Protein/Creatinin Ratio 0.64 mg/mg (0-0.20) H 12/07/16 01:15 Urine Total Protein 47 mg/dL (1-14) H 12/07/16 01:15 Salicylates < 5.0 mg/dL (15-30) L 12/06/16 19:49 Urine Opiates Screen Positive ng/mL ([id number]=342) H 12/06/16 21:10 Acetaminophen < 1.0 mcg/mL (10-30) L 12/06/16 19:49 - Clinical Findings Intake & Output: Intake & Output 12/06/16 12/07/16 12/07/16 23:59 07:59 15:59 Intake Total 100 / 4100.2 120 / 120 100 / 100 Output Total 400 / 400 Balance 100 / 4100.2 -280 / -280 100 / 100 Weight 75 kg
[2016-12-07] MEDS ORDERED: Piperacillin/Tazobactam 3.375 GM in D5% in Water (Mini-Bag+) 100 ML IVPB SCH (10:00)
[2016-12-07] MEDS ORDERED: Acetylcysteine 3,800 MG in D5% in Water 500 ML IVC ONE (10:00)
[2016-12-07] MEDS ORDERED: *HR* Midazolam HCl 5 MG/5 ML VIAL IVP ONE (10:00)
[2016-12-07] MEDS ORDERED: *HR* Midazolam HCl 2 MG/2 ML VIAL IVP ONE (10:07)
[2016-12-07] MEDS ORDERED: Calcium Gluconate 2,000 MG in D5% in Water 100 ML IVPB PRN (10:31)
[2016-12-07] MEDS ORDERED: *HR* Heparin 5,000 UNIT/ML VIAL IV PRN (10:31)
[2016-12-07] MEDS ORDERED: Calcium Gluconate 1,000 MG in D5% in Water 100 ML IVPB PRN (10:31)
[2016-12-07] MEDS ORDERED: *HR* Alteplase (Cathflo) 2 MG VIAL IVP PRN (10:31)
[2016-12-07] MEDS ORDERED: Calcium Chloride 4,000 MG in 0.9 % Sodium Chloride 1,000 ML CRRT SCH (10:45)
[2016-12-07] MEDS ORDERED: Lidocaine -MPF 2% 5 ML VIAL ONE (11:14)
[2016-12-07] MEDS: Chlorhexidine Rinse 15 ML MOUTHWASH MM SCH ×2 (11:16→20:45)
[2016-12-07] MEDS ORDERED: Vancomycin 1,250 MG in D5% in Water 250 ML IVPB SCH (13:00)
--- NOTE | 2016-12-07 13:15 | IR Procedure Note ---
Date of procedure: 12/07/16 Consent Obtained: Verbal consent (Emergent procedure and patient unresponsive. 2 Physician consents) Timeout: Correct patient and procedure verified, Correct site verified, Time out performed, Skin prep completed Local anesthetic: Lidocaine 1% Indications: Altered mental status Procedure Performed: LP Site/Technique: L2-3 Results/Findings: Opening pressure 23 cm H2O. 9cc collected Estimated blood loss (cc): 1 Complications: None; Tolerated procedure well Post Procedure Treatment Plan: recover in ICU
--- NOTE | 2016-12-07 13:39 | Nephrology Procedure Note ---
<Ar Chaudhry - Last Filed: 12/07/16 13:37> Date of procedure: 12/07/16 Pre-op diagnosis: Metabolic acidosis Post-op diagnosis: same Procedure Performed: femoral dialysis catheter Procedure: A time-out was completed verifying correct patient, procedure, site, positioning , and special equipment if applicable. The patient was placed in a dependent position appropriate for central line placement based on the vein to be cannulated. The patients right groin was prepped and draped in sterile fashion. 2% Lidocaine was used to anesthetize the surrounding skin area. Guidance needle was introduced under ultrasound guidance until flash of blood was seen. Guidewire was threaded and guidance needle was removed. Dilator was treaded over guidewire and then removed. A triple lumen 12-Bengali mahurkar catheter was introduced into the the right femoral vein. The catheter was threaded smoothly over the guide wire and appropriate blood return was obtained. Each lumen of the catheter was evacuated of air and flushed with sterile saline. The catheter was then sutured in place to the skin and a sterile dressing applied. Perfusion to the extremity distal to the point of catheter insertion was checked and found to be adequate. Dr. Keller was present for the entire procedure. Anesthesia: local, IV sedation Surgeon: Ar Chaudhry Public Information Coordinator: Ayla Butler Estimated blood loss (cc): 5 Condition: critical Disposition: ICU <Ayla Butler - Last Filed: 01/08/17 00:16> - Attending Attestation I examined this patient and my medical decision-making was reviewed with the Resident Physician. I agree with the documented findings, disposition and treatment plan as described except to the extent set forth below. Procedure done under my guidance and supervision without complications and ready for use.
[2016-12-07 14:08] LABS: Red Blood Cell,CSF < 0.002 M/mcL
[2016-12-07 14:12] LABS: Ionized Calcium 0.8 mmol/L (1.15-1.35)
--- NOTE | 2016-12-07 14:15 | Procedure Note ---
Date of procedure: 12/07/16 Pre-op diagnosis: Right lobar collapse Post-op diagnosis: other (Community-acquired pneumonia) Procedure: Bronchoscopy was performed at bedside under continuous infusion of sedation for mechanical ventilation please see the nursing report for this. Indication up for this procedure was a CT scan which demonstrated complete opacification of the right hemithorax concerning for mucus plugging. Consent was of obtained by 2 physicians as there is no family available to consent for this procedure which was deemed medically necessary and in the best interest of the patient. A timeout was called a disposable AMBU bronchoscope was advanced through the endotracheal tube which was in satisfactory position. The sameera was sharp there was notable sick mucoid secretions throughout the right tracheobronchial tree which cleared with suctioning the scope was advanced to at least the first segmental branch of the right and left tracheobronchial tree there were no other obstructing lesions noted and no evidence of bleeding the bronchial washings were sent for microbiological analysis. Patient tolerated the procedure without difficulty. Surgeon: Enrique Strong Condition: critical Disposition: ICU
--- NOTE | 2016-12-07 14:19 | Electrocardiograph Report ---
[place] [id number] Test Date: 2016-12-06 Pat Name: Kimberly Gallegos Department: 103 Room: 08 Gender: F Nurse Case Manager: CAMERON : 1955 Requested By: Caleb Heath Order Number: [id number] Reading MD: Anish Servin MD Measurements Intervals [place] Rate: 60 P: PA: 0 QRS: 34 QRSD: 114 T: 110 QT: 584 QTc: 585 Interpretive Statements BASELINE ARTIFACT COMPLICATES ACCURATE INTERPRETATION BASELINE ARTIFACT, REPEAT EKG SUPRAVENTRICULAR RHYTHM PROBABLY SINUS RHYTHM Electronically Signed On 12-07-2016 14:18:29 EDT by Anish Servin MD
--- NOTE | 2016-12-07 14:21 | Electrocardiograph Report ---
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
[2016-12-07 14:25] LABS: Phosphorous 6.8 mg/dL (2.3-4.7); Uric Acid 9.5 mg/dL (2.6-6.0)
[2016-12-07 14:29] LABS: Calcium 5.9 mg/dL (8.6-10.8)
[2016-12-07 14:31] LABS: Appearance,CSF Clear (Clear)
[2016-12-07 14:32] LABS: Glucose,CSF 214 mg/dL (40-70); Total Protein,CSF 90 mg/dL (15-45)
--- NOTE | 2016-12-07 14:34 | Electrocardiograph Report ---
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
[2016-12-07] MEDS ORDERED: Vancomycin 1,000 MG in D5% in Water 250 ML IVPB ONE (14:41)
--- NOTE | 2016-12-07 14:43 | Electrocardiograph Report ---
[address] [address] Test Date: 2016-12-07 Pat Name: Kimberly Gallegos Department: 109 Room: [facility] Gender: F Sba Business Development Officer: VAL : 1955 Requested By: Toi Sofia Order Number: [id number] Reading MD: Anish Servin MD Measurements Intervals [place] Rate: 103 P: 26 IN: 153 QRS: 12 QRSD: 89 T: 71 QT: 361 QTc: 421 Interpretive Statements SINUS TACHYCARDIA WITH OCCASIONAL SUPRAVENTRICULAR PREMATURE COMPLEXES BASELINE ARTIFACT COMPLICATES ACCURATE INTERPRETATION Electronically Signed On 12-07-2016 14:41:31 EDT by Anish Servin MD
[2016-12-07] MEDS ORDERED: D5 IVPB SCH (16:00)
[2016-12-07] MEDS ORDERED: WATER IVPB SCH (16:00)
[2016-12-07] MEDS ORDERED: Acyclovir 600 MG in D5% in Water 250 ML IVPB SCH (16:00)
[2016-12-07] MEDS ORDERED: ACYCLOVIR IVPB SCH (16:00)
[2016-12-07] MEDS: 0.9 % Sodium Chloride 1,000 ML PRIME SCH ×2 (16:19→20:42)
[2016-12-07] MEDS: Insulin LISPRO 300 UNITS/3 ML VIAL SQ SCH ×3 (16:21→23:58)
[2016-12-07 16:25] LABS: ABG Base Excess -11.8 mEq/L (-2.0 to 3.0); ABG HCO3 15.2 mEQ/L (21-27); ABG Oxygen Saturation 77 % (95-98); ABG PCO2 38 mmHg (35-45); ABG PH 7.21 pH Units (7.32-7.45); ABG PO2 51 mmHg (85-104); ABG TCO2 16.4 mEq/L (20-26); Blood Gas FiO2 60 %
--- NOTE | 2016-12-07 17:09 | Neurology - Consult Note ---
Date of Encounter: 12/07/16 Time of Encounter: 17:03 Assessment and Plan (1) Seizure-like activity Current Visit: Yes Status: Acute Shaking, activity, diffuse associated with altered mental status secondary to encephalopathy. No prior history of seizure. Not sure this was a true epileptic seizure but with ongoing medical conditions it could be a provoked event and this may improve with continued medical treatment. if suspicion for epileptic seizure is high patient can certainly be treated with empirical antiepileptic therapy. EEG showed diffuse slowing, no electrographic seizure, and no epileptiform discharges and no focal slowing CT of head reviewed and showed no intracranial abnormality. Recommend continuing medical and supportive treatment , if mental status not improving then MRI of brain will become relevant, especially with CSF showing elevated CSF protein of 90, which can be seen in patient's with Crwxe-qcnyo-dtsgcyc breakdownk, edema or diffuse ischemia. With CSF WBC of 6 infecious process unlikely. History of Present Illness Chief complaint: seizure like activity HPI: Ms. Gallegos is a 61 year old female with PMH significant for CKD, DM, HTN, anemia who developed acutely altered mental status and was initially admitted to ICU. Patient was found to have metabolic acidosis, sepsis and respiratory failure and is currently mechanically intubated. Nursing staff reported seizure like activity involving whole body, shaking involving whole body, eye open and ' looking through' but not sure she was responsive at the time lasting few minutes in duration. She did have periods of lucidity although she was confused per nursing staff. No prior history of seizure disorder. Patient was given versed drip which stopped the shaking activity. EEG was done earlier this afternoon showed diffuse background slowing but no electrographic seizure and no epileptiform discharges and no focal slowing. Background was severely slow, mostly persistent delta activity Past Med Surg Social Fam HX - Past Medical History Medical history: CHF, COPD, CVA, diabetes, hyperlipidemia, hypertension, myocardial infarction, renal disease, other Psychiatric history: depression - Past Surgical History Surgical History: cholecystectomy, other (LLE BKA) - Social History Smoking Status: Current every day smoker Smokeless Tobacco Status: No Alcohol use: none Drug use: none - Family History Mother History Unknown: Yes Family Member Ethnicity: Non- Living Status: Still Living Hx Family Cardiac Disorders: Yes (HTN, HLD, Strokes) Hx Family Neuromuscular Disorders: Yes (CVA) Hx Family Neurologic Disorders: Yes (CVA) Father History Unknown: Yes Family Member Ethnicity: Non- Living Status: Hx Family Cardiac Disorders: Yes (HTN, HLD) Hx Family Endocrine Disorder: Yes (DM) Brother History Unknown: Yes Family Member Ethnicity: Non- Living Status: Hx Family Cardiac Disorders: Yes (PA, HD) Sister History Unknown: Yes Family Member Ethnicity: Non- Living Status: Hx Family Endocrine Disorder: Yes (DM) Medications and Allergies Insulin Glargine,Hum.rec.anlog [Lantus Solostar] 10 unit SQ HS 09/15/16 [History ] Cyanocobalamin (B-12) [Vitamin B12] 1,000 mcg PO DAILY #30 tablet 11/09/16 [Rx] Folic Acid 1 mg PO DAILY #30 tablet 11/09/16 [Rx] Omeprazole [PriLOSEC] 40 mg PO BIDAC #60 capsule. 11/09/16 [Rx] Sucralfate [Carafate] 1 gm PO QIDAC #120 tablet 11/09/16 [Rx] Acetaminophen [Tylenol] 650 mg PO Q6HR PRN tab 11/26/16 [Rx] Aspirin 81 mg PO DAILY 11/26/16 [Rx] Atorvastatin [Lipitor] 40 mg PO HS tab 11/26/16 [Rx] Escitalopram [Lexapro] 20 mg PO DAILY #30 tab 11/26/16 [Rx] HYDROcodone/Acet 5/325 mg [[place] 5-325 mg] 1 tab PO Q4HR PRN #15 tab 11/26/16 [ Rx] Insulin LISPRO [HumaLOG] 0 units SQ HS vial 11/26/16 [Rx] Insulin LISPRO [HumaLOG] 0 units SQ TIDAC vial 11/26/16 [Rx] Quetiapine Fumarate [Seroquel] 300 mg PO HS #30 tab 11/26/16 [Rx] amLODIPine [Norvasc] 10 mg PO DAILY tab 11/26/16 [Rx] Allergies No Known Allergies Allergy (Verified 11/11/16 13:55) All Systems: A 10-system review of systems was performed and is negative for pertinent findings except as documented above in the HPI. Physical Examination - Vital Signs Vital Signs: Initial Vital Signs Temp Pulse Resp BP Pulse Ox 82.6 F L 112 20 138/128 78 12/06/16 19:42 12/06/16 19:42 12/06/16 19:42 12/06/16 19:42 12/06/16 19:42 - Constitutional General appearance: chronically ill - Neurologic Sensorimotor examination: other (Unable to assess due to sedation) Detailed motor examination: other (Unable to assess due to sedation) Mental Status Examination: coma (Patient is sedated) Cranial nerve examination: PERRL, corneal reflexes brisk symmetrically, no facial asymmetry is present Results - Laboratory Findings CBC and BMP: 12/07/16 08:20 12/07/16 08:20 Abnormal lab findings: Abnormal lab results RBC 2.72 M/mcL (3.82-4.97) L 12/07/16 08:20 Hgb 8.4 g/dL (11.5-15.4) L 12/07/16 08:20 Hct 27.1 % (35.3-44.9) L 12/07/16 08:20 MCHC 31.0 g/dL (31.6-35.5) L 12/07/16 08:20 RDW 15.7 % (11.5-14.5) H 12/07/16 08:20 Plt Count 79 K/mcL (140-400) L 12/07/16 08:20 Lymphocytes # 0.4 K/mcL (0.6-4.6) L 12/07/16 08:20 Platelet Estimate Decreased (Normal) L 12/07/16 08:20 Immature Plt Fraction 8.9 % (1.1-6.1) H 12/07/16 08:20 PT 13.5 Seconds (9.4-12.1) H 12/06/16 19:39 APTT 50.7 Seconds (26.0-36.0) H 12/06/16 19:39 ABG pH 7.21 pH Units (7.32-7.45) L 12/07/16 16:15 ABG pO2 51 mmHg (85-104) L 12/07/16 16:15 ABG HCO3 15.2 mEQ/L (21-27) L 12/07/16 16:15 ABG Total CO2 16.4 mEq/L (20-26) L 12/07/16 16:15 ABG O2 Saturation 77 % (95-98) L 12/07/16 16:15 ABG Base Excess -11.8 mEq/L (-2.0 to 3.0) L 12/07/16 16:15 VBG pH < 6.80 pH Units (7.32-7.42) L* 12/07/16 00:04 VBG pCO2 20 mmHg (41-51) L 12/07/16 00:04 VBG pO2 243 mmHg (25-40) H 12/07/16 00:04 VBG HCO3 4.2 mEq/L (21-27) L 12/07/16 00:04 Sodium 151 mEq/L (136-145) H 12/07/16 08:20 Potassium 3.4 mEq/L (3.5-4.5) L D 12/07/16 08:20 Chloride 115 mEq/L (98-109) H 12/07/16 08:20 Carbon Dioxide 8 mEq/L (19-29) L* 12/07/16 08:20 BUN 46 mg/dL (7-20) H 12/07/16 08:20 Creatinine 4.77 mg/dL (0.57-1.11) H 12/07/16 08:20 Est GFR ( Amer) 11 (> 60) L 12/07/16 08:20 Est GFR (Non-Af Amer) 9 (> 60) L 12/07/16 08:20 Glucose 262 mg/dL (70-99) H 12/07/16 08:20 POC Glucose 257 (58-89) H 12/07/16 01:04 Serum Osmolality 349 mOsm/kg (280-300) H 12/06/16 19:39 Calculated Osmolality 333 (280-300) H 12/07/16 08:20 Uric Acid 9.5 mg/dL (2.6-6.0) H 12/07/16 13:46 Calcium 5.9 mg/dL (8.6-10.8) L* 12/07/16 13:46 Ionized Calcium 0.80 mmol/L (1.15-1.35) L 12/07/16 13:46 Phosphorus 6.8 mg/dL (2.3-4.7) H 12/07/16 13:46 AST 90 Units/L (5-34) H 12/07/16 08:20 Alkaline Phosphatase 128 Units/L (38-126) H 12/07/16 08:20 Creatine Kinase 2993 Units/L (29-168) H 12/07/16 13:46 Serum Total Protein 5.1 g/dL (6.0-8.3) L 12/07/16 08:20 Albumin 2.2 g/dL (3.5-5.0) L 12/07/16 08:20 Albumin/Globulin Ratio 0.8 (1.1-2.2) L 12/07/16 08:20 Lipase 769 Units/L (8-78) H 12/07/16 13:46 Beta-Hydroxybutyric Acd > 2.00 mmol/L (0.02-0.27) H 12/07/16 13:40 Free T4 0.42 ng/dl (0.70-1.48) L 12/07/16 01:20 Thyroxine (T4) 1.99 mcg/dL (4.87-11.72) L 12/07/16 01:20 Urine Protein 100 mg/dL (Neg-Trace) H 12/06/16 21:10 Urine Glucose (UA) 100 mg/dL (Normal) H 12/06/16 21:10 Urine Blood Trace (Negative) H 12/06/16 21:10 Urine Microscopic RBC 3-5 per hpf (0-3) H 12/06/16 21:10 Ur Squamous Epith Cells Many per lpf (None-Few) H 12/06/16 21:10 Protein/Creatinin Ratio 0.64 mg/mg (0-0.20) H 12/07/16 01:15 Urine Total Protein 47 mg/dL (1-14) H 12/07/16 01:15 CSF Tot Nucleated Cells 6 TNC/mcL (0-5) H 12/07/16 13:08 CSF Glucose 214 mg/dL (40-70) H 12/07/16 13:08 CSF Total Protein 90 mg/dL (15-45) H 12/07/16 13:08 Salicylates < 5.0 mg/dL (15-30) L 12/06/16 19:49 Urine Opiates Screen Positive ng/mL (Ezevzm=294) H 12/06/16 21:10 Acetaminophen < 1.0 mcg/mL (10-30) L 12/06/16 19:49 Consult Discharge Plan - Plan Referrals: NO,PCP [Primary Care Provider] -
[2016-12-07] MEDS: PrismaSATE BGK 4/2.5 5,000 ML CRRT SCH ×4 (17:21→20:59)
[2016-12-07] MEDS: Piperacillin/Tazobactam 3.375 GM in D5% in Water (Mini-Bag+) 100 ML IVPB SCH (17:25)
[2016-12-07] MEDS: D5 IVPB SCH (17:40)
[2016-12-07] MEDS: ACYCLOVIR IVPB SCH (17:40)
[2016-12-07] MEDS: WATER IVPB SCH (17:40)
--- NOTE | 2016-12-07 17:46 | EEG/EMG/Oth Biometrics Report ---
EEG Procedure Report Date of procedure: 12/07/16 Procedure Note: This EEG was acquired with standard international 10-20 electrode placement system. The background activity during the tracing was replaced by persistent diffuse delta slowing with a minimum reactivity. No clear sleep structures were identified. There are no electrographic seizures identified. No epileptiform discharges or focal slowing noted during the recording. Photic stimulation produced no additional abnormalities. EKG tracing showed no significant cardiac dysarrhythmia. Impression: This is a severely abnormal EEG due to presence of severe diffuse background slowing. No electrographic seizures, no epileptiform discharges and no focal slowing noted. Clinical correlation: This EEG is consistent with a severe diffuse neuronal dysfunction that can be seen in patients with diffuse encephalopathy, metabolic/ toxic abnormalities, electrolyzes derangements, anoxic/ischemic brain injury, the results of sedatives, hypo-thermia or post-ictal, tansient diffuse suppression after generalized seizure activity. Clinical correlation is advised
[2016-12-07] MEDS: Vasopressin 40 UNIT in D5% in Water 100 ML IV SCH (23:57)
[2016-12-08] MEDS: PrismaSATE BGK 4/2.5 5,000 ML CRRT SCH ×7 (00:01→10:35)
[2016-12-08 00:12] LABS: Albumin/Globulin Ratio 0.7 (1.1-2.2); Bilirubin,Total 0.3 mg/dL (0.2-1.2); Globulin 2.5 g/dL (2.4-3.5); Potassium 3.2 mEq/L (3.5-4.5); Total Protein 4.2 g/dL (6.0-8.3)
[2016-12-08 00:17] LABS: Albumin 1.7 g/dL (3.5-5.0); Calcium 7.2 mg/dL (8.6-10.8)
[2016-12-08 00:24] LABS: Hematocrit 31.3 % (35.3-44.9); Hemoglobin 10.7 g/dL (11.5-15.4); Immature Platelets 10.9 % (1.1-6.1); Mean Corpuscular HGB Conc 34.2 g/dL (31.6-35.5); Mean Corpuscular Hemoglobin 31.6 pg (28.0-33.3); Mean Platelet Volume 11.9 fL (9.4-12.4); Monocytes # 0.4 K/mcL (0.0-1.3); Red Blood Count 3.39 M/mcL (3.82-4.97)
[2016-12-08 00:25] LABS: Mean Corpuscular Volume 92.3 fL (83.0-100.0); Platelet Count 71 K/mcL (140-400)
[2016-12-08 00:26] LABS: ABG Base Excess -6.1 mEq/L (-2.0 to 3.0); ABG HCO3 21.4 mEQ/L (21-27); ABG Oxygen Saturation 65 % (95-98); ABG PCO2 51 mmHg (35-45); ABG PH 7.23 pH Units (7.32-7.45)
[2016-12-08 00:31] LABS: ABG PO2 41 mmHg (85-104); Blood Gas FiO2 100 %; Blood Gas PEEP 10 cm H2O; Blood Gas Respiration Rate 22; Blood Gas VT 450 cc
[2016-12-08 00:45] LABS: Lymphocytes # 0.4 K/mcL (0.6-4.6); Neutrophils # 2.1 K/mcL (1.6-8.9); Platelet Estimate Decreased (Normal)
[2016-12-08] MEDS ORDERED: Potassium Chloride Elixir 20 MEQ/15 ML UDC GTUBE ONE (00:48)
[2016-12-08] MEDS: Norepinephrine 8 MG in D5% in Water 500 ML IVC SCH ×3 (01:41→12:13)
[2016-12-08] MEDS: Piperacillin/Tazobactam 3.375 GM in D5% in Water (Mini-Bag+) 100 ML IVPB SCH ×2 (02:12→10:29)
[2016-12-08] MEDS ORDERED: Albumin 25% 25gram/100mL 25 GM/100 ML IV.SOLN IVPB ONE (03:10)
[2016-12-08] MEDS ORDERED: EPINEPHrine 1 MG in D5% in Water 250 ML IVC SCH (03:15)
[2016-12-08] MEDS: 0.9 % Sodium Chloride 1,000 ML IVC SCH (03:33)
[2016-12-08] MEDS: Sodium Bicarbonate 150 MEQ in D5% in Water 1,000 ML IVC SCH (03:34)
[2016-12-08] MEDS: ACYCLOVIR IVPB SCH (03:52)
[2016-12-08] MEDS: WATER IVPB SCH (03:52)
[2016-12-08] MEDS: D5 IVPB SCH (03:52)
--- NOTE | 2016-12-08 03:53 | Critical Care Progress Note ---
Critical Care Note - Narrative Summary: The high probability of a clinically significant, sudden or life threatening deterioration of the patient's condition required my full and direct attention, intervention and personal management. Discussed condition with son and dtr. Wishes to convert patient to DNRCCA. Family requested for radiotelegraph operator servicer at bedside Will continue maximal support Hypotensive shock , sepsis Hypoxic respiratory failure with persistent hypoxia despite vent support Acute gabriele failure on CRRT A/P - Albumin, fluid - tobramycin to broaden coverage - add epi to levo, vaso - Calcium, bicarb Was code activated?: No - CC Time CC total mins: 25
[2016-12-08] MEDS: Lacri-Lube 3.5 GM TUBE BOTH EYES SCH ×3 (03:58→12:14)
[2016-12-08] MEDS ORDERED: TOBRAMYCIN SULF IVPB ONE (04:00)
[2016-12-08] MEDS ORDERED: D5 IVPB ONE (04:00)
[2016-12-08] MEDS ORDERED: WATER IVPB SCH (04:00)
[2016-12-08] MEDS ORDERED: WATER IVPB ONE (04:00)
[2016-12-08] MEDS ORDERED: D5 IVPB SCH (04:00)
[2016-12-08] MEDS ORDERED: TOBRAMYCIN SULF IVPB SCH (04:00)
[2016-12-08 04:39] LABS: Hematocrit 29.6 % (35.3-44.9); Hemoglobin 9.8 g/dL (11.5-15.4); Immature Platelets 13.1 % (1.1-6.1); Mean Corpuscular HGB Conc 33.1 g/dL (31.6-35.5); Mean Corpuscular Hemoglobin 30.5 pg (28.0-33.3); Mean Corpuscular Volume 92.2 fL (83.0-100.0); Nucleated Red Blood Cells 1.4 /100 WBC (0); Red Blood Count 3.21 M/mcL (3.82-4.97); Red Cell Distribution Width 14.9 % (11.5-14.5)
[2016-12-08 04:53] LABS: Prothrombin Time 22.2 Seconds (9.4-12.1)
[2016-12-08 05:02] LABS: Alanine Aminotransferase 30 Units/L (0-55); Alkaline Phosphatase 93 Units/L (38-126); Aspartate Amino Transferase 51 Units/L (5-34); BUN/Creatinine Ratio 9 (6-26); Bilirubin,Direct 0.2 mg/dL (0.0-0.5); Bilirubin,Indirect 0.1 mg/dL (0.0-1.2); Blood Urea Nitrogen 25 mg/dL (7-20); Calcium 7.6 mg/dL (8.6-10.8); Carbon Dioxide 20 mEq/L (19-29); Chloride 105 mEq/L (98-109); Globulin 2.3 g/dL (2.4-3.5); Glucose 422 mg/dL (70-99); Magnesium 1.4 mg/dL (1.6-2.6); Osmolality,Calculated 308 (280-300); Phosphorous 3.7 mg/dL (2.3-4.7); Potassium 3.4 mEq/L (3.5-4.5); Sodium 138 mEq/L (136-145); Total Protein 4.7 g/dL (6.0-8.3); eGFR For African Americans 21 (> 60); eGFR For Non-African Americans 18 (> 60)
[2016-12-08 05:03] LABS: Albumin 2.4 g/dL (3.5-5.0); Bilirubin,Total < 0.3 mg/dL (0.2-1.2)
[2016-12-08 05:15] LABS: Activated Partial Thrombo Time 145.2 Seconds (26.0-36.0)
[2016-12-08 05:22] LABS: Heparin anti-factor XA UFH 0.35 IU/mL (0.30-0.70)
[2016-12-08 05:23] LABS: Platelet Count 64 K/mcL (140-400)
[2016-12-08 05:26] LABS: Lymphocytes # 0.2 K/mcL (0.6-4.6); Monocytes # 0.4 K/mcL (0.0-1.3); Neutrophils # 2.5 K/mcL (1.6-8.9); Platelet Estimate Decreased (Normal)
[2016-12-08] MEDS: Insulin LISPRO 300 UNITS/3 ML VIAL SQ SCH ×2 (05:33→12:14)
[2016-12-08] MEDS: *HR* Heparin 5,000 UNIT/ML VIAL SQ SCH (05:36)
[2016-12-08] MEDS: 0.9 % Sodium Chloride 1,000 ML PRIME SCH ×3 (05:37→05:39)
[2016-12-08] MEDS ORDERED: 0.9 % Sodium Chloride 1,000 ML PRIME PRN (05:44)
[2016-12-08] MEDS: Pantoprazole 40 MG VIAL IVPB SCH (05:47)
[2016-12-08] MEDS: Hydrocortisone Sodium Succ 100 MG/2 ML VIAL IVP SCH ×2 (05:47→13:23)
[2016-12-08] MEDS ORDERED: Vancomycin 1,250 MG in D5% in Water 250 ML IVPB ONE (06:00)
[2016-12-08] MEDS: Chlorhexidine Rinse 15 ML MOUTHWASH MM SCH (07:56)
[2016-12-08] MEDS: Docusate Oral Soln 100 MG/10 ML UDC GTUBE SCH (07:56)
--- NOTE | 2016-12-08 07:59 | Pulmonology Progress Note ---
<TaeEnrique W - Last Filed: 12/08/16 13:53> Date of Encounter: 12/08/16 Objective PUL Vital signs: Last Vital Signs Temp 86.2 F L 12/08/16 13:09 Pulse 94 12/08/16 13:09 Resp 29 12/08/16 13:09 BP 86/63 12/08/16 13:09 Pulse Ox 96 12/08/16 13:09 Ventilator Settings Ventilator Settings: Ventilator Settings, Last 8 Hours Ventilator Mode A/C Ventilator Mode A/C Ventilator Mode A/C Ventilator Mode A/C Ventilator Mode A/C Ventilator Mode A/C Ventilator Mode A/C Ventilator Mode A/C Ventilator Mode A/C Ventilator Mode A/C Ventilator Mode A/C Ventilator Mode A/C Ventilator Mode A/C Ventilator Tidal Volume 370 Setting Ventilator Tidal Volume 370 Setting Ventilator Tidal Volume 370 Setting Ventilator Tidal Volume 370 Setting Ventilator Tidal Volume 370 Setting Ventilator Tidal Volume 370 Setting Ventilator Tidal Volume 370 Setting Ventilator Tidal Volume 370 Setting Ventilator Tidal Volume 370 Setting Ventilator Tidal Volume 370 Setting Ventilator Tidal Volume 370 Setting Ventilator Tidal Volume 370 Setting Ventilator Tidal Volume 400 Setting Ventilator Respiratory Rate 30 Setting Ventilator Respiratory Rate 30 Setting Ventilator Respiratory Rate 30 Setting Ventilator Respiratory Rate 26 Setting Ventilator Respiratory Rate 26 Setting Ventilator Respiratory Rate 26 Setting Ventilator Respiratory Rate 26 Setting Ventilator Respiratory Rate 26 Setting Ventilator Respiratory Rate 26 Setting Ventilator Respiratory Rate 26 Setting Ventilator Respiratory Rate 26 Setting Ventilator Respiratory Rate 26 Setting Actual Respiratory Rate 32 Actual Respiratory Rate 32 Actual Respiratory Rate 32 Actual Respiratory Rate 27 Actual Respiratory Rate 27 Actual Respiratory Rate 26 Actual Respiratory Rate 27 Actual Respiratory Rate 27 Actual Respiratory Rate 26 Actual Respiratory Rate 27 Actual Respiratory Rate 27 Actual Respiratory Rate 26 Positive End Expiratory 14 Pressure Positive End Expiratory 14 Pressure Positive End Expiratory 14 Pressure Positive End Expiratory 14 Pressure Positive End Expiratory 14 Pressure Positive End Expiratory 14 Pressure Positive End Expiratory 14 Pressure Positive End Expiratory 14 Pressure Positive End Expiratory 14 Pressure Positive End Expiratory 14 Pressure Positive End Expiratory 14 Pressure Positive End Expiratory 14 Pressure Positive End Expiratory 14 Pressure Peak Inspiratory Airway 34 Pressure Peak Inspiratory Airway 34 Pressure Peak Inspiratory Airway 34 Pressure Peak Inspiratory Airway 36 Pressure Peak Inspiratory Airway 36 Pressure Peak Inspiratory Airway 30 Pressure Peak Inspiratory Airway 36 Pressure Peak Inspiratory Airway 36 Pressure Peak Inspiratory Airway 34 Pressure Peak Inspiratory Airway 36 Pressure Peak Inspiratory Airway 36 Pressure Peak Inspiratory Airway 39 Pressure Results - Laboratory Findings CBC and BMP: 12/08/16 04:08 12/08/16 09:20 ABG ABG pH 7.13 pH Units (7.32-7.45) L* 12/08/16 10:17 ABG pCO2 65 mmHg (35-45) H 12/08/16 10:17 ABG pO2 103 mmHg (85-104) 12/08/16 10:17 ABG O2 Saturation 96 % (95-98) 12/08/16 10:17 PT/INR, D-dimer PT 18.0 Seconds (9.4-12.1) H 12/08/16 09:20 Abnormal lab findings: Abnormal lab results WBC 3.7 K/mcL (4.3-11.1) L 12/08/16 04:08 RBC 3.21 M/mcL (3.82-4.97) L 12/08/16 04:08 Hgb 9.8 g/dL (11.5-15.4) L 12/08/16 04:08 Hct 29.6 % (35.3-44.9) L 12/08/16 04:08 RDW 14.9 % (11.5-14.5) H 12/08/16 04:08 Plt Count 64 K/mcL (140-400) L 12/08/16 04:08 MPV 13.0 fL (9.4-12.4) H 12/08/16 04:08 Band Neutrophils % 18.0 % (0-4) H 12/08/16 04:08 Metamyelocytes % 8.0 % (0) H 12/08/16 04:08 Myelocytes % 6.0 % (0) H 12/08/16 04:08 Promyelocytes % 2.0 % (0) H 12/08/16 04:08 Lymphocytes # 0.2 K/mcL (0.6-4.6) L 12/08/16 04:08 Nucleated RBCs/100 WBC 1.4 /100 WBC (0) H 12/08/16 04:08 Platelet Estimate Decreased (Normal) L 12/08/16 04:08 Immature Plt Fraction 13.1 % (1.1-6.1) H 12/08/16 04:08 PT 18.0 Seconds (9.4-12.1) H 12/08/16 09:20 APTT 89.7 Seconds (26.0-36.0) H 12/08/16 09:20 ABG pH 7.13 pH Units (7.32-7.45) L* 12/08/16 10:17 ABG pCO2 65 mmHg (35-45) H 12/08/16 10:17 ABG Base Excess -8.0 mEq/L (-2.0 to 3.0) L 12/08/16 10:17 VBG pH < 6.80 pH Units (7.32-7.42) L* 12/07/16 00:04 VBG pCO2 20 mmHg (41-51) L 12/07/16 00:04 VBG pO2 243 mmHg (25-40) H 12/07/16 00:04 VBG HCO3 4.2 mEq/L (21-27) L 12/07/16 00:04 Creatinine 1.91 mg/dL (0.57-1.11) H 12/08/16 09:20 Est GFR ( Amer) 32 (> 60) L 12/08/16 09:20 Est GFR (Non-Af Amer) 27 (> 60) L 12/08/16 09:20 Glucose 267 mg/dL (70-99) H 12/08/16 09:20 POC Glucose 283 (58-89) H 12/07/16 23:03 Serum Osmolality 349 mOsm/kg (280-300) H 12/06/16 19:39 Lactic Acid 4.1 mmol/L (0.5-2.2) H* 12/08/16 04:08 Uric Acid 9.5 mg/dL (2.6-6.0) H 12/07/16 13:46 Calcium 7.4 mg/dL (8.6-10.8) L 12/08/16 09:20 Ionized Calcium 1.02 mmol/L (1.15-1.35) L 12/08/16 09:20 Magnesium 1.4 mg/dL (1.6-2.6) L 12/08/16 04:08 AST 53 Units/L (5-34) H 12/08/16 09:20 Creatine Kinase 2993 Units/L (29-168) H 12/07/16 13:46 Troponin I 1.02 ng/mL (0-0.03) H* 12/08/16 07:10 Serum Total Protein 4.9 g/dL (6.0-8.3) L 12/08/16 09:20 Albumin 2.2 g/dL (3.5-5.0) L 12/08/16 09:20 Albumin/Globulin Ratio 0.8 (1.1-2.2) L 12/08/16 09:20 Lipase 690 Units/L (8-78) H 12/07/16 19:50 Beta-Hydroxybutyric Acd > 2.00 mmol/L (0.02-0.27) H 12/07/16 13:40 Free T4 0.42 ng/dl (0.70-1.48) L 12/07/16 01:20 Thyroxine (T4) 1.99 mcg/dL (4.87-11.72) L 12/07/16 01:20 Urine Protein 100 mg/dL (Neg-Trace) H 12/06/16 21:10 Urine Glucose (UA) 100 mg/dL (Normal) H 12/06/16 21:10 Urine Blood Trace (Negative) H 12/06/16 21:10 Urine Microscopic RBC 3-5 per hpf (0-3) H 12/06/16 21:10 Ur Squamous Epith Cells Many per lpf (None-Few) H 12/06/16 21:10 Protein/Creatinin Ratio 0.64 mg/mg (0-0.20) H 12/07/16 01:15 Urine Total Protein 47 mg/dL (1-14) H 12/07/16 01:15 CSF Tot Nucleated Cells 6 TNC/mcL (0-5) H 12/07/16 13:08 CSF Glucose 214 mg/dL (40-70) H 12/07/16 13:08 CSF Total Protein 90 mg/dL (15-45) H 12/07/16 13:08 Salicylates < 5.0 mg/dL (15-30) L 12/06/16 19:49 Urine Opiates Screen Positive ng/mL (Nykpeb=435) H 12/06/16 21:10 Acetaminophen < 1.0 mcg/mL (10-30) L 12/06/16 19:49 - Microbiology Findings Microbiology Findings: Microbiology, Last 48 Hours 12/07/16 13:08 CSF Culture - Preliminary Cerebral Spinal Fluid 12/07/16 15:00 Bronchial Aspirate Culture - Preliminary Bilateral Bronch Washings Gram Negative [place] 12/07/16 02:15 Blood Culture - Preliminary Central Venous Catheter No growth. - Clinical Findings Intake & Output: Intake & Output 12/07/16 12/08/16 12/08/16 23:59 07:59 15:59 Intake Total 1520 / 1520 1661.75 / 1661.75 680 / 680 Output Total 1129 / 1129 274 / 274 757 / 757 Balance 391 / 391 1387.75 / 1387.75 -77 / -77 Weight 76.4 kg Consult Discharge Plan - Plan Referrals: NONE,PCP [Primary Care Provider] - - Attending Attestation I examined this patient and my medical decision-making was reviewed with the Resident Physician. I agree with the documented findings, disposition and treatment plan as described except to the extent set forth below. I spent 45min of Critical Care time with this patient. It involved decision making of high complexity to assess, manipulate, and support vital organ system failure and/or to prevent further life threatening deterioration of the patient' s condition. The time involved in the performance of separately reportable procedures was not counted toward critical care time. Patient seen and examined at bedside Labs, radiology, chart personally reviewed. All lines examined without evidence of infection. Management was reviewed during multidisciplinary critical care rounds. Neuropsych: Concern for anoxic brain injury versus critical illness encephalopathy EEG done yesterday notable for severe neuronal injury without evidence of epileptiform activity; sedation has been turned off and she still is not having any purposeful movement or clear evidence of brainstem function; lumbar puncture performed yesterday not suggestive of acute bacterial meningitis Pulm: Severe hypoxemic hypercarbic respiratory failure with progression to ARDS this is likely secondary to underlying pneumonia for which she is being treated I adjusted the ventilator for low tidal volume ventilatory strategy with increased respiratory rate permissive hypercapnia peak and plateau pressures are acceptable today she is receiving high amount of ventilatory support including FiO2 of 80% and PEEP of 14. She was severely hypoxemic over the evening which had lasted greater than 20 minutes. Cards: Severe refractory distributive shock secondary with progression to MOSF s /t sepsis and acidemia she is on 2 pressors which are very high doses stress dose steroids have been added she has a elevated troponin which is likely a manifestation of demand ischemia; we are monitoring her mean arterial pressure via indwelling arterial catheter FEN-GI: Nothing by mouth for now GI prophylaxis given evidence of pancreatitis and ischemic hepatitis Renal: Acute on chronic kidney injury with progression to kourtney failure complicated by severe metabolic acidosis requiring continuous renal replacement therapy which is being continued at this time we are replacing electrolytes per protocol nephrology following ID: Septic shock secondary to what appears to be aspiration pneumonia cultures pending she is on broad-spectrum antibiotics Heme/Onc: She has evidence of thrombocytopenia chronic anemia and coagulopathy we are holding DVT prophylaxis with us reason for her bleeding risk continue mechanical DVT prophylaxis at this time Endo: Continue stress dose steroids for refractory shock glucose continued to be monitored Integ/MSK: Skin care per ICU protocol to prevent ulcers unfortunately she has evidence of worsening mottling of the extremities related to vasopressor use CODE:[facility] prognosis is extremely poor I updated her health care proxies including her 2 adult children and grandson I have also discussed with the larger extended family about the severity of her condition we will also asked the palliative care services to help us manage expectations and goals of care <Poornima Sofia-My - Last Filed: 12/08/16 17:44> Date of Encounter: 12/08/16 Time of Encounter: 10:00 Assessment and Plan (1) Septic shock Current Visit: Yes Status: Acute Septic shock possibly secondary to aspiration pneumonia. Cultures pending. Chest x-ray indicate by bilateral pleural effusions is suspected. Patient is currently on Zosyn and vancomycin. Patient has severe refractory distributive shock secondary to sepsis and metabolic acidosis. Patient has an elevated troponin today. She is currently on 2 pressors. An arterial line was placed today in her left arm in order to monitor her mean arterial pressure. Labs indicated thrombocytopenia chronic anemia and coagulopathy. Therefore, we are holding DVT prophylaxis. Continue mechanically DVT prophylaxis. Family change the patients code status to DNR cc today. Palliative care is consulted. Discussed with family later on today about with drawl of care. (2) Metabolic acidosis Current Visit: Yes Status: Acute Anion gap metabolic acidosis may be secondary to unknown ingestion or infection. Osmolar gap is present. CSF results indicate no meningitis or presence of bacteria growth in CSF. Per neurologist note, EEG was consistent with a severe diffuse neuronal dysfunction that can be seen in patients with diffuse encephalopathy, metabolic/toxic abnormalities, electrolyzes derangements , anoxic/ischemic brain injury, the results of sedatives, hypo-thermia or post- ictal, tansient diffuse suppression after generalized seizure activity. Continue to monitor the patient closely. (3) Respiratory failure with hypoxia and hypercapnia Current Visit: Yes Status: Acute Respiratory failure with hypoxia and hypercapnia with progression to acute respiratory distress syndrome possibly secondary to underlying pneumonia. Patient is currently on antibiotics. Patient is currently on ventilatory support. Overnight, the patient became severely hypoxic. The patient was bagged for 36 minutes twice: once at around 11:00 p.m and the second time around 3:00 am. Continue ventilatory support. Continue to monitor the patient closely. Qualifiers: Chronicity: acute on chronic Qualified Code(s): J96.21 - Acute and chronic respiratory failure with hypoxia; J96.22 - Acute and chronic respiratory failure with hypercapnia (4) Tfzxx-ab-vvyycso kidney injury Current Visit: Yes Status: Acute Acute on chronic kidney injury with progression to kidney failure. This is possibly secondary to septic shock and/or severe metabolic acidosis. Patient is requiring continuous renal replacement therapy which is being continued. Electrolytes protocol is followed. Nephrology is following. Qualifiers: Acute renal failure type: unspecified Chronic kidney disease stage: stage 3 (moderate) Qualified Code(s): N17.9 - Acute kidney failure, unspecified; N18.3 - Chronic kidney disease, stage 3 (moderate) (5) Seizure Current Visit: Yes Status: Acute Per neurologists notes, EEG was consistent with a severe diffuse neuronal dysfunction that can be seen in patients with diffuse encephalopathy, metabolic/ toxic abnormalities, electrolyzes derangements, anoxic/ischemic brain injury, the results of sedatives, hypo-thermia or post-ictal, tansient diffuse suppression after generalized seizure activity. (6) Sacral decubitus ulcer Current Visit: Yes Status: Acute [employer] per ICU protocol. Qualifiers: Pressure ulcer stage: unstageable Qualified Code(s): L89.150 - Pressure ulcer of sacral region, unstageable Objective PUL Vital signs: Last Vital Signs Temp 96.8 F L 12/08/16 04:00 Pulse 94 12/08/16 07:00 Resp 27 12/08/16 07:00 BP 114/73 12/08/16 07:00 Pulse Ox 96 12/08/16 07:00 General appearance: other (Patient intubated and sedated. ) Eyes: icteric ENT: other Neck: supple, no lymphadenopathy, no JVD Effort: normal Auscultation: bilateral: diminished breath sounds, wheezes, rhonchi Cardiovascular: regular rate and rhythm Gastrointestinal: soft, non-tender, non-distended Integumentary: rash (Rashes present on entire right forearm), decubitus ulcer ( Decubitus ulcer present on the lower back) Extremities: cyanosis (Cyanosis of the bilateral hands and right foot. No Capillary refill. ), other (Patient has mottling of bilateral hands,breasts, knees, and right leg. ) Musculoskeletal: other (Left below knee amputation ) unable to assess due to mental status Ventilator Settings Ventilator Settings: Ventilator Settings, Last 8 Hours Ventilator Mode A/C Ventilator Mode A/C Ventilator Mode A/C Ventilator Mode A/C Ventilator Mode A/C Ventilator Mode A/C Ventilator Mode A/C Ventilator Mode A/C Ventilator Mode A/C Ventilator Mode A/C Ventilator Mode A/C Ventilator Mode A/C Ventilator Mode A/C Ventilator Mode A/C Ventilator Tidal Volume 370 Setting Ventilator Tidal Volume 400 Setting Ventilator Tidal Volume 400 Setting Ventilator Tidal Volume 450 Setting Ventilator Tidal Volume 450 Setting Ventilator Tidal Volume 450 Setting Ventilator Tidal Volume 450 Setting Ventilator Tidal Volume 450 Setting Ventilator Tidal Volume 450 Setting Ventilator Tidal Volume 450 Setting Ventilator Tidal Volume 450 Setting Ventilator Tidal Volume 450 Setting Ventilator Tidal Volume 450 Setting Ventilator Tidal Volume 450 Setting Ventilator Respiratory Rate 26 Setting Ventilator Respiratory Rate 26 Setting Ventilator Respiratory Rate 26 Setting Ventilator Respiratory Rate 22 Setting Ventilator Respiratory Rate 22 Setting Ventilator Respiratory Rate 22 Setting Ventilator Respiratory Rate 22 Setting Ventilator Respiratory Rate 22 Setting Ventilator Respiratory Rate 22 Setting Ventilator Respiratory Rate 22 Setting Ventilator Respiratory Rate 22 Setting Ventilator Respiratory Rate 22 Setting Ventilator Respiratory Rate 22 Setting Ventilator Respiratory Rate 22 Setting Actual Respiratory Rate 27 Actual Respiratory Rate 26 Actual Respiratory Rate 26 Actual Respiratory Rate 22 Actual Respiratory Rate 22 Actual Respiratory Rate 22 Actual Respiratory Rate 22 Actual Respiratory Rate 22 Actual Respiratory Rate 22 Actual Respiratory Rate 22 Actual Respiratory Rate 22 Actual Respiratory Rate 22 Positive End Expiratory 14 Pressure Positive End Expiratory 14 Pressure Positive End Expiratory 14 Pressure Positive End Expiratory 10 Pressure Positive End Expiratory 10 Pressure Positive End Expiratory 10 Pressure Positive End Expiratory 10 Pressure Positive End Expiratory 10 Pressure Positive End Expiratory 10 Pressure Positive End Expiratory 10 Pressure Positive End Expiratory 10 Pressure Positive End Expiratory 10 Pressure Positive End Expiratory 10 Pressure Positive End Expiratory 10 Pressure Peak Inspiratory Airway 36 Pressure Peak Inspiratory Airway 39 Pressure Peak Inspiratory Airway 41 Pressure Peak Inspiratory Airway 35 Pressure Peak Inspiratory Airway 35 Pressure Peak Inspiratory Airway 38 Pressure Peak Inspiratory Airway 37 Pressure Peak Inspiratory Airway 37 Pressure Peak Inspiratory Airway 36 Pressure Peak Inspiratory Airway 35 Pressure Peak Inspiratory Airway 34 Pressure Peak Inspiratory Airway 34 Pressure Results - Laboratory Findings CBC and BMP: 12/08/16 04:08 12/08/16 09:20 ABG ABG pH 7.23 pH Units (7.32-7.45) L 12/08/16 00:19 ABG pCO2 51 mmHg (35-45) H 12/08/16 00:19 ABG pO2 41 mmHg (85-104) L* 12/08/16 00:19 ABG O2 Saturation 65 % (95-98) L 12/08/16 00:19 PT/INR, D-dimer PT 22.2 Seconds (9.4-12.1) H D 12/08/16 04:08 Abnormal lab findings: Abnormal lab results WBC 3.7 K/mcL (4.3-11.1) L 12/08/16 04:08 RBC 3.21 M/mcL (3.82-4.97) L 12/08/16 04:08 Hgb 9.8 g/dL (11.5-15.4) L 12/08/16 04:08 Hct 29.6 % (35.3-44.9) L 12/08/16 04:08 RDW 14.9 % (11.5-14.5) H 12/08/16 04:08 Plt Count 64 K/mcL (140-400) L 12/08/16 04:08 MPV 13.0 fL (9.4-12.4) H 12/08/16 04:08 Band Neutrophils % 18.0 % (0-4) H 12/08/16 04:08 Metamyelocytes % 8.0 % (0) H 12/08/16 04:08 Myelocytes % 6.0 % (0) H 12/08/16 04:08 Promyelocytes % 2.0 % (0) H 12/08/16 04:08 Lymphocytes # 0.2 K/mcL (0.6-4.6) L 12/08/16 04:08 Nucleated RBCs/100 WBC 1.4 /100 WBC (0) H 12/08/16 04:08 Platelet Estimate Decreased (Normal) L 12/08/16 04:08 Immature Plt Fraction 13.1 % (1.1-6.1) H 12/08/16 04:08 PT 22.2 Seconds (9.4-12.1) H D 12/08/16 04:08 APTT 145.2 Seconds (26.0-36.0) H* D 12/08/16 04:08 ABG pH 7.23 pH Units (7.32-7.45) L 12/08/16 00:19 ABG pCO2 51 mmHg (35-45) H 12/08/16 00:19 ABG pO2 41 mmHg (85-104) L* 12/08/16 00:19 ABG O2 Saturation 65 % (95-98) L 12/08/16 00:19 ABG Base Excess -6.1 mEq/L (-2.0 to 3.0) L 12/08/16 00:19 VBG pH < 6.80 pH Units (7.32-7.42) L* 12/07/16 00:04 VBG pCO2 20 mmHg (41-51) L 12/07/16 00:04 VBG pO2 243 mmHg (25-40) H 12/07/16 00:04 VBG HCO3 4.2 mEq/L (21-27) L 12/07/16 00:04 Potassium 3.4 mEq/L (3.5-4.5) L 12/08/16 04:08 BUN 25 mg/dL (7-20) H 12/08/16 04:08 Creatinine 2.76 mg/dL (0.57-1.11) H 12/08/16 04:08 Est GFR ( Amer) 21 (> 60) L 12/08/16 04:08 Est GFR (Non-Af Amer) 18 (> 60) L 12/08/16 04:08 Glucose 422 mg/dL (70-99) H 12/08/16 04:08 POC Glucose 283 (58-89) H 12/07/16 23:03 Serum Osmolality 349 mOsm/kg (280-300) H 12/06/16 19:39 Calculated Osmolality 308 (280-300) H 12/08/16 04:08 Lactic Acid 4.1 mmol/L (0.5-2.2) H* 12/08/16 04:08 Uric Acid 9.5 mg/dL (2.6-6.0) H 12/07/16 13:46 Calcium 7.6 mg/dL (8.6-10.8) L 12/08/16 04:08 Ionized Calcium 1.05 mmol/L (1.15-1.35) L 12/08/16 04:08 Magnesium 1.4 mg/dL (1.6-2.6) L 12/08/16 04:08 AST 51 Units/L (5-34) H 12/08/16 04:08 Creatine Kinase 2993 Units/L (29-168) H 12/07/16 13:46 Serum Total Protein 4.7 g/dL (6.0-8.3) L 12/08/16 04:08 Albumin 2.4 g/dL (3.5-5.0) L D 12/08/16 04:08 Globulin 2.3 g/dL (2.4-3.5) L 12/08/16 04:08 Albumin/Globulin Ratio 1.0 (1.1-2.2) L 12/08/16 04:08 Lipase 690 Units/L (8-78) H 12/07/16 19:50 Beta-Hydroxybutyric Acd > 2.00 mmol/L (0.02-0.27) H 12/07/16 13:40 Free T4 0.42 ng/dl (0.70-1.48) L 12/07/16 01:20 Thyroxine (T4) 1.99 mcg/dL (4.87-11.72) L 12/07/16 01:20 Urine Protein 100 mg/dL (Neg-Trace) H 12/06/16 21:10 Urine Glucose (UA) 100 mg/dL (Normal) H 12/06/16 21:10 Urine Blood Trace (Negative) H 12/06/16 21:10 Urine Microscopic RBC 3-5 per hpf (0-3) H 12/06/16 21:10 Ur Squamous Epith Cells Many per lpf (None-Few) H 12/06/16 21:10 Protein/Creatinin Ratio 0.64 mg/mg (0-0.20) H 12/07/16 01:15 Urine Total Protein 47 mg/dL (1-14) H 12/07/16 01:15 CSF Tot Nucleated Cells 6 TNC/mcL (0-5) H 12/07/16 13:08 CSF Glucose 214 mg/dL (40-70) H 12/07/16 13:08 CSF Total Protein 90 mg/dL (15-45) H 12/07/16 13:08 Salicylates < 5.0 mg/dL (15-30) L 12/06/16 19:49 Urine Opiates Screen Positive ng/mL ([id number]) H 12/06/16 21:10 Acetaminophen < 1.0 mcg/mL (10-30) L 12/06/16 19:49 - Microbiology Findings Microbiology Findings: Microbiology, Last 48 Hours 12/07/16 13:08 CSF Culture - Preliminary Cerebral Spinal Fluid - Clinical Findings Intake & Output: Intake & Output 12/07/16 12/07/16 12/08/16 15:59 23:59 07:59 Intake Total 1520 / 1520 1561.75 / 1561.75 Output Total 1129 / 1129 274 / 274 Balance 391 / 391 1287.75 / 1287.75 Weight 75 kg 76.4 kg
[2016-12-08] MEDS ORDERED: 0.9 % Sodium Chloride 500 ML ONE (08:03)
--- NOTE | 2016-12-08 09:47 | Procedure Note ---
<Elvia Ortiz - Last Filed: 12/08/16 09:44> Date of procedure: 12/08/16 Pre-op diagnosis: Altered mental status, metabolic acidosis Post-op diagnosis: same Procedure: Left radial arterial line. Patient done under sterile conditions. Left breast was prepped with ChloraPrep. This was allowed to dry for approximately a minute. The area was sterilely prepped. The artery was visualized with ultrasound. One pass of the needle again successful cannulation of the left radial artery. Seldinger technique was used. The artery was not dilated. The cannula was placed into the artery without difficulty. The cannula was secured with 2 sutures. Tegaderm was placed over this. No complications were noted. Minimal blood loss. Anesthesia: none Surgeon: Elvia Ortiz Cytology Technologist: Toi Sofia Estimated blood loss (cc): 5 Pathology: none sent Condition: critical Disposition: ICU <Enrique Strong - Last Filed: 12/08/16 16:49> Procedure: Attending Attestation: I was available for the entire procedure
[2016-12-08 10:29] LABS: ABG HCO3 21.6 mEQ/L (21-27); ABG Oxygen Saturation 96 % (95-98); ABG PCO2 65 mmHg (35-45); ABG PO2 103 mmHg (85-104); ABG TCO2 23.6 mEq/L (20-26)
[2016-12-08 10:30] LABS: ABG PH 7.13 pH Units (7.32-7.45)
[2016-12-08 10:31] LABS: Blood Gas FiO2 100 %; Blood Gas Respiration Rate 14; Blood Gas VT 370 cc
[2016-12-08 10:38] LABS: INR 1.6
[2016-12-08 10:40] LABS: Activated Partial Thrombo Time 89.7 Seconds (26.0-36.0)
[2016-12-08 10:43] LABS: Ionized Calcium 1.02 mmol/L (1.15-1.35)
[2016-12-08 11:45] LABS: Albumin 2.2 g/dL (3.5-5.0); Albumin/Globulin Ratio 0.8 (1.1-2.2); Calcium 7.4 mg/dL (8.6-10.8); Globulin 2.7 g/dL (2.4-3.5); Potassium 3.5 mEq/L (3.5-4.5); Total Protein 4.9 g/dL (6.0-8.3)
[2016-12-08 12:02] LABS: Bilirubin,Total 0.4 mg/dL (0.2-1.2)
[2016-12-08] MEDS ORDERED: Potassium Chloride 40 MEQ/200 ML BAG IVPB PRN (12:14)
[2016-12-08] MEDS ORDERED: Magnesium Sulfate 2 GM in D5% in Water 100 ML IVPB PRN (12:14)
[2016-12-08] MEDS ORDERED: Potassium Phosphate 44 MEQ in 0.9 % Sodium Chloride 250 ML IVPB PRN (12:14)
[2016-12-08] MEDS ORDERED: Calcium Gluconate 1,000 MG in D5% in Water 100 ML IVPB PRN (12:14)
--- NOTE | 2016-12-08 13:09 | Nephrology Progress Note ---
Date of Encounter: 12/08/16 Time of Encounter: 13:05 - Assessment and Plan (1) Qktjn-er-pspfatu kidney injury Current Visit: Yes Status: Acute RENE on CKD 2nd to septic shock, rabdhomyolysis, anuric on CVVHDF continues to be acidotic: this is with initial bicarb drip and then starting on ARLETTE today has lactic acidosis and elevated troponin Patient's hemodynamic stable declining on two pressors still hypotensive, BAL + for gram negative cassandra on vanc and zosyn Plan: still anuric Continue CVVHDF Prismasate 4/2.5K bath rate 1500cc/hr Fluid goal Net even Patient's prognosis is very poor. Showing signs of end organ damage to multiple organs. Acidosis improved intitially to 7.23 but now pH 7.13, requiring elevated PEEP and FIO2 100%, Patient is now mottling. Qualifiers: Acute renal failure type: unspecified Chronic kidney disease stage: stage 3 (moderate) Qualified Code(s): N17.9 - Acute kidney failure, unspecified; N18.3 - Chronic kidney disease, stage 3 (moderate) (2) Septic shock Current Visit: Yes Status: Acute BAL: gram negative cassandra but cannot rule out other infectious causes end organ damage on two pressors and continues to be hypotensive prognosis poor on vanc and zosyn acyclovir and inhaled tobramycin (3) Rhabdomyolysis Current Visit: Yes Status: Acute presented with CK of 2000 on ARLETTE Qualifiers: Rhabdomyolysis type: traumatic Encounter type: initial encounter Qualified Code(s): T79.6XXA - Traumatic ischemia of muscle, initial encounter (4) Unresponsive Current Visit: Yes Status: Acute intubated and sedated (5) Metabolic acidosis Current Visit: Yes Status: Resolved Metabolic acidosis with respiratory compensation, osmolar gap, mixed acidosis etiology multifactorial -patient takes bicarb outpatient for NAGMA -lactic acid elevated now acetaminophin level WNL salicylates WNL ethanol level WNL B-hydroxybuteric >2 methanol and ethylene glycol levels ordered patient is started on NAC as per 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 She was started on vassopressin along with continuing levophed. Patient still remains hypotensive, intubated, sedated. Currently on CVVHDF. No urine output. Code status changed to DNR-CC-A. Objective - Vital Signs Vital signs: Vital Signs Temp Pulse Resp BP Pulse Ox 12/08/16 12:00 86.6 F L 92 31 94/65 96 12/08/16 11:32 30 103/65 96 12/08/16 11:10 90 30 86/64 97 12/08/16 10:00 87 27 82/58 98 12/08/16 09:30 26 82/55 100 12/08/16 09:00 88 27 85/57 100 12/08/16 08:00 94 26 91/76 96 12/08/16 07:49 26 91/76 100 12/08/16 07:00 88 26 114/73 96 12/08/16 06:00 93 26 135/89 100 12/08/16 05:20 26 82/51 48 12/08/16 05:00 90 22 91/54 76 12/08/16 04:04 22 92/56 81 12/08/16 04:00 96.8 F L 88 22 92/56 84 12/08/16 03:00 91 22 64/48 74 12/08/16 02:12 22 60/44 94 12/08/16 02:00 89 22 60/44 97 12/08/16 01:00 99 22 89/55 95 12/08/16 00:11 22 79/59 90 12/08/16 00:00 96.1 F L 92 22 79/50 87 12/07/16 23:00 96 22 61/45 91 12/07/16 22:36 22 64/41 91 12/07/16 22:00 101 22 94/56 98 12/07/16 21:00 103 22 101/59 100 12/07/16 20:28 100 12/07/16 20:05 22 92/47 99 12/07/16 20:00 95.3 F L 100 23 92/47 98 12/07/16 19:00 100 23 86/52 100 12/07/16 18:00 93 21 84/42 95 12/07/16 17:45 22 76/46 95 12/07/16 17:00 105 21 79/49 98 12/07/16 16:00 101 22 92/38 94 12/07/16 15:00 97.8 F 107 33 102/45 97 12/07/16 13:45 29 97 07/27/17 13:18 29 84/51 108 Intake and Output 12/07/16 12/08/16 12/08/16 23:59 07:59 15:59 Intake Total 1520 / 1520 1661.75 / 1661.75 578 / 578 Output Total 1129 / 1129 274 / 274 757 / 757 Balance 391 / 391 1387.75 / 1387.75 -179 / -179 Intake: IV Fluids 1520 / 1520 1661.75 / 1661.75 578 / 578 Calcium Chloride 4,000 MG 400 / 400 In 0.9 % Sodium Chloride 1,000 ML @ 40 mls/hr CRRT CONT JANELL Rx#: [id number] PrismaSATE BGK 4/2.5 5, 0 / 0 0 / 0 0 / 0 000 ML @ 1500 mls/hr CRRT CONT JANELL Rx#:[id number] Versed 50 MG In 0.9 % 100 / 100 70 / 70 Sodium Chloride 90 ML @ 2 MG/HR 4 mls/hr IVC CONT JANELL Rx#:[id number] Levophed 4 MG In Dextrose 500 / 500 250 / 250 5% 250 ML @ 4 MCG/MIN 15 mls/hr IVC CONT JANELL Rx#: [id number] Levophed 8 MG In Dextrose 508 / 508 508 / 508 5% 500 ML @ 4 MCG/MIN 15 .24 mls/hr IVC CONT JANELL Rx#:[id number] Sodium Bicarbonate 150 450 / 450 MEQ In Dextrose 5% 1,000 ML @ 100 mls/hr IVC . [id number] JANE[facility] Rx#: [id number] Zovirax 375 MG In 250 / 250 Dextrose 5% 250 ML @ 250 mls/hr IVPB Q12H [facility] Rx#: [id number] Flexbumin 25 gm In 100 ml 100 / 100 @ 60 mls/hr IVPB ONCE ONE Rx#:[id number] Calcium Gluconate 2,000 120 / 120 MG In Dextrose 5% 100 ML @ 220 mls/hr IVPB ONCE PRN Rx#:[id number] Zosyn 3.375 GM In 100 / 100 100 / 100 Dextrose 5% (Minibag+) 100 ML 100 ML @ 25 mls/hr IVPB Q8H [facility]ANE[facility] Rx#: [id number] Tobramycin Sulf 150 MG In 103.75 / 103.75 Dextrose 5% 100 ML @ 103 .75 mls/hr IVPB ONCE ONE Rx#:[id number] Rocephin 2,000 MG In 100 / 100 100 / 100 Dextrose 5% (Minibag+) 100 ML 100 ML @ 200 mls/ hr IVPB Q12H [facility] Rx#: [id number] Output: Urine 0 / 0 Arlette 1125 / 1125 234 / 234 757 / 757 Total Dialysis Output 38 / 38 Catheter 4 / 4 2 / 2 Other: Weight 76.4 kg Blood Glucose* 301 283 208 Patient Weight 12/08/16 23:59 Weight 76.4 kg - General Appearance General appearance: Present: sedated on ventilator, intubated Neck: Present: no JVD Additional Comments: coarse breathsounds anteriorly Cardiology: Present: no edema, regular rate, regular rhythm Gastrointestinal: Present: normoactive bowel sounds Additional Comments: left below knee amputation with stage one decubitus ulcer dressed. abrasions on right upper extremity. left radial arterial line. right internal jugular cvc, right femoral temp HD catheter. unstagable decubitus ulcer on sacrum. skin mottling lower extremities. Additional Comments: intubated and sedated. - Lab 12/08/16 04:08 12/08/16 09:20 Most recent lab results ABG pH 7.13 pH Units (7.32-7.45) L* 12/08/16 10:17 ABG pCO2 65 mmHg (35-45) H 12/08/16 10:17 ABG pO2 103 mmHg (85-104) 12/08/16 10:17 ABG HCO3 21.6 mEQ/L (21-27) 12/08/16 10:17 ABG O2 Saturation 96 % (95-98) 12/08/16 10:17 Calcium 7.4 mg/dL (8.6-10.8) L 12/08/16 09:20 Phosphorus 3.7 mg/dL (2.3-4.7) 12/08/16 04:08 Magnesium 1.4 mg/dL (1.6-2.6) L 12/08/16 04:08 Urine Creatinine 73 mg/dL 12/07/16 01:15 Urine Sodium 93.0 mEq/L 12/07/16 01:15 Urine Total Protein 47 mg/dL (1-14) H 12/07/16 01:15 Consult Discharge Plan - Plan Referrals: NONE,PCP [Primary Care Provider] -
[2016-12-08] MEDS: Vasopressin 40 UNIT in D5% in Water 100 ML IV SCH (13:29)
[2016-12-08] MEDS ORDERED: Atropine Sulfate 1% 40 DROP/2 ML BOTTLE SL PRN (15:22)
--- NOTE | 2016-12-08 15:58 | Palliative - Consult Note ---
Date of Encounter: 12/08/16 Time of Encounter: 11:30 - Assessment and Plan (1) RENE (acute kidney injury) Current Visit: No Status: Acute Assessment and plan: Currently on Faviola - nephrology is following (2) Septic shock Current Visit: Yes Status: Acute Assessment and plan: On vasopressors for blood pressure support, antibiotic therapy, respiratory support with ventilator. (3) Counseling regarding advanced care planning and goals of care Current Visit: Yes Status: Acute Assessment and plan: Met with multiple family members, including closet next of kin, son Misael, and daughter Serene. They are very emotional, and daughter on floor in hallway at first meeting. Upon chart review, pt was DNR/DNI on previous admissions, however, does not appear that state DNR form ever completed, and family does not remember having this paperwork at home. Son knows for sure he is financial POA, however, not sure if healthcare clause is in this document. Explained until we saw that both children would be responsible for medical decision making and they verbalized understanding. Family has met with Dr. Strong a couple of times today already and code status was changed to DNRCCA. Discussed briefly goals of care, and they need time to discuss. Provided emotional support. Palliative-CN HPI - Data of Consult Consult date: 12/08/16 Requesting Physician: Marlo Quintero Primary Care Provider: PCP NONE - Consult Narrative History of present illness: Ms. Gallegos is a 61 year old female with multiple medical problems, that was found unresponsive at home. Neighbors reportedly noticed foul smell from her apt, and squad was called. Patient was lying in dried stool. She was admitted to ICU, intubated on vent, and suspected to be in septic shock with multi-organ failure. On antibiotic therapy, vent support and pressors to keep her hemodynamically stable. Family at bedside providing information. She has son/ daughter as next of kin . Son is financial POA, however, they do not know if this covers her healthcare decision or not. She lives alone, and grandson at bedside ststes he checks on her every other day and sets up meals for her. They state she has done a "DNR" each time she comes to hospital. CC: Marlo Quintero Past Med Surg Social Fam HX - Past Medical History Medical history: CHF, COPD, CVA, diabetes, hyperlipidemia, hypertension, myocardial infarction, renal disease, other Psychiatric history: depression - Past Surgical History Surgical History: cholecystectomy, other (LLE BKA) - Social History Smoking Status: Current every day smoker Smokeless Tobacco Status: No Alcohol use: none Drug use: none - Family History Mother History Unknown: Yes Family Member Ethnicity: Non- Living Status: Still Living Hx Family Cardiac Disorders: Yes (HTN, HLD, Strokes) Hx Family Neuromuscular Disorders: Yes (CVA) Hx Family Neurologic Disorders: Yes (CVA) Father History Unknown: Yes Family Member Ethnicity: Non- Living Status: Hx Family Cardiac Disorders: Yes (HTN, HLD) Hx Family Endocrine Disorder: Yes (DM) Brother History Unknown: Yes Family Member Ethnicity: Non- Living Status: Hx Family Cardiac Disorders: Yes ([place], HD) Sister History Unknown: Yes Family Member Ethnicity: Non- Living Status: Hx Family Endocrine Disorder: Yes (DM) Medications and Allergies Insulin Glargine,Hum.rec.anlog [Lantus Solostar] 10 unit SQ HS 09/15/16 [History ] Cyanocobalamin (B-12) [Vitamin B12] 1,000 mcg PO DAILY #30 tablet 11/09/16 [Rx] Folic Acid 1 mg PO DAILY #30 tablet 11/09/16 [Rx] Omeprazole [PriLOSEC] 40 mg PO BIDAC #60 capsule. 11/09/16 [Rx] Sucralfate [Carafate] 1 gm PO QIDAC #120 tablet 11/09/16 [Rx] Acetaminophen [Tylenol] 650 mg PO Q6HR PRN tab 11/26/16 [Rx] Aspirin 81 mg PO DAILY 11/26/16 [Rx] Atorvastatin [Lipitor] 40 mg PO HS tab 11/26/16 [Rx] Escitalopram [Lexapro] 20 mg PO DAILY #30 tab 11/26/16 [Rx] HYDROcodone/Acet 5/325 mg [Hendrix 5-325 mg] 1 tab PO Q4HR PRN #15 tab 11/26/16 [ Rx] Insulin LISPRO [HumaLOG] 0 units SQ HS vial 11/26/16 [Rx] Insulin LISPRO [HumaLOG] 0 units SQ TIDAC vial 07/16/17 [Rx] Quetiapine Fumarate [Seroquel] 300 mg PO HS #30 tab 11/26/16 [Rx] amLODIPine [Norvasc] 10 mg PO DAILY tab 11/26/16 [Rx] Allergies No Known Allergies Allergy (Verified 11/11/16 13:55) ROS unobtainable: due to endotracheal tube, due to mental status Palliative Care-Exam - Constitutional Vitals: Temp Pulse Resp BP Pulse Ox 93.9 F L 100 28 85/61 96 12/08/16 15:00 12/08/16 15:00 12/08/16 15:00 12/08/16 15:00 12/08/16 15:00 - Head Head Exam: Present: normal inspection, normocephalic - Respiratory Respiratory exam: Present: rhonchi Additional comments: Remains on vent support - PEEP 12, FIO2 70%. - Cardiovascular Cardiovascular exam: Present: tachycardia - GI/Abdominal Exam GI/Abdominal exam: Present: diminished bowel sounds, soft - Catheter Type: Urethral (Frankel) Additional comments: Minimal urine in catheter tubing - Extremities Exam Additional comments: Old left AKA. - Neurological Exam Additional comments: Unresponsive to verbal/tactile stimuli - Expanded Neurological Exam Coma Scale Eye Opening: None Coma Scale Motor Response: None Coma Scale Verbal Response: None Coma Scale Total: 3 - Skin Additional comments: Mottling noted to all extremities, breasts Internal Medicine - CN: Reslt - Labs CBC & Chem 7: 12/08/16 04:08 12/08/16 09:20 Labs: Short CBC 12/07/16 12/07/16 12/08/16 Range/Units 01:20 23:49 04:08 WBC 4.1 L 3.1 L D 3.7 L (4.3-11.1) K/mcL Hgb 8.4 L 10.7 L D 9.8 L (11.5-15.4) g/dL Hct 28.4 L 31.3 L 29.6 L (35.3-44.9) % Plt Count 57 L 71 L 64 L (140-400) K/mcL Neutrophils # 3.7 2.1 2.5 (1.6-8.9) K/mcL BMP 12/07/16 12/08/16 12/08/16 23:49 04:08 09:20 Sodium 140 D 138 136 Potassium 3.2 L 3.4 L 3.5 Chloride 107 105 103 Carbon Dioxide 20 20 22 BUN 31 H D 25 H 18 Creatinine 3.38 H 2.76 H 1.91 H Glucose 396 H 422 H 267 H Calcium 7.2 L D 7.6 L 7.4 L Cardiac Enzymes 12/08/16 Range/Units 07:10 Troponin I 1.02 H* (0-0.03) ng/mL Liver Function 12/07/16 12/08/16 12/08/16 Range/Units 23:49 04:08 09:20 Total Bilirubin 0.3 < 0.3 0.4 (0.2-1.2) mg/dL Direct Bilirubin 0.2 (0.0-0.5) mg/dL AST 61 H 51 H 53 H (5-34) Units/L ALT 35 30 30 (0-55) Units/L Alkaline Phosphatase 115 93 92 (38-126) Units/L Albumin 1.7 L D 2.4 L D 2.2 L (3.5-5.0) g/dL - ABG Interpretation ABG results: ABG ABG pH 7.13 pH Units (7.32-7.45) L* 12/08/16 10:17 ABG pCO2 65 mmHg (35-45) H 12/08/16 10:17 ABG pO2 103 mmHg (85-104) 12/08/16 10:17 ABG O2 Saturation 96 % (95-98) 12/08/16 10:17 PT/INR, D-dimer PT 18.0 Seconds (9.4-12.1) H 12/08/16 09:20 - Impressions Impressions Lumbar Puncture 12/07/16 00:00 IMPRESSION: Successful diagnostic lumbar puncture without complication. Mild elevation of the opening pressure at 23 cm of water. D/ / 12/07/2016 14:03:01 Stephen Sagastume MD / [facility] Interpreting Provider: Stephen Sagastume MD Chest X-Ray 12/07/16 23:32 IMPRESSION: Bilateral airspace disease, new since earlier chest x-ray today, pulmonary edema and/or pneumonia. There is overall improved aeration of the right lung since the CT which showed complete opacification earlier today. D/ / Caitie Myrick Cha, MD / Caitie Myrick Cha, MD Interpreting Provider: Caitie Myrick Cha, MD Chest X-Ray 12/08/16 04:00 IMPRESSION: Airspace disease has improved in the right upper lobe, progressed in the left base, and is grossly stable in the right base. D/ / Cristian West MD / Cristian West MD Interpreting Provider: Cristian West MD Consult Discharge Plan - Plan Referrals: NONE,PCP [Primary Care Provider] - Palliative Quality Palliative Quality: Screen for Code Status: Yes, Screen for Goals of Care: Yes, Screen for Pain: NA, If Pain Regimen Started, Initiate Bowel Regimen: NA, Screen for Nausea/Vomitting: NA Code Status: 12/06/16 23:58 Resuscitation Status: Active [RES] Routine Comment: Resuscitation Status: Full Code 12/08/16 03:47 Resuscitation Status: Active [RES] Routine Comment: family consented DNRCCA Resuscitation Status: DNR-Comfort Care-Arrest 12/08/16 15:12 CODE [Resuscitation Status: Active] [RES] Routine Comment: Resuscitation Status: DNR-Comfort Care
--- NOTE | 2016-12-08 16:17 | Electrocardiograph Report ---
[address] [place] [address] Test Date: 2016-12-08 Pat Name: Kimberly Gallegos Department: 109 Room: [facility] Gender: F Topology Professor: RANDAL : 1955 Requested By: Toi Sofia Order Number: [id number] Reading MD: Dariela Hargrove Measurements Intervals Premier Rate: 94 P: 64 [place]: 166 QRS: 24 QRSD: 101 T: 191 QT: 350 QTc: 402 Interpretive Statements SINUS RHYTHM MODERATE T-WAVE ABNORMALITY, CONSIDER LATERAL ISCHEMIA Electronically Signed On 12-08-2016 16:15:00 EDT by Dariela Hargrove
[2016-12-08] MEDS ORDERED: *HR* LORazepam 2 MG/ML VIAL IVP PRN (16:53)
[2016-12-08] MEDS ORDERED: *HR* Morphine 2 MG/ML SYRINGE IVP PRN (16:54)
[2016-12-08 17:47] VITALS: BP 87/60
--- NOTE | 2016-12-08 17:47 | Death Note ---
<Lexie SofiaMy - Last Filed: 12/08/16 17:45> Discharge Sum: Summary - Date and Time Date of admission: 12/06/16 23:35 Date of : 12/08/16 Time of : 17:14 - Summary Details: 16:53, IV medications were turned off. Patient was extubated to 2 L of nasal cannula. Family is at bedside. Heart rate was not detected. No respirations were noted. Per Dr. Strong, time of was 17:14. - Additional Data Confirmation of as documented by pronouncing clinician: no pulse, no respirations Family: at bedside Attending/PCP notified?: Yes Attending physician: Marlo Quintero Was code activated?: No Autopsy requested?: No life claims examiner notified?: No Organ bank notified?: No Advance directives: No Hospice patient?: No Discharge Sum: Diag - PCOD Probable Cause of : Cardiorespiratory arrest Discharge Sum: Prov - Provider Primary care physician: PCP NONE Consults: 12/07/16 05:43 Consult to Pulmonology [CONS] Routine Consulting Provider: [facility] Reason for Consult: Acute respiratory failure Call Completed: Yes 12/07/16 16:37 Consult to Interpret Exam [CONS] Routine Consulting Provider: Rekha Sampson Consult to Interpret Exam: Interpret EEG 12/08/16 10:50 Consult to Palliative Care [CONS] Stat Comment: Consulting Provider: Palliative Care Jenn Reason for Consult: Withdrawal of care Call Completed: Yes - Attending Attestation Dr. Enrique Strong <Enrique Strong W - Last Filed: 12/09/16 06:38> Discharge Sum: Summary - Date and Time Date of admission: 12/06/16 23:35 - Additional Data Attending physician: Marlo Quintero Discharge Sum: Prov - Provider Primary care physician: PCP NONE Consults: 12/07/16 05:43 Consult to Pulmonology [CONS] Routine Consulting Provider: [facility] Reason for Consult: Acute respiratory failure Call Completed: Yes 12/07/16 16:37 Consult to Interpret Exam [CONS] Routine Consulting Provider: Rekha Sampson Consult to Interpret Exam: Interpret EEG 07/28/17 10:50 Consult to Palliative Care [CONS] Stat Comment: Consulting Provider: Palliative Care Jenn Reason for Consult: Withdrawal of care Call Completed: Yes - Attending Attestation I examined this patient and my medical decision-making was reviewed with the Resident Physician. I agree with the documented findings, disposition and treatment plan as described except to the extent set forth below. Patient critically ill as detailed in progress note over course of day with discussion with family it became evident that patient would not have wanted such heroic measures to be instituted and transition to comfort measures was made. Patient shortly after discontinuation of life support.
[2016-12-08] MEDS ORDERED: Aminoglycoside Consult 1 EACH MC ONE (19:01)
== END 2016-12-08 19:02 | disposition expired | DRG 871 ==
LOC: EMEROO 19:22 → ICNU 23:35
PROVIDERS: ADMIT Internal Medicine; ATTEND Internal Medicine